=== PATIENT | female | born 1980 | race Caucasian/White ===

== ENCOUNTER 2022-03-05 00:42 | Emergency (ER) | payer OTHER, SELFPAY ==
[2022-03-05] VITALS (15 sets, daily range): BP systolic 102–125; BP diastolic 65–85; PULSE 80–98; RESP 16–25; TEMP 36.6; O2SAT 93–99; BMI 26.6
--- OUTSIDE RECORDS SUMMARY | 2022-03-05 00:47 | XMS_ITS | Encounter Summary ---
:1980 Author Organization [place] Address [facility] [place] [address] Care Team Providers Name Role Phone Louise Brink MD Primary Care Provider Louise Brink MD Unavailable Louise Brink MD Unavailable Encounter Details Date Type Department Care Team Description 03/21/2018 E-Visit [facility] Louise Brink MD Sore throat (Primary Clinic [place] [address] Dx) [address] [place] [address] [place], [place] [phone] (Wo rk) [address] [phone] Social History Tobacco Use Types Packs/Day Years Used Date Smoking Tobacco: Never Smokeless Tobacco: Never Alcohol Use Standard Drinks/Week Comments Yes 0 (1 standard drink = 0.6 oz pure alcoho l) Sex Assigned at Date Recorded Female 10/26/2020 1:28 AM CDT documented as of this encounter Miscellaneous Notes Telephone Encounter - Dona Giron RN - 03/21/2018 11:57 AM CST Patient is coming in at 1:30. Float nurse/lab is aware. SAMPLER Telephone Encounter - Louise Brink MD - 03/21/2018 11:35 AM CST See if you can get her in real soon... I will be off the computer by ~ 2:30. SAMPLER Telephone Encounter - Louise Brink MD - 03/21/2018 11:23 AM CST See if you can help her schedule a nurse only appointment at any of the clinics (the one of her choice) for obtaining a swab of her throat. I do have an order placed. SAMPLER documented in this encounter Plan of Treatment Not on filedocumented as of this encounter Results Strep, Rapid Screen (03/21/2018 1:30 PM MILK SAMPLER) Component Value Ref Test Analysis Performed At [facility] Range Method Time Signature Specimen Throat [place] Description CLINICS [place] Rapid Strep A NEGATIVE: No 03/21/2018 [place] Screen Group A 1:40 PM MILK SAMPLER CLINICS streptococcal [place] antigen detected by immunoassay, await culture report. Specimen Anatomical Collection Method Collection Time Receive d Time (Source) Location / / Volume Laterality Specimen from 03/21/2018 1:30 PM 03/21/20 1:35 throat MILK SAMPLER PM MILK SAMPLER (specimen) Louise Brink MD LAB - MICRO GENERAL ORDERABL ES Performing Organization Address City/State/ZIP Code Phon e Number [facility] [address] [address] [place] [place] [address] documented in this encounter Visit Diagnoses Diagnosis Sore throat - Primary Acute pharyngitis documented in this encounter Additional Health Concerns Assessment Noted Time PHQ-9 Depression Total Score: 1 03/08/2018 5:01 PM CDT documented as of this encounter Care Teams Head Bellhop Captain Relationship Specialty Start Date End Date Louise Brink MD PCP - General Family Practice 07/29/13 09/07/21 [address] [id number] Louise Brink MD PCP - Assigned PCP 08/11/13 07/16/18 [address] [address] [address] Louise Brink MD Assigned PCP 08/11/13 10/21/21 [address] [address] [place] [id number] documented as of this encounter
--- OUTSIDE RECORDS SUMMARY | 2022-03-05 00:47 | XMS_ITS | Encounter Summary ---
:1980 Author Organization [place] Address [address] [place] [address]. [place] [address] Care Team Providers Name Role Phone Louise Brink MD Primary Care Provider Louise Brink MD Unavailable Reason for Visit Reason Onset Date Comments Refill Request 04/22/2019 trinessa Encounter Details Date Type Department Care Team Description 04/22/2019 Refill [facility] Louise Brink MD Refill Request Clinic [place] [address] (trinessa) [address] [address] [address] [place] [phone] (Wo rk) [address] [phone] Social History Tobacco Use Types Packs/Day Years Used Date Smoking Tobacco: Never Smokeless Tobacco: Never Alcohol Use Standard Drinks/Week Comments Yes 0 (1 standard drink = 0.6 oz pure alcoho l) Sex Assigned at Date Recorded Female 10/26/2020 1:28 AM CDT documented as of this encounter Plan of Treatment Not on filedocumented as of this encounter Visit Diagnoses Diagnosis Encounter for surveillance of contracept eleni pills Surveillance of previously prescribed co ntraceptive pill documented in this encounter Additional Health Concerns Assessment Noted Time PHQ-9 Depression Total Score: 1 05/30/2018 5:44 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
--- OUTSIDE RECORDS SUMMARY | 2022-03-05 00:47 | XMS_ITS | Encounter Summary ---
:1980 Author Organization [place] Address [address] [place] [address] Care Team Providers Name Role Phone Louise Brink MD Primary Care Provider Louise Brink MD Unavailable Louise Brink MD Unavailable Encounter Details Date Type Department Care Team Description 05/30/2018 Travel Social History Tobacco Use Types Packs/Day Years Used Date Smoking Tobacco: Never Smokeless Tobacco: Never Alcohol Use Standard Drinks/Week Comments Yes 0 (1 standard drink = 0.6 oz pure alcoho l) Sex Assigned at Date Recorded Female 10/26/2020 1:28 AM CDT documented as of this encounter Plan of Treatment Not on filedocumented as of this encounter Visit Diagnoses Not on filedocumented in this encounter Additional Health Concerns Assessment Noted Time PHQ-9 Depression Total Score: 1 05/30/2018 5:44 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
--- OUTSIDE RECORDS SUMMARY | 2022-03-05 00:47 | XMS_ITS | Encounter Summary ---
:1980 Author Organization [place] Address [address] [place] [address]. [address] Care Team Providers Name Role Phone Louise Brink MD Primary Care Provider Louise Brink MD Unavailable Reason for Visit Reason Comments Medication Refill Encounter Details Date Type Department Care Team Description 06/05/2021 Refill [facility] Louise Brink MD Medication Refill [place] [address] [place] [address] [address] [place] [address] [phone] Social History Tobacco Use Types Packs/Day Years Used Date Smoking Tobacco: Never Smokeless Tobacco: Never Alcohol Use Standard Drinks/Week Comments Yes 0 (1 standard drink = 0.6 oz pure alcoho l) Sex Assigned at Date Recorded Female 10/26/2020 1:28 AM CDT documented as of this encounter Miscellaneous Notes Telephone Encounter - Angel Christian RN - 06/07/2021 3:28 PM CST Previous patient of [facility]. Please review and advise on refill request. Angel Flores RN LATION ENGINEER documented in this encounter Plan of Treatment Not on filedocumented as of this encounter Visit Diagnoses Diagnosis Anxiety Anxiety state, unspecified documented in this encounter Additional Health Concerns Assessment Noted Time PHQ-9 Depression Total Score: 1 11/11/2020 1:39 PM CDT documented as of this encounter Care Teams Fur Feeder Relationship Specialty Start Date End Date Louise Brink MD PCP - General Family Practice 07/29/13 09/07/21 [address] [address] Louise Brink MD Assigned PCP 08/11/13 10/21/21 [id number] [address] [id number] documented as of this encounter
--- OUTSIDE RECORDS SUMMARY | 2022-03-05 00:47 | XMS_ITS | Encounter Summary ---
:1980 Author Organization [place] Address [address] [place] [address] Care Team Providers Name Role Phone Louise Brink MD Primary Care Provider Louise Brink MD Unavailable Reason for Visit Reason Onset Date Comments Imm/Inj 03/05/2019 Flu Shot Encounter Details Date Type Department Care Team Description 03/05/2019 [facility] Imm/Inj (Flu Shot) Visit [place] [address] [address] Social History Tobacco Use Types Packs/Day Years Used Date Smoking Tobacco: Never Smokeless Tobacco: Never Alcohol Use Standard Drinks/Week Comments Yes 0 (1 standard drink = 0.6 oz pure alcoho l) Sex Assigned at Date Recorded Female 10/26/2020 1:28 AM CDT documented as of this encounter Plan of Treatment Not on filedocumented as of this encounter Visit Diagnoses Diagnosis Need for prophylactic vaccination and in oculation against influenza - Primary documented in this encounter Additional Health Concerns Assessment Noted Time PHQ-9 Depression Total Score: 1 05/30/2018 5:44 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
--- OUTSIDE RECORDS SUMMARY | 2022-03-05 00:47 | XMS_ITS | Encounter Summary ---
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
--- OUTSIDE RECORDS SUMMARY | 2022-03-05 00:47 | XMS_ITS | Encounter Summary ---
:1980 Author Organization [place] Address On license of [facility]0 [facility] [place] [address] Care Team Providers Name Role Phone Louise Brink MD Primary Care Provider Louise Brink MD Unavailable Louise Brink MD Unavailable Reason for Visit Reason Comments Anxiety Encounter Details Date Type Department Care Team Description 03/08/2018 Office Visit [facility] Louise Brink MD Anxiety; Clinic [address] [address] [facility] Encounter for surveillance of contracept eleni pills [address] [place], [place] [address] [address] [place], [place] [phone] [address] (Work) [phone] Social History Tobacco Use Types Packs/Day Years Used Date Smoking Tobacco: Never Smokeless Tobacco: Never Alcohol Use Standard Drinks/Week Comments Yes 0 (1 standard drink = 0.6 oz pure alcoho l) Sex Assigned at Date Recorded Female 10/26/2020 1:28 AM CDT documented as of this encounter Last Filed Vital Signs Vital Sign Reading Time Taken Comments Blood Pressure 112/70 03/08/2018 4:19 PM CDT Pulse 68 03/08/2018 4:19 PM CDT Temperature 36.6 ??C (97.9 ??F) 03/08/2018 4:19 PM CDT Respiratory Rate - - Oxygen Saturation 100% 03/08/2018 4:19 PM CDT Inhaled Oxygen Concentration - - Weight 64 kg (141 lb) 03/08/2018 4:19 PM CDT Height - - Body Mass Index 24.59 12/22/2016 8:37 AM CDT documented in this encounter Progress Notes Louise Brink MD - 03/08/2018 4:10 PM CDT SUBJECTIVE: Janet Dean is a 37 year old female who presents to clinic today for the following health issues: Anxiety Follow-Up ?? Status since last visit: No change ?? Other associated symptoms:None ?? Complicating factors: Significant life event: No Current substance abuse: None Depression symptoms: No ANTONY-7 SCORE 11/19/2015 12/22/2016 05/22/2017 Total Score - - - Total Score 1 (minimal anxiety) - 0 (minimal anxiety) Total Score - 1 0 ANTONY-7 ?? Amount of exercise or physical activity: 2-3 days/week for an average of 30- 45 minutes ?? Problems taking medications regularly: No ?? Medication side effects: none ?? Diet: regular (no restrictions) Problem list and histories reviewed & adjusted, as indicated. Additional history: See under ROS Patient Active Problem List Diagnosis ??? CARDIOVASCULAR SCREENING; LDL GOAL LESS THAN 160 ??? Seasonal allergies ??? Anxiety Current Outpatient Prescriptions Medication Sig Dispense Refill ??? ALPRAZolam (XANAX) 0.25 MG tablet Take 1 tablet (0.25 mg) by mouth 3 times daily as needed for anxiety 30 tablet 0 ??? cetirizine (ZYRTEC) 10 MG tablet Take 1 tablet (10 mg) by mouth every evening 30 tablet 1 ??? escitalopram (LEXAPRO) 10 MG tablet TAKE 1 TABLET BY MOUTH DAILY. DUE FOR ANNUAL PHYSICAL IN DECEMBER FOR FURTHER REFILLS. 90 tablet 0 ??? multivitamin, therapeutic with minerals (MULTI-VITAMIN) TABS Take 1 tablet by mouth daily 100 tablet 3 ??? 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 OBJECTIVE: BP 112/70 Pulse 68 Temp 97.9 ??F (36.6 ??C) (Oral) Wt 141 lb (64 kg) SpO2 100% BMI 24.59 kg/m2 Body mass index is 24.59 kg/(m^2). GENERAL APPEARANCE: alert and no distress CV: regular rates and rhythm MS: no edema. PSYCH: mentation appears normal and affect normal/bright PHQ-9 SCORE 12/22/2016 05/22/2017 03/08/2018 Total Score - - - Total Score MyChart - 1 (Minimal depression) - Total Score 1 1 1 ANTONY-7 SCORE 12/22/2016 05/22/2017 03/08/2018 Total Score - - - Total Score - 0 (minimal anxiety) - Total Score 1 0 0 ASSESSMENT/PLAN: Anxiety Doing well. Would like to continue. - escitalopram (LEXAPRO) 10 MG tablet; TAKE 1 TABLET BY MOUTH DAILY. DUE FOR ANNUAL PHYSICAL IN DECEMBER FOR FURTHER REFILLS. - ALPRAZolam (XANAX) 0.25 MG tablet; Take 1 tablet (0.25 mg) by mouth 3 times daily as needed for anxiety Encounter for surveillance of contraceptive pills Refilling. She will be setting up for PE and pap in the near future. - norgestim-eth estrad triphasic (TRINESSA, 28,) 0.18/0.215/0.25 MG-35 MCG per tablet; Take 1 tabletby mouth daily Louise Brink MD, [facility] documented in this encounter Plan of Treatment Not on filedocumented as of this encounter Visit Diagnoses Diagnosis Anxiety Anxiety state, unspecified Encounter for surveillance of contracept eleni pills Surveillance of previously prescribed co ntraceptive pill documented in this encounter Additional Health Concerns Assessment Noted Time PHQ-9 Depression Total Score: 1 03/08/2018 5:01 PM CDT documented as of this encounter Care Teams Clinical Trial Educator Relationship Specialty Start Date End Date Louise Brink MD PCP - General Family Practice 07/29/13 09/07/21 [address] [address] [place] [id number] Louise Brink MD PCP - Assigned PCP 08/11/13 07/16/18 [address] [address] [address] Louise Brink MD Assigned PCP 08/11/13 10/21/21 [address] [address] [address] documented as of this encounter
--- OUTSIDE RECORDS SUMMARY | 2022-03-05 00:47 | XMS_ITS | Encounter Summary ---
:1980 Author Organization [place] Address [address] [place] [address] Care Team Providers Name Role Phone Louise Brink MD Primary Care Provider Louise Brink MD Unavailable Encounter Details Date Type Department Care Team Description 03/05/2019 Travel Social History Tobacco Use Types Packs/Day [...] Depression Total Score: 1 05/30/2018 5:44 PM PACKER AND CARRY OUT documented as of this encounter Care Teams Sequins Stringer Relationship Specialty Start Date End Date Louise Brink MD PCP - General Family Practice 07/29/13 09/07/21 [address] [address] [address] Louise Brink MD Assigned PCP 08/11/13 10/21/21 [address] [address] [address] documented as of this encounter
--- OUTSIDE RECORDS SUMMARY | 2022-03-05 00:47 | XMS_ITS | Encounter Summary ---
:1980 Author Organization [facility] Address [address] [place] [address] Care Team Providers Name Role Phone Louise Brink MD Unavailable Elizabeth Can PA-C Primary Care Provider Reason for Visit Reason Comments Recheck Medication Pt is fasting Encounter Details Date Type Department Care Team Description 10/14/2021 Office Visit [facility] Elizabeth Can Routi ne general medical examination at a health care facility (Primary Dx); [facility] [place] Anxiety; [id number] [address] [address] [place] Encounter f or surveillance of contraceptive pills; [facility] Lipid screening; [place] Visit for scr eening mammogram; [id number] History of COVID-19; [phone] Overweight (BMI 25.0-29.9) (Work) Social History Tobacco Use Types Packs/Day Years Used Date Smoking Tobacco: Never Smokeless Tobacco: Never Alcohol Use Standard Drinks/Week Comments Yes 0 (1 standard drink = 0.6 oz pure alcoho l) Sex Assigned at Date Recorded Female 10/26/2020 1:28 AM CDT COVID-19 Exposure Response Date Recorded In the last 10 days, have you been in contact with No / Unsu re 10/14/2021 2:09 PM CDT someone who was confirmed or suspected to have Coronavirus/COVID-19? documented as of this encounter Last Filed Vital Signs Vital Sign Reading Time Taken Comments Blood Pressure 112/78 10/14/2021 2:22 PM CDT Pulse 71 10/14/2021 2:22 PM CDT Temperature 36.7 ??C (98 ??F) 10/14/2021 2:22 PM CDT Respiratory Rate 16 10/14/2021 2:22 PM CDT Oxygen Saturation 97% 10/14/2021 2:22 PM CDT Inhaled Oxygen Concentration - - Weight 71.5 kg (157 lb 11.2 oz) 10/14/2021 2:22 PM CDT Height 160 cm (5' 3) 10/14/2021 2:22 PM CDT Body Mass Index 27.94 10/14/2021 2:22 PM CDT documented in this encounter Patient Instructions Patient InstructionsKorpElizabeth lorenz PA-C - 10/14/2021 2:30 PM CDT Preventive Health Recommendations Female Ages 40 to 49 Yearly exam: ??? See your health care provider every year in order to 1. Review health changes. 2. Discuss preventive care. 3. Review your medicines if your doctor prescribed any. ??? Get a Pap test every three years (unless you have an abnormal result and your provider advises testing more often). ??? If you get Pap tests with HPV test, you only need to test every 5 years, unless you have an abnormal result. You do not need a Pap test if your uterus was removed (hysterectomy) and you have not had cancer. ??? You should be tested each year for STDs (sexually transmitted diseases), if you're at risk. ??? Ask your doctor if you should have a mammogram. ??? Have a colonoscopy (test for colon cancer) if someone in your family has had colon cancer or polyps before age 50. ??? Have a cholesterol test every 5 years. ??? Have a diabetes test (fasting glucose) after age 45. If you are at risk for diabetes, you shouldhave this test every 3 years. Shots: Get a flu shot each year. Get a tetanus shot every 10 years. Nutrition: ??? Eat at least 5 servings of fruits and vegetables each day. ??? Eat whole-grain bread, whole-wheat pasta and brown rice instead of white grains and rice. ??? Get adequate Calcium and Vitamin D. Lifestyle ??? Exercise at least 150 minutes a week (an average of 30 minutes a day, 5 days a week). This will help you control your weight and prevent disease. ??? Limit alcohol to one drink per day. ??? No smoking. ??? Wear sunscreen to prevent skin cancer. ??? See your dentist every six months for an exam and cleaning. documented in this encounter Progress Notes Elizabeth Can PA-C - 10/14/2021 2:30 PM CDT Subjective SUBJECTIVE: CC: Janet Dean is an 41 year old woman who presents for preventive health visit. Patient has been advised of split billing requirements and indicates understanding: Yes History of Present Illness Reason for visit: Yearly exam and medication refill She eats 4 or more servings of fruits and vegetables daily.She consumes 0 sweetened beverage(s) daily.She exercises with enough effort to increase her heart rate 30 to 60 minutes per day. She exerciseswith enough effort to increase her heart rate 4 days per week. She is taking medications regularly. She is not taking prescribed medications regularly due to None. Today's PHQ-9 PHQ-9 Total Score: 1 PHQ-9 Q9 Thoughts of better off /self-harm past 2 weeks : Not at all How difficult have these problems made it for you to do your work, take care of things at home, or get along with other people: Not difficult at all Today's ANTONY-7 Score: 2 Healthy Habits: Getting at least 3 servings of Calcium per day: Yes Bi-annual eye exam: Yes Dental care twice a year: Yes Sleep apnea or symptoms of sleep apnea: None Diet: Regular (no restrictions) Frequency of exercise: 4-5 days/week Duration of exercise: 30-45 minutes Taking medications regularly: 0 Barriers to taking medications: None Medication side effects: None PHQ-2 Total Score: 0 Additional concerns today: Yes Medication Followup of Xanax, escitalopram ?? Taking Medication as prescribed: yes ?? Side Effects: None ?? Medication Helping Symptoms: yes PHQ 08/31/2020 11/11/2020 10/14/2021 PHQ-9 Total Score 1 1 1 Q9: Thoughts of better off /self-harm past 2 weeks Not at all Not at all Not at all ANTONY-7 SCORE 08/31/2020 11/11/2020 10/14/2021 Total Score - - - Total Score - - 2 (minimal anxiety) Total Score 4 0 2 Doing really well with escitalopram. No side effects or concerns. Feels stable with current dosing. She has a prescription for xanax which she takes rarely - usually only takes prior to travel. Prescription for 10 tablets lasts entire year. On OCP. Regular periods. No side effects or concerns. No contraindications. Non- smoker, no migraine with aura, no family or personal history of blood clotting disorder. No HTN. 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 Has 2 sons - one in middle school and one in high school. Today's PHQ-2 Score: PHQ-2 (??1999 Pfizer) 10/14/2021 Q1: Little interest or pleasure in doing things 0 Q2: Feeling down, depressed or hopeless 0 PHQ-2 Score 0 PHQ-2 Total Score (12-17 Years)- Positive if 3 or more points; Administer PHQ-A if positive - Q1: Little interest or pleasure in doing things Not at all Q2: Feeling down, depressed or hopeless Not at all PHQ-2 Score 0 Abuse: Current or Past (Physical, Sexual or Emotional) - No Do you feel safe in your environment? Yes Social History Tobacco Use ??? Smoking status: Never Smoker ??? Smokeless tobacco: Never Used Substance Use Topics ??? Alcohol use: Yes Alcohol/week: 0.0 - 0.8 standard drinks Alcohol Use 11/11/2020 Prescreen: >3 drinks/day or >7 drinks/week? No Prescreen: >3 drinks/day or >7 drinks/week? - Reviewed orders with patient. Reviewed health maintenance and updated orders accordingly - Yes Lab work is in process Labs reviewed in [facility] BP Readings from Last 3 Encounters: 10/14/21 112/78 11/11/20 100/74 06/17/19 118/72 Wt Readings from Last 3 Encounters: 10/14/21 71.5 kg (157 lb 11.2 oz) 11/11/20 70.8 kg (156 lb) 06/17/19 68.3 kg (150 lb 9.6 oz) Patient Active Problem List Diagnosis ??? CARDIOVASCULAR SCREENING; LDL GOAL LESS THAN 160 ??? Seasonal allergies ??? Anxiety ??? Overweight (BMI 25.0-29.9) Past Surgical History: Procedure Laterality Date ??? SECTION x2 Social History Tobacco Use ??? Smoking status: Never Smoker ??? Smokeless tobacco: Never Used Substance Use Topics ??? Alcohol use: Yes Alcohol/week: 0.0 - 0.8 standard drinks Family History Problem Relation Age of Onset ??? Depression Father ??? Diabetes Maternal Grandmother ??? Cancer Maternal Grandfather Skin ??? Myocardial Infarction Maternal Grandfather 50 ??? Cerebrovascular Disease Maternal Grandfather stroke ??? Hypertension Paternal Grandmother ??? Colon Cancer Paternal Grandfather 70 Current Outpatient Medications Medication Sig Dispense Refill ??? ALPRAZolam (XANAX) 0.25 MG tablet Take 1 tablet (0.25 mg) by mouth 3 times daily as needed for anxiety 10 tablet 0 ??? escitalopram (LEXAPRO) 20 MG tablet Take 1 tablet (20 mg) by mouth daily 90 tablet 1 ??? norgestim-eth estrad triphasic (TRI-LINYAH) 0.18/0.215/0.25 MG-35 MCG tablet Take 1 tablet by mouth daily 84 tablet 3 No Known Allergies Recent Labs Lab Test 11/11/20 1331 12/22/16 0905 LDL 152* 121* HDL 80 72 TRIG 92 108 Breast Cancer Screening: [facility]-7: No flowsheet data found. Mammogram Screening - Offered annual screening and updated Health Maintenance for mutual plan based on risk factor consideration Pertinent mammograms are reviewed under the imaging tab. History of abnormal Pap smear: NO - age 30-65 PAP every 5 years with negative HPV co-testing recommended Last 3 Pap and HPV Results: PAP / HPV Latest Ref Rng & Units 05/30/2018 05/21/2015 PAP (Historical) - NIL NIL HPV16 NEG:Negative Negative - HPV18 NEG:Negative Negative - HRHPV NEG:Negative Negative - Reviewed and updated as needed this visit by clinical staff Tobacco Allergies Meds Problems Med Hx Surg Hx Fam Hx Reviewed and updated as needed this visit by Provider Tobacco Allergies Meds Problems Med Hx Surg Hx Fam Hx Past Medical History: Diagnosis Date ??? Anxiety ??? Seasonal allergies Past Surgical History: Procedure Laterality Date ??? SECTION x2 OB History Para Term AB Living 2 2 2 0 0 2 SAB IAB Ectopic Multiple Live Births 0 0 0 0 0 # Outcome Date GA Lbr Vidal/2nd Weight Sex Delivery Anes PTL Lv 2 Term 1 Term Review of Systems CONSTITUTIONAL: NEGATIVE for fever, chills, change in weight INTEGUMENTARU/SKIN: NEGATIVE for worrisome rashes, moles or lesions EYES: NEGATIVE for vision changes or irritation ENT: NEGATIVE for ear, mouth and throat problems RESP: NEGATIVE for significant cough or SOB BREAST: NEGATIVE for masses, tenderness or discharge CV: NEGATIVE for chest pain, palpitations or peripheral edema GI: NEGATIVE for nausea, abdominal pain, heartburn, or change in bowel habits : NEGATIVE for unusual urinary or vaginal symptoms. Periods are regular. MUSCULOSKELETAL: NEGATIVE for significant arthralgias or myalgia NEURO: NEGATIVE for weakness, dizziness or paresthesias PSYCHIATRIC: NEGATIVE for changes in mood or affect OBJECTIVE: BP 112/78 (BP Location: Right arm, Patient Position: Sitting) Pulse 71 Temp 98 ??F (36.7 ??C) (Oral) Resp 16 Ht 1.6 m (5' 3) Wt 71.5 kg (157 lb 11.2 oz) LMP 10/12/2021 (Approximate) [id number]% No BMI 27.94 kg/m?? Physical Exam GENERAL: healthy, alert and no distress EYES: Eyes grossly normal to inspection, PERRL and conjunctivae and sclerae normal HENT: ear canals and TM's normal, nose and mouth without ulcers or lesions NECK: no adenopathy, no asymmetry, masses, or scars and thyroid normal to palpation RESP: lungs clear to auscultation - no rales, rhonchi or wheezes CV: regular rate and rhythm, normal S1 S2, no S3 or S4, no murmur, click or rub, no peripheral edemaand peripheral pulses strong ABDOMEN: soft, nontender, no hepatosplenomegaly, no masses and bowel sounds normal MS: no gross musculoskeletal defects noted, no edema SKIN: no suspicious lesions or rashes NEURO: Normal strength and tone, mentation intact and speech normal PSYCH: mentation appears normal, affect normal/bright Diagnostic Test Results: Labs reviewed in Epic ASSESSMENT/PLAN: Routine general medical examination at a health care facility Reviewed personal and family history. Reviewed age appropriate screenings. Reviewed healthy BP and BMI ranges. Counseled on lifestyle modifications for optimal mental and physical health. Discussed age-appropriate health maintanence. Recommended any needed vaccinations. Continue to focus on well balanced diet and exercise. Anxiety Chronic, well controlled. Continue present management. 10 xanax lasts 1 year - usually only uses before travel. - escitalopram (LEXAPRO) 20 MG tablet; Take 1 tablet (20 mg) by mouth daily - ALPRAZolam (XANAX) 0.25 MG tablet; Take 1 tablet (0.25 mg) by mouth 3 times daily as needed for anxiety - OFFICE/OUTPT VISIT,EST,LEVL III Encounter for surveillance of contraceptive pills Doing well, no contraindications. - norgestim-eth estrad triphasic (TRI-LINYAH) 0.18/0.215/0.25 MG-35 MCG tablet; Take 1 tablet by mouth daily Lipid screening - Lipid panel reflex to direct LDL Fasting; Future - Comprehensive metabolic panel (BMP + Alb, Alk Phos, ALT, AST, Total. Bili, TP); Future - Lipid panel reflex to direct LDL Fasting - Comprehensive metabolic panel (BMP + Alb, Alk Phos, ALT, AST, Total. Bili, TP) Visit for screening mammogram - *MA Screening Digital Bilateral; Future History of COVID-19 She had COVID in August. Wants to hold off on booster for a little while longer to hope to get the longest amount of protection. COUNSELING: Reviewed preventive health counseling, as reflected in patient instructions Estimated body mass index is 27.94 kg/m?? as calculated from the following: Height as of this encounter: 1.6 m (5' 3). Weight as of this encounter: 71.5 kg (157 lb 11.2 oz). Weight management plan: Discussed healthy diet and exercise guidelines She reports that she has never smoked. She has never used smokeless tobacco. Counseling Resources: ATP IV Guidelines Pooled Cohorts Equation Calculator Breast Cancer Risk Calculator BRCA-Related Cancer Risk Assessment: FHS-7 Tool FRAX Risk Assessment ICSI Preventive Guidelines Dietary Guidelines for Americans, 2010 USDA's MyPlate ASA Prophylaxis Lung CA Screening Elizabeth Can PA-C [facility] documented in this encounter Plan of Treatment Not on filedocumented as of this encounter Procedures Procedure Name Priority Date/Time Associated Comments Diagnosis LIPID REFLEX TO DIRECT Routine 10/14/2021 2:57 PM Lipid screen ing Results for this LDL PANEL CDT procedure are i n the results section. COMPREHENSIVE Routine 10/14/2021 2:57 PM Lipid screening Resul ts for this METABOLIC PANEL CDT procedure ar e in the results section. documented in this encounter Results Comprehensive metabolic panel (BMP + Alb, Alk Phos, ALT, AST, Total. Bili, TP) (10/14/2021 2:57 PM CDT) P athologist Signature Sodium 138 133 - 144 10/15/2021 [facility] mmol/L 10:23 AM CDT Potassium 3.7 3.4 - 5.3 10/15/2021 [facility] mmol/L 10:23 AM CDT Chloride 107 94 - 109 10/15/2021 [facility] mmol/L 10:23 AM CDT Carbon Dioxide 25 20 - 32 10/15/2021 [facility] (CO2) mmol/L 10:23 AM CDT Anion Gap 6 3 - 14 10/15/2021 [facility] mmol/L 10:23 AM CDT Urea Nitrogen 10 7 - 30 10/15/2021 [facility] mg/dL 10:23 AM CDT Creatinine 0.87 0.52 - 10/15/2021 [facility] 1.04 mg/dL 10:23 AM CDT Calcium 8.6 8.5 - 10.1 10/15/2021 [facility] mg/dL 10:23 AM CDT Glucose 86 70 - 99 10/15/2021 [facility] mg/dL 10:23 AM CDT Alkaline 56 40 - 150 10/15/2021 [facility] Phosphatase U/L 10:23 AM CDT AST 15 0 - 45 U/L 10/15/2021 [facility] 10:23 AM CDT ALT 15 0 - 50 U/L 10/15/2021 [facility] 10:23 AM CDT Protein Total 8.1 6.8 - 8.8 10/15/2021 [facility] g/dL 10:23 AM CDT Albumin 3.7 3.4 - 5.0 10/15/2021 [facility] g/dL 10:23 AM CDT Bilirubin Total 0.4 0.2 - 1.3 10/15/2021 [facility] mg/dL 10:23 AM CDT GFR Estimate 86 >60 10/15/2021 [facility] mL/min/1.7 10:23 AM CDT 3m2 Comment: Effective May 03, 2021 eGF Rcr in adults is calculated using the 2020 CKD-EPI creatinine equation which includ es age and gender (Dennis et al., NEM, DOI: 10.1056/RKDZah7135604) Specimen Anatomical Collection Method / Collection Time Recei dione Time (Source) Location / Volume Laterality Blood STRUCTURE OF RIGHT Venipuncture / 10/14/2021 2:57 06/0 07/2021 2:57 UPPER LIMB / Unknown PM CDT PM CDT Unknown Elizabeth Can PA-C LAB - BLOOD ORDERABLES Performing Organization Address City/State/ZIP Code Phon e Number [facility] [place], [place] [phone] [place] [facility] [id number] [place] [address] Lab (no room number, 1st floor of clinic) [facility] [place], [place] [phone] [facility] [phone] [address] Lab (no room number, 1st floor of clinic) (ABNORMAL) Lipid panel reflex to direct LDL Fasting (10/14/2021 2:57 PM CDT) [facility] Method Time Signature Cholesterol 225 (H) <200 10/15/2021 [facility] mg/dL 10:24 AM CDT Triglycerides 82 <150 10/15/2021 [facility] mg/dL 10:24 AM CDT Direct Measure 84 >=50 10/15/2021 [facility] HDL mg/dL 10:24 AM CDT LDL Cholesterol 125 (H) <=100 10/15/2021 [facility] Calculated mg/dL 10:24 AM CDT Non HDL 141 (H) <130 10/15/2021 [facility] Cholesterol mg/dL 10:24 AM CDT Patient Fasting > Yes 10/15/2021 [facility] RY 8hrs? 10:24 AM CDT Specimen Anatomical Collection Method / Collection Time Recei dione Time (Source) Location / Volume Laterality Blood STRUCTURE OF RIGHT Venipuncture / 10/14/2021 2:57 06/0 07/2021 2:57 UPPER LIMB / Unknown PM CDT PM CDT Unknown Narrative [facility] - 10/15/2021 10:24 AM CDT Cholesterol Desirable: ??<200 mg/dL Triglycerides Normal: ??Less than 150 mg/dL Borderline High: ??150-199 mg/dL High: ??200-499 mg/dL Very High: ??Greater than or equal to 50 0 mg/dL Direct Measure HDL Female: ??Greater than or equal to 50 mg /dL Male: ??Greater than or equal to 40 mg/d L LDL Cholesterol Desirable: ??<100mg/dL Above Desirable: ??100-129 mg/dL Borderline High: ??130-159 mg/dL High: ??160-189 mg/dL Very High: ??>= 190 mg/dL Non HDL Cholesterol Desirable: ??130 mg/dL Above Desirable: ??130-159 mg/dL Borderline High: ??160-189 mg/dL High: ??190-219 mg/dL Very High: ??Greater than or equal to 22 0 mg/dL Elizabeth Can PA-C LAB - BLOOD ORDERABLES Performing Organization Address City/State/ZIP Code Phon e Number [facility] [place], [place] [phone] [place] [facility] [address] [place] [address] Lab (no room number, 1st floor of clinic) [facility] [place], [place] [phone] [facility] [address] [facility] [address] Lab (no room number, 1st floor of clinic) documented in this encounter Visit Diagnoses Diagnosis Routine general medical examination at a health care facility - Primary Anxiety Anxiety state, unspecified Encounter for surveillance of contracept eleni pills Surveillance of previously prescribed co ntraceptive pill Lipid screening Screening for lipoid disorders Visit for screening mammogram Other screening mammogram History of COVID-19 Overweight (BMI 25.0-29.9) Overweight documented in this encounter Additional Health Concerns Assessment Noted Time PHQ-9 Depression Total Score: 1 10/14/2021 2:17 PM CDT documented as of this encounter Care Teams Research Study Assistant Relationship Specialty Start Date End Date Elizabeth Can PA-C PCP - General Family Medicine 10/14/21 [id number] [address] [place] [id number] Louise Brink MD Assigned PCP 08/11/13 10/21/21 [id number] [address] [place] [address] documented as of this encounter
--- OUTSIDE RECORDS SUMMARY | 2022-03-05 00:47 | XMS_ITS | Encounter Summary ---
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
--- OUTSIDE RECORDS SUMMARY | 2022-03-05 00:47 | XMS_ITS | Encounter Summary ---
:1980 Author Organization [facility] Address [address] [place] [address]. [place] [address] Care Team Providers Name Role Phone Louise Brink MD Primary Care Provider Louise Brink MD Unavailable Elizabeth Can PA-C Primary Care Provider Elizabeth Can PA-C Unavailable Reason for Visit Reason Comments Medication Refill Encounter Details Date Type Department Care Team Description 01/18/[address] [facility] Louise Brink MD Medication Refill [place] [address] [address] [address] [place] [address] [place], [place] [phone] Social History Tobacco Use Types Packs/Day Years Used Date Smoking Tobacco: Never Smokeless Tobacco: Never Alcohol Use Standard Drinks/Week Comments Yes 0 (1 standard drink = 0.6 oz pure alcoho l) Sex Assigned at Date Recorded Female 10/26/2020 1:28 AM CDT documented as of this encounter Miscellaneous Notes Telephone Encounter - Maia Calixto RN - 01/20/2020 5:41 PM CDT Prescription approved per [facility] protocol. 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
--- OUTSIDE RECORDS SUMMARY | 2022-03-05 00:47 | XMS_ITS | Encounter Summary ---
:1980 Author Organization [place] Address [address] [facility] [place] [address] Care Team Providers Name Role Phone Louise Brink MD Primary Care Provider Louise Brink MD Unavailable Louise Brink MD Unavailable Reason for Visit Reason Comments Medication Refill escitalopram (LEXAPRO) 10 MG tablet Encounter Details Date Type Department Care Team Description 02/24/2018 Refill [facility] Louise Brink MD Medication Refill Clinic [place] [address] (escitalopram (LEXAPRO) [address] [place] [address] 10 MG tablet) ROBERTH Hammond [phone] (Wo rk) [address] [phone] Social History Tobacco Use Types Packs/Day Years Used Date Smoking Tobacco: Never Smokeless Tobacco: Never Alcohol Use Standard Drinks/Week Comments Yes 0 (1 standard drink = 0.6 oz pure alcoho l) Sex Assigned at Date Recorded Female 10/26/2020 1:28 AM CDT documented as of this encounter Miscellaneous Notes Telephone Encounter - My Haddad RN - 02/27/2018 8:34 AM CDT Call to pt- has enough medication to get to appointment. Adv that I would only be able to refill #30, but waiting Dr. Brink can do #90 when seen. Pt agrees. Will deny this RX. My Ventura, RN Telephone Encounter - David Stephenson - 02/24/2018 1:19 PM CDT Requested Prescriptions Pending Prescriptions Disp Refills ??? escitalopram (LEXAPRO) 10 MG tablet [Pharmacy Med Name: ESCITALOPRAM 10MG TABLETS] Last Written Prescription Date: 12/05/2017 Last Fill Quantity: 90 tablet, # refills: 0 Last office visit: 12/22/2016 with prescribing provider: Louise Brink MD Future Office Visit: Next 5 appointments (look out 90 days) Mar 08, 2018 4:10 PM CDT Abida Quispe with Louise Brink MD [facility] ([facility] [address] [facility] [id number] 90 tablet 0 Sig: TAKE 1 TABLET BY MOUTH DAILY. DUE FOR ANNUAL PHYSICAL IN DECEMBER FOR FURTHER REFILLS SSRIs Protocol Passed 02/24/2018 8:08 AM PHQ-9 SCORE 11/19/2015 12/22/2016 05/22/2017 Total Score - - - Total Score MyChart 1 (Minimal depression) - 1 (Minimal depression) Total Score - 1 1 ANTONY-7 SCORE 11/19/2015 12/22/2016 05/22/2017 Total Score - - - Total Score 1 (minimal anxiety) - 0 (minimal anxiety) Total Score - 1 0 Passed - Recent (12 mo) or future (30 days) visit within the authorizing provider's specialty Patient had office visit in the last 12 months or has a visit in the next 30 days with authorizing provider or within the authorizing provider's specialty. See Patient Info tab in inbasket, or Choose Columns in Meds & Orders section of the refill encounter. 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
--- OUTSIDE RECORDS SUMMARY | 2022-03-05 00:47 | XMS_ITS | Encounter Summary ---
:1980 Author Organization [place] Address [address] [place] [address]. [place] [address] Care Team Providers Name Role Phone Louise Brink MD Primary Care Provider Louise Brink MD Unavailable Reason for Visit Reason Onset Date Comments Appointment 06/19/2019 Encounter Details Date Type Department Care Team Description 06/19/[address] [facility] Louise Brink MD Appointment [place] [address] [facility] [address] [place] [address] [place], [place] [phone] Social History Tobacco Use Types Packs/Day Years Used Date Smoking Tobacco: Never Smokeless Tobacco: Never Alcohol Use Standard Drinks/Week Comments Yes 0 (1 standard drink = 0.6 oz pure alcoho l) Sex Assigned at Date Recorded Female 10/26/2020 1:28 AM CDT documented as of this encounter Miscellaneous Notes Telephone Encounter - Andres Higginbotham - 06/19/2019 1:10 PM CST We did not reach Janet Dean, we left a message with our contact number [phone]. If we do nothear from them within the next 3 business days we will mail a letter offering our scheduling services. If they do call to schedule, in the future, we will inform you of the outcome. Thank you for your referral, [facility] Outpatient Intake CAL LIAISON documented in this encounter Plan of Treatment Not on filedocumented as of this encounter Visit Diagnoses Not on filedocumented in this encounter Additional Health Concerns Assessment Noted Time PHQ-9 Depression Total Score: 0 06/17/2019 5:34 PM MEDICAL LIAISON documented as of this encounter Care Teams Nylon Hot Wire Cutter Relationship Specialty Start Date End Date Louise Brink MD PCP - General Family Practice 07/29/13 09/07/21 [id number] [address] [id number] Louise Brink MD Assigned PCP 08/11/13 10/21/21 [id number] [address] [id number] documented as of this encounter
--- OUTSIDE RECORDS SUMMARY | 2022-03-05 00:47 | XMS_ITS | Encounter Summary ---
:1980 Author Organization [facility] Address [address] [place] [address] Care Team Providers Name Role Phone Louise Brink MD Primary Care Provider Luoise Brink MD Unavailable Encounter Details Date Type Department Care Team Description 07/08/2019 Office Visit [facility] Kailee Pacheco LP Generalized anxiety Services [facility] CORE JAVA ENGINEER KNOB disorder (P rimary Dx) [facility] CORE JAVA [place] [address] [phone] Social History Tobacco Use Types Packs/Day Years Used Date Smoking Tobacco: Never Smokeless Tobacco: Never Alcohol Use Standard Drinks/Week Comments Yes 0 (1 standard drink = 0.6 oz pure alcoho l) Sex Assigned at Date Recorded Female 10/26/2020 1:28 AM CDT documented as of this encounter Progress Notes Kailee Pacheco LP - 07/08/2019 5:30 PM CST Images from the original note were not included. Adult Intake Structured Interview Standard Diagnostic Assessment CLIENT'S NAME: Janet Dean : 1980 ACCT. NUMBER: [id number] DATE OF SERVICE: 07/08/19 VIDEO VISIT: No Identifying Information: Client is a 38 year old, , female. Client was referred for counseling by self. 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 Clientattended the session alone. Client's Statement of Presenting Concern: Client reports the reason for seeking therapy at this time as help with anxiety. Client stated that her symptoms have resulted in the following functional impairments: anxiety, afriad of getting sick while away from home. Uses xanax to be able to fly. History of Presenting Concern: Client reports that these problem(s) began over the course of time - after her 2nd child's . Client has attempted to resolve these concerns in the past through seeking support. Client reports thatother professional(s) are not involved in providing support / services. Social History: Client reported she grew up in [place]. They were the first born of 2 children. This is an intact family and parents remain . Client reported that her childhood was okay, but dad was a yeller. Client described her current relationships with family of origin as good. Client reported a history of 1 marriage. Client has been for 15 years. Client reported having 2 children. Client identified some stable and meaningful social connections. Client reported that she has not been involved with the legal system. Client's highest education level was college graduate. Client did not identify any learning problems. There are no ethnic, cultural or sikhism factors that may be relevant for therapy. Client identified her preferred language to be Indian. Client reported she does not need the assistance of an case maker or other support involved in therapy. Modifications will not be used to assist communication in therapy. Client did not serve in the . Client reports family history includes Cancer in her maternal grandfather; Cancer - colorectal (age of onset: 70) in her paternal grandfather; Cerebrovascular Disease in her maternal grandfather; Depression in her father; Diabetes in her maternal grandmother; Hypertension in her paternal grandmother; Myocardial Infarction (age of onset: 50) in her maternal grandfather. Mental Health History: Client reported the following biological family members or relatives with mental health issues: Father experienced Anxiety and Depression. Client previously received the following mental health diagnosis: Anxiety. Client has received the following mental health services in the past: medication(s) fromphysician / PCP. Hospitalizations: None. Client is not currently receiving any mental health services. Chemical Health History: Client reported the following biological family members or relatives with chemical health issues: Uncle reportedly used alcohol . Client has not received chemical dependency treatment in the past. Client is not currently receiving any chemical dependency treatment. Client reports no problems as a result of their drinking / drug use. Client Reports: Client reports using alcohol 2 times per week and has 1 beers and glasses of wine at a time. Patientfirst started drinking at age 17. Patient reported date of last use was this week.. Patient reports heaviest use is current use. Client denies using tobacco. Client denies using marijuana. Client reports using caffeine 1 times per day and drinks 1 at a time. Patient started using caffeineat age . unknown. Client denies using street drugs. Client denies the non-medical use of prescription or over the counter drugs. CAGE: None of the patient's responses to the CAGE screening were positive / Negative CAGE score Based on the negative Cage-Aid score and clinical interview there are not indications of drug or alcohol abuse. Discussed the general effects of drugs and alcohol on health and well-being. Therapist gave client printed information about the effects of chemical use on her health and well being. Significant Losses / Trauma / Abuse / Neglect Issues: 3 weeks ago spouse lost his job Has a friend with cancer of father -in-law Grandparent emergency for son's for next was planned Issues of possible neglect are not present. Medical Issues: Client has had a physical exam to rule out medical causes for current symptoms. Date of last physical exam was within the past year. Client was encouraged to follow up with PCP if symptoms were to develop. The client has a [facility] Primary Care Provider, who is named Louise Brink. The client reportsnot having a psychiatrist. Client reports the following current medical concerns: see emr. The client denies the presence of chronic or episodic pain. There are not significant nutritional concerns. Ican't have dairy. Patient reports current meds as: No outpatient medications have been marked as taking for the 07/08/19 encounter (Office Visit) with Kailee Pacheco LP. Client Allergies: No Known Allergies Medical History: Past Medical History: Diagnosis Date ??? Anxiety ??? Seasonal allergies Medication Adherence: Client reports taking prescribed medications as prescribed. Client was provided recommendation to follow-up with prescribing physician. Mental Status Assessment: Appearance: Appropriate Eye Contact: Good Psychomotor Behavior: Normal Attitude: Cooperative Orientation: All Speech Rate / Production: Normal Volume: Normal Mood: Anxious Normal Affect: Appropriate Worrisome Thought Content: Clear Thought Form: Coherent Logical Insight: Good Review of Symptoms: Depression: No symptoms Renata: No symptoms Psychosis: No symptoms Anxiety: Worries Panic: Shortness of Breath Sense of Impending Doom Post Traumatic Stress Disorder: No symptoms Obsessive Compulsive Disorder: No symptoms Eating Disorder: No symptoms Oppositional Defiant Disorder: No symptoms ADD / ADHD: No symptoms Conduct Disorder: No symptoms Safety Assessment: History of Safety Concerns: Client denied a history of suicidal ideation. Client denied a history of suicide attempts. Client denied a history of homicidal ideation. Client denied a history of self-injurious ideation and behaviors. Client denied a history of personal safety concerns. Client denied a history of assaultive behaviors. Current Safety Concerns: Client denies current suicidal ideation. Client denies current homicidal ideation and behaviors. Client denies current self-injurious ideation and behaviors. Client denies current concerns for personal safety. Client reports the following protective factors: spirituality, positive relationships positive family connections, dedication to family/friends, safe and stable environment, regular sleep, secure attachment, abstinence from substances, adherence with prescribed medication, living with other people, gale ly obligations, structured day, effective problem-solving skills, committment to well-being, positive social skills, financial stability and strong sense of self-worth/esteem Client reports there are no firearms in the house. Plan for Safety and Risk Management: Recommended that patient call 911 or go to the local ED should there be a change in any of these risk factors. Client's Strengths and Limitations: Client identified the following strengths or resources that will help her succeed in counseling: commitment to health and well being, friends / good social support, family support, insight, intelligence, motivation and strong social skills. Client identified the following supports: family and friends. Things that may interfere with the client's success in counseling include: none. Diagnostic Criteria: - Restlessness or feeling keyed up or on edge. - Difficulty concentrating or mind going blank. - Irritability. - Muscle tension. Functional Status: Client's symptoms have caused and are causing reduced functional status in the following areas: anxiety, panic, flying DSM5 Diagnoses: (Sustained by DSM5 Criteria Listed Above) Diagnoses: 300.02 (F41.1) Generalized Anxiety Disorder Psychosocial & Contextual Factors: anxiety WHODAS 2.0 (12 item) This questionnaire asks about difficulties due to health conditions. Health conditions include disease or illnesses, other health problems that may be short or long lasting, injuries, mental health oremotional problems, and problems with alcohol or drugs. Think back over the past 30 days and answer these questions, thinking about how much difficulty youhad doing the following activities. For each question, please the [place] only one response. S1 Standing for long periods such as 30 minutes? None = 1 S2 Taking care of household responsibilities? None = 1 S3 Learning a new task, for example, learning how to get to a new place? None = 1 S4 How much of a problem do you have joining community activities (for example, festivals, religiousor other activities) in the same way as anyone else can? Mild = 2 S5 How much have you been emotionally affected by your health problems? Moderate = 3 In the past 30 days, how much difficulty did you have in: S6 Concentrating on doing something for ten minutes? None = 1 S7 Walking a long distance such as a kilometer (or equivalent)? None = 1 S8 Washing your whole body? None = 1 S9 Getting dressed? None = 1 S10 Dealing with people you do not know? None = 1 S11 Maintaining a friendship? None = 1 S12 Your day to day work? None = 1 H1 Overall, in the past 30 days, how many days were these difficulties present? Record number of days 0 H2 In the past 30 days, for how many days were you totally unable to carry out your usual activitiesor work because of any health condition? Record number of days 0 H3 In the past 30 days, not counting the days that you were totally unable, for how many days did you cut back or reduce your usual activities or work because of any health condition? Record number of days 0 Attendance Agreement: Client has signed Attendance Agreement:Yes Collaboration: Collaboration / coordination of treatment will be initiated with the following support professionals: primary care physician. Preliminary Treatment Plan: The client reports no currently identified sikhism, ethnic or cultural issues relevant to therapy. Stock Raiser services are not indicated. Modifications to assist communication are not indicated. The concerns identified by the client will be addressed in therapy. Initial Treatment will focus on: Anxiety - .. cgi = 4/4 On 07-08-19 As a preliminary treatment goal, client will experience a reduction in anxiety, will develop more effective coping skills to manage anxiety symptoms, will develop healthy cognitive patterns and beliefsand will increase ability to function adaptively. The focus of initial interventions will be to alleviate anxiety, increase ability to function adaptively and increase coping skills. Referral to another professional/service is not indicated at this time.. A Release of Information is not needed at this time. Report to child / adult protection services was NA. Patient will have open access to their mental health medical record. Kailee Pacheco LP July 08, 2019 TRICAL VARIETY AGENT documented in this encounter Plan of Treatment Not on filedocumented as of this encounter Visit Diagnoses Diagnosis Generalized anxiety disorder - Primary documented in this encounter Additional Health Concerns Assessment Noted Time PHQ-9 Depression Total Score: 1 07/08/2019 5:45 PM THEATRICAL VARIETY AGENT documented as of this encounter Care Teams Predator Control Trapper Relationship Specialty Start Date End Date Louise Brink MD PCP - General Family Practice 07/29/13 09/07/21 [id number] [address] [id number] Louise Brink MD Assigned PCP 08/11/13 10/21/21 [address] [address]LL [id number] documented as of this encounter
--- OUTSIDE RECORDS SUMMARY | 2022-03-05 00:47 | XMS_ITS | Encounter Summary ---
:1980 Author Organization [place] Address [address] [facility] [place] [address] Care Team Providers Name Role Phone Louise Brink MD Primary Care Provider Louise Brink MD Unavailable Reason for Visit Reason Comments Recheck Medication Encounter Details Date Type Department Care Team Description 08/31/2020 Virtual Visit [facility] Louise Brink MD Anxiety; Clinic [place] [address] [facility] Encounter for surveillance of contracept eleni pills [address] [place] [place] [address] [address] [place], [place] [phone] (Work) [phone] Social History Tobacco Use Types Packs/Day Years Used Date Smoking Tobacco: Never Smokeless Tobacco: Never Alcohol Use Standard Drinks/Week Comments Yes 0 (1 standard drink = 0.6 oz pure alcoho l) Sex Assigned at Date Recorded Female 10/26/2020 1:28 AM CDT COVID-19 Exposure Response Date Recorded In the last month, have you been in contact with No / Unsure 08/31/2020 4:36 PM CDT someone who was confirmed or suspected to have Coronavirus / COVID-19? documented as of this encounter Progress Notes Louise Brink MD - 08/31/2020 5:00 PM CDT Janet is a 40 year old who is being evaluated via a billable video visit. How would you like to obtain your AVS? MyChart If the video visit is dropped, the invitation should be resent by: Text to cell phone: [phone] Will anyone else be joining your video visit? No Video Start Time: 4:57 PM Assessment & Plan Anxiety Though the scores are not real high, she relates that she has done better. Having enough episodes ofanxiety that she would like to try going up on the selective serotonin reuptake inhibitor. Will do this. Her use of xanax has still been infrequent; I do not have concerns with this. But she does note she tries to tough through at times so she does not use the xanax. Encourage self cares as well. - escitalopram (LEXAPRO) 20 MG tablet; Take 1 tablet (20 mg) by mouth daily Encounter for surveillance of contraceptive pills Stable. Would like to continue. - norgestim-eth estrad triphasic (TRI-LINYAH) 0.18/0.215/0.25 MG-35 MCG tablet; Take 1 tablet by mouth daily No follow-ups on file. Louise Brink MD, [facility] MIKKI Gonzales is a 40 year old who presents for the following health issues HPI See under ROS Patient Active Problem List Diagnosis ??? CARDIOVASCULAR SCREENING; LDL GOAL LESS THAN 160 ??? Seasonal allergies ??? Anxiety Current Outpatient Medications Medication Sig Dispense Refill ??? ALPRAZolam (XANAX) 0.25 MG tablet Take 1 tablet (0.25 mg) by mouth 3 times daily as needed for anxiety 10 tablet 0 ??? escitalopram (LEXAPRO) 10 MG tablet Take 1 tablet (10 mg) by mouth daily 30 tablet 0 ??? TRI-LINYAH 0.18/0.215/0.25 MG-35 MCG tablet TAKE ONE TABLET BY MOUTH ONCE DAILY 84 tablet 0 Review of Systems CONSTITUTIONAL:NEGATIVE for fever, chills, change in weight ENT/MOUTH: NEGATIVE for ear, mouth and throat problems RESP:NEGATIVE for significant cough or SOB PSYCHIATRIC: see below Doing well during the pandemic. Home body anyway. She notes she does have a few more episodes where she will wake up in the middle of the night with some anxiety. Has had to take more xanax than previously. Wonders about an increase in dose of her escitalopram. She would like to continue OCP. Not needing for contraception; had vasectomy. But it does seem to help stabilize her hormones. Objective Vitals: No vitals were obtained today due to virtual visit. Physical Exam GENERAL: Healthy, alert and no distress EYES: Eyes grossly normal to inspection. No discharge or erythema, or obvious scleral/conjunctival abnormalities. RESP: No audible wheeze, cough, or visible cyanosis. No visible retractions or increased work of breathing. SKIN: Visible skin clear. No significant rash, abnormal pigmentation or lesions. NEURO: Cranial nerves grossly intact. Mentation and speech appropriate for age. PSYCH: Mentation appears normal, affect normal/bright, judgement and insight intact, normal speech and appearance well-groomed. PHQ-9 SCORE 07/08/2019 04/12/2020 08/31/2020 PHQ-9 Total Score - - - PHQ-9 Total Score MyChart - 1 (Minimal depression) - PHQ-9 Total Score 1 1 1 ANTONY-7 SCORE 07/08/2019 04/12/2020 08/31/2020 Total Score - - - Total Score - 4 (minimal anxiety) - Total Score 9 4 4 Video-Visit Details Type of service: Video Visit Video End Time:5:12 PM Originating Location (pt. Location): Home Distant Location (provider location): [facility] AJ Team Products Platform used for Video Visit: Segundo documented in this encounter Plan of Treatment Not on filedocumented as of this encounter Visit Diagnoses Diagnosis Anxiety Anxiety state, unspecified Encounter for surveillance of contracept eleni pills Surveillance of previously prescribed co ntraceptive pill documented in this encounter Additional Health Concerns Assessment Noted Time PHQ-9 Depression Total Score: 1 08/31/2020 5:18 PM CDT documented as of this encounter Care Teams Button Riveter Relationship Specialty Start Date End Date Louise Brink MD PCP - General Family Practice 07/29/13 09/07/21 [id number] [address] [id number] Louise Brink MD Assigned PCP 08/11/13 10/21/21 [id number] [address] MIT[address]LL [id number] documented as of this encounter
--- OUTSIDE RECORDS SUMMARY | 2022-03-05 00:47 | XMS_ITS | Encounter Summary ---
:1980 Author Organization [place] Address [facility] [place] [address] Care Team Providers Name Role Phone Louise Brink MD Primary Care Provider Louise Brink MD Unavailable Reason for Visit Reason Comments Medication Refill Encounter Details Date Type Department Care Team Description 07/16/2020 Refill [facility] Louise Brink MD Medication Refill [place] [id number] [place] [address] [facility] [place] [address] [place] [address] [phone] Social History Tobacco Use Types Packs/Day Years Used Date Smoking Tobacco: Never Smokeless Tobacco: Never Alcohol Use Standard Drinks/Week Comments Yes 0 (1 standard drink = 0.6 oz pure alcoho l) Sex Assigned at Date Recorded Female 10/26/2020 1:28 AM CDT documented as of this encounter Miscellaneous Notes Telephone Encounter - Melinda No RN - 07/19/2020 1:25 PM CST Patient has an upcoming appointment. Prescription approved per [facility] Refill Protocol. Melinda No RN ALLATION AND REPAIR TECHNICIAN documented in this encounter Plan of Treatment Not on filedocumented as of this encounter Visit Diagnoses Diagnosis Anxiety Anxiety state, unspecified documented in this encounter Additional Health Concerns Assessment Noted Time PHQ-9 Depression Total Score: 1 04/13/2020 7:03 AM INSTALLATION AND REPAIR TECHNICIAN documented as of this encounter Care Teams Manager Nursing Home Relationship Specialty Start Date End Date Louise Brink MD PCP - General Family Practice 07/29/13 09/07/21 [id number] [address] Louise Brink MD Assigned PCP 08/11/13 10/21/21 [address] [address] documented as of this encounter
--- OUTSIDE RECORDS SUMMARY | 2022-03-05 00:47 | XMS_ITS | Encounter Summary ---
:1980 Author Organization [place] Address [facility] [place] [address] Care Team Providers Name Role Phone Louise Brink MD Primary Care Provider Louise Brink MD Unavailable Elizabeth Can PA-C Primary Care Provider Elizabeth Can PA-C Unavailable Reason for Visit Reason Comments Medication Refill Encounter Details Date Type Department Care Team Description 10/04/2020 Refill [facility] Louise Brink MD Medication Refill [place] [address] [address] [facility] [place] [address] [place] [address] [phone] Social History Tobacco Use Types Packs/Day Years Used Date Smoking Tobacco: Never Smokeless Tobacco: Never Alcohol Use Standard Drinks/Week Comments Yes 0 (1 standard drink = 0.6 oz pure alcoho l) Sex Assigned at Date Recorded Female 10/26/2020 1:28 AM CDT documented as of this encounter Miscellaneous Notes Telephone Encounter - Maia Calixto RN - 10/05/2020 11:45 AM CDT Prescription approved per [facility] protocol. Maia Calixto RN on 10/05/2020 at 11:44 AM documented in this encounter Plan of Treatment Not on filedocumented as of this encounter Visit Diagnoses Diagnosis Anxiety Anxiety state, unspecified documented in this encounter Additional Health Concerns Assessment Noted Time PHQ-9 Depression Total Score: 1 08/31/2020 5:18 PM CDT documented as of this encounter Care Teams Owner Operator Tanker Truck Driver Relationship Specialty Start Date End Date Louise Brink MD PCP - General Family Practice 07/29/13 09/07/[address] [place] [id number] Elizabeth Can PA-C PCP - General Family Medicine 10/14/21 [address] [facility] [place] [id number] Louise Brink MD Assigned PCP 08/11/13 10/21/[address] [place] [id number] Elizabeth Can PA-C Assigned PCP 10/22/21 [address] [facility] [place] [id number] documented as of this encounter
--- OUTSIDE RECORDS SUMMARY | 2022-03-05 00:47 | XMS_ITS | Encounter Summary ---
:1980 Author Organization [place] Address [address] [place] [address] Care Team Providers Name Role Phone Louise Brink MD Primary Care Provider Louise Brink MD Unavailable Reason for Visit Reason Onset Date Comments Refill Request 08/01/2020 ALPRAZolam (XANAX) 0 .25 MG tablet Encounter Details Date Type Department Care Team Description 08/01/[address] [facility] Louise Brink MD Refill Request Clinic [place] [address] (ALPRAZolam (XANAX) [address] [place] [address] 0.25 MG... ROBERTH [place] [phone] (Wo rk) [address] [phone] Social History Tobacco Use Types Packs/Day Years Used Date Smoking Tobacco: Never Smokeless Tobacco: Never Alcohol Use Standard Drinks/Week Comments Yes 0 (1 standard drink = 0.6 oz pure alcoho l) Sex Assigned at Date Recorded Female 10/26/2020 1:28 AM CDT documented as of this encounter Miscellaneous Notes Telephone Encounter - Melinda No RN - 08/02/2020 12:08 PM CDT [employer] SAt message sent to patient. Melinda No RN Telephone Encounter - Louise Brink MD - 08/02/2020 11:43 AM CDT Has been over a year since seen. She is due for appointment. Help her schedule visit of her choice. If she is totally out and would like something prior to visit; we could give a couple. Thanks! Telephone Encounter - Melinda No RN - 08/02/2020 11:17 AM CDT ALPRAZolam (XANAX) 0.25 MG tablet Last Written Prescription Date: 06/17/2019 Last Fill Quantity: 10, # refills: 0 Last Office Visit: 06/17/2019 Future Office visit: Routing refill request to provider for review/approval because: Drug not on the [facility], [facility] or Health refill protocol or controlled substance. INCLUSION MANAGER checked 08/02/2020: Nothing on INCLUSION MANAGER in the last year. Melinda No RN documented in this encounter Plan of Treatment Not on filedocumented as of this encounter Visit Diagnoses Diagnosis Anxiety Anxiety state, unspecified documented in this encounter Additional Health Concerns Assessment Noted Time PHQ-9 Depression Total Score: 1 04/13/2020 7:03 AM MACHINE LEAD BURNER documented as of this encounter Care Teams Silk Screen Repairer Relationship Specialty Start Date End Date Louise Brink MD PCP - General Family Practice 07/29/13 09/07/21 [id number] [id number] Louise Brink MD Assigned PCP 08/11/13 10/21/21 [address] [address] [id number] documented as of this encounter
--- OUTSIDE RECORDS SUMMARY | 2022-03-05 00:47 | XMS_ITS | Encounter Summary ---
:1980 Author Organization [place] Address [address] [facility] [place] [address] Care Team Providers Name Role Phone Louise Brink MD Primary Care Provider Louise Brink MD Unavailable Reason for Visit Reason Onset Date Comments Medication Refill 06/28/2020 TRI-LINYAH 0.18/0.21 5/0.25 TABS Encounter Details Date Type Department Care Team Description 06/28/2020 Refill [facility] Louise Brink MD Medication Refill Clinic [place] [address] [address] (TRI-LINYAH [address] [place] [address] 0.18/0.215/0.25 TABS) ROBERTH [place] [phone] (Wo rk) [address] [phone] Social History Tobacco Use Types Packs/Day Years Used Date Smoking Tobacco: Never Smokeless Tobacco: Never Alcohol Use Standard Drinks/Week Comments Yes 0 (1 standard drink = 0.6 oz pure alcoho l) Sex Assigned at Date Recorded Female 10/26/2020 1:28 AM CDT documented as of this encounter Miscellaneous Notes Telephone Encounter - Malena Mcpherson - 06/30/2020 12:28 PM CST Mailed out letter LITY MAINTENANCE TECHNICIAN Telephone Encounter - My Haddad RN - 06/30/2020 11:58 AM FACILITY MAINTENANCE TECHNICIAN Medication is being filled for 1 time refill only due to: Patient needs to be seen because it has been more than one year since last visit. Routing to TC team to assist pt in scheduling. XOCHILT 06/17/2019 My [place] RN LITY MAINTENANCE TECHNICIAN Telephone Encounter - Gina Staton - 06/28/2020 4:45 PM CST Requested Prescriptions Pending Prescriptions Disp Refills ??? TRI-LINYAH 0.18/0.215/0.25 MG-35 MCG tablet [Pharmacy Med Name: TRI-LINYAH 0.18/0.215/0.25 TABS] Last Written Prescription Date: 06/17/2019 Last Fill Quantity: 84 tablet, # refills: 3 Last office visit: 06/17/2019 with prescribing provider: Keena Future Office Visit: 84 tablet 3 Sig: TAKE ONE TABLET BY MOUTH ONCE DAILY Contraceptives Protocol Failed - 06/28/2020 3:19 PM Failed - Recent (12 mo) or future (30 days) visit within the authorizing provider's specialty Patient has had an office visit with the authorizing provider or a provider within the authorizing providers department within the previous 12 mos or has a future within next 30 days. See Patient Info tab in inbasket, or Choose Columns in Meds & Orders section of the refill encounter. Passed - Patient is not a current smoker if age is 35 or older Passed - Medication is active on med list Passed - No active on record Passed - No positive test in past 12 months LITY MAINTENANCE TECHNICIAN documented in this encounter Plan of Treatment Not on filedocumented as of this encounter Visit Diagnoses Diagnosis Encounter for surveillance of contracept eleni pills Surveillance of previously prescribed co ntraceptive pill documented in this encounter Additional Health Concerns Assessment Noted Time PHQ-9 Depression Total Score: 1 04/13/2020 7:03 AM FACILITY MAINTENANCE TECHNICIAN documented as of this encounter Care Teams Railroad Crane Operator Relationship Specialty Start Date End Date Louise Brink MD PCP - General Family Practice 07/29/13 09/07/21 [address] [address] Louise Brink MD Assigned PCP 08/11/13 10/21/21 [address] [address] [address] documented as of this encounter
--- OUTSIDE RECORDS SUMMARY | 2022-03-05 00:47 | XMS_ITS | Encounter Summary ---
:1980 Author Organization [place] Address [address] [place] [address] Care Team Providers Name Role Phone Louise Brink MD Primary Care Provider Louise Brink MD Unavailable Encounter Details Date Type Department Care Team Description 06/17/2019 Travel Social History Tobacco Use Types Packs/Day [...] Depression Total Score: 0 06/17/2019 5:34 PM CUSTOMER MARKETING MANAGER documented as of this encounter Care Teams Educational Speech Language Clinician Relationship Specialty Start Date End Date Louise Brink MD PCP - General Family Practice 07/29/13 09/07/21 [address] [address] Louise Brink MD Assigned PCP 08/11/13 10/21/21 [address] [address] documented as of this encounter
--- OUTSIDE RECORDS SUMMARY | 2022-03-05 00:47 | XMS_ITS | Clinical Summary ---
:1980 Author Organization [place] Address [address] [place] [address] Care Team Providers Name Role Phone Elizabeth Can PA-C Primary Care Provider Elizabeth Can PA-C Unavailable Allergies No known active allergies Medications Medication Sig Dispensed Refills Start Date End Date Status escitalopram (LEXAPRO) Take 1 tablet (20 90 tablet 1 2 Active 20 MG mg) by mouth tabletIndications: daily Anxiety norgestim-eth estrad Take 1 tablet by 84 tablet 3 10/14/2021 Active triphasic (TRI-LINYAH) mouth daily 0.18/0.215/0.25 MG-35 MCG tabletIndications: Encounter for surveillance of contraceptive pills ALPRAZolam (XANAX) 0.25 Take 1 tablet 10 tablet 0 10/14/2021 Active MG tabletIndications: (0.25 mg) by Anxiety mouth 3 times daily as needed for anxiety Active Problems Problem Noted Date Overweight (BMI 25.0-29.9) 10/14/2021 Anxiety 12/24/2012 CARDIOVASCULAR SCREENING; LDL GOAL LESS THAN 160 11/27 Seasonal allergies 11/28/2011 Immunizations Name Administration Dates Next Due COVID-19,PF,Pfizer (12+ Yrs) 01/28/2021, 01/05/2021 Influenza (IIV3) PF 02/24/2013 Influenza Intranasal Vaccine 03/21/2011 Influenza Vaccine IM > 6 months 03/05/2019, 02/12/2018, 02/12, Valent IIV4 (Alfuria,Fluzone) 02/23/2016, 03/22/2015, 2013 TD (ADULT, 7+) 06/13/1998 TDAP Vaccine (Adacel) 01/07/2013 Tdap (Adacel,Boostrix) 01/07/2013 Family History Medical History Relation Comments Depression Father Cancer Maternal Grandfather Skin Cerebrovascular Disease Maternal Grandfather stroke Myocardial Infarction Maternal Grandfather Diabetes Maternal Grandmother Colon Cancer Paternal Grandfather Hypertension Paternal Grandmother Relation Status Comments Father Alive Maternal Grandfather Maternal Grandmother Mother Alive Paternal Grandfather Paternal Grandmother Social History Tobacco Use Types Packs/Day Years Used Date Smoking Tobacco: Never Smokeless Tobacco: Never Alcohol Use Standard Drinks/Week Comments Yes 0 (1 standard drink = 0.6 oz pure alcoho l) Sex Assigned at Date Recorded Female 10/26/2020 1:28 AM CDT Last Filed Vital Signs Vital Sign Reading [...] Mass Index 27.94 10/14/2021 2:22 PM CDT Plan of Treatment Health Maintenance Due Date Last Done Comments HEPATITIS B IMMUNIZATION (1 1981 of 3 - 3-dose series) COVID-19 Vaccine (3 - 03/25/2021 01/28/2021, 01/05/2021 Booster for Pfizer series) INFLUENZA VACCINE (#1) 2022 03/02/2021, 03/05/2019, 02/12/2018, Additional history exists ANTONY ASSESSMENT 04/15/2022 10/14/2021, 10/14/2021, 11/11/2020, Additional history exists PHQ-9 04/15/2022 10/14/2021, 10/14/2021, 11/11/2020, Additional history exists ANNUAL REVIEW OF HM ORDERS 10/14/2022 10/14/2021, YEARLY PREVENTIVE VISIT 10/14/2022 10/14/2021, 11/11/2020, 06/17/2019, Additional history exists DTAP/TDAP/TD IMMUNIZATION 01/07/2023 01/07/2013, 01/07/2013 , (3 - Td or Tdap) 06/13/1998, Additional history exists HPV TEST 05/30/2023 05/30/2018 PAP 05/30/2023 05/30/2018, 05/21/2015, 08/12/2012 ADVANCE CARE PLANNING 11/11/2025 11/11/2020 HEPATITIS C SCREENING Completed 11/11/2020 HIV SCREENING Completed 11/11/2020 PHQ-2 (once per calendar Completed 10/14/2021, 10/14/2021, year) 10/14/2021, Additional history exists IPV IMMUNIZATION Aged Out No longer eligi ble based on patient 's age to complete this topic MENINGITIS IMMUNIZATION Aged Out No longe r eligible based on patient 's age to complete this topic Pneumococcal Vaccine: Aged Out No longer eligible Pediatrics (0 to 5 Years) based on patient's age and At-Risk Patients (6 to to co mplete this topic 64 Years) Insurance Payer Benefit Plan / Subscriber ID Effective Phone Address T ype Group Dates PREFERREDONE PREFERREDONE HMO [id number] 2019-Prese [phone] [address] [address] [address]PO [address] [place] [address] Care Teams Agricultural Engineering Technician Relationship Specialty Start Date End Date Elizabeth Can PA-C PCP - General Family Medicine 10/14/21 [address] [place], [place] [id number] Elizabeth Can PA-C Assigned [facility] 10/22/21 [address] [place] [address]
--- OUTSIDE RECORDS SUMMARY | 2022-03-05 00:47 | XMS_ITS | Encounter Summary ---
:1980 Author Organization [place] Address [address] [place] [address] Care Team Providers Name Role Phone Elizabeth Can PA-C Primary Care Provider Elizabeth Can PA-C Unavailable Encounter Details Date Type Department Care Team Description 11/25/2021 Travel Social History Tobacco Use Types Packs/Day Years Used Date Smoking Tobacco: Never Smokeless Tobacco: Never Alcohol Use Standard Drinks/Week Comments Yes 0 (1 standard drink = 0.6 oz pure alcoho l) Sex Assigned at Date Recorded Female 10/26/2020 1:28 AM CDT COVID-19 Exposure Response Date Recorded In the last 10 days, have you been in contact with No / Unsu re 11/25/2021 2:40 PM CDT someone who was confirmed or suspected to have Coronavirus/COVID-19? documented as of this encounter Plan of Treatment Not on filedocumented as of this encounter Visit Diagnoses Not on filedocumented in this encounter Additional Health Concerns Assessment Noted Time PHQ-9 Depression Total Score: 1 10/14/2021 2:17 PM CDT documented as of this encounter Care Teams Digital Pre Press Operator Relationship Specialty Start Date End Date Elizabeth Can PA-C PCP - General Family Medicine 10/14/21 [address] [place] [address] Elizabeth Can PA-C Assigned PCP 10/22/21 [address] [place], [place] [id number] documented as of this encounter
--- OUTSIDE RECORDS SUMMARY | 2022-03-05 00:47 | XMS_ITS | Encounter Summary ---
:1980 Author Organization [place] Address [address] [facility] [place] [address] Care Team Providers Name Role Phone Louise Brink MD Primary Care Provider Louise Brink MD Unavailable Reason for Visit Reason Comments Annual Visit Encounter Details Date Type Department Care Team Description 11/11/2020 Office Visit [facility] Louise Brink MD Encounter for routine adult health exami nation without abnormal findings (Primary Dx); Clinic [place] [address]; [address] Screening for HIV (human immunodeficienc y virus); [address] [place], [place] Need for hepatitis C screeni ng test; [place] [address] Encounter for surveillance of contracept eleni pills; [id number] CARDIOVASCULAR SCREENING; LD L GOAL LESS THAN 160; Screening for diabetes mellitus Social History Tobacco Use Types Packs/Day Years Used Date Smoking Tobacco: Never Smokeless Tobacco: Never Alcohol Use Standard Drinks/Week Comments Yes 0 (1 standard drink = 0.6 oz pure alcoho l) Sex Assigned at Date Recorded Female 10/26/2020 1:28 AM CDT COVID-19 Exposure Response Date Recorded In the last month, have you been in contact with No / Unsure 11/11/2020 12:53 PM CDT someone who was confirmed or suspected to have Coronavirus / COVID-19? documented as of this encounter Last Filed Vital Signs Vital Sign Reading Time Taken Comments Blood Pressure 100/74 11/11/2020 1:07 PM CDT Pulse 83 11/11/2020 1:07 PM CDT Temperature 36.7 ??C (98 ??F) 11/11/2020 1:07 PM CDT Respiratory Rate - - Oxygen Saturation 100% 11/11/2020 1:07 PM CDT Inhaled Oxygen Concentration - - Weight 70.8 kg (156 lb) 11/11/2020 1:07 PM CDT Height 160 cm (5' 3) 11/11/2020 1:07 PM CDT Body Mass Index 27.63 11/11/2020 1:07 PM CDT documented in this encounter Progress Notes Louise Brink MD - 11/11/2020 1:00 PM CDT SUBJECTIVE: CC: Janet Dean is an 40 year old woman who presents for preventive health visit. Patient has been advised of split billing requirements and indicates understanding: Healthy Habits: Getting at least 3 servings of Calcium per day: Yes Bi-annual eye exam: Yes Dental care twice a year: Yes Sleep apnea or symptoms of sleep apnea: None Diet: Regular (no restrictions) and Breakfast skipped Frequency of exercise: 4-5 days/week Duration of exercise: 15-30 minutes Taking medications regularly: Yes Medication side effects: None PHQ-2 Total Score: 0 Additional concerns today: Yes Today's PHQ-2 Score: PHQ-2 (??1998 Pfizer) 11/11/2020 Q1: Little interest or pleasure in doing things 0 Q2: Feeling down, depressed or hopeless 0 PHQ-2 Score 0 Q1: Little interest or pleasure in doing things Not at all Q2: Feeling down, depressed or hopeless Not at all PHQ-2 Score 0 Abuse: Current or Past (Physical, Sexual or Emotional) - No Do you feel safe in your environment? Yes Have you ever done Advance Care Planning? (For example, a Health Directive, POLST, or a discussion with a medical provider or your loved ones about your wishes): No, advance care planning information given to patient to review. Patient declined advance care planning discussion at this time. Social History Tobacco Use ??? Smoking status: Never Smoker ??? Smokeless tobacco: Never Used Substance Use Topics ??? Alcohol use: Yes Alcohol/week: 0.0 - 0.8 standard drinks If you drink alcohol do you typically have >3 drinks per day or >7 drinks per week? No Alcohol Use 11/11/2020 Prescreen: >3 drinks/day or >7 drinks/week? No Prescreen: >3 drinks/day or >7 drinks/week? - Reviewed orders with patient. Reviewed health maintenance and updated orders accordingly - Yes Breast Cancer Screening: Any new diagnosis of family breast, ovarian, or bowel cancer? FHS-7: No flowsheet data found. Pertinent mammograms are reviewed under the imaging tab. History of abnormal Pap smear: NO - age 30-65 PAP every 5 years with negative HPV co-testing recommended PAP / HPV Latest Ref Rng & Units 05/30/2018 05/21/2015 PAP - NIL NIL HPV 16 DNA NEG:Negative Negative - HPV 18 DNA NEG:Negative Negative - OTHER HR HPV NEG:Negative Negative - Reviewed and updated as needed this visit by clinical staff Reviewed and updated as needed this visit by Provider Patient Active Problem List Diagnosis ??? CARDIOVASCULAR SCREENING; LDL GOAL LESS THAN 160 ??? Seasonal allergies ??? Anxiety Past Medical History: Diagnosis Date ??? Anxiety ??? Seasonal allergies Past Surgical History: Procedure Laterality Date ??? SECTION x2 OB History Para Term AB Living 2 2 2 0 0 2 SAB TAB Ectopic Multiple Live Births 0 0 0 0 0 # Outcome Date GA Lbr Vidal/2nd Weight Sex Delivery Anes PTL Lv 2 Term 1 Term Current Outpatient Medications Medication Sig Dispense Refill ??? ALPRAZolam (XANAX) 0.25 MG tablet Take 1 tablet (0.25 mg) by mouth 3 times daily as needed for anxiety 10 tablet 0 ??? escitalopram (LEXAPRO) 20 MG tablet TAKE ONE TABLET BY MOUTH ONCE DAILY 60 tablet 0 ??? norgestim-eth estrad triphasic (TRI-LINYAH) 0.18/0.215/0.25 MG-35 MCG tablet Take 1 tablet by mouth daily 84 tablet 0 Family History Problem Relation Age of Onset ??? Depression Father ??? Diabetes Maternal Grandmother ??? Hypertension Paternal Grandmother ??? Cancer Maternal Grandfather Skin ??? Myocardial Infarction Maternal Grandfather 50 ??? Cerebrovascular Disease Maternal Grandfather stroke ??? Cancer - colorectal Paternal Grandfather 70 Social History Tobacco Use ??? Smoking status: Never Smoker ??? Smokeless tobacco: Never Used Substance Use Topics ??? Alcohol use: Yes Alcohol/week: 0.0 - 0.8 standard drinks Immunization History Administered Date(s) Administered ??? Influenza (IIV3) PF 02/24/2013 ??? Influenza Intranasal Vaccine 03/21/2011 ? ? Influenza Vaccine IM > 6 months Valent IIV4 03/03/2014, 03/22/2015, 02/23/2016, 03/02/2017, 02/12/2018, 03/05/2019 ??? TD (ADULT, 7+) 06/13/1998 ??? TDAP Vaccine (Adacel) 01/07/2013 ??? Tdap (Adacel,Boostrix) 01/07/2013 Review of Systems Constitutional: Negative for chills and fever. HENT: Negative for congestion, ear pain, hearing loss and sore throat. Eyes: Negative for pain and visual disturbance. Respiratory: Negative for cough and shortness of breath. Cardiovascular: Negative for chest pain, palpitations and peripheral edema. Gastrointestinal: Negative for abdominal pain, constipation, diarrhea, heartburn, hematochezia and nausea. Breasts: Negative for tenderness, breast mass and discharge. Genitourinary: Negative for dysuria, frequency, genital sores, hematuria, pelvic pain, urgency, vaginal bleeding and vaginal discharge. Musculoskeletal: Negative for arthralgias, joint swelling and myalgias. Skin: Negative for rash. Neurological: Negative for dizziness, weakness, headaches and paresthesias. Psychiatric/Behavioral: Negative for mood changes. The patient is not nervous/anxious. OBJECTIVE: BP 100/74 Pulse 83 Temp 98 ??F (36.7 ??C) (Oral) Ht 1.6 m (5' 3) Wt 70.8 kg (156 lb) LMP 10/15/2020 (Exact Date) SpO2 100% BMI 27.63 kg/m?? Physical Exam GENERAL: healthy, alert and no distress EYES: Eyes grossly normal to inspection, PERRL and conjunctivae and sclerae normal HENT: ear canals and TM's normal, nose and mouth without ulcers or lesions NECK: no adenopathy, no asymmetry, masses, or scars and thyroid normal to palpation RESP: lungs clear to auscultation - no rales, rhonchi or wheezes BREAST: normal without masses, tenderness or nipple discharge and no palpable axillary masses or adenopathy CV: regular rates and rhythm and no peripheral edema ABDOMEN: soft, nontender, no hepatosplenomegaly, no masses and bowel sounds normal MS: no gross musculoskeletal defects noted, no edema SKIN: no suspicious lesions or rashes NEURO: Normal strength and tone, mentation intact and speech normal PSYCH: mentation appears normal, affect normal/bright PHQ-9 SCORE 04/12/2020 08/31/2020 11/11/2020 PHQ-9 Total Score - - - PHQ-9 Total Score MyChart 1 (Minimal depression) - - PHQ-9 Total Score 1 1 1 ANTONY-7 SCORE 04/12/2020 08/31/2020 11/11/2020 Total Score - - - Total Score 4 (minimal anxiety) - - Total Score 4 4 0 Recent Labs Lab Test 12/22/16 0905 01/07/13 0828 CHOL 215* 181 HDL 72 69 LDL 121* 98 TRIG 108 74 CHOLHDLRATIO -- 2.6 ASSESSMENT/PLAN: 1. Encounter for routine adult health examination without abnormal findings Considering Covid vaccination. Did discuss some. 2. Anxiety Doing well. Reviewed scores which reflect this also. Would like to continue. - escitalopram (LEXAPRO) 20 MG tablet; Take 1 tablet (20 mg) by mouth daily Dispense: 90 tablet; Refill: 1 3. Screening for HIV (human immunodeficiency virus) - HIV Antigen Antibody Combo 4. Need for hepatitis C screening test - Hepatitis C Screen Reflex to HCV RNA Quant and Genotype 5. Encounter for surveillance of contraceptive pills Refilling. - norgestim-eth estrad triphasic (TRI-LINYAH) 0.18/0.215/0.25 MG-35 MCG tablet; Take 1 tablet by mouth daily Dispense: 84 tablet; Refill: 3 6. CARDIOVASCULAR SCREENING; LDL GOAL LESS THAN 160 - Lipid panel reflex to direct LDL Fasting 7. Screening for diabetes mellitus - Glucose Patient has been advised of split billing requirements and indicates understanding: as above COUNSELING: Reviewed preventive health counseling, as reflected in patient instructions Regular exercise Healthy diet/nutrition Vision screening Estimated body mass index is 26.47 kg/m?? as calculated from the following: Height as of 06/17/19: 1.607 m (5' 3.25). Weight as of 06/17/19: 68.3 kg (150 lb 9.6 oz). Weight management plan: Discussed healthy diet and exercise guidelines She reports that she has never smoked. She has never used smokeless tobacco. Counseling Resources: ATP IV Guidelines Pooled Cohorts Equation Calculator Breast Cancer Risk Calculator BRCA-Related Cancer Risk Assessment: FHS-7 Tool FRAX Risk Assessment ICSI Preventive Guidelines Dietary Guidelines for Americans, 2009 USDA's MyPlate ASA Prophylaxis Lung CA Screening Louise Brink MD, [facility] [place] documented in this encounter Plan of Treatment Not on filedocumented as of this encounter Procedures Procedure Name Priority Date/Time Associated Diagnosis Comme nts HIV ANTIGEN Routine 11/11/2020 1:31 Screening for HIV (human Results for this ANTIBODY COMBO PM CDT immunodeficiency virus) pr ocedure are in the results section. HEPATITIS C SCREEN Routine 11/11/2020 1:31 Need for hepatitis C Results for this REFLEX TO HCV RNA PM CDT screening test procedur e are in QUANT AND GENOTYPE the resul ts section. LIPID REFLEX TO Routine 11/11/2020 1:31 CARDIOVASCULAR Results for this DIRECT LDL PANEL PM CDT SCREENING; LDL GOAL LESS procedure are in THAN 160 the results section. GLUCOSE Routine 11/11/2020 1:31 Screening for diabetes Re sults for this PM CDT mellitus procedure are i n the results section. documented in this encounter Results Glucose (11/11/2020 1:31 PM CDT) P athologist Signature Glucose 80 70 - 99 11/12/2020 [place] mg/dL 8:11 AM CDT [facility] Comment: Fasting specimen Specimen Anatomical Collection Method Collection Time Receive d Time (Source) Location / / Volume Laterality Blood 11/11/2020 1:31 PM 1:32 CDT PM CDT Louise Brink MD LAB - BLOOD ORDERABLES Performing Organization Address City/State/ZIP Code Phon e Number [facility] [address] [address] [facility] [address] [address], [place] [phone] (ABNORMAL) Lipid panel reflex to direct LDL Fasting (11/11/2020 1:31 PM CDT) P athologist Signature Cholesterol 250 (H) <200 mg/dL 11/12/2020 [facility] 8:14 AM T [facility] Comment: Desirable: <200 mg/dl Triglycerides 92 <150 mg/dL 11/12/2020 8:[address] [facility] Comment: Fasting specimen HDL Cholesterol 80 >49 mg/dL 11/12/2020 8:[address] [facility] LDL Cholesterol 152 (H) <100 mg/dL 11/12/2020 8:29 AM [facility] Comment: Above desirable: ??100-129 mg/dl Borderline High: ??130-159 mg/dL High: ? 160-189 mg/dL Very high: ? >189 mg/dl Non HDL Cholesterol 170 (H) <130 mg/dL 11/12/2020 8:29 AM [facility] Comment: Above Desirable: ??130-159 mg/dl Borderline high: ??160-189 mg/dl High: ? 190-219 mg/dl Very high: ? >219 mg/dl Specimen Anatomical Collection Method Collection Time Receive d Time (Source) Location / / Volume Laterality Blood 11/11/2020 1:31 PM 1:32 CDT PM CDT Louise Brink MD LAB - BLOOD ORDERABLES Performing Organization Address City/State/ZIP Code Phon e Number [facility] [address] [place] [address] [place] [address] Hepatitis C Screen Reflex to HCV RNA Quant and Genotype (11/11/2020 1:31 PM CDT) [facility] Time Signature Hepatitis C Nonreactive NR^Nonrea 11/12/2020 [facility] ctive 1:05 PM CDT [facility] Comment: Assay performance characteristics have n ot been established for newborns, infants, and children Specimen Anatomical Collection Method Collection Time Receive d Time (Source) Location / / Volume Laterality Blood 11/11/2020 1:31 PM 1 1:32 CDT PM CDT Louise Brink MD LAB - BLOOD ORDERABLES Performing Organization Address City/[facility]/ZIP Code Phon e Number [facility] [address] HIV Antigen Antibody Combo (11/11/2020 1:31 PM CDT) [facility] gist Method Time Signature HIV Antigen Nonreactive NR^Nonrea 11/12/2020 [facility] Antibody ctive 1:02 PM CDT ID MEDICAL Combo [facility] Comment: HIV-1 p24 Ag & HIV-1/HIV-2 Ab N ot Detected Specimen Anatomical Collection Method Collection Time Receive d Time (Source) Location / / Volume Laterality Blood 11/11/2020 1:31 PM 1 1:32 CDT PM CDT Louise Brink MD LAB - BLOOD ORDERABLES Performing Organization Address City/[facility]/ZIP Code Phon e Number [facility] [address] documented in this encounter Visit Diagnoses Diagnosis Encounter for routine adult health exami nation without abnormal findings - Primary Anxiety Anxiety state, unspecified Screening for HIV (human immunodeficienc y virus) Special screening examination for other specified viral diseases Need for hepatitis C screening test Special screening examination for other specified viral diseases Encounter for surveillance of contracept eleni pills Surveillance of previously prescribed co ntraceptive pill CARDIOVASCULAR SCREENING; LDL GOAL LESS THAN 160 Screening for diabetes mellitus documented in this encounter Additional Health Concerns Assessment Noted Time PHQ-9 Depression Total Score: 1 11/11/2020 1:39 PM CDT documented as of this encounter Care Teams Reimbursement Auditor Relationship Specialty Start Date End Date Louise Brink MD PCP - General Family Practice 07/29/13 09/07/21 [id number] [id number] Louise Brink MD Assigned PCP 08/11/13 10/21/21 [id number] [id number] documented as of this encounter
--- OUTSIDE RECORDS SUMMARY | 2022-03-05 00:47 | XMS_ITS | Encounter Summary ---
:1980 Author Organization [place] Address [address] [place] [address] Care Team Providers Name Role Phone Louise Brink MD Unavailable Elizabeth Can PA-C Primary Care Provider Encounter Details Date Type Department Care Team Description 10/14/2021 Travel Social History Tobacco Use Types Packs/Day [...] documented as of this encounter Care Teams Sash Finisher Relationship Specialty Start Date End Date Elizabeth Can PA-C PCP - General Family Medicine 10/14/21 [address] [place] [address] Louise Brink MD Assigned PCP 08/11/13 10/21/21 [address] [place] [address] documented as of this encounter
--- OUTSIDE RECORDS SUMMARY | 2022-03-05 00:47 | XMS_ITS | Encounter Summary ---
:1980 Author Organization [place] Address [address] [place] [address] Care Team Providers Name Role Phone Louise Brink MD Primary Care Provider Louise Brink MD Unavailable Louise Brink MD Unavailable Reason for Visit Reason Comments Allied Health Visit Encounter Details Date Type Department Care Team Description 03/21/2018 Allied Health/Nurse Health [facility] Allied Health Visit Visit [place] [address] [place] [address] Social History Tobacco Use Types Packs/Day [...] Name Priority Date/Time Associated Diagnosis Comme nts RAPID STREP SCREEN Routine 03/21/2018 1:30 PM Sore throat Res ults for this THROAT SWAB HYDRAULIC RUBBISH COMPACTOR MECHANIC procedure are i n the results section. BETA HEMOLYTIC Routine 03/21/2018 1:30 PM Sore throat Results for this STREP GROUP A [employer]IC [employer]PA[employer] MECHANIC procedure are in CULTURE the results section. documented in this encounter Results Beta strep group A culture (03/21/2018 1:30 PM HYDRAULIC RUBBISH COMPACTOR MECHANIC) Component Value Ref Test Analysis Performed At [facility] Range Method Time Signature Specimen Throat [place] Description [facility]INICS [place] Culture Micro No beta 03/22/2018 [place] hemolytic 7:48 AM HYDRA[employer] [employer]PA[employer] [facility]CH[facility] CLINICS Streptococcus [place] Group A isolated Specimen Anatomical Collection Method Collection Time Receive d Time (Source) Location / / Volume Laterality Specimen from 03/21/2018 1:30 PM 03/21/20 18 1:41 throat HYDRAULIC RU[employer]ISH COMPACTOR MECHANIC PM HYDRAULIC RUBBISH COMPACTOR MECHANIC (specimen) Louise Brink MD LAB - MICRO GENERAL ORDERABL ES Performing Organization Address City/State/ZIP Code Phon e Number [facility] [place] [address] [place], [place] [address] Strep, Rapid Screen (03/21/2018 1:30 PM HYDRAULIC RUBBISH COMPACTOR MECHANIC) Component Value Ref Test Analysis Performed At [facility] Range Method Time Signature Specimen Throat [facility] Description [facility]INICS [place] Rapid Strep A NEGATIVE: No 03/21/2018 [place] Screen Group A 1:40 PM HYDRAULIC [employer]PA[employer] [facility]CH[facility] CLINICS streptococcal [place] antigen detected by immunoassay, await culture report. Specimen Anatomical Collection Method Collection Time Receive d Time (Source) Location / / Volume Laterality Specimen from 03/21/2018 1:30 PM 03/21/20 18 1:35 throat HYDRAULIC RUBBISH COMPACTOR MECHANIC PM HYDRAULIC RUBBISH COMPACTOR MECHANIC (specimen) Louise Brink MD LAB - MICRO GENERAL ORDERABL ES Performing Organization Address City/State/ZIP Code Phon e Number [facility] [place] [address] [address] [place], [place] [address] documented in this encounter Visit Diagnoses Diagnosis Sore throat Acute pharyngitis documented in this encounter Additional Health Concerns Assessment Noted Time PHQ-9 Depression Total Score: 1 03/08/2018 5:01 PM CDT documented as of this encounter Care Teams Employee Communications Coordinator Relationship Specialty Start Date End Date Louise Brink MD PCP - General Family Practice 07/29/13 09/07/21 [id number] [address] Louise Brink MD PCP - Assigned PCP 08/11/13 07/16/18 [id number] [address] Louise Brink MD Assigned PCP 08/11/13 10/21/21 [address] [id number] documented as of this encounter
--- OUTSIDE RECORDS SUMMARY | 2022-03-05 00:47 | XMS_ITS | Encounter Summary ---
:1980 Author Organization [place] Address [address] 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 Louise Brink MD Routine general medical examination at a health care facility (Primary Dx); [facility] [place] [address] [address] Anxiety; [id number] [address] Encounter fo r surveillance of contraceptive pills [address] [address] [address] [phone] [id number] (Work) [phone] Social History Tobacco Use Types Packs/Day Years Used Date Smoking Tobacco: Never Smokeless Tobacco: Never Alcohol Use Standard Drinks/Week Comments Yes 0 (1 standard drink = 0.6 oz pure alcoho l) Sex Assigned at Date Recorded Female 10/26/2020 1:28 AM CDT documented as of this encounter Last Filed Vital Signs Vital Sign Reading Time Taken Comments Blood Pressure 118/72 06/17/2019 4:[address] EQUIPMENT OPERATOR Pulse 72 06/17/2019 4:[address] EQUIPMENT OPERATOR Temperature 36.7 ??C (98 ??F) 06/17/2019 4:[address] EQUIPMENT OPERATOR Respiratory Rate 16 06/17/2019 4:[address] EQUIPMENT OPERATOR Oxygen Saturation 100% 06/17/2019 4:[address] EQUIPMENT OPERATOR Inhaled Oxygen Concentration - - Weight 68.3 kg (150 lb 9.6 oz) 06/17/2019 4:[address] EQUIPMENT OPERATOR Height 160.7 cm (5' 3.25) 06/17/2019 4:[address] EQUIPMENT OPERATOR Body Mass Index 26.47 06/17/2019 4:[address] EQUIPMENT OPERATOR documented in this encounter Patient Instructions Patient InstructionsAraceli Hemphill, MATTHIEU - 06/17/2019 4:30 PM CST Preventive Health Recommendations Female Ages 26 - 39 Yearly exam: See your health care provider every year in order to ??? Review health changes. ??? Discuss preventive care. ??? Review your medicines if you your doctor has prescribed any. Until age 30: Get a Pap test every three years (more often if you have had an abnormal result). After age 30: Talk to your doctor about whether you should have a Pap test every 3 years or have a Pap test with HPV screening every 5 years. You do not need a Pap test if your uterus was removed (hysterectomy) and you have not had cancer. You should be tested each year for STDs (sexually transmitted diseases), if you're at risk. Talk to your provider about how often to have your cholesterol checked. If you are at risk for diabetes, you should have a diabetes test (fasting glucose). Shots: Get a flu shot each year. Get a tetanus shot every 10 years. Nutrition: ??? Eat at least 5 servings of fruits and vegetables each day. ??? Eat whole-grain bread, whole-wheat pasta and brown rice instead of white grains and rice. ??? Get adequate Calcium and Vitamin D. Lifestyle ??? Exercise at least 150 minutes a week (30 minutes a day, 5 days of the week). This will help you control your weight and prevent disease. ??? Limit alcohol to one drink per day. ??? No smoking. ?? Wear sunscreen to prevent skin cancer. ?? See your dentist every six months for an exam and cleaning. EQUIPMENT OPERATOR documented in this encounter Progress Notes Louise Brink MD - 06/17/2019 4:30 PM CST SUBJECTIVE: CC: Janet Dean is an 38 year old woman who presents for preventive health visit. Healthy Habits: Getting at least 3 servings of Calcium per day: NO Bi-annual eye exam: Yes Dental care twice a year: Yes Sleep apnea or symptoms of sleep apnea: None Diet: Regular (no restrictions) Frequency of exercise: 2-3 days/week Duration of exercise: 30-45 minutes Taking medications regularly: Yes Medication side effects: None PHQ-2 Total Score: 0 Additional concerns today: Yes Would like to discuss the anxiety medication. The medication is not as effective as it was in the beginning. Today's PHQ-2 Score: PHQ-2 (??1999 Pfizer) 06/14/2019 Q1: Little interest or pleasure in doing things 0 Q2: Feeling down, depressed or hopeless 0 PHQ-2 Score 0 Q1: Little interest or pleasure in doing things Not at all Q2: Feeling down, depressed or hopeless Not at all PHQ-2 Score 0 Abuse: Current or Past(Physical, Sexual or Emotional)- No Do you feel safe in your environment? Yes Social History Tobacco Use ??? Smoking status: Never Smoker ??? Smokeless tobacco: Never Used Substance Use Topics ??? Alcohol use: Yes Alcohol/week: 0.0 - 0.8 standard drinks Alcohol Use 06/14/2019 Prescreen: >3 drinks/day or >7 drinks/week? No Prescreen: >3 drinks/day or >7 drinks/week? - Reviewed orders with patient. Reviewed health maintenance and updated orders accordingly - Yes Pertinent mammograms are reviewed under the imaging [...] 0 ??? escitalopram (LEXAPRO) 10 MG tablet TAKE 1 TABLET BY MOUTH DAILY 90 tablet 1 ??? norgestim-eth estrad triphasic (TRINESSA, 28,) 0.18/0.215/0.25 MG-35 MCG tablet Take 1 tablet bymouth daily 84 tablet 3 Family History Problem Relation Age of Onset [...] 7+) 06/13/1998 ??? TDAP Vaccine (Adacel) 01/07/2013 Review of Systems Constitutional: Negative for [...] for tenderness, breast mass and discharge. Genitourinary: Positive for vaginal discharge. Negative for dysuria, frequency, genital sores, hematuria, pelvic pain, urgency and vaginal bleeding. Musculoskeletal: Negative for arthralgias, joint swelling and myalgias. Skin: Negative for rash. Neurological: Negative for dizziness, weakness, headaches and paresthesias. Psychiatric/Behavioral: Positive for mood changes. The patient is nervous/anxious. No triggers; will get a wave of anxiety. Traveling can be hard. Will use xanax with this. Leaving home can be more difficult. Vaginal discharge is not irritating. OBJECTIVE: BP 118/72 (BP Location: Right arm, Cuff Size: Adult Regular) Pulse 72 Temp 98 ??F (36.7 ??C) (Oral) Resp 16 Ht 1.607 m (5' 3.25) Wt 68.3 kg (150 lb 9.6 oz) SpO2 100% BMI 26.47 kg/m?? Physical Exam GENERAL: healthy, alert and [...] mentation appears normal, affect normal/bright PHQ-9 SCORE 03/08/2018 05/30/2018 06/17/2019 PHQ-9 Total Score - - - PHQ-9 Total Score MyChart - - - PHQ-9 Total Score 1 1 0 ANTONY-7 SCORE 03/08/2018 05/30/2018 06/17/2019 Total Score - - - Total Score - - - Total Score 0 0 5 ASSESSMENT/PLAN: 1. Routine general medical examination at a health care facility 2. Anxiety She notes there is some increase in symptoms. At this time, I did have a difficult time determining how pervasive it is. Reviewed her scores; it is a little higher on the anxiety scale. Discussed options. Would rather not have her use Xanax frequently; discussed rationale. Could increase Lexapro. Discussed counseling to help with relaxation techniques. Will start with that currently; they will often refer back as well if they believe medication adjustment would be advisable. - MENTAL HEALTH REFERRAL - Adult; Outpatient Treatment; Individual/Couples/Family/Group Therapy/Health Psychology; [facility]: [facility] ; We will contact you to schedule the ap pointment or please call with any questions - escitalopram (LEXAPRO) 10 MG tablet; TAKE 1 TABLET BY MOUTH DAILY Dispense: 90 tablet; Refill: 1 - ALPRAZolam (XANAX) 0.25 MG tablet; Take 1 tablet (0.25 mg) by mouth 3 times daily as needed for anxiety Dispense: 10 tablet; Refill: 0 3. Encounter for surveillance of contraceptive pills Refilling. - norgestim-eth estrad triphasic (TRINESSA, 28,) 0.18/0.215/0.25 MG-35 MCG tablet; Take 1 tablet by mouth daily Dispense: 84 tablet; Refill: 3 COUNSELING: Reviewed preventive health counseling, as reflected in patient instructions Regular exercise Healthy diet/nutrition Vision screening Estimated body mass index is 26.47 kg/m?? as calculated from the following: Height as of this encounter: 1.607 m (5' 3.25). Weight as of this encounter: 68.3 kg (150 lb 9.6 oz). Weight management plan: Discussed healthy diet and exercise guidelines reports that she has never smoked. She has never used smokeless tobacco. Counseling Resources: ATP IV Guidelines Pooled Cohorts Equation Calculator Breast Cancer Risk Calculator FRAX Risk Assessment ICSI Preventive Guidelines Dietary Guidelines for Americans, 2010 USDA's MyPlate ASA Prophylaxis Lung CA Screening Louise Brink MD, MD [facility] EQUIPMENT OPERATOR documented in this encounter Plan of Treatment Scheduled Referrals Name Type Priority Associated Diagnoses Order S chedule MENTAL HEALTH REFERRAL - Referral Routine Anxiety Ord ered: 06/17/2019 Adult; Outpatient Treatment; Individual/Couples/Family/ Group Therapy/Health Psychology; [facility] [facility] ; We will contact you to schedule the appointment or please call with any questions documented as of this encounter Visit Diagnoses Diagnosis Routine general medical examination at a health care facility - Primary Anxiety Anxiety state, unspecified Encounter for surveillance of contracept eleni pills Surveillance of previously prescribed co ntraceptive pill documented in this encounter Additional Health Concerns Assessment Noted Time PHQ-9 Depression Total Score: 0 06/17/2019 5:[address] EQUIPMENT OPERATOR documented as of this encounter Care Teams Heavy Machinery 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
--- OUTSIDE RECORDS SUMMARY | 2022-03-05 00:47 | XMS_ITS | Encounter Summary ---
:1980 Author Organization [place] Address [facility] [place] [address] Care Team Providers Name Role Phone Louise Brink MD Primary Care Provider Louise Brink MD Unavailable Reason for Visit Reason Comments Throat Pain complains of throat pain fo r 1 week today ,no chills or fever. tx pt denies any treatment @ home Encounter Details Date Type Department Care Team Description 05/25/2019 Office Visit [facility] Per[facility] Viral URI (Primary Dx); Urgent Care Manny Thompson PA-C Throat pain [id number] [id number] [facility] [id number] [place], [place] [id number] Social History Tobacco Use Types Packs/Day Years Used Date Smoking Tobacco: Never Smokeless Tobacco: Never Alcohol Use Standard Drinks/Week Comments Yes 0 (1 standard drink = 0.6 oz pure alcoho l) Sex Assigned at Date Recorded Female 10/26/2020 1:28 AM CDT documented as of this encounter Last Filed Vital Signs Vital Sign Reading Time Taken Comments Blood Pressure 118/78 05/25/2019 5:06 PM 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 Pulse 91 05/25/2019 5:06 PM 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 Temperature 36.9 ??C (98.4 ??F) 05/25/2019 5:06 PM 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 Respiratory Rate - - Oxygen Saturation 98% 05/25/2019 5:06 PM 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 Inhaled Oxygen Concentration - - Weight 70.9 kg (156 lb 4.8 oz) 05/25/2019 5:06 PM 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 Height - - Body Mass Index 27.47 05/30/2018 4:50 PM 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 documented in this encounter Patient Instructions Patient InstructionsPeri Romero PA-C - 05/25/2019 5:00 PM 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 Images from the original note were not included. Patient Education Viral Upper Respiratory Illness (Adult) You have a viral upper respiratory illness (URI), which is another term for the common cold. This illness is contagious during the first few days. It is spread through the air by coughing and sneezing.It may also be spread by direct contact (touching the sick person and then touching your own eyes, nose, or mouth). Frequent handwashing will decrease risk of spread. Most viral illnesses go away within 7 to 10 days with rest and simple home remedies. Sometimes the illness may last for several weeks. Antibiotics will not kill a virus, and they are generally not prescribed for this condition. Home care ?? If symptoms are severe, rest at home for the first 2 to 3 days. When you resume activity, don't let yourself get too tired. ?? Don't smoke. If you need help stopping, talk with your healthcare provider. ?? Avoid being exposed to cigarette smoke (yours or others???). ?? You may use acetaminophen or ibuprofen to control pain and fever, unless another medicine was prescribed.??If you have chronic liver or kidney disease, have ever had a stomach ulcer or gastrointestinal bleeding, or are taking blood- thinning medicines, talk with your healthcare provider before usingthese medicines. Aspirin should never be given to anyone under 18 years of age who is ill with a viral infection or fever. It may cause severe liver or brain damage. ?? Your appetite may be poor, so a light diet is fine. Stay well hydrated by drinking 6 to 8 glassesof fluids per day (water, soft drinks, juices, tea, or soup). Extra fluids will help loosen secretions in the nose and lungs. ?? Frix-xbb-cfydpsj cold medicines will not shorten the length of time you???re sick, but they may be helpful for the following symptoms: cough, sore throat, and nasal and sinus congestion. If you takeprescription medicines, ask your healthcare provider or pharmacist which mivl-nhn-jnmepbw medicines are safe to use. (Note: Don't use decongestants if you have high blood pressure.) Follow-up care Follow up with your healthcare provider, or as advised. When to seek medical advice Call your healthcare provider right away if any of these occur: ?? Cough with lots of colored sputum (mucus) ?? Severe headache; face, neck, or ear pain ?? Difficulty??swallowing??due to throat pain ?? Fever of 100.4??F (38??C) or higher, or as directed by your healthcare provider Call 911 Call 911 if any of these occur: ?? Chest pain, shortness of breath, wheezing, or difficulty breathing ?? Coughing up blood ?? Very severe pain with swallowing, especially if it goes along with a muffled voice Date Last Reviewed: 10/12/2017 ?? [id number] [employer]. [address] [place] [address]. All rights reserved. This information is not intended as a substitute for professional medical care. Always follow your healthcare professional's instructions. 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 Symptoms are constant in duration. No treatments tried. Denies fever/chills, FLOYD, CP, SOB, abd pain, N/V/D, rash, or any other symptoms. Patient denies sick contacts. Past Medical History: Diagnosis Date ??? Anxiety ??? Seasonal allergies Past Surgical History: Procedure Laterality Date ??? SECTION x2 Social History Tobacco Use ??? Smoking status: Never Smoker ??? Smokeless tobacco: Never Used Substance Use Topics ??? Alcohol use: Yes Alcohol/week: 0.0 - 0.8 standard drinks ??? Drug use: No Patient Active Problem List Diagnosis ??? CARDIOVASCULAR SCREENING; LDL GOAL LESS THAN 160 ??? Seasonal allergies ??? Anxiety Family History Problem Relation Age of Onset ??? Depression Father ??? Diabetes Maternal Grandmother ??? Hypertension Paternal Grandmother ??? Cancer Maternal Grandfather Skin ??? Myocardial Infarction Maternal Grandfather 50 ??? Cancer - colorectal Paternal Grandfather 70 Problem list, Medication list, Allergies, and Medical/Social/Surgical histories reviewed in [facility] andupdated as appropriate. Review of Systems Constitutional: Negative for chills and fever. HENT: Positive for congestion, ear pain and sore throat. Respiratory: Positive for cough. Negative for shortness of breath. Cardiovascular: Negative for chest pain. Gastrointestinal: Negative for abdominal pain, diarrhea, nausea and vomiting. Skin: Negative for rash. Neurological: Negative for focal weakness and headaches. All other systems reviewed and are negative. Physical Exam Vitals signs and nursing note reviewed. HENT: Head: Normocephalic and atraumatic. Right Ear: Tympanic membrane and external ear normal. Left Ear: Tympanic membrane and external ear normal. Nose: Nose normal. Mouth/Throat: Mouth: Mucous membranes are moist. Pharynx: Oropharynx is clear. Comments: Postnasal drainage Cardiovascular: Rate and Rhythm: Normal rate and regular rhythm. Heart sounds: Normal heart sounds. Pulmonary: Effort: Pulmonary effort is normal. Breath sounds: Normal breath sounds. Musculoskeletal: Normal range of motion. Skin: General: Skin is warm and dry. Neurological: Mental Status: She is alert and oriented to person, place, and time. Vital Signs BP 118/78 Pulse 91 Temp 98.4 ??F (36.9 ??C) (Oral) Wt 70.9 kg (156 lb 4.8 oz) SpO2 98% BMI27.47 kg/m?? Diagnostic Test Results: Results for orders placed or performed in visit on 05/25/19 (from the past 24 hour(s)) Strep, Rapid Screen Result Value Ref Range Specimen Description Throat Rapid Strep A Screen NEGATIVE: No Group A streptococcal antigen detected by immunoassay, await culture report. ASSESSMENT/PLAN ICD-10-CM 1. Viral URI J06.9 2. Throat pain R07.0 Strep, Rapid Screen Beta strep group A culture Strep negative. Lungs CTAB, afebrile. C/w viral URI, supportive treatments discussed. I have discussed any lab or imaging results, the patient's diagnosis, and my plan of treatment with the patient and/or family. Patient is aware to come back in if with worsening symptoms or if no relief despite treatment plan. Patient voiced understanding and had no further questions. Follow Up: Return in about 1 week (around 06/01/2019) for Follow up w/ primary care provider if not better. NELLIE Hogan PA-C [facility] 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 documented in this encounter Plan of Treatment Not on filedocumented as of this encounter Procedures Procedure Name Priority Date/Time Associated Diagnosis Comme nts BETA HEMOLYTIC Routine 05/25/2019 5:29 PM Throat pain Results for this STREP GROUP A 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 procedure are in CULTURE the results section. RAPID STREP SCREEN Routine 05/25/2019 5:03 PM Throat pain Res ults for this THROAT SWAB 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 procedure are i n the results section. documented in this encounter Results Beta strep group A culture (05/25/2019 5:29 PM 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) Component Value Ref [facility] Range Method Time Signature Specimen Throat [facility] Culture Micro No beta 05/26/2019 [place] hemolytic 1:29 PM 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 CLINICS Streptococcus MIAMI Group A isolated Specimen Anatomical Collection Method Collection Time Receive d Time (Source) Location / / Volume Laterality Specimen from 05/25/2019 5:29 PM 05/25/19 20 5:30 throat 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 PM 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 (specimen) Peri Romero PA-C LAB - MICRO GENERAL ORDERA BLES Performing Organization Address City/State/ZIP Code Phon e Number [facility] [id number] [place] [address] Strep, Rapid Screen (05/25/2019 5:03 PM 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) Component Value Ref Test [facility] Range Method Time Signature Specimen Throat [facility] Rapid Strep A NEGATIVE: No 05/25/2019 [place] Screen Group A 5:29 PM 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 CLINICS streptococcal MIAMI antigen detected by immunoassay, await culture report. Specimen Anatomical Collection Method Collection Time Receive d Time (Source) Location / / Volume Laterality Specimen from 05/25/2019 5:03 PM 05/25/19 20 5:04 throat 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 PM 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 (specimen) Earlene Eunice Lipscomb PA-C LAB - MICRO GENERAL ORDERABL ES Performing Organization Address City/State/[facility] Code Phon e Number [facility] [id number] [place] [address] documented in this encounter Visit Diagnoses Diagnosis Viral URI - Primary Acute upper respiratory infections of un specified site Throat pain documented in this encounter Additional Health Concerns Assessment Noted Time PHQ-9 Depression Total Score: 1 05/30/2018 5:44 PM 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 documented as of this encounter Care Teams Patient Assistant Relationship Specialty Start Date End Date Louise Brink MD PCP - General Family Practice 07/29/13 09/07/21 [id number] [address] [id number] Louise Brink MD Assigned PCP 08/11/13 10/21/21 [id number] [address] [id number] documented as of this encounter
--- OUTSIDE RECORDS SUMMARY | 2022-03-05 00:47 | XMS_ITS | Encounter Summary ---
:1980 Author Organization [place] Address [facility] [place] [address] Care Team Providers Name Role Phone Vernon Reilly MD Primary Care Provider Vernon Reilly MD Unavailable Vernon Reilly MD Unavailable Reason for Visit Reason Comments Physical Encounter Details Date Type Department Care Team Description 05/30/2018 Office Visit [facility] Vernon Reilly MD Encounter for routine adult health exami nation without abnormal findings (Primary Dx); [facility] [place] [address] [address] Anxiety; [address] [address] Encounter fo r surveillance of contraceptive pills; [address] [address] Screening for malignant neoplasm of cerv ix ROBERTH Hammond [phone] [address] (Work) [phone] Social History Tobacco Use Types Packs/Day Years Used Date Smoking Tobacco: Never Smokeless Tobacco: Never Alcohol Use Standard Drinks/Week Comments Yes 0 (1 standard drink = 0.6 oz pure alcoho l) Sex Assigned at Date Recorded Female 10/26/2020 1:28 AM CDT documented as of this encounter Last Filed Vital Signs Vital Sign Reading Time Taken Comments Blood Pressure 116/72 05/30/2018 4:50 PM PHYSICAL SCIENCE AIDE Pulse 66 05/30/2018 4:50 PM PHYSICAL SCIENCE AIDE Temperature 36.7 ??C (98.1 ??F) 05/30/2018 4:50 PM PHYSICAL SCIENCE AIDE Respiratory Rate 16 05/30/2018 4:50 PM PHYSICAL SCIENCE AIDE Oxygen Saturation 95% 05/30/2018 4:50 PM PHYSICAL SCIENCE AIDE Inhaled Oxygen Concentration - - Weight 65.1 kg (143 lb 8 oz) 05/30/2018 4:50 PM PHYSICAL SCIENCE AIDE Height 160.7 cm (5' 3.25) 05/30/2018 4:50 PM PHYSICAL SCIENCE AIDE Body Mass Index 25.22 05/30/2018 4:50 PM PHYSICAL SCIENCE AIDE documented in this encounter Patient Instructions Patient InstructionsAraceli Hemphill CMA - 05/30/2018 4:30 PM CST Preventive Health Recommendations Female [...] six months for an exam and cleaning. ICAL SCIENCE AIDE documented in this encounter Progress Notes Vernon Reilly MD - 05/30/2018 4:30 PM CST SUBJECTIVE: CC: Bernarda Dean is an 37 year old woman who presents for preventive health visit. Physical Annual: Getting at least 3 servings of Calcium per day: Yes Bi-annual eye exam: Yes Dental care twice a year: Yes Sleep apnea or symptoms of sleep apnea: None Diet: Regular (no restrictions) Frequency of exercise: 2-3 days/week Duration of exercise: 15-30 minutes Taking medications regularly: Yes Medication side effects: None Additional concerns today: No PHQ-2 Total Score: 0 Today's PHQ-2 Score: PHQ-2 (??1999 Pfizer) 05/30/2018 Q1: Little interest or pleasure in doing [...] ??? Alcohol use: Yes Alcohol/week: 0.0 - 0.5 oz Alcohol Use 05/30/2018 If you drink alcohol do you typically have greater than 3 drinks per day OR greater than 7 drinks per week? No Reviewed orders with patient. Reviewed health maintenance and updated orders accordingly - Yes Pertinent mammograms are reviewed under the imaging tab. History of abnormal Pap smear: NO - age 30-65 PAP every 5 years with negative HPV co-testing recommended PAP / HPV 05/21/2015 PAP NIL Reviewed and updated as needed this visit by clinical staff Reviewed and updated as needed this visit by Provider Patient Active Problem List Diagnosis ??? CARDIOVASCULAR SCREENING; LDL GOAL LESS THAN 160 ??? Seasonal allergies ??? Anxiety Past Medical History: Diagnosis Date ??? Anxiety ??? Seasonal allergies Past Surgical History: Procedure Laterality Date ??? SECTION x2 Obstetric History T2 L2 SAB0 TAB0 Ectopic0 Multiple0 Live Births0 # Outcome Date GA Lbr Vidal/2nd Weight [...] IN DECEMBER FOR FURTHER REFILLS. 90 tablet 3 ??? multivitamin, therapeutic with minerals (MULTI-VITAMIN) TABS Take 1 tablet by mouth daily 100 tablet 3 ??? norgestim-eth estrad triphasic (TRINESSA, 28,) 0.18/0.215/0.25 MG-35 MCG per tablet Take 1 tablet by mouth daily 84 tablet 1 Family History Problem Relation Age of Onset ??? Depression Father ??? Diabetes Maternal Grandmother ??? Hypertension Paternal Grandmother ??? Cancer Maternal Grandfather Skin ??? Myocardial Infarction Maternal Grandfather 50 ??? Cancer - colorectal Paternal Grandfather 70 Social History Tobacco Use ??? Smoking status: Never Smoker ??? Smokeless tobacco: Never Used Substance Use Topics ??? Alcohol use: Yes Alcohol/week: 0.0 - 0.5 oz Immunization History Administered Date(s) Administered ??? Influenza (IIV3) PF 02/24/2013 ??? Influenza Intranasal Vaccine 03/21/2011 ??? Influenza Vaccine IM 3yrs+ 4 Valent IIV4 03/03/2014, 03/22/2015, 02/23/2016, 03/02/2017, 02/12/2018 ??? TD (ADULT, 7+) 06/13/1998 ??? TDAP [...] constipation, diarrhea, heartburn, hematochezia and nausea. Breasts: Positive for tenderness. Negative for breast mass and discharge. Genitourinary: Negative for dysuria, frequency, genital sores, hematuria, pelvic pain, urgency, vaginal bleeding and vaginal discharge. Musculoskeletal: Negative for arthralgias, joint swelling and myalgias. Skin: Negative for rash. Neurological: Negative for dizziness, weakness, headaches and paresthesias. Psychiatric/Behavioral: Negative for mood changes. The patient is not nervous/anxious. Tender right upper breast. Usually does not feel that. OBJECTIVE: BP 116/72 (BP Location: Right arm, Cuff Size: Adult Regular) Pulse 66 Temp 98.1 ??F (36.7 ??C) (Oral) Resp 16 Ht 1.607 m (5' 3.25) Wt 65.1 kg (143 lb 8 oz) LMP 05/03/2018 SpO2 95% BMI 25.22 kg/m?? Physical Exam GENERAL: alert and no distress EYES: Eyes grossly [...] masses or adenopathy CV: regular rates and rhythm, peripheral pulses strong and no peripheral edema ABDOMEN: soft, nontender, no hepatosplenomegaly, no masses and bowel sounds normal (female): normal female external genitalia, normal urethral meatus, vaginal mucosa pink, moist, well rugated, and normal cervix/adnexa/uterus without masses or discharge MS: no gross musculoskeletal defects noted, no edema SKIN: no suspicious lesions or rashes NEURO: Normal strength and tone, mentation intact and speech normal PSYCH: mentation appears normal, affect normal/bright Recent Labs Lab Test 12/22/16 0905 01/07/13 0828 CHOL 215* 181 HDL 72 69 LDL 121* 98 TRIG 108 74 CHOLHDLRATIO -- 2.6 PHQ-9 SCORE 05/22/2017 03/08/2018 05/30/2018 PHQ-9 Total Score - - - PHQ-9 Total Score MyChart 1 (Minimal depression) - - PHQ-9 Total Score 1 1 1 ANTONY-7 SCORE 05/22/2017 03/08/2018 05/30/2018 Total Score - - - Total Score 0 (minimal anxiety) - - Total Score 0 0 0 ASSESSMENT/PLAN: 1. Encounter for routine adult health examination without abnormal findings 2. Anxiety Doing well. Would like to continue the Lexapro. - escitalopram (LEXAPRO) 10 MG tablet; TAKE 1 TABLET BY MOUTH DAILY. DUE FOR ANNUAL PHYSICAL IN DECEMBER FOR FURTHER REFILLS. Dispense: 90 tablet; Refill: 3 3. Encounter for surveillance of contraceptive pills Refilling. - norgestim-eth estrad triphasic (TRINESSA, 28,) 0.18/0.215/0.25 MG-35 MCG tablet; Take 1 tablet by mouth daily Dispense: 84 tablet; Refill: 3 4. Screening for malignant neoplasm of cervix - Pap imaged thin layer screen with HPV - recommended age 30 - 65 - HPV High Risk Types DNA Cervical COUNSELING: Reviewed preventive health counseling, as reflected in patient instructions Regular exercise Healthy diet/nutrition Contraception Osteoporosis Prevention/Bone Health BP Readings from Last 1 Encounters: 05/30/18 116/72 Estimated body mass index is 25.22 kg/m?? as calculated from the following: Height as of this encounter: 1.607 m (5' 3.25). Weight as of this encounter: 65.1 kg (143 lb 8 oz). reports that has never smoked. she has never used smokeless tobacco. Counseling Resources: ATP IV Guidelines Pooled Cohorts Equation Calculator Breast Cancer Risk Calculator FRAX Risk Assessment ICSI Preventive Guidelines Dietary Guidelines for Americans, 2009 [employer]'s MyPlate ASA Prophylaxis Lung CA Screening Vernon Reilly MD, MD [facility] ICAL SCIENCE AIDE documented in this encounter Plan of Treatment Not on filedocumented as of this encounter Procedures Procedure Name Priority Date/Time Associated Diagnosis Comme nts PAP IMAGED THIN Routine 05/30/2018 5:27 PM Screening for Resul ts for this LAYER SCREEN PHYSICAL SCIENCE AIDE malignant neoplasm procedure are in of cervix the results section. HPV HIGH RISK TYPES Routine 05/30/2018 4:30 PM Screening for R esults for this DNA CERVICAL PHYSICAL SCIENCE AIDE malignant neoplasm procedure are in of cervix the results section. documented in this encounter Results Pap imaged thin layer screen with HPV - recommended age 30 - 65 (05/30/2018 5:27 PM PHYSICAL SCIENCE AIDE) Component Value Ref Test Analysis Performed At [facility] gist Range Method Time Signature PAP NIL COPATH Copath Report COPATH Patient Name: BERNARDA DEAN MR#: [id number] Specimen #: [id number] Collected: 05/30/2018 Received: 05/31/2018 Reported: 06/04/2018 09:04 Ordering Phy(s): VERNON REILLY For improved result formatting, select 'View Enhanced Report Format' under Linked Documents section. SPECIMEN/STAIN PROCESS: Pap imaged thin layer prep screening (Surepath, FocalPoint w ith guided screening) ? Pap-Cyto x 1, HPV ordered x 1 SOURCE: Cervical, endocervical ---- Pap imaged thin layer prep screening (Surepath, FocalPoint with guided screening) SPECIMEN ADEQUACY: Satisfactory for evaluation. -Transformation zone component present. CYTOLOGIC INTERPRETATION: Negative for intraepithelial lesion or malignancy Electronically signed out by: DENIA Madrigal ??(ASCP) Processed and screened at [facility] CLINICAL HISTORY: Oral Control Pill, A previous normal pap Date of Last Pap: 05/21/2015, Papanicolaou Test Limitations: ??Cervical cytology is a sc reening test with limited sensitivity; regular screening is critical for cancer prevention; Pap tests are p rimarily effective for the diagnosis/prevention of squamous cell carcinoma, not adenocarcinomas or other cancer s. TESTING LAB LOCATION: [address] ??[address] COLLECTION SITE: Client: ??[facility] [address] Location: [facility] (R) Specimen (Source) Anatomical Collection Method Collection Time Re ceived Time Location / / Volume Laterality Cytologic 05/30/2018 5:27 05/31/2018 2 :24 material PM PHYSICAL SCIENCE AIDE PM PHYSICAL SCIENCE AIDE (specimen) Vernon Reilly MD LAB - OPTIME CLINICAL SPECIM EN Performing Organization Address City/State/ZIP Code Phon e Number COPATH HPV High Risk Types DNA Cervical (05/30/2018 4:30 PM PHYSICAL SCIENCE AIDE) [facility] Method Time Signature HPV Source SurePath 05/30/2018 [place] 5:27 PM PHYSICAL SCIENCE AIDE [facility] [place] HPV 16 DNA Negative NEG^Negat 06/05/2018 [facility] 1:16 PM PHYSICAL SCIENCE AIDE [facility] HPV 18 DNA Negative NEG^Negat 06/05/2018 [facility] 1:16 PM PHYSICAL SCIENCE AIDE [facility] Other HR HPV Negative NEG^Negat 06/05/2018 [facility] 1:16 PM [facility] Final This 06/05/2018 [facility] patient's 1:16 PM [facility] sample is [facility] negative for ALICE HPV DNA. Comment: This test was developed and its performa nce characteristics determined by the [facility]. It has not been cleared or approved by the FDA. The laboratory is regulated under CLIA as qualified to perform high-compl exity testing. This test is used for clinical purposes. It should not be rega rded as investigational or for research. (Note) METHODOLOGY: ??The Jigar geraldo 4800 syst em uses automated extraction, simultaneous amplification of HPV (L1 re gion) and beta-globin, ?? followed by ??real time detection of flu orescent labeled HPV and beta globin using specific oligonucleotide pr obes . The test specifically identifies types HPV 16 DNA and HPV 18 D NA while concurrently detecting the rest of the high risk type s (31, 33, 35, 39, 45, 51, 52, 56, 58, 59, 66 or 68). COMMENTS: ??This test is not intended fo r use as a screening device for women under age 30 with normal cervi nando cytology. ??Results should be correlated with cytologic and histolo gic findings. Close clinical followup is recommended. Specimen Description Cervical Cells 05/30/2018 5:2 7 PM PHYSICAL SCIENCE AIDE [facility] Comment: [id number] Specimen Anatomical Collection Method Collection Time Receive d Time (Source) Location / / Volume Laterality Cervical Cells CERVIX UTERI 05/30/2018 4:30 PM 019 5:49 STRUCTURE / PHYSICAL SCIENCE AIDE PM PHYSICAL SCIENCE AIDE Unknown Vernon Reilly MD LAB - BLOOD ORDERABLES Performing Organization Address City/State/ZIP Code Phon e Number [address] [address] [facility] [address] [place], [place] [address] documented in this encounter Visit Diagnoses Diagnosis Encounter for routine adult health exami nation without abnormal findings - Primary Anxiety Anxiety state, unspecified Encounter for surveillance of contracept eleni pills Surveillance of previously prescribed co ntraceptive pill Screening for malignant neoplasm of cerv ix Screening for malignant neoplasm of the cervix documented in this encounter Additional Health Concerns Assessment Noted Time PHQ-9 Depression Total Score: 1 05/30/2018 5:44 PM PHYSICAL SCIENCE AIDE documented as of this encounter Care Teams Board Handler Relationship Specialty Start Date End Date Vernon Reilly MD PCP - General Family Practice 07/29/13 09/07/21 [address] [address] [address] Vernon Reilly MD PCP - Assigned PCP 08/11/13 07/16/18 [address] [address] [address] Vernon Reilly MD Assigned PCP 08/11/13 10/21/21 [address] [address] [address] documented as of this encounter
--- OUTSIDE RECORDS SUMMARY | 2022-03-05 00:47 | XMS_ITS | Encounter Summary ---
:1980 Author Organization [place] Address [address] [place] [address]. [place] [address] Care Team Providers Name Role Phone Louise Brink MD Primary Care Provider Louise Brink MD Unavailable Reason for Visit Reason Onset Date Comments Refill Request 02/25/2019 Xanax 0.25 Encounter Details Date Type Department Care Team Description 02/25/2019 MyC Refill [facility] Louise Brink MD Refill Request (Xanax Clinic [place] [address] 0.25) [address] [place] [address] [place] [phone] (Wo rk) [address] [phone] Social History Tobacco Use Types Packs/Day Years Used Date Smoking Tobacco: Never Smokeless Tobacco: Never Alcohol Use Standard Drinks/Week Comments Yes 0 (1 standard drink = 0.6 oz pure alcoho l) Sex Assigned at Date Recorded Female 10/26/2020 1:28 AM CDT documented as of this encounter Miscellaneous Notes Telephone Encounter - Emy Piedra RN - 02/26/2019 8:38 AM CDT Xanax 0.25 Last Written Prescription Date: 03/08/2018 Last Fill Quantity: 10, # refills: 0 Last office visit: 05/30/2018 with prescribing provider: Future Office Visit: Next 5 appointments (look out 90 days) Mar 05, 2019 4:45 PM CDT Nurse Only with FLU CLINIC NURSE [facility] ([facility] [address] [facility] [id number] Fill per [place] FRICTION PAINT MACHINE TENDER 03/08/2018 qty 10 per MH. Emy Piedra RN documented in this encounter Plan of Treatment Not on filedocumented as of this encounter Visit Diagnoses Diagnosis Anxiety Anxiety state, unspecified documented in this encounter Additional Health Concerns Assessment Noted Time PHQ-9 Depression Total Score: 1 05/30/2018 5:44 PM CUT OFF [place] documented as of this encounter Care Teams Nascar Driver Relationship Specialty Start Date End Date Louise Brink MD PCP - General Family Practice 07/29/13 09/07/21 [address] [place] [address] Louise Brink MD Assigned PCP 08/11/13 10/21/21 [address] [place] [address] documented as of this encounter
--- OUTSIDE RECORDS SUMMARY | 2022-03-05 00:47 | XMS_ITS | Encounter Summary ---
:1980 Author Organization [place] Address [address] [place] [address] Care Team Providers Name Role Phone Elizabeth Can PA-C Primary Care Provider Elizabeth Can PA-C Unavailable Reason for Visit Diagnostic Imaging Mammo (Routine) - Pending Review Specialty Diagnoses / Procedures Referred By Contact Refer red To Contact Diagnoses Visit for screening mammogram Elizabeth Can PA-C Procedures MA Screen Bilateral w/Carlos *MA Screening Digital Bilateral [address] [place] [address] Referral ID Status Reason Start Date Expiration Date Visits V isits Requested Authorized [id number] Pending 10/14/2021 10/14/2022 1 1 Review Encounter Details Date Type Department Care Team Description 11/25/2021 Ancillary Procedure [facility] for screening [facility] [place] mammogram [address] [place] [address] Social History Tobacco Use Types Packs/Day Years [...] Name Priority Date/Time Associated Diagnosis Comme nts MA SCREENING Routine 11/25/2021 3:00 PM Visit for screening Re sults for this BILATERAL W/ CARLOS CDT mammogram procedure are in the results section. documented in this encounter Results MA Screen Bilateral w/Carlos (11/25/2021 3:00 PM CDT) Anatomical Region Laterality Modality Breast Bilateral Mammography Specimen (Source) Anatomical Location Collection Method / Collectio n Time Received Time / Laterality Volume Narrative 11/27/2021 11:30 AM CDT BILATERAL FULL FIELD DIGITAL SCREENING MAMMOGRAM WITH TOMOSYNTHESIS Performed on: 11/25/21 No comparisons were made when reading th is study. Technique: ??This study was evaluated wi the assistance of Computer-Aided Detection. ??Breast Tomosynthesis was us ed in interpretation. Findings: The breasts have scattered are as of fibroglandular density. ?? There is no radiographic evidence of mal ignancy. IMPRESSION: ACR BI-RADS Category 1: Nega tive RECOMMENDED FOLLOW-UP: Annual routine sc reening mammogram The results and recommendations of this examination will be communicated to the patient. Elizabeth Can PA-C [employer] MAMMOGRAPHY ORDERABLES documented in this encounter Visit Diagnoses Diagnosis Visit for screening mammogram Other screening mammogram documented in this encounter Additional Health Concerns Assessment Noted Time PHQ-9 Depression Total Score: 1 10/14/2021 2:17 PM CDT documented as of this encounter Care Teams Certified Energy Manager Relationship Specialty Start Date End Date Elizabeth Can PA-C PCP - General Family Medicine 10/14/21 [address] [place] [address] Elizabeth Can PA-C Assigned PCP 10/22/21 [address] [place], [place] [id number] documented as of this encounter
--- OUTSIDE RECORDS SUMMARY | 2022-03-05 00:47 | XMS_ITS | Encounter Summary ---
:1980 Author Organization [place] Address [address] [place] [address]. [place] [address] Care Team Providers Name Role Phone Louise Brink MD Primary Care Provider Louise Brink MD Unavailable Reason for Visit Reason Comments Medication Refill Encounter Details Date Type Department Care Team Description 09/04/2021 Refill [facility] Josué Mcclure, Medication Refill [place] [address] [address] [place] [address] [place] [address] [phone] (Wo rk) Social History Tobacco Use Types Packs/Day Years Used Date Smoking Tobacco: Never Smokeless Tobacco: Never Alcohol Use Standard Drinks/Week Comments Yes 0 (1 standard drink = 0.6 oz pure alcoho l) Sex Assigned at Date Recorded Female 10/26/2020 1:28 AM CDT documented as of this encounter Miscellaneous Notes Telephone Encounter - Anna Madrigal - 09/22/2021 10:02 AM CDT Pt scheduled 10/14/21 with jena Madrigal- Transmission System Operator Telephone Encounter - Loretta Vale - 09/15/2021 9:04 AM CDT 2nd attempt - Left message for patient to schedule appointment to establish care w/ new provider in clinic for medication check. -Loretta Brandon TC Telephone Encounter - Malena Mcpherson - 09/08/2021 9:17 AM CDT Sent mychart message to schedule est care visit. Telephone Encounter - Josué Mcclure PA-C - 09/08/2021 9:05 AM CDT We usually will provide a corine refill for 90 days. Please just let patient know she will need appt in November to establish with new provider Telephone Encounter - Angel Christian RN - 09/07/2021 11:21 AM CDT Previous [facility] patient. When would you like patient to follow up/establish with new PCP for ongoing rx? Angel Flores RN documented in this encounter Plan of Treatment Not on filedocumented as of this encounter Visit Diagnoses Diagnosis Anxiety Anxiety state, unspecified documented in this encounter Additional Health Concerns Assessment Noted Time PHQ-9 Depression Total Score: 1 11/11/2020 1:39 PM CDT documented as of this encounter Care Teams Multigraph Operator Relationship Specialty Start Date End Date Louise Brink MD PCP - General Family Practice 07/29/13 09/07/21 [address] [address] [address] Louise Brink MD Assigned PCP 08/11/13 10/21/21 [address] [address] [address] documented as of this encounter
--- OUTSIDE RECORDS SUMMARY | 2022-03-05 00:47 | XMS_ITS | Encounter Summary ---
:1980 Author Organization [place] Address [address] [place] [address] Care Team Providers Name Role Phone Louise Brink MD Primary Care Provider Louise Brink MD Unavailable Encounter Details Date Type Department Care Team Description 11/11/2020 Travel Social History Tobacco Use Types Packs/Day [...] / COVID-19? documented as of this encounter Plan of Treatment Not on filedocumented as of this encounter Visit Diagnoses Not on filedocumented in this encounter Additional Health Concerns Assessment Noted Time PHQ-9 Depression Total Score: 1 11/11/2020 1:39 PM CDT documented as of this encounter Care Teams Iso Coordinator Relationship Specialty Start Date End Date Louise Brink MD PCP - General Family Practice 07/29/13 09/07/21 [address] [address] [address] Louise Brink MD Assigned PCP 08/11/13 10/21/21 [address] [address] [address] documented as of this encounter
--- OUTSIDE RECORDS SUMMARY | 2022-03-05 00:47 | XMS_ITS | Encounter Summary ---
:1980 Author Organization [place] Address [facility] [place] [address] Care Team Providers Name Role Phone Louise Brink MD Primary Care Provider Louise Brink MD Unavailable Encounter Details Date Type Department Care Team Description 09/11/2019 Telephone [facility] Won Solano [facility] [address] [place], [place] [phone] Social History Tobacco Use Types Packs/Day Years Used Date Smoking Tobacco: Never Smokeless Tobacco: Never Alcohol Use Standard Drinks/Week Comments Yes 0 (1 standard drink = 0.6 oz pure alcoho l) Sex Assigned at Date Recorded Female 10/26/2020 1:28 AM CDT documented as of this encounter Miscellaneous Notes Telephone Encounter - Jose Solano - 09/11/2019 8:37 AM CDT Left message to call intake and change appt to a video or phone visit. documented in this encounter Plan of Treatment Not on filedocumented as of this encounter Visit Diagnoses Not on filedocumented in this encounter Additional Health Concerns Assessment Noted Time PHQ-9 Depression Total Score: 1 07/08/2019 5:45 PM BUYER TOBACCO HEAD documented as of this encounter Care Teams Special Forces Specialist Relationship Specialty Start Date End Date Louise Brink MD PCP - General Family Practice 07/29/13 09/07/21 [address] [place] [address] Louise Brink MD Assigned PCP 08/11/13 10/21/21 [address] [address] [address] documented as of this encounter
--- OUTSIDE RECORDS SUMMARY | 2022-03-05 00:47 | XMS_ITS | Encounter Summary ---
:1980 Author Organization [place] Address [address] [place] [address] Care Team Providers Name Role Phone Louise Brink MD Primary Care Provider Louise Brink MD Unavailable Encounter Details Date Type Department Care Team Description 08/31/2020 Travel Social History Tobacco Use Types Packs/Day [...] documented as of this encounter Care Teams Care Team Assistant Relationship Specialty Start Date End Date Louise Brink MD PCP - General Family Practice 07/29/13 09/07/21 [address] [address] [id number] Louise Brink MD Assigned PCP 08/11/13 10/21/21 [address] [address] [id number] documented as of this encounter
--- OUTSIDE RECORDS SUMMARY | 2022-03-05 00:48 | XMS_ITS | Encounter Summary ---
:1980 Author Organization [place] Address [address] [place] [address] Care Team Providers Name Role Phone Louise Brink MD Primary Care Provider Louise Brink MD Unavailable Louise Brink MD Unavailable Reason for Visit Reason Comments Medication Refill norgestim-eth estrad triphas ic (ORTHO TRI-CYCLEN, TRI-SPRINTEC) 0.18/0.215/0.25 MG-35 MCG pe r tablet Encounter Details Date Type Department Care Team Description 01/12/2018 Refill [facility] Louise Brink MD Medication Refill Clinic [place] [address] (norgestim-eth estrad [address] [place] [address] triphasic (ORTHO [place], [place] [phone] (Wo rk) TRI-CYCLEN, [id number] TRI-SPRINTEC) [phone] 0.18/0.215/0.25 MG-35 MCG per tablet) Social History Tobacco Use Types Packs/Day Years Used Date Smoking Tobacco: Never Smokeless Tobacco: Never Alcohol Use Standard Drinks/Week Comments Yes 0 (1 standard drink = 0.6 oz pure alcoho l) Sex Assigned at Date Recorded Female 10/26/2020 1:28 AM CDT documented as of this encounter Miscellaneous Notes Telephone Encounter - Perfecto Encarnacion - 01/12/2018 11:24 AM CDT Requested Prescriptions Pending Prescriptions Disp Refills ??? MEGAN, 28, 0.18/0.215/0.25 MG-35 MCG per tablet [Pharmacy Med Name: TRINESSA TABLETS 28S] Last Written Prescription Date: 10/26/17 Last Fill Quantity: 84, # refills: 0 Last office visit: 12/22/2016 with prescribing provider: 12/22/16 Future Office Visit: 84 tablet 0 Sig: TAKE 1 TABLET BY MOUTH DAILY Contraceptives Protocol Failed 01/12/2018 8:08 AM Failed - Recent (12 mo) or future [...] age is 35 or older Passed - No active on record Passed - No positive test in past 12 months documented in this encounter Plan of Treatment Not on filedocumented as of this encounter Visit Diagnoses Diagnosis Encounter for surveillance of contracept eleni pills Surveillance of previously prescribed co ntraceptive pill documented in this encounter Additional Health Concerns Assessment Noted Time PHQ-9 Depression Total Score: 1 05/23/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
--- OUTSIDE RECORDS SUMMARY | 2022-03-05 00:48 | XMS_ITS | Encounter Summary ---
:1980 Author Organization [place] Address [facility] [facility] [address] Care Team Providers Name Role Phone Louise Brink MD Primary Care Provider Louise Brink MD Unavailable Louise Brink MD Unavailable Reason for Visit Reason Comments Physical Encounter Details Date Type Department Care Team Description 12/22/2016 Office Visit [facility] Louise Brink MD Encounter for routine adult health exami nation without abnormal findings (Primary Dx); Clinic [place] [address] [address] Anxiety; [address] [address] Encounter fo r surveillance of contraceptive pills; [address] [address] CARDIOVASCULAR SCREENING; LDL GOAL LESS THAN 160 [address] [phone] (Work) [phone] Social History Tobacco Use Types Packs/Day Years Used Date Smoking Tobacco: Never Smokeless Tobacco: Never Alcohol Use Standard Drinks/Week Comments Yes 0 (1 standard drink = 0.6 oz pure alcoho l) Sex Assigned at Date Recorded Female 10/26/2020 1:28 AM CDT documented as of this encounter Last Filed Vital Signs Vital Sign Reading Time Taken Comments Blood Pressure 110/68 12/22/2016 8:37 AM CDT Pulse 65 12/22/2016 8:37 AM CDT Temperature 36.5 ??C (97.7 ??F) 12/22/2016 8:37 AM CDT Respiratory Rate 16 12/22/2016 8:37 AM CDT Oxygen Saturation 99% 12/22/2016 8:37 AM CDT Inhaled Oxygen Concentration - - Weight 64.9 kg (143 lb) 12/22/2016 8:37 AM CDT Height 161.3 cm (5' 3.5) 12/22/2016 8:37 AM CDT Body Mass Index 24.93 12/22/2016 8:37 AM CDT documented in this encounter Patient Instructions Patient InstructionsAraceli Hemphill CMA - 12/22/2016 8:33 AM CDT Preventive Health Recommendations Female Ages 26 - [...] instead of white grains and rice. ??? Talk to your provider about Calcium and Vitamin D. Lifestyle ??? Exercise [...] cleaning. documented in this encounter Progress Notes Louise Brink MD - 12/22/2016 8:30 AM CDT SUBJECTIVE: CC: Janet Dean is an 36 year old woman who presents for preventive health visit. Physical Annual: Getting at least 3 servings of Calcium per day:: Yes Bi-annual eye exam:: Yes Dental care twice a year:: Yes Sleep apnea or symptoms of sleep apnea:: None Diet:: Regular (no restrictions) Frequency of exercise:: 4-5 days/week Duration of exercise:: 30-45 minutes Taking medications regularly:: Yes Medication side effects:: None Additional concerns today:: No Today's PHQ-2 Score: PHQ-2 (??[facility]) 12/22/2016 Q1: Little interest or pleasure in doing things 0 Q2: Feeling down, depressed or hopeless 0 PHQ-2 Score 0 Q1: Little interest or pleasure in doing things Not at all Q2: Feeling down, depressed or hopeless Not at all PHQ-2 Score 0 Abuse: Current or Past(Physical, Sexual or Emotional)- No Do you feel safe in your environment - Yes Social History Substance Use Topics ??? Smoking status: Never Smoker ??? Smokeless tobacco: Never Used ??? Alcohol use 0.0 - 0.5 oz/week 0 - 1 drink(s) per week The patient does not drink >3 drinks per day nor >7 drinks per week. Reviewed orders with patient. Reviewed health maintenance and updated orders accordingly - Yes Mammogram not appropriate for this patient based on age. Pertinent mammograms are reviewed under the imaging tab. History of abnormal Pap smear: NO - age 30- 65 PAP every 3 years recommended Reviewed and updated as needed this visit [...] Lv 2 Term 1 Term Current Outpatient Prescriptions Medication Sig Dispense Refill ??? norgestim-eth estrad triphasic (ORTHO TRI-CYCLEN, TRI-SPRINTEC) 0.18/0.215/0.25 MG-35 MCG per tablet Take 1 tablet by mouth daily Due for a physical exam for further refills. 84 tablet 0 ??? escitalopram (LEXAPRO) 10 MG tablet TAKE 1 TABLET DAILY 90 tablet 1 ??? ALPRAZolam (XANAX) 0.25 MG tablet Take 1 tablet (0.25 mg) by mouth 3 times daily as needed for anxiety 30 tablet 0 ??? multivitamin, therapeutic with minerals (MULTI-VITAMIN) TABS Take 1 tablet by mouth daily 100 tablet 3 ??? cetirizine (ZYRTEC) 10 MG tablet Take 1 tablet (10 mg) by mouth every evening 30 tablet 1 Family History Problem Relation Age of Onset ??? Depression Father ??? DIABETES Maternal Grandmother ??? Hypertension Paternal Grandmother ??? CANCER Maternal Grandfather Skin ??? Myocardial Infarction Maternal Grandfather 50 ??? Cancer - colorectal Paternal Grandfather 70 Social History Substance Use Topics ??? Smoking status: Never Smoker ??? Smokeless tobacco: Never Used ??? Alcohol use 0.0 - 0.5 oz/week 0 - 1 Standard drinks or equivalent per week Immunization History Administered Date(s) Administered ??? Influenza (IIV3) 02/24/2013 ??? Influenza Intranasal Vaccine 03/21/2011 ??? Influenza Vaccine IM 3yrs+ 4 Valent IIV4 03/03/2014, 03/22/2015, 02/23/2016 ??? TD (ADULT, 7+) 06/13/1998 ??? TDAP Vaccine (Adacel) 01/07/2013 ROS: C: NEGATIVE for fever, chills, change in weight I: NEGATIVE for worrisome rashes, moles or lesions E: NEGATIVE for vision changes or irritation ENT: NEGATIVE for ear, mouth and throat problems R: NEGATIVE for significant cough or SOB B: NEGATIVE for masses, tenderness or discharge CV: NEGATIVE for chest pain, palpitations or peripheral edema GI: NEGATIVE for nausea, abdominal pain, heartburn, or change in bowel habits : NEGATIVE for unusual urinary or vaginal symptoms. Periods are regular. M: NEGATIVE for significant arthralgias or myalgia N: NEGATIVE for weakness, dizziness or paresthesias P: NEGATIVE for changes in mood or affect OBJECTIVE: BP 110/68 (BP Location: Right arm, Cuff Size: Adult Regular) Pulse 65 Temp 97.7 ??F (36.5 ??C) (Oral) Resp 16 Ht 5' 3.5 (1.613 m) Wt 143 lb (64.9 kg) SpO2 99% BMI 24.93 kg/m2 EXAM: GENERAL: healthy, alert and no distress EYES: [...] mentation appears normal, affect normal/bright PHQ-9 SCORE 05/21/2015 11/19/2015 12/22/2016 Total Score - - - Total Score MyChart - 1 (Minimal depression) - Total Score 2 - 1 ANTONY-7 SCORE 05/21/2015 11/19/2015 12/22/2016 Total Score - - - Total Score - 1 (minimal anxiety) - Total Score 1 - 1 ASSESSMENT/PLAN: Encounter for routine adult health examination without abnormal findings Anxiety Doing well. Would like to continue lexapro. Infrequent use of lorazepam; mostly with travel. She notes she still has some left - escitalopram (LEXAPRO) 10 MG tablet; Take 1 tablet (10 mg) by mouth daily Encounter for surveillance of contraceptive pills Refilling. - norgestim-eth estrad triphasic (ORTHO TRI-CYCLEN, TRI-SPRINTEC) 0.18/0.215/0.25 MG-35 MCG per tablet; Take 1 tablet by mouth daily CARDIOVASCULAR SCREENING; LDL GOAL LESS THAN 160 - Lipid Profile (Chol, Trig, HDL, LDL calc) Discussed doing surveys in 6 months over phone or on line if things are going well. COUNSELING: Reviewed preventive health counseling, as reflected in patient instructions Regular exercise Healthy diet/nutrition Osteoporosis Prevention/Bone Health reports that she has never smoked. She has never used smokeless tobacco. Estimated body mass index is 24.93 kg/(m^2) as calculated from the following: Height as of this encounter: 5' 3.5 (1.613 m). Weight as of this encounter: 143 lb (64.9 kg). Counseling Resources: ATP IV Guidelines Pooled Cohorts Equation Calculator Breast Cancer Risk Calculator FRAX Risk Assessment ICSI Preventive Guidelines Dietary Guidelines for Americans, 2009 [employer] MyPlate ASA Prophylaxis Lung CA Screening Louise Brink MD, MD [facility] [place] HPI/ROS submitted by the patient on 12/22/2016 PHQ-2 Score: 0 documented in this encounter Nursing Notes Araceli Hemphill CMA - 12/22/2016 8:30 AM CDT Chief Complaint Patient presents with ??? Physical Initial BP 110/68 (BP Location: Right arm, Cuff Size: Adult Regular) Pulse 65 Temp 97.7 ??F (36.5 ??C) (Oral) Resp 16 Ht 5' 3.5 (1.613 m) Wt 143 lb (64.9 kg) SpO2 99% BMI 24.93 kg/m2 Estimated body mass index is 24.93 kg/(m^2) as calculated from the following: Height as of this encounter: 5' 3.5 (1.613 m). Weight as of this encounter: 143 lb (64.9 kg). Medication Reconciliation: complete documented in this encounter Plan of Treatment Not on filedocumented as of this encounter Procedures Procedure Name Priority Date/Time Associated Diagnosis Comme nts LIPID PROFILE Routine 12/22/2016 9:05 AM CARDIOVASCULAR Result s for this CDT SCREENING; LDL GOAL LESS pro cedure are in THAN 160 the results section. documented in this encounter Results (ABNORMAL) Lipid Profile (Chol, Trig, HDL, LDL calc) (12/22/2016 9:05 AM CDT) P athologist Signature Cholesterol 215 (H) <200 mg/dL [facility] Comment: Desirable: <200 mg/dl Triglycerides 108 <150 mg/dL [facility] HDL Cholesterol 72 >49 mg/dL [facility] LDL Cholesterol Calculated 121 (H) <100 mg/dL [facility] Comment: Above desirable: ??100-129 mg/dl Borderline High: ??130-159 mg/dL High: ? 160-189 mg/dL Very high: ? >189 mg/dl Non HDL Cholesterol 143 (H) <130 mg/dL [facility] Comment: Above Desirable: ??130-159 mg/dl Borderline high: ??160-189 mg/dl High: ? 190-219 mg/dl Very high: ? >219 mg/dl Specimen Anatomical Collection Method Collection Time Receive d Time (Source) Location / / Volume Laterality Blood specimen 12/22/2016 9:05 AM 017 9:06 (specimen) CDT AM CDT Louise Brink MD LAB - BLOOD ORDERABLES Performing Organization Address City/State/ZIP Code Phon e Number [facility] [address] [place] [address] documented in this encounter Visit Diagnoses Diagnosis Encounter for routine adult health exami nation without abnormal findings - Primary Anxiety Anxiety state, unspecified Encounter for surveillance of contracept eleni pills Surveillance of previously prescribed co ntraceptive pill CARDIOVASCULAR SCREENING; LDL GOAL LESS THAN 160 documented in this encounter Additional Health Concerns Assessment Noted Time PHQ-9 Depression Total Score: 1 12/22/2016 9:20 AM CDT documented as of this encounter Care Teams Signal Inspector Relationship Specialty Start Date End Date Louise Brink MD PCP - General Family Practice 07/29/13 09/07/21 [id number] [address] [id number] Louise Brink MD PCP - Assigned PCP 08/11/13 07/16/18 [id number] [address] [id number] Louise Brink MD Assigned PCP 08/11/13 10/21/21 [address] [address] [id number] documented as of this encounter
--- OUTSIDE RECORDS SUMMARY | 2022-03-05 00:48 | XMS_ITS | Encounter Summary ---
:1980 Author Organization [place] Address [address] [facility] [place] [address] Care Team Providers Name Role Phone Louise Brink MD Primary Care Provider Louise Brink MD Unavailable Louise Brink MD Unavailable Reason for Visit Reason Comments Medication Refill escitalopram (LEXAPRO) Encounter Details Date Type Department Care Team Description 03/25/[address] [facility] Louise Brink MD Medication Refill Clinic [place] [address] (escitalopram [address] [place] [address] (LEXAPRO)) [address] [phone] (Wo rk) [id number] [phone] Social History Tobacco Use Types Packs/Day Years Used Date Smoking Tobacco: Never Smokeless Tobacco: Never Alcohol Use Standard Drinks/Week Comments Yes 0 (1 standard drink = 0.6 oz pure alcoho l) Sex Assigned at Date Recorded Female 10/26/2020 1:28 AM CDT documented as of this encounter Miscellaneous Notes Telephone Encounter - Raya Rodrigues RN - 03/27/2017 1:30 PM CST New pharmacy requesting, this is sent for one 90 day refill. Will need to complete surveys before next refill. Raya Rodrigues, senior ui software engineer Nurse EYOR ROD HELPER Telephone Encounter - Shanon Ibarra - 03/26/2017 10:19 AM CST kennedy 12/22/16 EYOR ROD HELPER documented in this encounter Plan of Treatment Not on filedocumented as of this encounter Visit Diagnoses Diagnosis Anxiety Anxiety state, unspecified documented in this encounter Additional Health Concerns Assessment Noted Time PHQ-9 Depression Total Score: 1 12/22/2016 9:20 AM CDT documented as of this encounter Care Teams Manager Contract Relationship Specialty Start Date End Date Louise Brink MD PCP - General Family Practice 07/29/13 09/07/21 [id number] [address] [id number] Louise Brink MD PCP - Assigned PCP 08/11/13 07/16/18 [id number] [address] [id number] Louise Brink MD Assigned PCP 08/11/13 10/21/21 [address] [address] [id number] documented as of this encounter
--- OUTSIDE RECORDS SUMMARY | 2022-03-05 00:48 | XMS_ITS | Encounter Summary ---
:1980 Author Organization [place] Address [address] [place] [address] Care Team Providers Name Role Phone Louise Brink MD Primary Care Provider Louise Brink MD Unavailable Louise Brink MD Unavailable Reason for Visit Reason Comments Flu Shot Encounter Details Date Type Department Care Team Description 02/12/2018 Allied Health/Nurse [facility] Flu Shot Visit [place] [address] [place] [address] Social History Tobacco Use Types Packs/Day Years Used Date Smoking Tobacco: Never Smokeless Tobacco: Never Alcohol Use Standard Drinks/Week Comments Yes 0 (1 standard drink = 0.6 oz pure alcoho l) Sex Assigned at Date Recorded Female 10/26/2020 1:28 AM CDT documented as of this encounter Progress Notes Araceli Hemphill CMA - 02/12/2018 5:17 PM CDT Injectable Influenza Immunization Documentation 1. Is the person to be vaccinated sick today? No 2. Does the person to be vaccinated have an allergy to a component of the vaccine? No Egg Allergy Algorithm Link 3. Has the person to be vaccinated ever had a serious reaction to influenza vaccine in the past? No 4. Has the person to be vaccinated ever had Guillain-Sullivan?? syndrome? 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
--- OUTSIDE RECORDS SUMMARY | 2022-03-05 00:48 | XMS_ITS | Encounter Summary ---
:1980 Author Organization [facility] Address [address] [place] [id number] Care Team Providers Name Role Phone Louise Brink MD Primary Care Provider Louise Brink MD Unavailable Louise Brink MD Unavailable Reason for Visit Reason Comments Foot Pain L foot swelling and pain for last 5.5 weeks. Encounter Details Date Type Department Care Team Description 07/21/2015 Office Visit [facility] Faith Monreal, Left fo ot pain (Primary Dx); Clinic Lawrence DPM, Podiatry/Foot Tendonitis of foot; [id number] E and Ankle Surgery [place] [id number] [phone] [address] [place], [place] [id number] (Wo rk) Social History Tobacco Use Types Packs/Day Years Used Date Smoking Tobacco: Never Smokeless Tobacco: Never Alcohol Use Standard Drinks/Week Comments Yes 0 (1 standard drink = 0.6 oz pure alcoho l) Sex Assigned at Date Recorded Female 10/26/2020 1:28 AM CDT documented as of this encounter Last Filed Vital Signs Vital Sign Reading Time Taken Comments Blood Pressure 112/60 07/21/2015 9:40 AM CHAIR MAKER Pulse - - Temperature - - Respiratory Rate - - Oxygen Saturation - - Inhaled Oxygen Concentration - - Weight 66.2 kg (146 lb) 07/21/2015 9:40 AM CHAIR MAKER Height 160 cm (5' 3) 07/21/2015 9:40 AM CHAIR MAKER Body Mass Index 25.86 07/21/2015 9:40 AM CHAIR MAKER documented in this encounter Patient Instructions Patient InstructionsMy [facility] - 07/21/2015 10:[address] Monreal can be found at these clinics: Follow up in clinic as needed. Sunday AM [facility] [address] [place] [address] Sunday PM Surgery Sunday All Day [facility] [address] [place] [address] Sunday [facility] [address] [place], [place] [id number] All Day surgery Sunday AM [facility] [place] [address] [place], [place] [id number] Sunday PM [facility] [address] [facility], [address] [place] [address] TO SCHEDULE SURGERY, call Elizabeth at [phone]. To Schedule appointments call: [phone] General (after hours): Patient [phone] TENDONITIS Tendons are the strong fibrous portions ofmuscles that attach to bones and allow the muscle to move a joint when it contracts. Tendons are very strong because they have a lot of force exerted on them. Sometimes tendons can become painful because they have suffered an acute injury, in which too much force was exerted at one time, or an overuse injury, in which a normal force was exerted too frequentlyor over a prolonged period of time. As a result, there is damage to the tendon and its surrounding soft tissue structures and they become inflammed. Because tendons do not have a great blood supply, they do not heal rapidly and the inflammation can become chronic. Conservative treatment for tendinitis involves rest and anti-inflammatory measures. Ice is applied 15 minutes 2-3 times daily. Anti-inflammatory medications called NSAIDs (ibuprofen, example) can be taken provided they are used with caution, as they can lead to internal bleeding and increase the risk o fstroke and heart attack. Often your doctor will use a special shoe or removable walking cast to immobilize the tendon, allowing it to heal without further damage from use. These devices are very useful in helping tendons heal, but they may slow you down or make you feel like your hip, knee, or back are out ofalignment. This is temporary and should go away once you are out ofthe immobilization. You should not use a walking cast when showering or driving. If conservative measures fail, your physician may need to surgically repair the tendon by removing any chronic inflammatory tissue and sewing it back together. Sometimes it is sewn to an adjacent tendon with similar function for support and sometimes it is lengthened. . Sometimes the bones around the tendon need to be realigned or reshaped to better support the tendon or prevent further damage. Your foot and ankle surgeon will discuss the specifics of your surgery with you, should you need it. Towel stretch: Sit on a hard surface with your injured leg stretched out in front of you. Loop a towel around your toes and the ball of your foot and pull the towel toward your body keeping your leg straight. Hold this position for 15 to 30 seconds and then relax. Repeat 3 times. When you don't feel much of a stretch using the towel, you can start the standing calf stretch and the following exercises. Standing calf stretch: Stand facing a wall with your hands on the wall at about eye level. Keep yourinjured leg back with your heel on the floor. Keep the other leg forward with the knee bent. Turn your back foot slightly inward (as if you were pigeon-toed). Slowly lean into the wall until you feel astretch in the back of your calf. Hold the stretch for 15 to 30 seconds. Return to the starting position. Repeat 3 times. Do this exercise several times each day. Standing soleus stretch: Stand facing a wall with your hands on the wall at about chest height. Keepyour injured leg back with your heel on the floor. Keep the other leg forward with the knee bent. Turn your back foot slightly inward (as if you were pigeon-toed). Bend your back knee slightly and gently lean into the wall until you feel a stretch in the lower calf of your injured leg. Hold the stretch for 15 to 30 seconds. Return to the starting position. Repeat 3 times. Achilles stretch: Stand with the ball of one foot on a stair. Reach for the step below with your heel until you feel a stretch in the arch of your foot. Hold this position for 15 to 30 seconds and thenrelax. Repeat 3 times. Heel raise: Balance yourself while standing behind a chair or counter. Using the chair or counter asa support to help you, raise your body up onto your toes and hold for 5 seconds. Then slowly lower yourself down without holding onto the support. (It's OK to keep holding onto the support if you need to.) When this exercise becomes less painful, try lowering yourself down on the injured leg only. Repeat 15 times. Do 2 sets of 15. Rest 30 seconds between sets. Step-up: Stand with the foot of your injured leg on a support 3 to 5 inches high (like a small step or block of wood). Keep your other foot flat on the floor. Shift your weight onto the injured leg on the support. Straighten your injured leg as the other leg comes off the floor. Return to the startingposition by bending your injured leg and slowly lowering your uninjured leg back to the floor. Do 2 sets of 15. Resisted ankle eversion: Sit with both legs stretched out in front of you, with your feet about a shoulder's width apart. Tie a loop in one end of elastic tubing. Put the foot of your injured leg through the loop so that the tubing goes around the arch of that foot and wraps around the outside of the other foot. Hold onto the other end of the tubing with your hand to provide tension. Turn the foot ofyour injured leg up and out. Make sure you keep your other foot still so that it will allow the tubing to stretch as you move the foot of your injured leg. Return to the starting position. Do 2 sets of15. Balance and reach exercises: Stand next to a chair with your injured leg farther from the chair. Thechair will provide support if you need it. Stand on the foot of your injured leg and bend your knee slightly. Try to raise the arch of this foot while keeping your big toe on the floor. Keep your foot in this position. With the hand that is farther away from the chair, reach forward infront of you by bending at the waist. Avoid bending your knee any more as you do this. Repeat this 10 times. To make the exercise more challenging, reach farther in front of you. Do 2 sets of 10. bowling floor manager the same position as above. While keeping your arch height, reach the hand that is farther away from the chair across your body toward the chair. The farther you reach, the more challenging the exercise. Do 2 sets of 10. If you have access to a wobble board, do the following exercises: Wobble board exercises: Stand on a wobble board with your feet shoulder width apart. Rock the board forwards and backwards 30 times, then side to side 30 times. Hold on to a chair if you need support. Rotate the wobble board around so that the edge of the board is in contact with the floor at all times. Do this 30 times in a clockwise and then a counterclockwise direction. Balance on the wobble board for as long as you can without letting the edges touch the floor. Try todo this for 2 minutes without touching the floor. Rotate the wobble board in clockwise and counterclockwise circles, but do not let the edge of the board touch the floor. When you have mastered exercises A through D, try repeating them while standing on just your injuredleg. After you are able to do these exercises on one leg, try to do them with your eyes closed. Make sureyou have something nearby to support you in case you lose your balance. R MAKER documented in this encounter Progress Notes Faith Monreal DPM, Podiatry/Foot and Ankle Surgery - 07/21/2015 10:12 AM CHAIR MAKER PATIENT HISTORY: Janet Dean is a 34 year old female who presents to clinic for swelling to the left foot. Notes she was doing vanna at home barefoot about 5 1/2 weeks ago and she started to have pain to the top of the foot. Notes that that has gotten better, but her left foot has continued to swell. She has been icing the foot and decreasing activity. Currently no pain but can be 5/10 at its worst. Would like to know why the foot is still swelling. Review of Systems: Patient denies fever, chills, rash, wound, stiffness, limping, numbness, weakness, heart burn, blood in stool, chest pain with activity, calf pain when walking, shortness of breath with activity, chronic cough, easy bleeding/bruising, excessive thirst, fatigue, depression, anxiety. P atient admits to swelling. PAST MEDICAL HISTORY: No past medical history on file. PAST SURGICAL HISTORY: No past surgical history on file. MEDICATIONS: Current outpatient prescriptions: ??? escitalopram (LEXAPRO) 10 MG tablet, Take 1 tablet (10 mg) by mouth daily, Disp: 90 tablet, Rfl:1 ??? norgestim-eth estrad triphasic (ORTHO TRI-CYCLEN, 28,) 0.18/0.215/0.25 MG-35 MCG per tablet, Take 1 tablet by mouth daily, Disp: 84 tablet, Rfl: 3 ??? multivitamin, therapeutic with minerals (MULTI-VITAMIN) TABS, Take 1 tablet by mouth daily, Disp: 100 tablet, Rfl: 3 ??? cetirizine (ZYRTEC) 10 MG tablet, Take 1 tablet (10 mg) by mouth every evening, Disp: 30 tablet,Rfl: 1 ??? ALPRAZolam (XANAX) 0.25 MG tablet, Take 1 tablet (0.25 mg) by mouth 3 times daily as needed for anxiety, Disp: 30 tablet, Rfl: 0 ALLERGIES: No Known Allergies SOCIAL HISTORY: History Social History ??? Marital Status: Spouse Name: N/A Number of Children: N/A ??? Years of Education: N/A Occupational History ??? Not on file. Social History Main Topics ??? Smoking status: Never Smoker ??? Smokeless tobacco: Never Used ??? Alcohol Use: 0.0 - 0.5 oz/week 0-1 drink(s) per week ??? Drug Use: No ??? Sexual Activity: Partners: Male Control/ Protection: Pill Other Topics Concern ??? Parent/Sibling W/ Cabg, Mi Or Angioplasty Before 65f 55m? No Social History Narrative FAMILY HISTORY: Family History Problem Relation Age of Onset ??? Diabetes Maternal Grandmother ??? Hypertension Paternal Grandmother ??? Cancer Maternal Grandfather Skin ??? Cancer - colorectal Paternal Grandfather 70 ??? Myocardial Infarction Maternal Grandfather 50 ??? Depression Father EXAM:Vitals: BP 112/60 mmHg Ht 1.6 m (5' 3) Wt 66.225 kg (146 lb) BMI 25.87 kg/m2 BMI= Body mass index is 25.87 kg/(m^2). General appearance: Patient is alert and fully cooperative with history & exam. No sign of distress is noted during the visit. Psychiatric: Affect is pleasant & appropriate. Patient appears motivated to improve health. Respiratory: Breathing is regular & unlabored while sitting. HEENT: Hearing is intact to spoken word. Speech is clear. No gross evidence of visual impairment that would impact ambulation. Dermatologic: Skin is intact to both lower extremities without significant lesions, rash or abrasion. No paronychia or evidence of soft tissue infection is noted. Vascular: DP & PT pulses are intact & regular bilaterally. edema to dorsal left foot but no varicosities noted. CFT and skin temperature is normal to both lower extremities. Neurologic: Lower extremity sensation is intact to light touch. No evidence of weakness or contracture in the lower extremities. No evidence of neuropathy. Musculoskeletal: Patient is ambulatory without assistive device or brace. Decrease arch height. Muscle strength is 5/5 for left lower group. Minimal pain with flexion of toes 2-4. Radiographs: No fractures noted. ASSESSMENT: Left foot pain Tendonitis of foot Edema of left foot PLAN: Reviewed patient's chart in [facility]. Reviewed xrays. Reviewed and discussed causes of tendonitis.We discussed treatments such as immobiliation, icing, stretching, heel lifts, orthotics, physical therapy, MRI. was given tubigrip for swelling. Recommend continue to ice. She can gradually get back to activity.If pain worsens, recommend MRI. She will call with further questions or concerns. Faith Monreal DPM, Pod Weight management plan: Patient was referred to their PCP to discuss a diet and exercise plan. CST documented in this encounter Nursing Notes My [facility] - 07/21/2015 9:41 AM CST Chief Complaint Patient presents with ??? Foot Pain L foot swelling and pain for last 5.5 weeks. Initial BP 112/60 mmHg Ht 5' 3 (1.6 m) Wt 146 lb (66.225 kg) BMI 25.87 kg/m2 Estimated body mass index is 25.87 kg/(m^2) as calculated from the following: Height as of this encounter: 5' 3 (1.6 m). Weight as of this encounter: 146 lb (66.225 kg). BP completed using cuff size: regular Janet Tidwell CMA July 21, 2015 9:41 AM R MAKER documented in this encounter Plan of Treatment Not on filedocumented as of this encounter Results XR Foot Left G/E 3 Views (07/21/2015 10:09 AM CHAIR MAKER) Anatomical Region Laterality Modality Foot, Ankle Left Computed Radiography Specimen (Source) Anatomical Location Collection Method / Collectio n Time Received Time / Laterality Volume Impressions 07/21/2015 1:09 PM CHAIR MAKER IMPRESSION: ??Unremarkable examination. ? NAIF DOSHI MD Narrative 07/21/2015 1:09 PM CHAIR MAKER LEFT FOOT 4 VIEWS ??07/21/2015 10:09 AM HISTORY: ??Pain in left foot. COMPARISON: ??None. FINDINGS: ??No fracture or osseous lesio n is seen. The joint spaces are well preserved. No adjacent soft tissue pathology is seen. Procedure Note Naif Doshi MD - 07/21/2015Fo rmatting of this note might be different from the original. LEFT FOOT 4 VIEWS 07/21/2015 10:09 AM HISTORY: Pain in left foot. COMPARISON: None. FINDINGS: No fracture or osseous lesion is seen. The joint spaces are well preserved. No adjacent soft tissue pathology is seen. IMPRESSION: Unremarkable examination. NAIF DOSHI MD Faith Monreal DPM, Podiatry/Foot and Ankle Surgery IMG DIAGNOSTIC IMAGING ORDERABLES documented in this encounter Visit Diagnoses Diagnosis Left foot pain - Primary Pain in limb Tendonitis of foot Tenosynovitis of foot and ankle Edema of left foot Left foot pain Pain in limb documented in this encounter Additional Health Concerns Assessment Noted Time PHQ-9 Depression Total Score: 1 11/20/2015 7:18 AM CDT documented as of this encounter Care Teams Principal System Software Engineer Relationship Specialty Start Date End Date Louise Brink MD PCP - General Family Practice 07/29/13 09/07/21 [id number] [facility] [id number] Louise Brink MD PCP - Assigned PCP 08/11/13 07/16/18 [id number] ROBERTH MITCHELL [id number] Louise Brink MD Assigned PCP 08/11/13 10/21/21 [id number] [facility] [place]LL [id number] documented as of this encounter
--- OUTSIDE RECORDS SUMMARY | 2022-03-05 00:48 | XMS_ITS | Encounter Summary ---
:1980 Author Organization [place] Address [facility] [place] [address] Care Team Providers Name Role Phone Louise Brink MD Primary Care Provider Louise Brink MD Unavailable Louise Brink MD Unavailable Reason for Visit Reason Comments Pharyngitis Ear Problem Cough Encounter Details Date Type Department Care Team Description 10/05/2015 Office Visit [facility] Louise Brink MD Nasal congestion (Primary Dx); Clinic [place] [address] [address] Sore throat; [address] [address] [address] Cough; [place] [phone] (Wo rk) Seasonal allergies [id number] [phone] Social History Tobacco Use Types Packs/Day Years Used Date Smoking Tobacco: Never Smokeless Tobacco: Never Alcohol Use Standard Drinks/Week Comments Yes 0 (1 standard drink = 0.6 oz pure alcoho l) Sex Assigned at Date Recorded Female 10/26/2020 1:28 AM CDT documented as of this encounter Last Filed Vital Signs Vital Sign Reading Time Taken Comments Blood Pressure 116/62 10/05/2015 2:19 PM CDT Pulse 98 10/05/2015 2:19 PM CDT Temperature 36.8 ??C (98.3 ??F) 10/05/2015 2:19 PM CDT Respiratory Rate 16 10/05/2015 2:19 PM CDT Oxygen Saturation 100% 10/05/2015 2:19 PM CDT Inhaled Oxygen Concentration - - Weight 66.1 kg (145 lb 12.8 oz) 10/05/2015 2:19 PM CDT Height 160 cm (5' 3) 10/05/2015 2:19 PM CDT Body Mass Index 25.83 10/05/2015 2:19 PM CDT documented in this encounter Progress Notes Louise Brink MD - 10/05/2015 2:14 PM CDT SUBJECTIVE: Janet Dean is a 35 year old female who presents to clinic today for the following health issues: Acute Illness Acute illness concerns: cough Onset: last x 6 days ?? Fever: YES ?? Chills/Sweats: no ?? Headache (location?): YES ?? Sinus Pressure:YES- post-nasal drainage ?? Conjunctivitis: no ?? Ear Pain: YES: bilateral ?? Rhinorrhea: YES- off and on ?? Congestion: YES- both ?? Sore Throat: YES ?? Cough: YES-productive of clear sputum and a tickling cough ?? Wheeze: no ?? Decreased Appetite: YES ?? Nausea: yes- not currently ?? Vomiting: no ?? Diarrhea: no ?? Dysuria/Freq.: no ?? Fatigue/Achiness: YES- not currently ?? Sick/Strep Exposure: no Therapies Tried and outcome: honey, salt water gargling, lots of cough drops and chamomile tea Patient Active Problem List Diagnosis ??? CARDIOVASCULAR SCREENING; LDL GOAL LESS THAN 160 ??? Seasonal allergies ??? Anxiety Current Outpatient Prescriptions Medication Sig Dispense Refill ??? escitalopram (LEXAPRO) 10 MG tablet Take 1 tablet (10 mg) by mouth daily 90 tablet 2 ??? norgestim-eth estrad triphasic (ORTHO TRI-CYCLEN, 28,) 0.18/0.215/0.25 MG-35 MCG per tablet Take1 tablet by mouth daily 84 tablet 2 ??? ALPRAZolam (XANAX) 0.25 MG tablet Take 1 tablet (0.25 mg) by mouth 3 times daily as needed for anxiety 30 tablet 0 ??? multivitamin, therapeutic with minerals (MULTI-VITAMIN) TABS Take 1 tablet by mouth daily 100 tablet 3 ??? cetirizine (ZYRTEC) 10 MG tablet Take 1 tablet (10 mg) by mouth every evening 30 tablet 1 ROS: CONSTITUTIONAL:NEGATIVE for fever, chills, change in weight x low grade fever ENT/MOUTH: see below and HPI. RESP:does have cough. CV: NEGATIVE for chest pain, palpitations or peripheral edema Low grade fever. Congestion is relatively new. Sore throat improving. No itching. Seasonal allergies. Generic zyrtec all year round. OBJECTIVE: BP 116/62 mmHg Pulse 98 Temp(Src) 98.3 ??F (36.8 ??C) (Oral) Resp 16 Ht 5' 3 (1.6 m) Wt 145 lb 12.8 oz (66.134 kg) BMI 25.83 kg/m2 SpO2 100% Body mass index is 25.83 kg/(m^2). BP 116/62 mmHg Pulse 98 Temp(Src) 98.3 ??F (36.8 ??C) (Oral) Resp 16 Ht 5' 3 (1.6 m) Wt 145 lb 12.8 oz (66.134 kg) BMI 25.83 kg/m2 SpO2 100% General appearance: alert and has no apparent distress Skin color is pink Hydration status appears adequate with normal skin turgor and moist mucous membranes. Sinuses are nontender to palpation. Left TM is normal: no effusions, no erythema, and normal landmarks. Right TM is normal: no effusions, no erythema, and normal landmarks. Nasal mucosa is discharge mucoid. Oropharyngeal exam is normal: no lesions, erythema, adenopathy or exudate. Neck is supple without adenopathy. RESP: Normal - CTA without rales, rhonchi, or wheezing. ASSESSMENT/PLAN: 1. Nasal congestion Suspect viral etiology. There may also be a component of allergy - fluticasone (FLONASE) 50 MCG/ACT nasal spray; [place] 2 sprays into both nostrils daily Dispense: 16g; Refill: prn 2. Sore throat As above. - Strep, Rapid Screen - Beta strep group A culture 3. Cough Discussed potential side effects. - guaiFENesin-codeine (ROBITUSSIN AC) 100-10 MG/5ML SOLN; Take 5-10 mLs by mouth every 6 hours as needed for cough Dispense: 120 mL; Refill: 0 4. Seasonal allergies As above; fluticasone can help with this. Follow up prn or as previously directed. Louise Brink MD, MD [facility] [place] documented in this encounter Nursing Notes Araceli Hemphill CMA - 10/05/2015 2:21 PM CDT Chief Complaint Patient presents with ??? Pharyngitis ??? Ear Problem ??? Cough Initial BP 116/62 mmHg Pulse 98 Temp(Src) 98.3 ??F (36.8 ??C) (Oral) Resp 16 Ht 5' 3 (1.6 m) Wt 145 lb 12.8 oz (66.134 kg) BMI 25.83 kg/m2 SpO2 100% Estimated body mass index is 25.83 kg/(m^2) as calculated from the following: Height as of this encounter: 5' 3 (1.6 m). Weight as of this encounter: 145 lb 12.8 oz (66.134 kg). BP completed using cuff size: regular Araceli Hemphill CMA documented in this encounter Plan of Treatment Not on filedocumented as of this encounter Procedures Procedure Name Priority Date/Time Associated Diagnosis Comme nts RAPID STREP SCREEN Routine 10/05/2015 2:48 PM Sore throat Res ults for this THROAT SWAB CDT procedure are i n the results section. BETA HEMOLYTIC Routine 10/05/2015 2:48 PM Sore throat Results for this STREP GROUP A CDT procedure are in CULTURE the results section. documented in this encounter Results Beta strep group A culture (10/05/2015 2:48 PM CDT) Component Value Ref Test Analysis Performed At [facility] Range Method Time Signature Specimen Throat [place] Description [facility]INICS [place] Culture Micro No Beta [facility] Streptococcus CLINICS isolated [place] Micro Report FINAL 10/07/2015 [facility] Status [facility]ICS [place] Specimen Anatomical Collection Method Collection Time Receive d Time (Source) Location / / Volume Laterality Specimen from 10/05/2015 2:48 PM 10/05/19 16 3:08 throat CDT PM CDT (specimen) Louise Brink MD LAB - MICRO GENERAL ORDERABL ES Performing Organization Address City/State/ZIP Code Phon e Number [facility] [place] [address] [address] [place], [place] [address] Strep, Rapid Screen (10/05/2015 2:48 PM CDT) Component Value Ref Test Analysis Performed At [facility] Range Method Time Signature Specimen Throat [facility] Description [facility] [place] Rapid Strep A NEGATIVE: No Group A strepto coccal antigen detected by immunoassay, await [facility] Screen culture report. [facility] Micro Report FINAL 10/05/2015 [facility] Specimen Anatomical Collection Method Collection Time Receive d Time (Source) Location / / Volume Laterality Specimen from 10/05/2015 2:48 PM 10/05/19 16 2:49 throat CDT PM CDT (specimen) Louise Brink MD LAB - MICRO GENERAL ORDERABL ES Performing Organization Address City/[facility]/ZIP Code Phon e Number [facility] [place] [address] [address] [place], [place] [address] documented in this encounter Visit Diagnoses Diagnosis Nasal congestion - Primary Other diseases of nasal cavity and sinus es Sore throat Acute pharyngitis Cough Seasonal allergies Allergic rhinitis, cause unspecified documented in this encounter Additional Health Concerns Assessment Noted Time PHQ-9 Depression Total Score: 1 11/20/2015 7:18 AM CDT documented as of this encounter Care Teams Panel Monitor Relationship Specialty Start Date End Date Louise Brink MD PCP - General Family Practice 07/29/13 09/07/21 [address] [place] [address] Louise Brink MD PCP - Assigned PCP 08/11/13 07/16/18 [address] [place] [address] Louise Brink MD Assigned PCP 08/11/13 10/21/21 [address] [place] [address] documented as of this encounter
--- OUTSIDE RECORDS SUMMARY | 2022-03-05 00:48 | XMS_ITS | Encounter Summary ---
:1980 Author Organization [place] Address [facility] hospital0 [facility] [place] [address] Care Team Providers Name Role Phone Vernon Reilly MD Primary Care Provider Vernon Reilly MD Unavailable Vernon Reilly MD Unavailable Encounter Details Date Type Department Care Team Description 05/21/2015 Office Visit [facility] Vernon Reilly MD Anxiety (Primary Dx); Clinic [place] [address] [address] Pap smear for cervical cancer screening [address] [place] [address] [place] [phone] (Wo rk) [address] [phone] Social History Tobacco Use Types Packs/Day Years Used Date Smoking Tobacco: Never Smokeless Tobacco: Never Alcohol Use Standard Drinks/Week Comments Yes 0 (1 standard drink = 0.6 oz pure alcoho l) Sex Assigned at Date Recorded Female 10/26/2020 1:28 AM CDT documented as of this encounter Last Filed Vital Signs Vital Sign Reading Time Taken Comments Blood Pressure 110/60 05/21/2015 2:45 PM BOILER/CHILLER OPERATOR Pulse 72 05/21/2015 2:45 PM BOILER/CHILLER OPERATOR Temperature 36.8 ??C (98.3 ??F) 05/21/2015 2:45 PM BOILER/CHILLER OPERATOR Respiratory Rate - - Oxygen Saturation 97% 05/21/2015 2:45 PM BOILER/CHILLER OPERATOR Inhaled Oxygen Concentration - - Weight 65.9 kg (145 lb 3.2 oz) 05/21/2015 2:45 PM BOILER/CHILLER OPERATOR Height 160 cm (5' 3) 05/21/2015 2:45 PM BOILER/CHILLER OPERATOR Body Mass Index 25.72 05/21/2015 2:45 PM BOILER/CHILLER OPERATOR documented in this encounter Patient Instructions Patient InstructionsBernarda June RN - 05/21/2015 3:00 PM CST -Return to clinic as needed and in one year for complete physical -Sent you a post dated [employer] message with the questionnaire's attached. -I would recommend about 800 mg-1000 mg (men and pre-menopausal) calcium daily. This is best obtained in the diet. ?? Dairy is the best source. A diet without dairy is thought to have about 250- 300 mg calcium. ?? An 8 oz glass of milk has about 300 mg. A cup of yougurt has about the same. Many cheeses will have about that much per ounce. ?? Some foods are fortified with calcium, such as specific orange juices. This is probably the next best source of calcium. ?? Supplements can help make up the difference if you are not getting it in the diet. Calcium citrate is a better choice than calcium carbonate. Check the serving size, (you may need 2 tablets) -Vitamin D3 is recommended at 1000 IU daily. ER/CHILLER OPERATOR documented in this encounter Progress Notes Vernon Reilly MD - 05/21/2015 2:48 PM CST SUBJECTIVE: Bernarda Dean is a 34 year old female who presents to clinic today for the following health issues: Anxiety Follow-Up ?? Status since last visit: No change ?? Other associated symptoms:None ?? Complicating factors: Significant life event: No Current substance abuse: None Depression symptoms: No ANTONY-7 SCORE 11/05/2014 11/06/2014 11/09/2014 Total Score - 2 2 Total Score 2 - - GAD7 ?? Amount of exercise or physical activity: 2-3 days/week for an average of 30- 45 minutes ?? Problems taking medications regularly: No ?? Medication side effects: none ?? Diet: regular (no restrictions) Problem list and histories reviewed & adjusted, as indicated. Additional history: as documented Patient Active Problem List Diagnosis ??? CARDIOVASCULAR SCREENING; LDL GOAL LESS THAN 160 ??? Seasonal allergies ??? Anxiety No past surgical history on file. History Substance Use Topics ??? Smoking status: Never Smoker ??? Smokeless tobacco: Never Used ??? Alcohol Use: 0.0 - 0.5 oz/week 0-1 drink(s) per week Family History Problem Relation Age of Onset ??? Diabetes Maternal Grandmother ??? Hypertension Paternal Grandmother ??? Cancer Maternal Grandfather Skin ??? Cancer - colorectal Paternal Grandfather 70 ??? Myocardial Infarction Maternal Grandfather 50 ??? Depression Father Current Outpatient Prescriptions Medication Sig Dispense Refill ??? escitalopram (LEXAPRO) 10 MG tablet Take 1 tablet (10 mg) by mouth daily 90 tablet 0 ??? ALPRAZolam (XANAX) 0.25 MG tablet Take 1 tablet (0.25 mg) by mouth 3 times daily as needed for anxiety 30 tablet 0 ??? multivitamin, therapeutic with minerals (MULTI-VITAMIN) TABS Take 1 tablet by mouth daily 100 tablet 3 ??? cetirizine (ZYRTEC) 10 MG tablet Take 1 tablet (10 mg) by mouth every evening 30 tablet 1 ??? norgestim-eth estrad triphasic (ORTHO TRI-CYCLEN, 28,) 0.18/0.215/0.25 MG-35 MCG TABS tablet Take 1 tablet by mouth daily. BP Readings from Last 3 Encounters: 05/21/15 110/60 05/13/14 104/72 01/29/14 111/66 Wt Readings from Last 3 Encounters: 05/21/15 145 lb 3.2 oz (65.862 kg) 05/13/14 135 lb (61.236 kg) 01/29/14 135 lb (61.236 kg) Problem list, Medication list, Allergies, and Medical/Social/Surgical histories reviewed in [facility] andupdated as appropriate. ROS: C: NEGATIVE for fever, chills, change in weight Eats healthy, exercises, sees a dentist/eye doctor regularly, No history of abnormal pap smear. E/M: NEGATIVE for ear, mouth and throat problems R: NEGATIVE for significant cough or SOB CV: NEGATIVE for chest pain, palpitations or peripheral edema GI: NEGATIVE for nausea, abdominal pain, heartburn, or change in bowel habits MUSCULOSKELETAL: NEGATIVE for significant arthralgias or myalgia PSYCHIATRIC: NEGATIVE for changes in mood or affect ROS otherwise negative OBJECTIVE: BP 110/60 mmHg Pulse 72 Temp(Src) 98.3 ??F (36.8 ??C) (Oral) Ht 5' 3 (1.6 m) Wt 145 lb 3.2 oz (65.862 kg) BMI 25.73 kg/m2 SpO2 97% Body mass index is 25.73 kg/(m^2). GENERAL: healthy, alert and no distress EYES: Eyes grossly normal to inspection BREAST: normal without masses, tenderness or nipple discharge and no palpable axillary masses or adenopathy ABDOMEN: soft, nontender, no hepatosplenomegaly, no masses and bowel sounds normal (female): normal female external genitalia, normal urethral meatus, vaginal mucosa, normal cervix/adnexa/uterus without masses or discharge SKIN: no suspicious lesions or rashes PSYCH: mentation appears normal, affect normal/bright PHQ-9 SCORE 10/30/2014 11/05/2014 05/21/2015 Total Score 2 - - Total Score MyChart - 2 - Total Score - - 2 ANTONY-7 SCORE 11/06/2014 11/09/2014 05/21/2015 Total Score 2 2 - Total Score - - - Total Score - - 1 ASSESSMENT/PLAN: Anxiety Symptoms well controlled on current medication. No changes, continue current plan. - escitalopram (LEXAPRO) 10 MG tablet Dispense: 90 tablet; Refill: 1 Pap smear for cervical cancer screening lmp 04/26/2015 approximately. Await lab results. - PAP imaged thin layer, screen - norgestim-eth estrad triphasic (ORTHO TRI-CYCLEN, 28,) 0.18/0.215/0.25 MG-35 MCG per tablet Dispense: 84 tablet; Refill: 3 Patient Instructions -Return to clinic as needed and in one year for complete physical -I would recommend about 800 mg-1000 mg (men and pre-menopausal) calcium daily. This is best obtained in the diet. ?? Dairy is the best source. A diet without dairy is thought to have about 250- 300 mg calcium. ?? An 8 oz glass of milk has about 300 mg. A cup of yougurt has about the same. Many cheeses will have about that much per ounce. ?? Some foods are fortified with calcium, such as specific orange juices. This is probably the next best source of calcium. ?? Supplements can help make up the difference if you are not getting it in the diet. Calcium citrate is a better choice than calcium carbonate. Check the serving size, (you may need 2 tablets) -Vitamin D3 is recommended at 1000 IU daily. Written by Bernarda June RN, acting as scribe for Vernon Reilly MD. I, Vernon Reilly MD have reviewed and completed the documentation for accuracy. All orders placed today are done under my direction and approval. Vernon Reilly MD, [facility] ER/CHILLER OPERATOR documented in this encounter Plan of Treatment Not on filedocumented as of this encounter Procedures Procedure Name Priority Date/Time Associated Diagnosis Comme nts PAP IMAGED THIN Routine 05/21/2015 12:00 AM Pap smear for Resu lts for this LAYER SCREEN BOILER/CHILLER OPERATOR cervical cancer procedure ar e in screening the results section. documented in this encounter Results PAP imaged thin layer, screen (05/21/2015 12:00 AM BOILER/CHILLER OPERATOR) Component Value Ref Test Analysis Performed At [facility] Range Method Time Signature PAP NIL COPATH Copath Report COPATH Patient Name: BERNARDA DEAN MR#: [id number] Specimen #: [id number] Collected: 05/21/2015 Received: 05/24/2015 Reported: 05/25/2015 15:18 Ordering Phy(s): VERNON REILLY SPECIMEN/STAIN PROCESS: Pap imaged thin layer prep screening (Surepath, FocalPoint w ith guided screening) ? Pap-Cyto x 1, Reflex HPV if ASCUS/LSIL x 1 SOURCE: Cervical, endocervical ---- Pap imaged thin layer prep screening (Surepath, FocalPoint with guided screening) SPECIMEN ADEQUACY: Satisfactory for evaluation. -Transformation zone component present. CYTOLOGIC INTERPRETATION: Negative for Intraepithelial Lesion or Malignancy Electronically signed out by: DENIA Pepper (ASCP) Processed and screened at [facility], [facility] CLINICAL HISTORY: Papanicolaou Test Limitations: ??Cervical cytology is a scre ening test with limited sensitivity; regular screening is critical for cancer prevention; Pap tests are primarily effective for the diagnosis/prevention of squamous cell carcinoma, not adenoca rcinomas or other cancers. TESTING LAB LOCATION: [facility] [address] [place], [place] ??[address] COLLECTION SITE: Client: ??[facility] Location: [facility] (R) Specimen (Source) Anatomical Collection Method Collection Time Re ceived Time Location / / Volume Laterality Cytologic 05/21/2015 05/24/2015 10:3 3 material AM BOILER/CHILLER OPERATOR (specimen) Vernon Reilly MD LAB - OPTIME CLINICAL SPECIM EN Performing Organization Address City/State/ZIP Code Phon e Number [place] documented in this encounter Visit Diagnoses Diagnosis Anxiety - Primary Anxiety state, unspecified Pap smear for cervical cancer screening Screening for malignant neoplasm of the cervix documented in this encounter Additional Health Concerns Assessment Noted Time PHQ-9 Depression Total Score: 1 11/20/2015 7:18 AM CDT documented as of this encounter Care Teams Patient Partner Relationship Specialty Start Date End Date Vernon Reilly MD PCP - General Family Practice 07/29/13 09/07/21 [address] [id number] Vernon Reilly MD PCP - Assigned PCP 08/11/13 07/16/18 [address] [address] [address] Vernon Reilly MD Assigned PCP 08/11/13 10/21/21 [address] [address] [address] documented as of this encounter
--- OUTSIDE RECORDS SUMMARY | 2022-03-05 00:48 | XMS_ITS | Encounter Summary ---
:1980 Author Organization [place] Address [address] [facility] [place] [address] Care Team Providers Name Role Phone Louise Brink MD Primary Care Provider Louise Brink MD Unavailable Louise Brink MD Unavailable Reason for Visit Reason Comments Medication Refill escitalopram (LEXAPRO) 10 MG tablet Encounter Details Date Type Department Care Team Description 12/04/2017 Refill [facility] Louise Brink MD Medication Refill [facility] [place] [address] (escitalopram (LEXAPRO) [address] [place] [address] 10 MG tablet) [address] [place] [phone] (Wo rk) [id number] [phone] Social History Tobacco Use Types Packs/Day Years Used Date Smoking Tobacco: Never Smokeless Tobacco: Never Alcohol Use Standard Drinks/Week Comments Yes 0 (1 standard drink = 0.6 oz pure alcoho l) Sex Assigned at Date Recorded Female 10/26/2020 1:28 AM CDT documented as of this encounter Miscellaneous Notes Telephone Encounter - Shasha De La O - 12/07/2017 1:06 PM CDT Called and scheduled patient for 12/27. Telephone Encounter - Dona Giron RN - 12/05/2017 3:59 PM CDT Medication is being filled for 1 time refill only due to: Patient due for physical in December. Routing to [facility] to schedule patient. Dona Gonzales pediatric physician assistant Telephone Encounter - Shanon Ibarra - 12/04/2017 11:47 AM CDT Requested Prescriptions Pending Prescriptions Disp Refills ??? escitalopram (LEXAPRO) 10 MG tablet [Pharmacy Med Name: ESCITALOPRAM 10MG TABLETS] Last Written Prescription Date: 09/13/17 Last Fill Quantity: 90, # refills: 0 Last office visit: 12/22/2016 with prescribing provider: Louise Brink MD Future Office Visit: 90 tablet 0 Sig: TAKE 1 TABLET BY MOUTH DAILY. DUE FOR ANNUAL PHYSICAL IN DECEMBER FOR FURTHER REFILLS. SSRIs Protocol Passed 12/04/2017 8:09 AM Passed - Recent (12 mo) or future [...] Depression Total Score: 1 05/23/2017 7:42 AM CONSULTING SERVICES PROJECT MANAGER documented as of this encounter Care Teams Prior Authorization Technician Relationship Specialty Start Date End Date Louise Brink MD PCP - General Family Practice 07/29/13 09/07/21 [address] [address] [address] Louise Brink MD PCP - Assigned PCP 08/11/13 07/16/18 [address] [address] [address] Louise Brink MD Assigned PCP 08/11/13 10/21/21 [address] [address] [address] documented as of this encounter
--- OUTSIDE RECORDS SUMMARY | 2022-03-05 00:48 | XMS_ITS | Encounter Summary ---
:1980 Author Organization [place] Address [address] [facility] [place] [address] Care Team Providers Name Role Phone Louise Brink MD Primary Care Provider Louise Brink MD Unavailable Louise Brink MD Unavailable Reason for Visit Reason Comments Medication Refill norgestim-eth estrad triphas ic (ORTHO TRI-CYCLEN, TRI-SPRINTEC) 0.18/0.215/0.25 MG-35 MCG Encounter Details Date Type Department Care Team Description 11/28/2016 Refill [facility] Louise Brink MD Medication Refill Clinic [place] [address] (norgestim-eth estrad [address] [place] [address] triphasic (ORTHO [place], [place] [phone] (Wo rk) TRI-CYCLEN, [id number] TRI-SPRINTEC) [phone] 0.18/0.215/0.25 MG-35 MCG) Social History Tobacco Use Types Packs/Day Years Used Date Smoking Tobacco: Never Smokeless Tobacco: Never Alcohol Use Standard Drinks/Week Comments Yes 0 (1 standard drink = 0.6 oz pure alcoho l) Sex Assigned at Date Recorded Female 10/26/2020 1:28 AM CDT documented as of this encounter Miscellaneous Notes Telephone Encounter - AkankshaIsisah - 11/30/2016 4:42 PM CDT Patient is scheduled with PCP on 12/22/16. -Loretta Vale Web Development Manager Telephone Encounter - Raya Rodrigues RN - 11/28/2016 12:15 PM CDT Medication is being filled for 1 time refill only due to: due for an annual physical exam. No pap needed this year, please call her to schedule this. Raya Rodrigues, porcelain enamel laborer Nurse Telephone Encounter - Shanon Ibarra - 11/28/2016 11:03 AM CDT norgestim-eth estrad triphasic (ORTHO TRI-CYCLEN, TRI-SPRINTEC) 0.18/0.215/0.25 MG-35 MCG Last Written Prescription Date: 09/05/16 Last Fill Quantity: 84, # refills: 0 [place] [facility] [place] [facility] prescribing provider: 03/24/16 documented in this encounter Plan of Treatment Not on filedocumented as of this encounter Visit Diagnoses Diagnosis Pap smear for cervical cancer screening Screening for malignant neoplasm of the cervix documented in this encounter Additional Health Concerns Assessment Noted Time PHQ-9 Depression Total Score: 1 11/20/2015 7:18 AM CDT documented as of this encounter Care Teams Coding Analyst Relationship Specialty Start Date End Date Louise Brink MD PCP - General Family Practice 07/29/13 09/07/21 [address] [address] Louise Brink MD PCP - Assigned PCP 08/11/13 07/16/18 [address] [address] [address] Louise Brink MD Assigned PCP 08/11/13 10/21/21 [address] [address] [id number] documented as of this encounter
--- OUTSIDE RECORDS SUMMARY | 2022-03-05 00:48 | XMS_ITS | Encounter Summary ---
:1980 Author Organization [place] Address [address] [facility] [place] [address] Care Team Providers Name Role Phone Louise Brink MD Primary Care Provider Louise Brink MD Unavailable Louise Brink MD Unavailable Reason for Visit Reason Comments Medication Refill norgestim-eth estrad triphas ic (ORTHO TRI-CYCLEN, TRI-SPRINTEC) 0.18/0.215/0.25 MG-35 MCG Encounter Details Date Type Department Care Team Description 02/20/2017 Refill [facility] Louise Brink MD Medication Refill Clinic [place] [address] (norgestim-eth estrad [address] [place] [address] triphasic (ORTHO [place], [place] [phone] (Wo rk) TRI-CYCLEN, [id number] TRI-SPRINTEC) [phone] 0.18/0.215/0.25 MG-35 MCG) Social History Tobacco Use Types Packs/Day Years Used Date Smoking Tobacco: Never Smokeless Tobacco: Never Alcohol Use Standard Drinks/Week Comments Yes 0 (1 standard drink = 0.6 oz pure alcoho l) Sex Assigned at Date Recorded Female 10/26/2020 1:28 AM CDT documented as of this encounter Miscellaneous Notes Telephone Encounter - Libertad Monahan RN - 02/21/2017 10:14 AM CDT Prescription approved per [facility] Refill Protocol. - prescription requested to be transferred to Mail order. Libertad Bunch RN, BSN, PHN Levon Vergara RN Telephone Encounter - Shanon Ibarra - 02/20/2017 2:41 PM CDT norgestim-eth estrad triphasic (ORTHO TRI-CYCLEN, TRI-SPRINTEC) 0.18/0.215/0.25 MG-35 MCG Last Written Prescription Date: 12/22/16 Last Fill Quantity: 84, # refills: 3 Last Office Visit with [facility], [facility] or [facility] prescribing provider: 12/22/16 documented in this encounter Plan of Treatment Not on filedocumented as of this encounter Visit Diagnoses Diagnosis Pap smear for cervical cancer screening Screening for malignant neoplasm of the cervix documented in this encounter Additional Health Concerns Assessment Noted Time PHQ-9 Depression Total Score: 1 12/22/2016 9:20 AM CDT documented as of this encounter Care Teams Paper Bag Maker Relationship Specialty Start Date End Date Louise Brink MD PCP - General Family Practice 07/29/13 09/07/21 [id number] [id number] Louise Brink MD PCP - Assigned PCP 08/11/13 07/16/18 [address] [address] [id number] Louise Brink MD Assigned PCP 08/11/13 10/21/21 [address] [address] [id number] documented as of this encounter
--- OUTSIDE RECORDS SUMMARY | 2022-03-05 00:48 | XMS_ITS | Encounter Summary ---
:1980 Author Organization [place] Address [address] [facility] [place] [address] Care Team Providers Name Role Phone Louise Brink MD Primary Care Provider Louise Brink MD Unavailable Louise Brink MD Unavailable Reason for Visit Reason Onset Date Comments Refill Request 03/06/2014 fluticasone Encounter Details Date Type Department Care Team Description 03/06/2014 Refill [facility] Louise Brink MD Refill Request Clinic [place] [address] (fluticasone) [address] [facility] [place] [address] [place] [phone] (Wo rk) [address] [phone] Social History Tobacco Use Types Packs/Day Years Used Date Smoking Tobacco: Never Smokeless Tobacco: Never Alcohol Use Standard Drinks/Week Comments Yes 0 (1 standard drink = 0.6 oz pure alcoho l) Sex Assigned at Date Recorded Female 10/26/2020 1:28 AM CDT documented as of this encounter Miscellaneous Notes Telephone Encounter - Nely Marin RN - 03/06/2014 11:00 AM CDT Med request: fluticasone Date of last related OV: 12/24/12, kennedy 01/29/14 Date of last refill: 12/24/12 Approved per standing orders: Ashley Marin RN documented in this encounter Plan of Treatment Not on filedocumented as of this encounter Visit Diagnoses Diagnosis Allergic rhinitis, cause unspecified documented in this encounter Care Teams Sales Representative Livestock Relationship Specialty Start Date End Date Louise Brink MD PCP - General Family Practice 07/29/13 09/07/21 [id number] [address] [id number] Louise Brink MD PCP - Assigned PCP 08/11/13 07/16/18 [address] [address] [id number] Louise Brink MD Assigned PCP 08/11/13 10/21/21 [id number] [address] [id number] documented as of this encounter
--- OUTSIDE RECORDS SUMMARY | 2022-03-05 00:48 | XMS_ITS | Encounter Summary ---
:1980 Author Organization [place] Address [address] [place] [address] Care Team Providers Name Role Phone Louise Brink MD Primary Care Provider Louise Brink MD Unavailable Louise Brink MD Unavailable Encounter Details Date Type Department Care Team Description 07/21/2015 Radiant Appointment [facility] Faith Monreal, Left foot pain Clinic [facility], Podiatry/Foot [address] [facility] [place] [address] [place] [id number] [place] [address] [place], [place] [phone] Social History Tobacco Use Types Packs/Day Years [...] Name Priority Date/Time Associated Diagnosis Comme nts XR FOOT LEFT G/E 3 Routine 07/21/2015 10:09 AM Left foot pain Results for this VIEWS PROGRAM DIR procedure are i n the results section. documented in this encounter Results XR Foot Left G/E 3 Views (07/21/2015 10:09 AM PROGRAM DIR) Anatomical Region Laterality Modality Foot, Ankle Left Computed Radiography Specimen (Source) Anatomical Location Collection Method / Collectio n Time Received Time / Laterality Volume Impressions 07/21/2015 1:09 PM PROGRAM DIR IMPRESSION: ??Unremarkable examination. ? NAIF DOSHI MD Narrative 07/21/2015 1:09 PM PROGRAM DIR LEFT FOOT 4 VIEWS ??07/21/2015 10:09 AM [...] IMPRESSION: Unremarkable examination. NAIF DOSHI MD [facility], Podiatry/Foot and Ankle Surgery IMG DIAGNOSTIC IMAGING ORDERABLES documented in this encounter Visit Diagnoses Diagnosis Left foot pain Pain in limb documented in this encounter Additional Health Concerns Assessment Noted Time PHQ-9 Depression Total Score: 1 11/20/2015 7:18 AM CDT documented as of this encounter Care Teams Survey Coordinator Relationship Specialty Start Date End Date Louise Brink MD PCP - General Family Practice 07/29/13 09/07/21 [id number] [address] [address] Louise Brink MD PCP - Assigned PCP 08/11/13 07/16/18 [address] [address] [address] Louise Brink MD Assigned PCP 08/11/13 10/21/21 [address] [address] [id number] documented as of this encounter
--- OUTSIDE RECORDS SUMMARY | 2022-03-05 00:48 | XMS_ITS | Encounter Summary ---
:1980 Author Organization [place] Address [address] [facility] [place] [address] Care Team Providers Name Role Phone Louise Brink MD Primary Care Provider Louise Brink MD Unavailable Louise Brink MD Unavailable Elizabeth Can PA-C Primary Care Provider Elizabeth Can PA-C Unavailable Reason for Visit Reason Comments Medication Refill norgestim-eth estrad triphas ic (ORTHO TRI-CYCLEN, 28,) 0.18/0.215/0.25 MG-35 MCG pe r tablet Encounter Details Date Type Department Care Team Description 09/01/2016 Refill [facility] Louise Brink MD Medication Refill Clinic [place] [address] (norgestim-eth estrad [address] [place] [address] triphasic (ORTHO [place], [place] [phone] (Wo rk) TRI-CYCLEN, 28,) [phone] 0.18/0.215/0.25 MG-35 MCG per tablet) Social History Tobacco Use Types Packs/Day Years Used Date Smoking Tobacco: Never Smokeless Tobacco: Never Alcohol Use Standard Drinks/Week Comments Yes 0 (1 standard drink = 0.6 oz pure alcoho l) Sex Assigned at Date Recorded Female 10/26/2020 1:28 AM CDT documented as of this encounter Miscellaneous Notes Telephone Encounter - Yanci Higginbotham - 09/12/2016 11:17 AM CDT Left second message to schedule. Telephone Encounter - Loretta Vale - 09/06/2016 2:12 PM CDT Left message for patient to schedule appointment. -Loretta Brandon TC Telephone Encounter - Clementine Wallace - 09/05/2016 3:02 PM CDT Medication is being filled for 1 time refill only due to: needs px Please call this pt to schedule physical. ? When done Clementine Wallace RN Telephone Encounter - Shanon Ibarra - 09/01/2016 9:36 AM CDT norgestim-eth estrad triphasic (ORTHO TRI-CYCLEN, 28,) 0.18/0.215/0.25 MG-35 MCG per tablet Last Written Prescription Date: 03/30/16 Last Fill Quantity: 84, # refills: 1 Last Office Visit with [facility], [facility] or [facility] prescribing provider: 03/24/16 documented in this encounter Plan of Treatment Not on filedocumented as of this encounter Visit Diagnoses Diagnosis Pap smear for cervical cancer screening Screening for malignant neoplasm of the cervix documented in this encounter Additional Health Concerns Assessment Noted Time PHQ-9 Depression Total Score: 1 11/20/2015 7:18 AM CDT documented as of this encounter Care Teams Sanitary Inspector Relationship Specialty Start Date End Date Louise Brink MD PCP - General Family Practice 07/29/13 09/07/21 [address] [place] [address] Louise Brink MD PCP - Assigned PCP 08/11/13 07/16/18 [address] [place], [place] [phone] Elizabeth Can PA-C PCP - General Family Medicine 10/14/21 [address] [facility], [place] [phone] Louise Brink MD Assigned PCP 08/11/13 10/21/21 [address] [facility] [place] [place] [phone] Elizabeth Can PA-C Assigned PCP 10/22/21 [address] [facility], [place] [phone] documented as of this encounter
--- OUTSIDE RECORDS SUMMARY | 2022-03-05 00:48 | XMS_ITS | Encounter Summary ---
:1980 Author Organization [place] Address [address] [facility] [place] [address] Care Team Providers Name Role Phone Louise Brink MD Primary Care Provider Louise Brink MD Unavailable Louise Brink MD Unavailable Reason for Visit Reason Comments Medication Refill escitalopram (LEXAPRO) 10 MG tablet Encounter Details Date Type Department Care Team Description 08/30/2017 Refill [facility] Louise Brink MD Medication Refill Clinic [place] [address] (escitalopram (LEXAPRO) [address] [place] [address] 10 MG tablet) ROBERTH [place] [phone] (Wo rk) [address] [phone] Social History Tobacco Use Types Packs/Day Years Used Date Smoking Tobacco: Never Smokeless Tobacco: Never Alcohol Use Standard Drinks/Week Comments Yes 0 (1 standard drink = 0.6 oz pure alcoho l) Sex Assigned at Date Recorded Female 10/26/2020 1:28 AM CDT documented as of this encounter Miscellaneous Notes Telephone Encounter - Libertad Monahan RN - 08/30/2017 1:05 PM CDT Prescription approved per [facility] Refill Protocol. Libertad Bunch RN, BSN, PHN [facility] RENA Telephone Encounter - Shanon Ibarra - 08/30/2017 10:05 AM CDT Requested Prescriptions Pending Prescriptions Disp Refills ??? escitalopram (LEXAPRO) 10 MG tablet [Pharmacy Med Name: ESCITALOPRAM 10MG TABLETS] Last Written Prescription Date: 05/25/17 Last Fill Quantity: 30, # refills: 0 Last office visit: 12/22/2016 with prescribing provider: 12/22/2016 Future Office Visit: 30 tablet 0 Sig: TAKE 1 TABLET(10 MG) BY MOUTH DAILY SSRIs Protocol Passed 08/30/2017 3:42 AM PHQ-9 SCORE 11/19/2015 12/22/2016 05/22/2017 Total [...] Depression Total Score: 1 05/23/2017 7:42 AM DEMURRAGE MAN documented as of this encounter Care Teams Light Bulb Tester Relationship Specialty Start Date End Date Louise Brink MD PCP - General Family Practice 07/29/13 09/07/21 [id number] [address] [id number] Louise Brink MD PCP - Assigned PCP 08/11/13 07/16/18 [address] [address] [address] Louise Brink MD Assigned PCP 08/11/13 10/21/21 [address] [address] [id number] documented as of this encounter
--- OUTSIDE RECORDS SUMMARY | 2022-03-05 00:48 | XMS_ITS | Encounter Summary ---
:1980 Author Organization [place] Address [address] [place] [address]. [place] [address] Care Team Providers Name Role Phone Louise Brink MD Primary Care Provider Louise Brink MD Unavailable Louise Brink MD Unavailable Reason for Visit Reason Comments Pharyngitis Ear Problem Encounter Details Date Type Department Care Team Description 05/13/2014 Office Visit [facility] Tatiana Knutson N, Yudi p throat (Primary [facility] [place] PA-C Dx) [address] [place] [phone] (Wo rk) Social History Tobacco Use Types Packs/Day Years Used Date Smoking Tobacco: Never Smokeless Tobacco: Never Alcohol Use Standard Drinks/Week Comments Yes 0 (1 standard drink = 0.6 oz pure alcoho l) Sex Assigned at Date Recorded Female 10/26/2020 1:28 AM CDT documented as of this encounter Last Filed Vital Signs Vital Sign Reading Time Taken Comments Blood Pressure 104/72 05/13/2014 11:16 AM [employer] Pulse 80 05/13/2014 11:16 AM [employer] Temperature 36.7 ??C (98.1 ??F) 05/13/2014 11:16 AM [employer] Respiratory Rate 18 05/13/2014 11:16 AM [employer] Oxygen Saturation 100% 05/13/2014 11:16 AM [employer] Inhaled Oxygen Concentration - - Weight 61.2 kg (135 lb) 05/13/2014 11:16 AM [employer] Height 162.6 cm (5' 4) 05/13/2014 11:16 AM [employer] Body Mass Index 23.17 05/13/2014 11:16 AM [employer] documented in this encounter Progress Notes Tatiana Knutson PA-C - 05/13/2014 11:12 AM CST SUBJECTIVE: 33 year old female with sore throat, myalgias, swollen glands, headache and fever for 2 days. No history of rheumatic fever. Other symptoms: nasal congestion. OBJECTIVE: Vitals as noted above. Appears moderate distress. Ears: normal Oropharynx: moderate erythema Neck: few small anterior cervical nodes Lungs: chest clear to IPPA, no tachypnea, retractions or cyanosis, S1, S2 normal, no murmur, no gallop, rate regular and clear to IPPA Rapid Strep test is positive ASSESSMENT: Streptococcal pharyngitis PLAN: Per orders. Gargle, use acetaminophen or other OTC analgesic, and take Rx fully as prescribed.Call if other family members develop similar symptoms. See prn. ER POLICE documented in this encounter Nursing Notes Pam Duke MA - 05/13/2014 11:18 AM CST Chief Complaint Patient presents with ??? Pharyngitis ??? Ear Problem Initial BP 104/72 Pulse 80 Temp(Src) 98.1 ??F (36.7 ??C) (Oral) Resp 18 Ht 5' 4 (1.626 m) Wt 135 lb (61.236 kg) BMI 23.16 kg/m2 SpO2 100% LMP 05/02/2014 ? No Estimated body mass index is 23.16 kg/(m^2) as calculated from the following: Height as of this encounter: 5' 4 (1.626 m). Weight as of this encounter: 135 lb (61.236 kg). BP completed using cuff size: madhavi Duke CMA [facility] POL[facility] documented in this encounter Plan of Treatment Not on filedocumented as of this encounter Procedures Procedure Name Priority Date/Time Associated Diagnosis Comme nts RAPID STREP SCREEN STAT 05/13/2014 11:21 AM Strep throat Re sults for this THROAT SWAB [employer] procedure are i n the results section. documented in this encounter Results (ABNORMAL) Rapid strep screen (05/13/2014 11:21 AM [employer]) Component Value Ref Test Analysis Performed At [facility] Range Method Time Signature Specimen Throat MIMS Description [facility] Rapid Strep A POSITIVE: Group MIMS Screen A Streptococcal CLINICS antigen detected [place] by immunoassay. (A) Micro Report FINAL 05/13/2014 MIMS Status [facility] Specimen Anatomical Collection Method Collection Time Receive d Time (Source) Location / / Volume Laterality Specimen from 05/13/2014 11:21 05/13/2014 throat AM [employer] 11:24 AM [employer] (specimen) Tatiana Knutson PA-C LAB - MICRO GENERAL ORDERABL ES Performing Organization Address City/State/ZIP Code Phon e Number [facility] [address] [place] [address] documented in this encounter Visit Diagnoses Diagnosis Strep throat - Primary Streptococcal sore throat documented in this encounter Care Teams Acupuncturist Relationship Specialty Start Date End Date Louise Brink MD PCP - General Family Practice 07/29/13 09/07/21 [id number] [address] [phone] Louise Brink MD PCP - Assigned PCP 08/11/13 07/16/18 [address] [address] [phone] Louise Brink MD Assigned PCP 08/11/13 10/21/21 [address] [address] [id number] documented as of this encounter
--- OUTSIDE RECORDS SUMMARY | 2022-03-05 00:48 | XMS_ITS | Encounter Summary ---
:1980 Author Organization [place] Address [address] [place] [address] Care Team Providers Name Role Phone Louise Brink MD Primary Care Provider Louise Brink MD Unavailable Louise Brink MD Unavailable Reason for Visit Reason Comments Medication Refill escitalopram (LEXAPRO) 10 MG Encounter Details Date Type Department Care Team Description 09/25/2016 Refill [facility] Louise Brink MD Medication Refill Clinic [place] [address] (escitalopram (LEXAPRO) [address] [place] [address] 10 MG) [place] [phone] (Wo rk) [address] [phone] Social History Tobacco Use Types Packs/Day Years Used Date Smoking Tobacco: Never Smokeless Tobacco: Never Alcohol Use Standard Drinks/Week Comments Yes 0 (1 standard drink = 0.6 oz pure alcoho l) Sex Assigned at Date Recorded Female 10/26/2020 1:28 AM CDT documented as of this encounter Miscellaneous Notes Telephone Encounter - Raya Rodrigues RN - 09/26/2016 1:05 PM CDT Patient takes this for anxiety. Prescription approved per [facility] Refill Protocol. Raya Rodrigues RN Triage Nurse Telephone Encounter - Shanon Ibarra - 09/25/2016 11:37 AM CDT escitalopram (LEXAPRO) 10 MG Last Written Prescription Date: 04/12/16 Last Fill Quantity: 90, # refills: 1 Last Office Visit with [facility] primary care provider: 03/24/16 Last PHQ-9 score on record= PHQ-9 SCORE 11/19/2015 Total Score - Total Score MyChart 1 (Minimal depression) Total Score - documented in this encounter Plan of Treatment Not on filedocumented as of this encounter Visit Diagnoses Diagnosis Anxiety Anxiety state, unspecified documented in this encounter Additional Health Concerns Assessment Noted Time PHQ-9 Depression Total Score: 1 11/20/2015 7:18 AM CDT documented as of this encounter Care Teams Crosstie Inspector Relationship Specialty Start Date End Date Louise Brink MD PCP - General Family Practice 07/29/13 09/07/21 [id number] [address] [phone] Louise Brink MD PCP - Assigned PCP 08/11/13 07/16/18 [address] [address] [id number] Louise Brink MD Assigned PCP 08/11/13 10/21/21 [address] [address] [id number] documented as of this encounter
--- OUTSIDE RECORDS SUMMARY | 2022-03-05 00:48 | XMS_ITS | Encounter Summary ---
:1980 Author Organization [place] Address [facility] [place] [address] Care Team Providers Name Role Phone Louise Brink MD Primary Care Provider Louise Brink MD Unavailable Louise Brink MD Unavailable Reason for Visit Reason Comments Pharyngitis Encounter Details Date Type Department Care Team Description 03/24/[address] [facility] Louise Brink MD Throat pain (Primary [facility] [place] [address] [address] [place]) [address] [place] [address] [place] [phone] (Wo rk) [address] [phone] Social History Tobacco Use Types Packs/Day Years Used Date Smoking Tobacco: Never Smokeless Tobacco: Never Alcohol Use Standard Drinks/Week Comments Yes 0 (1 standard drink = 0.6 oz pure alcoho l) Sex Assigned at Date Recorded Female 10/26/2020 1:28 AM CDT documented as of this encounter Last Filed Vital Signs Vital Sign Reading Time Taken Comments Blood Pressure 112/66 03/24/2016 9:32 AM AUTOMATED MANUFACTURING INSTRUCTOR Pulse 93 03/24/2016 9:32 AM AUTOMATED MANUFACTURING INSTRUCTOR Temperature 36.7 ??C (98.1 ??F) 03/24/2016 9:32 AM AUTOMATED MANUFACTURING INSTRUCTOR Respiratory Rate 16 03/24/2016 9:32 AM AUTOMATED MANUFACTURING INSTRUCTOR Oxygen Saturation 100% 03/24/2016 9:32 AM AUTOMATED MANUFACTURING INSTRUCTOR Inhaled Oxygen Concentration - - Weight 65.2 kg (143 lb 12.8 oz) 03/24/2016 9:32 AM AUTOMATED MANUFACTURING INSTRUCTOR Height 160 cm (5' 3) 03/24/2016 9:32 AM AUTOMATED MANUFACTURING INSTRUCTOR Body Mass Index 25.47 03/24/2016 9:32 AM AUTOMATED MANUFACTURING INSTRUCTOR documented in this encounter Patient Instructions Patient InstructionsLouise Brink MD - 03/24/2016 9:52 AM CST Images from the original note were not included. Keep in touch with how you are feeling. If the culture turns positive, I will send a prescription for STUART VK to your pharmacy. Self-Care for Sore Throats Sore throats occur for many reasons, such as colds, allergies, and infections caused by viruses or bacteria. In any case, your throat becomes red and sore. Your goal for self-care is to reduce your discomfort while giving your throat a chance to heal. Moisten and Soothe Your Throat ?? Try a sip of water first thing after waking up. ?? Keep your throat moist by drinking??6 or more glasses of clear liquids every day. ?? Run a cool-air humidifier in your room overnight. ?? Avoid cigarette smoke.? Suck on throat lozenges, cough drops, hard candy, ice chips, or frozen fruit- juice bars. Use the sugar-free versions if your diet or medical condition require them. Gargle to Ease Irritation Gargling every hour or??2 can ease irritation. Try gargling with??1 of these solutions: ?? 1/4??teaspoon of salt in??1/2 cup of warm water ?? An hokt-aim-nfgdvic anesthetic gargle Use Medication for More Relief Hcoj-aob-beovale medication can reduce sore throat symptoms. Ask your pharmacist if you have questions about which medication to use: ?? Ease pain with anesthetic sprays. Aspirin or an aspirin substitute also helps. Remember, never give aspirin to anyone 18 or younger, or if you are already??taking blood thinners.? For sore throats caused by allergies, try antihistamines to block the allergic reaction. ?? Remember: unless a sore throat is caused by a bacterial infection, antibiotics won???t help you. Prevent Future Sore Throats ?? Stop smoking or reduce contact with secondhand smoke. Smoke irritates the tender throat lining. ?? Limit contact with pets and with allergy-causing substances, such as pollen and mold. ?? When you???re around someone with a sore throat or cold, wash your hands frequently to keep viruses or bacteria from spreading. ?? Don???t strain your vocal cords. Call Your Health Care Provider Contact your doctor if you have: ?? A temperature over 101??F (38.3??C) ?? White spots on the throat ?? Great difficulty swallowing ?? Trouble breathing ?? A skin rash ?? Recent exposure to someone else with strep bacteria ?? Severe hoarseness and swollen glands in the neck or jaw ?? [id number] [employer]. [address] [place] [address], [place] [address]. All rights reserved. This information is not intended as a substitute for professional medical care. Always follow your healthcare professional's instructions. MATED MANUFACTURING INSTRUCTOR documented in this encounter Progress Notes Louise Brink MD - 03/24/2016 9:30 AM CST SUBJECTIVE: Janet Dean is a 35 year old female who presents to clinic today for the following health issues: Acute Illness Acute illness concerns: throat Onset: last night ?? Fever: no ?? Chills/Sweats: no ?? Headache (location?): YES ?? Sinus Pressure:YES- post-nasal drainage ?? Conjunctivitis: no ?? Ear Pain: YES: both- sore ?? Rhinorrhea: no ?? Congestion: no ?? Sore Throat: YES ?? Cough: no ?? Wheeze: no ?? Decreased Appetite: YES ?? Nausea: YES ?? Vomiting: no ?? Diarrhea: no ?? Dysuria/Freq.: no ?? Fatigue/Achiness: YES- both ?? Sick/Strep Exposure: YES- children has strep Therapies Tried and outcome: cough drop Problem list and histories reviewed & adjusted, as indicated. Additional history: Patient Active Problem List Diagnosis ??? CARDIOVASCULAR SCREENING; LDL GOAL LESS THAN 160 ??? Seasonal allergies ??? Anxiety Current Outpatient Prescriptions Medication Sig Dispense Refill ??? fluticasone (FLONASE) 50 MCG/ACT nasal spray [place] 2 sprays into both nostrils daily 16 g prn ??? guaiFENesin-codeine (ROBITUSSIN AC) 100-10 MG/5ML SOLN Take 5-10 mLs by mouth every 6 hours as needed for cough 120 mL 0 ??? escitalopram (LEXAPRO) 10 MG tablet [...] for fever, chills, change in weight ENT/MOUTH: see below. Mild PND. No congestion. RESP:NEGATIVE for significant cough or SOB PSYCHIATRIC: NEGATIVE for changes in mood or affect Body ache, sore throat and headache. She notes she is in the school a lot. Both her kids have had strep recently; one is still on meds. OBJECTIVE: BP 112/66 mmHg Pulse 93 Temp(Src) 98.1 ??F (36.7 ??C) (Oral) Resp 16 Ht 5' 3 (1.6 m) Wt 143 lb 12.8 oz (65.227 kg) BMI 25.48 kg/m2 SpO2 100% Body mass index is 25.48 kg/(m^2). General appearance: alert and has no apparent distress Skin color is pink Hydration status appears adequate with normal skin turgor and moist mucous membranes. Left TM is normal: no effusions, no erythema, and normal landmarks. Right TM is normal: no effusions, no erythema, and normal landmarks. Nasal mucosa is normal. Oropharyngeal exam: pharyngeal injection. Neck is supple with shotty adenopathy. RESP: Normal - CTA without rales, rhonchi, or wheezing. Cor: Regular rate and rhythm. Rapid strep negative. ASSESSMENT/PLAN: Throat pain Discussed symptomatic treatment. She notes she is good about MyChart; if strep turns positive, will communicate with her via MyChart and changed our record here to a pharmacy that would work for her over the weekend. - Strep, Rapid Screen - Beta strep group A culture Follow up prn or as previously directed. See Patient Instructions Louise Brink MD, MD [facility] [place] MATED MANUFACTURING INSTRUCTOR documented in this encounter Nursing Notes Araceli Hemphill CMA - 03/24/2016 9:34 AM CST Chief Complaint Patient presents with ??? Pharyngitis Initial BP 112/66 mmHg Pulse 93 Temp(Src) 98.1 ??F (36.7 ??C) (Oral) Resp 16 Ht 5' 3 (1.6 m) Wt 143 lb 12.8 oz (65.227 kg) BMI 25.48 kg/m2 SpO2 100% Estimated body mass index is 25.48 kg/(m^2) as calculated from the following: Height as of this encounter: 5' 3 (1.6 m). Weight as of this encounter: 143 lb 12.8 oz (65.227 kg). BP completed using cuff size: madhavi Hemphill CMA MATED MANUFACTURING INSTRUCTOR documented in this encounter Plan of Treatment Not on filedocumented as of this encounter Procedures Procedure Name Priority Date/Time Associated Diagnosis Comme nts RAPID STREP SCREEN Routine 03/24/2016 9:36 AM Throat pain Res ults for this THROAT SWAB AUTOMATED MANUFACTURING INSTRUCTOR procedure are i n the results section. BETA HEMOLYTIC Routine 03/24/2016 9:36 AM Throat pain Results for this STREP GROUP A AUTOMATED MANUFACTURING INSTRUCTOR procedure are in CULTURE the results section. documented in this encounter Results Beta strep group A culture (03/24/2016 9:36 AM AUTOMATED MANUFACTURING INSTRUCTOR) Component Value Ref Test Analysis Performed At [facility] Range Method Time Signature Specimen Throat [place] Description [facility] [place] Culture Micro No Beta [place] Streptococcus CLINICS isolated [place] Micro Report FINAL 03/26/2016 [place] Status [facility]INICS [place] Specimen Anatomical Collection Method Collection Time Receive d Time (Source) Location / / Volume Laterality Specimen from 03/24/2016 9:36 AM 03/24/20 16 9:53 throat AUTOMATED MANUFACTURING INSTRUCTOR AM AUTOMATED MANUFACTURING INSTRUCTOR (specimen) Louise Brink MD LAB - MICRO GENERAL ORDERABL ES Performing Organization Address City/State/ZIP Code Phon e Number [facility] [address] [facility] [place] [address] [facility] [place] [address] [facility] [place] [address] Strep, Rapid Screen (03/24/2016 9:36 AM AUTOMATED MANUFACTURING INSTRUCTOR) Component Value Ref Test Analysis Performed At [facility] Range Method Time Signature Specimen Throat [place] [facility] [place] Rapid Strep A NEGATIVE: No Group A strepto coccal antigen detected by immunoassay, await [place] Screen culture report. [facility] [place] Micro Report FINAL 03/24/2016 [place] Status [facility] [place] Specimen Anatomical Collection Method Collection Time Receive d Time (Source) Location / / Volume Laterality Specimen from 03/24/2016 9:36 AM 03/24/20 16 9:37 throat AUTOMATED MANUFACTURING INSTRUCTOR AM AUTOMATED MANUFACTURING INSTRUCTOR (specimen) Louise Brink MD LAB - MICRO GENERAL ORDERABL ES Performing Organization Address City/State/ZIP Code Phon [facility] [address] [place], [place] [address] documented in this encounter Visit Diagnoses Diagnosis Throat pain - Primary documented in this encounter Additional Health Concerns Assessment Noted Time PHQ-9 Depression Total Score: 1 11/20/2015 7:18 AM CDT documented as of this encounter Care Teams Quality Control Manager Relationship Specialty Start Date End Date Louise Brink MD PCP - General Family Practice 07/29/13 09/07/21 [id number] [address] [place] [address] Louise Brink MD PCP - Assigned PCP 08/11/13 07/16/18 [address] [place] [address] Louise Brink MD Assigned PCP 08/11/13 10/21/21 [address] [place] [place] [address] documented as of this encounter
--- OUTSIDE RECORDS SUMMARY | 2022-03-05 00:48 | XMS_ITS | Encounter Summary ---
:1980 Author Organization [place] Address [facility] [place] [address] Care Team Providers Name Role Phone Louise Brink MD Primary Care Provider Louise Brink MD Unavailable Louise Brink MD Unavailable Reason for Visit Reason Onset Date Comments MyChart Communication 10/30/2014 Encounter Details Date Type Department Care Team Description 10/30/2014 E-Visit [facility] Louise Brink MD MyChart Communication Clinic [place] [address] [facility] [address] [facility] [place] [address] [place] [phone] (Wo rk) [address] [phone] Social History Tobacco Use Types Packs/Day Years Used Date Smoking Tobacco: Never Smokeless Tobacco: Never Alcohol Use Standard Drinks/Week Comments Yes 0 (1 standard drink = 0.6 oz pure alcoho l) Sex Assigned at Date Recorded Female 10/26/2020 1:28 AM CDT documented as of this encounter Miscellaneous Notes Addendum Note - Neeta Edmondson CMA - 11/06/2014 8:39 AM CDT Addended by: NEETA EDMONDSON on: 11/06/2014 08:39 AM Modules accepted: Orders, SmartSet Telephone Encounter - Neeta Edmondson CMA - 11/06/2014 8:38 AM CDT PHQ9 and ANTONY completed via [facility] ANTONY-7 SCORE 01/26/2014 11/05/2014 11/06/2014 Total Score 1 - 2 Total Score 1 2 - PHQ-9 SCORE ([facility]) 01/26/2014 10/30/2014 11/05/2014 Total Score 0 2 - Total Score 0 - 2 Telephone Encounter - Charo Hurtado RN - 11/03/2014 7:43 AM CDT The pt did view this message will await for her to respond.Charo Hurtado RN. Telephone Encounter - Charo Hurtado RN - 11/02/2014 10:12 AM CDT I sent these to the pt via [facility].Charo Hurtado RN. Telephone Encounter - Louise Brink MD - 10/30/2014 9:43 PM CDT Please send the ANTONY 7 and the PHQ 9. PHQ-9 SCORE ([facility]) 07/29/2013 01/26/2014 Total Score 0 0 Total Score - 0 ANTONY-7 SCORE 01/07/2013 07/29/2013 01/26/2014 Total Score 3 1 1 Total Score - - 1 documented in this encounter Plan of Treatment Not on filedocumented as of this encounter Visit Diagnoses Diagnosis Anxiety - Primary Anxiety state, unspecified documented in this encounter Care Teams Sharepoint Trainer Relationship Specialty Start Date End Date Louise Brink MD PCP - General Family Practice 07/29/13 09/07/21 [address] [place] [address] Louise Brink MD PCP - Assigned PCP 08/11/13 07/16/18 [address] [address], [place] [address] Louise Brink MD Assigned PCP 08/11/13 10/21/21 [address] [place] [address] documented as of this encounter
--- OUTSIDE RECORDS SUMMARY | 2022-03-05 00:48 | XMS_ITS | Encounter Summary ---
:1980 Author Organization [place] Address [facility] [place] [address] Care Team Providers Name Role Phone Louise Brink MD Primary Care Provider Louise Brink MD Unavailable Louise Brink MD Unavailable Reason for Visit Reason Onset Date Comments Refill Request 03/30/2016 norgestim-eth estrad triphasic (ORTHO TRI-CYCLEN, 28,) 0.18/0.215/0.25 MG-3 5 MCG Encounter Details Date Type Department Care Team Description 03/30/2016 Refill [facility] Louise Brink MD Refill Request Clinic [place] [address] (norgestim-eth estrad [address] [facility] [place] [address] triphasic (ORTHO [place], [place] [phone] (Wo rk) TRI-CYCLEN, 28,) [id number] 0.18/0.215/0.25 MG-35 MCG) Social History Tobacco Use Types Packs/Day Years Used Date Smoking Tobacco: Never Smokeless Tobacco: Never Alcohol Use Standard Drinks/Week Comments Yes 0 (1 standard drink = 0.6 oz pure alcoho l) Sex Assigned at Date Recorded Female 10/26/2020 1:28 AM CDT documented as of this encounter Miscellaneous Notes Telephone Encounter - Raya Rodrigues RN - 03/30/2016 4:00 PM CST Prescription approved per [facility] Refill Protocol. Raya Rodrigues, sock ironer Nurse IFYING OPERATOR Telephone Encounter - Shanon Ibarra - 03/30/2016 2:27 PM CST norgestim-eth estrad triphasic (ORTHO TRI-CYCLEN, 28,) 0.18/0.215/0.25 MG-35 MCG Last Written Prescription Date: 08/13/15 Last Fill Quantity: 84, # refills: 2 Last Office Visit with [facility] or [facility] prescribing provider: 03/24/16 IFYING OPERATOR documented in this encounter Plan of Treatment Not on filedocumented as of this encounter Visit Diagnoses Diagnosis Pap smear for cervical cancer screening - Primary Screening for malignant neoplasm of the cervix documented in this encounter Additional Health Concerns Assessment Noted Time PHQ-9 Depression Total Score: 1 11/20/2015 7:18 AM CDT documented as of this encounter Care Teams Drug Enforcement Administration Agent Relationship Specialty Start Date End Date Louise Brink MD PCP - General Family Practice 07/29/13 09/07/21 [address] [place] [address] Louise Brink MD PCP - Assigned PCP 08/11/13 07/16/18 [address] [place] [address] Louise Brink MD Assigned PCP 08/11/13 10/21/21 [address] [place] [address] documented as of this encounter
--- OUTSIDE RECORDS SUMMARY | 2022-03-05 00:48 | XMS_ITS | Encounter Summary ---
:1980 Author Organization [place] Address [address] [place] [address] Care Team Providers Name Role Phone Louise Brink MD Primary Care Provider Louise Brink MD Unavailable Louise Brink MD Unavailable Reason for Visit Reason Comments Allied Health Visit flu shot Encounter Details Date Type Department Care Team Description 03/22/2015 Allied Health/Nurse [facility] All ied Health Visit Visit Clinic [place] (flu shot ) [address] [place] [address] Social History Tobacco Use Types Packs/Day Years Used Date Smoking Tobacco: Never Smokeless Tobacco: Never Alcohol Use Standard Drinks/Week Comments Yes 0 (1 standard drink = 0.6 oz pure alcoho l) Sex Assigned at Date Recorded Female 10/26/2020 1:28 AM CDT documented as of this encounter Progress Notes Shanon Dle Cid CMA - 03/22/2015 3:28 PM CST Injectable Influenza Immunization Documentation 1. Is the person to be vaccinated sick today? No 2. Does the person to be vaccinated have an allergy to eggs or to a component of the vaccine? No 3. Has the person to be vaccinated today ever had a serious reaction to influenza vaccine in the past? No 4. Has the person to be vaccinated ever had Guillain-Goddard syndrome? No Form completed by self EX TRIMMER documented in this encounter Plan of Treatment Not on filedocumented as of this encounter Visit Diagnoses Diagnosis Need for prophylactic vaccination and in oculation against influenza - Primary documented in this encounter Care Teams Clerk Of Superior Court Relationship Specialty Start Date End Date Louise Brink MD PCP - General Family Practice 07/29/13 09/07/21 [address] [address] [address] Louise Brink MD PCP - Assigned PCP 08/11/13 07/16/18 [address] [place] [address] Louise Brink MD Assigned PCP 08/11/13 10/21/21 [address] [place] [address] documented as of this encounter
--- OUTSIDE RECORDS SUMMARY | 2022-03-05 00:48 | XMS_ITS | Encounter Summary ---
:1980 Author Organization [place] Address [facility] [place] [address] Care Team Providers Name Role Phone Louise Brink MD Primary Care Provider Louise Brink MD Unavailable Louise Brink MD Unavailable Elizabeth Can PA-C Primary Care Provider Elizabeth Can PA-C Unavailable Reason for Visit Reason Onset Date Comments Refill Request 10/25/2017 Encounter Details Date Type Department Care Team Description 10/25/2017 MyC Refill [facility] Louise Brink MD Refill Request [place] [address] [address] [facility] [place] [address] [place] [address] [phone] Social History Tobacco Use Types Packs/Day Years Used Date Smoking Tobacco: Never Smokeless Tobacco: Never Alcohol Use Standard Drinks/Week Comments Yes 0 (1 standard drink = 0.6 oz pure alcoho l) Sex Assigned at Date Recorded Female 10/26/2020 1:28 AM CDT documented as of this encounter Miscellaneous Notes Telephone Encounter - Emy Piedra RN - 10/26/2017 9:26 AM CDT Requested Prescriptions Pending Prescriptions Disp Refills ??? norgestim-eth estrad triphasic (ORTHO TRI-CYCLEN, TRI-SPRINTEC) 0.18/0.215/0.25 MG-35 MCG per tablet 84 tablet 1 Sig: Take 1 tablet by mouth daily Contraceptives Protocol Passed 10/26/2017 9:23 AM Passed - Patient is not a current smoker if age is 35 or older Passed - Recent (12 mo) or future (30 days) visit within the authorizing provider's specialty Patient had office visit in the last 12 months or has a visit in the next 30 days with authorizing provider or within the authorizing provider's specialty. See Patient Info tab in inbasket, or Choose Columns in Meds & Orders section of the refill encounter. Passed - No active on record Passed - No positive test in past 12 months ??? escitalopram (LEXAPRO) 10 MG tablet 90 tablet 0 Sig: Take 1 tablet (10 mg) by mouth daily SSRIs Protocol Passed 10/26/2017 9:23 AM Passed - Recent (12 mo) or [...] No positive test in last 12 months PHQ-9 SCORE 11/19/2015 12/22/2016 05/22/2017 Total Score - - - Total Score MyChart 1 (Minimal depression) - 1 (Minimal depression) Total Score - 1 1 ANTONY-7 SCORE 11/19/2015 12/22/2016 05/22/2017 Total Score - - - Total Score 1 (minimal anxiety) - 0 (minimal anxiety) Total Score - 1 0 XOCHILT 12/22/2016. Prescription orthotricyclen approved PSO. Prescription Lexapro sent to pharmacy 09/13/2017. Too soon to refill. Emy Piedra RN Telephone Encounter - Emy Piedra, RN - 10/26/2017 9:23 AM CDT Message from [employer]: Original authorizing provider: Louise Brink MD, MD Janet Dean would like a refill of the following medications: norgestim-eth estrad triphasic (ORTHO TRI-CYCLEN, TRI-SPRINTEC) 0.18/0.215/0.25 MG-35 MCG per tablet [Louise Brink MD, MD] escitalopram (LEXAPRO) 10 MG tablet [Louise Brink MD, MD] Preferred pharmacy: [id number] [place] - 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
--- OUTSIDE RECORDS SUMMARY | 2022-03-05 00:48 | XMS_ITS | Encounter Summary ---
:1980 Author Organization [place] Address [address] [facility] [place] [address] Care Team Providers Name Role Phone Louise Brink MD Primary Care Provider Louise rBink MD Unavailable Louise Brink MD Unavailable Reason for Visit Reason Onset Date Comments Refill Request 05/12/2015 escitalopram (LEXAPR O) 10 MG tablet Encounter Details Date Type Department Care Team Description 05/12/2015 Refill [facility] Louise Brink MD Refill Request Clinic [place] [address] (escitalopram (LEXAPRO) [address] [place] [address] 10 MG tablet) [place] [phone] (Wo rk) [phone] Social History Tobacco Use Types Packs/Day Years Used Date Smoking Tobacco: Never Smokeless Tobacco: Never Alcohol Use Standard Drinks/Week Comments Yes 0 (1 standard drink = 0.6 oz pure alcoho l) Sex Assigned at Date Recorded Female 10/26/2020 1:28 AM CDT documented as of this encounter Miscellaneous Notes Telephone Encounter - Ashlyn Jin RN - 05/13/2015 2:48 PM CST Prescription refilled x 1 per [facility] Refill Protocol. Patient overdue for follow up on anxiety. Sent [employer] message. 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 Telephone Encounter - Murphy Moreno - 05/12/2015 8:54 AM CST escitalopram (LEXAPRO) 10 MG tablet Last Written Prescription Date: 02/09/15 Last Fill Quantity: 90, # refills: 0 Last Office Visit with [facility] primary care provider: 01/29/2014 Last PHQ-9 score on record= PHQ-9 SCORE 11/05/2014 Total Score - Total Score MyChart 2 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 documented in this encounter Plan of Treatment Not on filedocumented as of this encounter Visit Diagnoses Diagnosis Anxiety - Primary Anxiety state, unspecified documented in this encounter Care Teams Personal Lines Insurance Advisor Relationship Specialty Start Date End Date Louise Brink MD PCP - General Family Practice 07/29/13 09/07/21 [id number] [address] [id number] Louise Brink MD PCP - Assigned PCP 08/11/13 07/16/18 [address] [address] [id number] Louise Brink MD Assigned PCP 08/11/13 10/21/21 [address] [address] [id number] documented as of this encounter
--- OUTSIDE RECORDS SUMMARY | 2022-03-05 00:48 | XMS_ITS | Encounter Summary ---
:1980 Author Organization [facility] Address [address] [place] [address] Care Team Providers Name Role Phone Louise Brink MD Primary Care Provider Louise Brink MD Unavailable Louies Brink MD Unavailable Reason for Visit Reason Comments Allied Health Visit Imm/Inj Encounter Details Date Type Department Care Team Description 02/23/2016 Allied Health/Nurse [facility] All ied Health Visit; Visit Clinic [place] Imm/Inj [address] [place] [address] Social History Tobacco Use Types Packs/Day Years Used Date Smoking Tobacco: Never Smokeless Tobacco: Never Alcohol Use Standard Drinks/Week Comments Yes 0 (1 standard drink = 0.6 oz pure alcoho l) Sex Assigned at Date Recorded Female 10/26/2020 1:28 AM CDT documented as of this encounter Progress Notes Sherry Sargent CMA - 02/23/2016 11:17 AM CDT Injectable Influenza Immunization Documentation 1. Is [...] the person to be vaccinated ever had Guillain-Caledonia syndrome? No Form completed by Sherry Gardner CMA documented in this encounter Nursing Notes Sherry Sargent CMA - 02/23/2016 11:16 AM CDT Janet Dean is here for a flu shot documented in this encounter Plan of Treatment Not on filedocumented as of this encounter Visit Diagnoses Diagnosis Need for prophylactic vaccination and in oculation against influenza - Primary documented in this encounter Additional Health Concerns Assessment Noted Time PHQ-9 Depression Total Score: 1 11/20/2015 7:18 AM CDT documented as of this encounter Care Teams Business Objects Consultant Relationship Specialty Start Date End Date Louise Brink MD PCP - General Family Practice 07/29/13 09/07/21 [id number] [address] [id number] Louise Brink MD PCP - Assigned PCP 08/11/13 07/16/18 11357 [address] [id number] Louise Brink MD Assigned PCP 08/11/13 10/21/21 05893 [address] [id number] documented as of this encounter
--- OUTSIDE RECORDS SUMMARY | 2022-03-05 00:48 | XMS_ITS | Encounter Summary ---
:1980 Author Organization [place] Address [facility]ly [facility] [address] Care Team Providers Name Role Phone Louise Brink MD Primary Care Provider Louise Brink MD Unavailable Louise Brink MD Unavailable Reason for Visit Reason Onset Date Comments Refill Request 08/12/2015 escitalopram (LEXAPR O) 10 MG Refill Request 08/11/2015 norgestim-eth estrad triphasic (ORTHO TRI-CYCLEN, 28,) 0.18/0.215/0.25 MG-3 5 MCG Encounter Details Date Type Department Care Team Description 08/11/2015 Refill [facility] Louise Brink MD Refill Request Clinic [place] [id number] (escitalopram (LEXAPRO) [address] [place] [id number] 10 MG); Refill Request [place] [phone] (Wo rk) (norgestim-eth estrad [id number] triphasic (ORTHO [phone] TRI-CYCLEN, 28, ) 0.18/0.215/0.25 MG-35 MCG) Social History Tobacco Use Types Packs/Day Years Used Date Smoking Tobacco: Never Smokeless Tobacco: Never Alcohol Use Standard Drinks/Week Comments Yes 0 (1 standard drink = 0.6 oz pure alcoho l) Sex Assigned at Date Recorded Female 10/26/2020 1:28 AM CDT documented as of this encounter Miscellaneous Notes Telephone Encounter - Ashlyn Jin RN - 08/13/2015 7:15 AM CDT Prescription approved per [facility] [place] Protocol. Telephone Encounter - Shanon Ibarra - 08/12/2015 11:43 AM CDT New mail order pharmacy, 90 day supply. escitalopram (LEXAPRO) 10 MG Last Written Prescription Date: 05/21/15 Last Fill Quantity: 90, # refills: 1 Last Office Visit with [facility] primary care provider: 06/11/15 Last PHQ-9 score on record= PHQ-9 SCORE 05/21/2015 Total Score - Total Score MyChart - Total Score 2 norgestim-eth estrad triphasic (ORTHO TRI-CYCLEN, 28,) 0.18/0.215/0.25 MG-35 MCG Last Written Prescription Date: 05/21/15 Last Fill Quantity: 84, # refills: 3 Last Office Visit with [facility] prescribing provider: 06/11/15 documented in this encounter Plan of Treatment Not on filedocumented as of this encounter Visit Diagnoses Diagnosis Anxiety - Primary Anxiety state, unspecified Pap smear for cervical cancer screening Screening for malignant neoplasm of the cervix documented in this encounter Additional Health Concerns Assessment Noted Time PHQ-9 Depression Total Score: 1 11/20/2015 7:18 AM CDT documented as of this encounter Care Teams Store Stock Help Relationship Specialty Start Date End Date Louise Brink MD PCP - General Family Practice 07/29/13 09/07/21 [id number] [address] [id number] Louise Brink MD PCP - Assigned PCP 08/11/13 07/16/18 [address] [address] [id number] Louise Brink MD Assigned PCP 08/11/13 10/21/21 [address] [address] [id number] documented as of this encounter
--- OUTSIDE RECORDS SUMMARY | 2022-03-05 00:48 | XMS_ITS | Encounter Summary ---
:1980 Author Organization [place] Address [address] [place] [address] Care Team Providers Name Role Phone Louise Brink MD Primary Care Provider Louise Brink MD Unavailable Louise Brink MD Unavailable Reason for Visit Reason Onset Date Comments Refill Request 02/09/2015 escitalopram (LEXAPR O) 10 MG Encounter Details Date Type Department Care Team Description 02/08/2015 Refill [facility] Louise Brink MD Refill Request Clinic [place] [id number] (escitalopram (LEXAPRO) [address] [place] [address] 10 MG) [place] [phone] (Wo rk) [phone] Social History Tobacco Use Types Packs/Day Years Used Date Smoking Tobacco: Never Smokeless Tobacco: Never Alcohol Use Standard Drinks/Week Comments Yes 0 (1 standard drink = 0.6 oz pure alcoho l) Sex Assigned at Date Recorded Female 10/26/2020 1:28 AM CDT documented as of this encounter Miscellaneous Notes Telephone Encounter - Charo Hurtado RN - 02/09/2015 1:59 PM CDT Prescription approved per [facility] Refill Protocol.Charo Hurtado RN. Telephone Encounter - Shanon Ibarra - 02/09/2015 9:28 AM CDT escitalopram (LEXAPRO) 10 MG Last Written Prescription Date: 10/20/14 Last Fill Quantity: 90, # refills: 0 Last Office Visit with [facility] primary care provider: 05/13/14 Last PHQ-9 score on record= PHQ-9 SCORE 11/05/2014 Total Score - Total Score MyChart 2 documented in this encounter Plan of Treatment Not on filedocumented as of this encounter Visit Diagnoses Diagnosis Anxiety - Primary Anxiety state, unspecified documented in this encounter Care Teams Wedding Florist Relationship Specialty Start Date End Date Louise Brink MD PCP - General Family Practice 07/29/13 09/07/21 [id number] [address] [id number] Louise Brink MD PCP - Assigned PCP 08/11/13 07/16/18 [address] [address] [id number] Louise Brink MD Assigned PCP 08/11/13 10/21/21 [address] [address] [id number] documented as of this encounter
--- OUTSIDE RECORDS SUMMARY | 2022-03-05 00:48 | XMS_ITS | Encounter Summary ---
:1980 Author Organization [place] Address [address] [facility] [place] [address] Care Team Providers Name Role Phone Louise Brink MD Primary Care Provider Louise Brink MD Unavailable Louise Brink MD Unavailable Reason for Visit Reason Comments Medication Refill escitalopram (LEXAPRO) 10 MG tablet Encounter Details Date Type Department Care Team Description 09/07/2017 Refill [facility] Louise Brink MD Medication Refill Clinic [place] [address] (escitalopram (LEXAPRO) [address] [place] [address] 10 MG tablet) [place] [phone] (Wo rk) [phone] Social History Tobacco Use Types Packs/Day Years Used Date Smoking Tobacco: Never Smokeless Tobacco: Never Alcohol Use Standard Drinks/Week Comments Yes 0 (1 standard drink = 0.6 oz pure alcoho l) Sex Assigned at Date Recorded Female 10/26/2020 1:28 AM CDT documented as of this encounter Miscellaneous Notes Telephone Encounter - Libertad Monahan RN - 09/13/2017 10:51 AM CDT Prescription approved per [facility] Refill Protocol. Due for annual physical in December, Libertad Bunch RN, BSN, PHN [facility] RN Telephone Encounter - Shanon Ibarra - 09/07/2017 11:41 AM CDT Requested Prescriptions Pending Prescriptions Disp Refills ??? 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
--- OUTSIDE RECORDS SUMMARY | 2022-03-05 00:48 | XMS_ITS | Encounter Summary ---
:1980 Author Organization [place] Address [address] [facility] [place] [address] Care Team Providers Name Role Phone Louise Brink MD Primary Care Provider Louise Brink MD Unavailable Louise Brink MD Unavailable Reason for Referral Consultation - Closed Specialty Diagnoses / Procedures Referred By Contact Refer red To Contact Diagnoses Left foot pain Louise Brink MD [facility] [address] [place] [address] [place] [address] [address] [place] [address] Phone: Fax: Referral ID Status Reason Start Date Expiration Date Visits Requ ested Visits Authorized [id number] Closed 06/11/2015 06/10/2016 1 1 DATA ANALYST Reason for Visit Reason Comments Edema left foot Encounter Details Date Type Department Care Team Description 06/11/2015 Office Visit [facility] Louise Brink MD Left foot pain Clinic [place] [address] (Primary Dx) [address] [place] [address] [place], [place] [phone] (Wo rk) [id number] [phone] Social History Tobacco Use Types Packs/Day Years Used Date Smoking Tobacco: Never Smokeless Tobacco: Never Alcohol Use Standard Drinks/Week Comments Yes 0 (1 standard drink = 0.6 oz pure alcoho l) Sex Assigned at Date Recorded Female 10/26/2020 1:28 AM CDT documented as of this encounter Last Filed Vital Signs Vital Sign Reading Time Taken Comments Blood Pressure 110/64 06/11/2015 2:00 PM SAP DATA ANALYST Pulse 85 06/11/2015 2:00 PM SAP DATA ANALYST Temperature 36.9 ??C (98.4 ??F) 06/11/2015 2:00 PM SAP DATA ANALYST Respiratory Rate 16 06/11/2015 2:00 PM SAP DATA ANALYST Oxygen Saturation 100% 06/11/2015 2:00 PM SAP DATA ANALYST Inhaled Oxygen Concentration - - Weight 66.5 kg (146 lb 11.2 oz) 06/11/2015 2:00 PM SAP DATA ANALYST Height 160 cm (5' 3) 06/11/2015 2:00 PM SAP DATA ANALYST Body Mass Index 25.99 06/11/2015 2:00 PM SAP DATA ANALYST documented in this encounter Progress Notes Louise Brink MD - 06/11/2015 1:58 PM CST SUBJECTIVE: Janet Dean is a 34 year old female who presents to clinic today for the following health issues: Musculoskeletal problem/pain ?? Duration: x 1 week ?? Description Location: top of left foot ?? Intensity: 2/10 ?? Accompanying signs and symptoms: radiation of pain to alejandro, tingling and swelling ?? History Previous similar problem: no Previous evaluation: none ?? Precipitating or alleviating factors: Trauma or overuse: no Aggravating factors include: walking ?? Therapies tried and outcome: rest/inactivity and ice- takes swelling down Patient Active Problem List Diagnosis ??? CARDIOVASCULAR SCREENING; LDL GOAL LESS THAN 160 ??? Seasonal allergies ??? Anxiety Current Outpatient Prescriptions Medication Sig Dispense Refill ??? escitalopram (LEXAPRO) 10 MG tablet Take 1 tablet (10 mg) by mouth daily 90 tablet 1 ??? norgestim-eth estrad triphasic (ORTHO TRI-CYCLEN, 28,) 0.18/0.215/0.25 MG-35 MCG per tablet Take1 tablet by mouth daily 84 tablet 3 ??? ALPRAZolam (XANAX) 0.25 MG tablet Take 1 tablet (0.25 mg) by mouth 3 times daily as needed for anxiety 30 tablet 0 ??? multivitamin, therapeutic with minerals (MULTI-VITAMIN) TABS Take 1 tablet by mouth daily 100 tablet 3 ??? cetirizine (ZYRTEC) 10 MG tablet Take 1 tablet (10 mg) by mouth every evening 30 tablet 1 ROS: Woke up about a week ago; was sore. Then swelled. Top of foot. Has not resolved. No injury that she is aware of. Had been doing a work out without shoes. Left foot. OBJECTIVE: BP 110/64 mmHg Pulse 85 Temp(Src) 98.4 ??F (36.9 ??C) (Oral) Resp 16 Ht 5' 3 (1.6 m) Wt 146 lb 11.2 oz (66.543 kg) BMI 25.99 kg/m2 SpO2 100% LMP 04/26/2015 (Approximate) Body mass index is 25.99 kg/(m^2). GENERAL APPEARANCE: alert and no distress MS: top of left foot looks mildly, diffusely swollen. She notes pain along the second and third metatarsals to the ankle with dorsiflexion. Notes pain a little more distally with plantar flexion. Diffusely tender over top of foot along same distribution; no point tenderness. No bruising. PSYCH: mentation appears normal and affect normal/bright ASSESSMENT/PLAN: 1. Left foot pain Suspect a tendinitis. Recommend continuing to ice. Avoid shoes that put pressure on the area. Relative rest. Discussed potential side effects of NSAI, including GI effects and renal. Discussed this could be potentiated by SSRI. Relative rest. Podiatry if not improving. - PODIATRY/FOOT & ANKLE SURGERY REFERRAL - naproxen (NAPROSYN) 500 MG tablet; Take 1 tablet (500 mg) by mouth 2 times daily as needed for moderate pain Dispense: 20 tablet; Refill: 0 Follow up prn or as previously directed. Louise Brink MD, MD [facility] DATA ANALYST documented in this encounter Nursing Notes Joby Araceli MATTHIEU Bunch - 06/11/2015 2:03 PM CST Chief Complaint Patient presents with ??? Edema left foot Initial BP 110/64 mmHg Pulse 85 Temp(Src) 98.4 ??F (36.9 ??C) (Oral) Resp 16 Ht 5' 3 (1.6 m) Wt 146 lb 11.2 oz (66.543 kg) BMI 25.99 kg/m2 SpO2 100% LMP 04/26/2015 (Approximate) Estimated body mass index is 25.99 kg/(m^2) as calculated from the following: Height as of this encounter: 5' 3 (1.6 m). Weight as of this encounter: 146 lb 11.2 oz (66.543 kg). BP completed using cuff size: regular Araceli Hemphill CMA DATA ANALYST documented in this encounter Plan of Treatment Scheduled Referrals Name Type Priority Associated Diagnoses Order S chedule PODIATRY/FOOT & ANKLE Referral Routine Left foot pain Orde red: 06/11/2015 SURGERY REFERRAL documented as of this encounter Visit Diagnoses Diagnosis Left foot pain - Primary Pain in limb documented in this encounter Additional Health Concerns Assessment Noted Time PHQ-9 Depression Total Score: 1 11/20/2015 7:18 AM CDT documented as of this encounter Care Teams Steel Barrel Reamer Relationship Specialty Start Date End Date Louise Brink MD PCP - General Family Practice 07/29/13 09/07/21 [id number] [address] [id number] Louise Brink MD PCP - Assigned PCP 08/11/13 07/16/18 [id number] [address] [id number] Louise Brink MD Assigned PCP 08/11/13 10/21/21 [address] [address] [place] [id number] documented as of this encounter
--- OUTSIDE RECORDS SUMMARY | 2022-03-05 00:49 | XMS_ITS | Encounter Summary ---
:1980 Author Organization [place] Address [address] [facility] [address] Care Team Providers Name Role Phone Neal Vasquez PA-C Primary Care Provider Reason for Referral Referral not Required - Closed Specialty Diagnoses / Procedures Referred By Contact Refer red To Contact Diagnoses Finger joint swelling, right Neal Vasquez, ARTHRITIS & RHEUMATOLOGY DEMETRIO [facility] [address] [facility] [address] [place] [address] [place], [place] [address] Phone: [phone] Referral ID Status Reason Start Date Expiration Date Visits Requ ested Visits Authorized [id number] Closed 04/15/2013 10/12/2013 1 1 R OPERATOR Reason for Visit Reason Comments Swelling Encounter Details Date Type Department Care Team Description 04/15/[address] [facility] Neal Vasquez Finger sheron int swelling, Clinic [facility] DEMETRIO Cavazos right (Primary Dx) [address] [place], [place] SERVICE [address] [address] [facility] [phone] [place] [address] Social History Tobacco Use Types Packs/Day Years Used Date Smoking Tobacco: Never Smokeless Tobacco: Never Alcohol Use Standard Drinks/Week Comments Yes 0 (1 standard drink = 0.6 oz pure alcoho l) Sex Assigned at Date Recorded Female 10/26/2020 1:28 AM CDT documented as of this encounter Last Filed Vital Signs Vital Sign Reading Time Taken Comments Blood Pressure 98/62 04/15/2013 9:59 AM SHEAR OPERATOR Pulse 68 04/15/2013 9:59 AM SHEAR OPERATOR Temperature 36.7 ??C (98.1 ??F) 04/15/2013 9:59 AM SHEAR OPERATOR Respiratory Rate - - Oxygen Saturation - - Inhaled Oxygen Concentration - - Weight 60.3 kg (133 lb) 04/15/2013 9:59 AM SHEAR OPERATOR Height - - Body Mass Index 23.37 12/24/2012 4:25 PM CDT documented in this encounter Patient Instructions Patient InstructionsWaNeal adames PA-C - 04/15/2013 10:19 AM SHEAR OPERATOR I'll let you know when I see the labs, but I do think it's worthwhile to see the patient observation assistant. Neal Stone R OPERATOR documented in this encounter Progress Notes Neal Vasquez PA-C - 04/15/2013 9:58 AM CST SUBJECTIVE: Janet Dean is a 32 year old female who presents to clinic today for the following health issues: 4 week ago right hand and arm up to elbow swelled with no known injury. Swelling has decreased, but not in right hand ring finger. Pt denies any injury to the hand or finger. The swelling has gone down in the arm and wrist, but still affecting the 4/5 fingers. The hand and arm were not red or warm feeling. She was only noting somemild pain in the 4th finger when she tried to bend it. She denies any associated f/c, illness. No rashes. No known family hx of rheumatologic disease. The ring finger has not changed much since her initial presentation. Other than starting lexapro several months ago, no recent med or dietary changes. Problem list and histories reviewed & adjusted, as indicated. Additional history: as documented Patient Active Problem List Diagnosis ??? CARDIOVASCULAR SCREENING; LDL GOAL LESS THAN 160 ??? Seasonal allergies ??? Anxiety History reviewed. No pertinent past surgical history. History Substance Use Topics ??? Smoking status: Never Smoker ??? Smokeless tobacco: Never Used ??? Alcohol Use: 0.0 - 0.5 oz/week 0-1 drink(s) per week Family History Problem Relation Age of Onset ??? Diabetes Maternal Grandmother ??? Hypertension Paternal Grandmother ??? Cancer Maternal Grandfather Skin ??? Colon CA Paternal Grandfather 70 ??? Heart attack Maternal Grandfather 50 ??? Depression Father Current Outpatient Prescriptions Medication Status Sig ??? escitalopram (LEXAPRO) 10 MG tablet Active Take 1 tablet (10 mg) by mouth daily ??? multivitamin, therapeutic with minerals (MULTI-VITAMIN) TABS Active Take 1 tablet by mouth daily ??? cetirizine (ZYRTEC) 10 MG tablet Active Take 1 tablet (10 mg) by mouth every evening ??? fluticasone (FLONASE) 50 MCG/ACT nasal spray Active [place] 1-2 sprays into both nostrils daily ??? ALPRAZolam (XANAX) 0.25 MG tablet Active Take 1 tablet (0.25 mg) by mouth 3 times daily as needed for anxiety ??? norgestim-eth estrad triphasic (ORTHO TRI-CYCLEN, 28,) 0.18/0.215/0.25 MG-35 MCG TABS tablet Active Take 1 tablet by mouth daily. Problem list, Medication list, Allergies, and Medical/Social/Surgical histories reviewed in [facility] andupdated as appropriate. ROS: CONSTITUTIONAL:NEGATIVE for fever, chills, change in weight INTEGUMENTARY/SKIN: NEGATIVE for worrisome rashes, moles or lesions EYES: NEGATIVE for vision changes or irritation RESP:NEGATIVE for significant cough or SOB CV: NEGATIVE for chest pain, palpitations or peripheral edema MUSCULOSKELETAL: as above NEURO: NEGATIVE for weakness, dizziness or paresthesias PSYCHIATRIC: improved anxiety OBJECTIVE: BP 98/62 Pulse 68 Temp 98.1 ??F (36.7 ??C) (Oral) Wt 133 lb (60.328 kg) LMP 04/04/2013 ? No There is no height on file to calculate BMI. GENERAL:: healthy, alert and no distress RESP: lungs clear to auscultation - no rales, no rhonchi, no wheezes CV: regular rates and rhythm, normal S1 S2, no S3 or S4 and no murmur, no click or rub - MS: R hand- somewhat sausage-like appearance the the 3/4 fingers. Mild crepitus. No erythema. Mild swelling over the PIP. Full ROM. No warmth. No skin changes. PSYCH: Alert and oriented times 3; speech- coherent , normal rate and volume; able to articulate logical thoughts, able to abstract reason, no tangential thoughts, no hallucinations or delusions, affect- normal Diagnostic test results: Results for orders placed in visit on 04/15/13 (from the past 24 hour(s)) ERYTHROCYTE SEDIMENTATION RATE AUTO Component Value Range Sed Rate 10 0 - 20 mm/h ASSESSMENT/PLAN: 729.81 Finger joint swelling, right (primary encounter diagnosis) Comment: discussed a number of possibilities, including benign etiology, possible RA or psoriatic arthritis. Not very bothersome, but given current presentation, would recommend rheumatologic eval. Plan: Lyme IgG and IgM screen, ESR: Erythrocyte sedimentation rate, CRP inflammation, Cyclic Citrullinated Peptide IgG IgA, Rheumatoid factor, Antinuclear antibody screen by EIA, RHEUMATOLOGY REFERRAL, Sjogrens la antibody IgG, Sjogrens ro antibody IgG Follow up with Provider - prn. Neal Vasquez PA-C [facility] R OPERATOR documented in this encounter Nursing Notes 04/15/2013 10:00 AM CST >> NEETA Turner Apr 15, 2013 10:01 AM Patient presents with: Swelling Initial BP 98/62 Pulse 68 Temp 98.1 ??F (36.7 ??C) (Oral) Wt 133 lb (60.328 kg) LMP 04/04/2013 ? No Estimated Body mass index is 23.37 kg/(m^2) as calculated from the following: Height as of 12/24/12: 5' 3.25(1.607 m). Weight as of this encounter: 133 lb(60.328 kg). BP completed using cuff size: regular Neeta Edmondson CMA (AAMA) documented in this encounter Plan of Treatment Scheduled Referrals Name Type Priority Associated Diagnoses Order S chedule RHEUMATOLOGY REFERRAL Referral Routine Finger joint juan oliveira, Ordered: 04/15/2013 right documented as of this encounter Procedures Procedure Name Priority Date/Time Associated Comments Diagnosis CYCLIC CIT PEPT IGG Routine 04/15/2013 10:23 Finger joint Resu lts for this AM SHEAR OPERATOR swelling, right procedure ar e in the results section. SJOGRENS RO ANTIBODY Routine 04/15/2013 10:23 Finger joint Res ults for this IGG AM SHEAR OPERATOR swelling, right procedure ar e in the results section. SJOGRENS LA ANTIBODY Routine 04/15/2013 10:23 Finger joint Res ults for this IGG AM SHEAR OPERATOR swelling, right procedure ar e in the results section. RHEUMATOID FACTOR Routine 04/15/2013 10:23 Finger joint Result s for this AM SHEAR OPERATOR swelling, right procedure ar e in the results section. LYME IGG AND IGM Routine 04/15/2013 10:23 Finger joint Results for this SCREEN AM SHEAR OPERATOR swelling, right procedure ar e in the results section. ERYTHROCYTE Routine 04/15/2013 10:23 Finger joint Results for this SEDIMENTATION RATE AM SHEAR OPERATOR swelling, right proced ure are in AUTO the results section. CRP INFLAMMATION Routine 04/15/2013 10:23 Finger joint Results for this AM SHEAR OPERATOR swelling, right procedure ar e in the results section. ANTINUCLEAR ANTIBODY Routine 04/15/2013 10:23 Finger joint Res ults for this SCREEN BY EIA AM SHEAR OPERATOR swelling, right procedure a re in the results section. documented in this encounter Results Sjogrens ro antibody IgG (04/15/2013 10:23 AM SHEAR OPERATOR) athologist Signature SSA (RO) 2 [place] Antibody IgG [facility] Comment: Reference range: 0 to 40 Unit: AU/mL (Note) INTERPRETIVE INFORMATION: SSA (Ro) (DEBORAH) Ab, IgG 29 AU/mL or Less ............. Negative 30 - 40 AU/mL ................ Equivoca l 41 AU/mL or Greater .......... Positive SSA (Ro) antibody is seen in 70-75% of S jogren syndrome cases, 30-40% of systemic lupus erythema tosus (SLE) and 5-10% of progressive systemic sclerosis (PSS). Performed by [facility], [address] [place] [id number] [email or web address], Eladio Luevano MD, L ab. Director Specimen Anatomical Collection Method Collection Time Receive d Time (Source) Location / / Volume Laterality Blood specimen 04/15/2013 10:23 3 (specimen) AM SHEAR OPERATOR 10:24 AM SHEAR OPERATOR Neal Vasquez PA-C LAB - BLOOD ORDERABLES Performing Organization Address [facility] Phon e Number [facility] [address] [place], [place] [address] Sjogrens la antibody IgG (04/15/2013 10:23 AM SHEAR OPERATOR) athologist Signature SSB (LA) 0 [facility] Antibody IgG [facility] Comment: Reference range: 0 to 40 Unit: AU/mL (Note) INTERPRETIVE INFORMATION: SSB (La) (DEBORAH) Ab, IgG 29 AU/mL or Less ............. Negative 30 - 40 AU/mL ................ Equivoca l 41 AU/mL or Greater .......... Positive SSB (La) antibody is seen in 50-60% of S jogren syndrome cases and is specific if it is the only DEBORAH antibody present. 15-25% of patients with systemi c lupus erythematosus (SLE) and 5-10% of patient s with progressive systemic sclerosis (PSS) also have this antibody. Performed by [facility], [address] [place] [id number] [email or web address], Eladio Luevano MD, L ab. Director Specimen Anatomical Collection Method Collection Time Receive d Time (Source) Location / / Volume Laterality Blood specimen 04/15/2013 10:23 3 (specimen) AM SHEAR OPERATOR 10:24 AM SHEAR OPERATOR Neal Vasquez PA-C LAB - BLOOD ORDERABLES Performing Organization Address [facility]/ZIP Code Phon e Number [facility] [address] [place], [place] [address] Antinuclear antibody screen by EIA (04/15/2013 10:23 AM SHEAR OPERATOR) [facility] gist Method Time Signature PAMELA Screen by <1.0 <1.0 [facility] EIA Interpretation: ??Negative [facility] LABS Specimen Anatomical Collection Method Collection Time Receive d Time (Source) Location / / Volume Laterality Blood specimen 04/15/2013 10:23 3 (specimen) AM SHEAR OPERATOR 10:24 AM SHEAR OPERATOR Neal Vasquez PA-C LAB - BLOOD ORDERABLES Performing Organization Address City/[facility]/ZIP Code Phon e Number [address] LABS Rheumatoid factor (04/15/2013 10:23 AM SHEAR OPERATOR) P athologist Signature Rheumatoid <20 <20 IU/mL [facility] LABS Specimen Anatomical Collection Method Collection Time Receive d Time (Source) Location / / Volume Laterality Blood specimen 04/15/2013 10:23 3 (specimen) AM SHEAR OPERATOR 10:24 AM SHEAR OPERATOR Neal Vasquez PA-C LAB - BLOOD ORDERABLES Performing Organization Address City/[facility]/ZIP Code Phon e Number [address] LABS Cyclic Citrullinated Peptide IgG IgA (04/15/2013 10:23 AM SHEAR OPERATOR) Patholo gist Method Time Signature Cyclic Cit <20 <20 UNITS [facility] Pept IgG/IgA Interpretation: ??Negative [facility] LABS Specimen Anatomical Collection Method Collection Time Receive d Time (Source) Location / / Volume Laterality Blood specimen 04/15/2013 10:23 3 (specimen) AM SHEAR OPERATOR 10:24 AM SHEAR OPERATOR Neal Vasquez PA-C LAB - BLOOD ORDERABLES Performing Organization Address City/[facility]/ZIP Code Phon e Number [address] LABS CRP inflammation (04/15/2013 10:23 AM SHEAR OPERATOR) Analysis Performed At Patho logist Time Signature CRP Inflammation <5.0 0.0 - 8.0 [facility] mg/L [facility] LABS Specimen Anatomical Collection Method Collection Time Receive d Time (Source) Location / / Volume Laterality Blood specimen 04/15/2013 10:23 3 (specimen) AM SHEAR OPERATOR 10:24 AM SHEAR OPERATOR Neal Vasquez PA-C LAB - BLOOD ORDERABLES Performing Organization Address City/State/ZIP Code Phon e Number [facility] [address] [place] [address] [facility] [place] [facility] ESR: Erythrocyte sedimentation rate (04/15/2013 10:23 AM SHEAR OPERATOR) P athologist Signature Sed Rate 10 0 - 20 mm/h [facility] Specimen Anatomical Collection Method Collection Time Receive d Time (Source) Location / / Volume Laterality Blood specimen 04/15/2013 10:23 3 (specimen) AM SHEAR OPERATOR 10:24 AM SHEAR OPERATOR Neal Vasquez PA-C LAB - BLOOD ORDERABLES Performing Organization Address City/[facility]/ZIP Code Phon [facility] [address] [place], [place] [address] Lyme IgG and IgM screen (04/15/2013 10:23 AM SHEAR OPERATOR) Component Value Ref Test Analysis Performed At Patholo gist Range Method Time Signature Specimen Serum [facility] Lyme Screen IgG Negative NEG [facility] and IgM Test value: <0.75....Interp retation: Negative....If you highly suspect Lyme MICROBIOLOGY disease, consider submitting a repeat specimen in 4 to 6 we eks. Specimen Anatomical Collection Method Collection Time Receive d Time (Source) Location / / Volume Laterality Blood specimen 04/15/2013 10:23 3 (specimen) AM SHEAR OPERATOR 10:24 AM SHEAR OPERATOR Neal Vasquez PA-C LAB - BLOOD ORDERABLES Performing Organization Address City/[facility]/ZIP Code Phon e Number [address] [address] [facility] [address] [place], [place] [address] [facility] MICROBIOLOGY documented in this encounter Visit Diagnoses Diagnosis Finger joint swelling, right - Primary documented in this encounter Care Teams Sql Analyst Relationship Specialty Start Date End Date Neal Vasquez PA-C PCP - General Family Practice 11/27/11 07/28/[address] [address] documented as of this encounter
--- OUTSIDE RECORDS SUMMARY | 2022-03-05 00:49 | XMS_ITS | Encounter Summary ---
:1980 Author Organization [place] Address [address] [place] [address] Care Team Providers Name Role Phone Neal Vasquez PA-C Primary Care Provider [phone] Reason for Visit Reason Onset Date Comments Refill Request 11/27/2012 Fluticasone Encounter Details Date Type Department Care Team Description 11/27/2012 Refill [facility] Neal Vasquez Re fill Request Manish Cavazos PA-C (Fluticasone ) [address] [place] [address] SERVICE [phone] [place] [address] (Wo rk) Social History Tobacco Use Types Packs/Day Years Used Date Smoking Tobacco: Never Smokeless Tobacco: Never Alcohol Use Standard Drinks/Week Comments Yes 0 (1 standard drink = 0.6 oz pure alcoho l) Sex Assigned at Date Recorded Female 10/26/2020 1:28 AM CDT documented as of this encounter Miscellaneous Notes Telephone Encounter - Charo Hurtado - 11/27/2012 12:35 PM CDT Refilled Pso for quanity of #1 the pt is due for an appt, I sent her a reminder letter via [employer] and also I mailed a reminder letter to her. Last Seen: 11/28/11 with Rtc instructions: see above Last Filled: 09/11/12 Charo Hurtado RN. documented in this encounter Plan of Treatment Not on filedocumented as of this encounter Visit Diagnoses Diagnosis Allergic rhinitis, cause unspecified - P rimary documented in this encounter Care Teams Liquid Chlorine Operator Relationship Specialty Start Date End Date Neal Vasquez PA-C PCP - General Family Practice 11/27/11 07/28/[address] [address] documented as of this encounter
--- OUTSIDE RECORDS SUMMARY | 2022-03-05 00:49 | XMS_ITS | Encounter Summary ---
:1980 Author Organization [place] Address [address] [place] [address] Care Team Providers Name Role Phone Neal Vasquez PA-C Primary Care Provider Reason for Visit Reason Comments Anxiety Encounter Details Date Type Department Care Team Description 01/07/2013 Office Visit [facility] Neal Vasquez Anxiety ( Primary Dx); Clinic Manish Cavazos PA-C Routine general medical examination at a health care facility; [address] [facility] Need for Tdap vaccination [place], [place] SERVICE [phone] [place] [address] [place], [place] [address] Social History Tobacco Use Types Packs/Day Years Used Date Smoking Tobacco: Never Smokeless Tobacco: Never Alcohol Use Standard Drinks/Week Comments Yes 0 (1 standard drink = 0.6 oz pure alcoho l) Sex Assigned at Date Recorded Female 10/26/2020 1:28 AM CDT documented as of this encounter Last Filed Vital Signs Vital Sign Reading Time Taken Comments Blood Pressure 96/60 01/07/2013 8:06 AM CDT Pulse 62 01/07/2013 8:06 AM CDT Temperature - - Respiratory Rate - - Oxygen Saturation - - Inhaled Oxygen Concentration - - Weight 59.9 kg (132 lb) 01/07/2013 8:06 AM CDT Height - - Body Mass Index 23.2 12/24/2012 4:25 PM CDT documented in this encounter Patient Instructions Patient InstructionsNeal Vasquez PA-C - 01/07/2013 8:20 AM CDT Let's continue the Lexapro daily. Try the xanax, and keep it as your back pocket option. Bertha, Neal documented in this encounter Progress Notes Neal Vasquez PA-C - 01/07/2013 8:05 AM CDT SUBJECTIVE: Janet Dean is a 32 year old female who presents to clinic today for the following health issues: Anxiety Sx are stable History Substance Use Topics ??? Smoking status: Never Smoker ??? Smokeless tobacco: Never Used ??? Alcohol Use: 0.0 - 0.5 oz/week 0-1 drink(s) per week Janet is here for f/u on her Lexapro. She has been on this for about 2 weeks. Feeling more patient with her family. She is really liking the difference she is feeling. She does admit that about a week ago, she may have had a panic attack while riding the train to a [employer] game. She also questions whether could be related to a panic attack. She has not taken the xanax. Problem list and histories reviewed & adjusted, [...] Depression Father Current Outpatient Prescriptions Medication Sig ??? escitalopram (LEXAPRO) 10 MG tablet Take 1 tablet (10 mg) by mouth daily ??? multivitamin, therapeutic with minerals (MULTI-VITAMIN) TABS Take 1 tablet by mouth daily ??? cetirizine (ZYRTEC) 10 MG tablet Take 1 tablet (10 mg) by mouth every evening ??? fluticasone (FLONASE) 50 MCG/ACT nasal spray [place] 1-2 sprays into both nostrils daily ??? ALPRAZolam (XANAX) 0.25 MG tablet Take 1 tablet (0.25 mg) by mouth 3 times daily as needed for anxiety ??? norgestim-eth estrad triphasic (ORTHO TRI-CYCLEN, 28,) 0.18/0.215/0.25 MG-35 MCG TABS tablet Take 1 tablet by mouth daily. Problem list, Medication list, Allergies, and Medical/Social/Surgical histories reviewed in EPIC andupdated as appropriate. ROS: CONSTITUTIONAL:NEGATIVE for fever, chills, change in weight RESP:NEGATIVE for significant cough or SOB CV: NEGATIVE for chest pain, palpitations or peripheral edema PSYCHIATRIC: as above OBJECTIVE: BP 96/60 Pulse 62 Wt 132 lb (59.875 kg) LMP 12/13/2012 There is no height on file to calculate BMI. GENERAL:: healthy, alert and no distress PSYCH: Alert and oriented times 3; speech- coherent , normal rate and volume; able to articulate logical thoughts, able to abstract reason, no tangential thoughts, no hallucinations or delusions, affect- normal ASSESSMENT/PLAN: 300.00 Anxiety (primary encounter diagnosis) Comment: overall, doing really well. Did recommend she try the xanax to make sure this would help her with future panic attacks. Otherwise, f/u in 6 months. Plan: escitalopram (LEXAPRO) 10 MG tablet V70.0 Routine general medical examination at a health care facility Comment: fasting for labs. Plan: Lipid panel reflex to direct LDL, Comprehensive metabolic panel V06.1 Need for Tdap vaccination Comment: Vaccine given.. Plan: ADACEL (TDAP) 11-64 See Patient Instructions Follow up with Provider - 6 months. Neal Vasquez PA-C [facility] documented in this encounter Nursing Notes 01/07/2013 8:00 AM CDT >> NEETA HOLLY Turner Jan 07, 2013 8:08 AM Patient presents with: Anxiety Initial BP 96/60 Pulse 62 Wt 132 lb (59.875 kg) LMP 12/13/2012 Estimated Body mass index is 23.20 kg/(m^2) as calculated from the following: Height as of 13: 5' 3.25(1.607 m). Weight as of this encounter: 132 lb(59.875 kg). BP completed using cuff size: madhavi Edmondson CMA (AASC) documented in this encounter Miscellaneous Notes Addendum Note - Neeta Edmondson - 01/07/2013 8:55 AM CDT Addended by: NEETA EDMONDSON on: 01/07/2013 08:55 AM Modules accepted: Orders, SmartSet documented in this encounter Plan of Treatment Not on filedocumented as of this encounter Procedures Procedure Name Priority Date/Time Associated Comments Diagnosis LIPID REFLEX TO DIRECT Routine 01/07/2013 8:28 AM Routine gene ral Results for this LDL PANEL CDT medical examination proceddionte e are in at a health care the results facility section. COMPREHENSIVE Routine 01/07/2013 8:28 AM Routine general Resul ts for this METABOLIC PANEL CDT medical examination rené chery are in at a [facility] care the results facility section. documented in this encounter Results Comprehensive metabolic panel (01/07/2013 8:28 AM CDT) P athologist Signature Sodium 141 133 - 144 [facility] mmol/L [facility] Potassium 4.4 3.4 - 5.3 [facility] mmol[facility]L [facility] Chloride 104 94 - 109 [facility] mmol/L [facility] Carbon Dioxide 23 20 - 32 [facility] mmol/L [facility] Anion Gap 14 6 - 17 [facility] mmol/L [facility] Glucose 89 60 - 99 [facility] mg/dL [facility] Urea Nitrogen 9 5 - 24 [facility] mg/dL [facility] Creatinine 0.85 0.52 - [facility] 1.04 mg/dL [facility] GFR Estimate 78 >60 [facility] mL/min/1.7 [facility] m2 GFR Estimate If >90 >60 [facility] [place] mL/min/1.7 [facility] m2 Calcium 8.9 8.5 - 10.4 [facility] mg/dL [facility] Bilirubin Total 0.3 0.2 - 1.3 [facility] mg/dL [facility] Albumin 4.2 3.9 - 5.1 [facility] g/dL [facility] Comment: Reference range changed on 01/13. Protein Total 8.4 6.8 - 8.8 g/dL [facility] Comment: As of 07, reference range reflects plasma specimen type. Alkaline Phosphatase 50 40 - 150 U/L [facility] ALT 27 0 - 50 U/L [facility] AST 22 0 - 45 U/L [facility] LAB Specimen Anatomical Collection Method Collection Time Receive d Time (Source) Location / / Volume Laterality Blood specimen 01/07/2013 8:28 AM 013 8:29 (specimen) CDT AM CDT Neal Vasquez PA-C LAB - BLOOD ORDERABLES Performing Organization Address City/State/ZIP Code Phon e Number [facility] [address] [place] [address] [facility] [address] [place] [address] [phone] Lipid panel reflex to direct LDL (01/07/2013 8:28 AM CDT) athologist Signature Cholesterol 181 0 - 200 [facility] mg/dL CLINIC [facility] Comment: LDL Cholesterol is the primary guide to therapy. The NCEP recommends further evaluation of: patients with cholesterol greater than 200 mg/dL if additional risk facto rs are present, cholesterol greater than 240 mg/dL, triglycerides greater than 1 50 mg/dL, or HDL less than 40 mg/dL. Triglycerides 74 0 - 150 mg/dL [facility] HDL Cholesterol 69 50 - 110 mg/dL [facility] LDL Cholesterol Calculated 98 0 - 129 mg/dL [facility] Comment: LDL Cholesterol is the primary guide to therapy: LDL-cholesterol goal in high risk patients is <100 mg/dL and in very high risk patients is <70 mg/dL. VLDL-Cholesterol 15 0 - 30 mg/dL [facility] Cholesterol/HDL Ratio 2.6 0.0 - 5.0 [facility] Specimen Anatomical Collection Method Collection Time Receive d Time (Source) Location / / Volume Laterality Blood specimen 01/07/2013 8:28 AM 013 8:29 (specimen) CDT AM CDT Neal Vasquez PA-C LAB - BLOOD ORDERABLES Performing Organization Address City/State/ZIP Code Phon e Number [facility] [address] [place] [address] [facility] [address] [place] [address] documented in this encounter Visit Diagnoses Diagnosis Anxiety - Primary Anxiety state, unspecified Routine general medical examination at a health care facility Need for Tdap vaccination Need for prophylactic vaccination with c ombined [id number] (DTP) vaccine documented in this encounter Care Teams Roll Trucker Relationship Specialty Start Date End Date Neal Vasquez PA-C PCP - General Family Practice 11/27/11 07/28/[address] [address] documented as of this encounter
--- OUTSIDE RECORDS SUMMARY | 2022-03-05 00:49 | XMS_ITS | Encounter Summary ---
:1980 Author Organization [place] Address [address] [place] [address] Care Team Providers Name Role Phone Unavailable Primary Care Provider Unavailable Encounter Details Date Type Department Care Team Description 09/26/2008 Historic Notes INTERFACED REPORT Interface, Transcript MD sandy Social History Tobacco Use Types Packs/Day Years Used Date Smoking Tobacco: Never Assessed Sex Assigned at Date Recorded Female 10/26/2020 1:28 AM CDT documented as of this encounter Progress Notes Interface, Plant Breeder - 07/31/2010 3:20 AM CDT Progress Note - :: mom states fdgs are going well. Independent with fdgs. enc mom to call Encouraged mom to call us PRN.. Dacia Castellanos (RN)[Signed 13:08] Authored: Progress Note documented in this encounter Plan of Treatment Not on filedocumented as of this encounter Visit Diagnoses Not on filedocumented in this encounter
--- OUTSIDE RECORDS SUMMARY | 2022-03-05 00:49 | XMS_ITS | Encounter Summary ---
:1980 Author Organization [place] Address [address] [place] [address] Care Team Providers Name Role Phone Unavailable Primary Care Provider Unavailable Encounter Details Date Type Department Care Team Description 09/24/2008 Historic Results INTERFACED REPORT Russell Soto MD [address] [place], [place] [address] (Wo rk) Social History Tobacco Use Types Packs/Day Years Used Date Smoking Tobacco: Never Assessed Sex Assigned at Date Recorded Female 10/26/2020 1:28 AM CDT documented as of this encounter Plan of Treatment Not on filedocumented as of this encounter Procedures Procedure Name Priority Date/Time Associated Comments Diagnosis HEMOGLOBIN Routine 09/24/2008 5:06 PM Results f or this CDT procedure are i n the results section. ABO/RH TYPE AND Routine 09/24/2008 5:06 PM Result s for this SCREEN CDT procedure are i n the results section. documented in this encounter Results Hemoglobin (09/24/2008 5:06 PM CDT) athologist Signature Hemoglobin 13.5 11.7 - 15.7 [facility] g/dL Specimen Anatomical Collection Method Collection Time Receive d Time (Source) Location / / Volume Laterality 09/24/2008 5:06 PM 9 5:03 CDT PM CDT Juan Soto MD LAB - BLOOD ORDERABLES Performing Organization Address City/State/ZIP Code Phon e Number [facility] ABO/Rh type and screen (09/24/2008 5:06 PM CDT) Analysis Performed At Patho logist Time Signature ABO A [facility] RH(D) Pos [facility] Antibody Neg [facility] Screen Specimen 09/27/2008 [facility] Expires Specimen Anatomical Collection Method Collection Time Receive d Time (Source) Location / / Volume Laterality 09/24/2008 5:06 PM 9 5:03 CDT PM CDT Juan Soto MD LAB - BLOOD BANK TEST ORDER Performing Organization Address City/State/ZIP Code Phon e Number [facility] documented in this encounter Visit Diagnoses Not on filedocumented in this encounter
--- OUTSIDE RECORDS SUMMARY | 2022-03-05 00:49 | XMS_ITS | Encounter Summary ---
:1980 Author Organization [place] Address [address] [place] [address] Care Team Providers Name Role Phone Louise Brink MD Primary Care Provider Louise Brink MD Unavailable Louise Brink MD Unavailable Reason for Visit Reason Comments Flu Shot Encounter Details Date Type Department Care Team Description 03/03/2014 Allied Health/Nurse [facility] Flu Shot Visit [place] [address] [place] [address] Social History Tobacco Use Types Packs/Day Years Used Date Smoking Tobacco: Never Smokeless Tobacco: Never Alcohol Use Standard Drinks/Week Comments Yes 0 (1 standard drink = 0.6 oz pure alcoho l) Sex Assigned at Date Recorded Female 10/26/2020 1:28 AM CDT documented as of this encounter Progress Notes Zeina De La Torre CMA - 03/03/2014 3:23 PM CDT Injectable Influenza Immunization Documentation 1. [...] the person to be vaccinated ever had Guillain-Gary syndrome? No Form completed by pt Form reviewed by Zeina De La Torre CMA (AAMA) documented in this encounter Plan of Treatment Not on filedocumented as of this encounter Visit Diagnoses Diagnosis Need for prophylactic vaccination and in oculation against influenza - Primary documented in this encounter Care Teams Elementary [employer] Teacher Relationship Specialty Start Date End Date Louise Brink MD PCP - General Family Practice 07/29/13 09/07/21 [id number] [address] [address] Louise Brink MD PCP - Assigned PCP 08/11/13 07/16/18 [address] [address] [place] [address] Louise Brink MD Assigned PCP 08/11/13 10/21/21 [address] [address] [place] [address] documented as of this encounter
--- OUTSIDE RECORDS SUMMARY | 2022-03-05 00:49 | XMS_ITS | Encounter Summary ---
:1980 Author Organization [place] Address [facility] [place] [address] Care Team Providers Name Role Phone Louise Brink MD Primary Care Provider Louise Brink MD Unavailable Louise Brink MD Unavailable Reason for Visit Reason Comments Pharyngitis Encounter Details Date Type Department Care Team Description 01/29/2014 Office Visit [facility] Louise Brink MD Acute pharyngitis Clinic [place] [address] (Primary Dx) [address] [place] [address] [address] [place] [phone] (Wo rk) [address] [phone] Social History Tobacco Use Types Packs/Day Years Used Date Smoking Tobacco: Never Smokeless Tobacco: Never Alcohol Use Standard Drinks/Week Comments Yes 0 (1 standard drink = 0.6 oz pure alcoho l) Sex Assigned at Date Recorded Female 10/26/2020 1:28 AM CDT documented as of this encounter Last Filed Vital Signs Vital Sign Reading Time Taken Comments Blood Pressure 111/66 01/29/2014 10:35 AM CDT Pulse 75 01/29/2014 10:35 AM CDT Temperature 36.8 ??C (98.3 ??F) 01/29/2014 10:35 AM CDT Respiratory Rate - - Oxygen Saturation 100% 01/29/2014 10:35 AM CDT Inhaled Oxygen Concentration - - Weight 61.2 kg (135 lb) 01/29/2014 10:35 AM CDT Height - - Body Mass Index 23.73 07/29/2013 11:33 AM CDT documented in this encounter Progress Notes Louise Brink MD - 01/29/2014 10:34 AM CDT SUBJECTIVE: Janet Dean is a 33 year old female who presents to clinic today for the following health issues: ST x 1-2 days Mild FLOYD Problem list and histories reviewed & adjusted, as indicated. Additional history: Patient Active Problem List Diagnosis ??? CARDIOVASCULAR SCREENING; LDL GOAL LESS THAN 160 ??? Seasonal allergies ??? Anxiety Current Outpatient Prescriptions Medication Sig Dispense Refill ??? escitalopram (LEXAPRO) 10 MG tablet Take 1 tablet (10 mg) by mouth daily 90 tablet 1 ??? ALPRAZolam (XANAX) 0.25 MG tablet Take 1 tablet (0.25 mg) by mouth 3 times daily as needed for anxiety 30 tablet 0 ??? multivitamin, therapeutic with minerals (MULTI-VITAMIN) TABS Take 1 tablet by mouth daily 100 tablet 3 ??? cetirizine (ZYRTEC) 10 MG tablet Take 1 tablet (10 mg) by mouth every evening 30 tablet 1 ??? fluticasone (FLONASE) 50 MCG/ACT nasal spray [place] 1-2 sprays into both nostrils daily 3 Package3 ??? norgestim-eth estrad triphasic (ORTHO TRI-CYCLEN, 28,) 0.18/0.215/0.25 MG-35 MCG TABS tablet Take 1 tablet by mouth daily. ROS: Would like to get checked for strep. Sore throat, headache, nausea over the last couple days. No fevers. No runny nose or cough. 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 OBJECTIVE: BP 111/66 Pulse 75 Temp(Src) 98.3 ??F (36.8 ??C) (Oral) Wt 135 lb (61.236 kg) BMI 23.71 kg/m2 SpO2 100% ? No Body mass index is 23.71 kg/(m^2). GENERAL APPEARANCE: healthy, alert and no distress HENT: ear canals and TM's normal and nose and mouth without ulcers or lesions NECK: no adenopathy, no asymmetry, masses, or scars and thyroid normal to palpation RESP: lungs clear to auscultation - no rales, rhonchi or wheezes CV: regular rates and rhythm PSYCH: mentation appears normal and affect normal/bright Diagnostic test results: Results for orders placed in visit on 01/29/14 (from the past 24 hour(s)) RAPID STREP SCREEN Result Value Range Specimen Description Throat Rapid Strep A Screen Value: NEGATIVE: No Group A streptococcal antigen detected by immunoassay, await culture report. Micro Report Status FINAL 01/29/2014 ASSESSMENT/PLAN: (462) Acute pharyngitis (primary encounter diagnosis) Comment: rapid strep negative. There are also some upper respiratory viruses going around. Discussedthese as well. Plan: Strep, Rapid Screen Symptomatic treatment. If strep, will follow up with antibiotics. Follow up with Provider - prn Louise Brink MD, MD [facility] documented in this encounter Nursing Notes Neeta Edmondson CMA - 01/29/2014 10:36 AM CDT Chief Complaint Patient presents with ??? Pharyngitis Initial BP 111/66 Pulse 75 Temp(Src) 98.3 ??F (36.8 ??C) (Oral) Wt 135 lb (61.236 kg) BMI 23.71 kg/m2 SpO2 100% ? No Estimated body mass index is 23.71 kg/(m^2) as calculated from the following: Height as of 07/29/13: 5' 3.25 (1.607 m). Weight as of this encounter: 135 lb (61.236 kg). BP completed using cuff size: regular Neeta Edmondson CMA (AAMA) documented in this encounter Miscellaneous Notes Addendum Note - Rebekah Herrera - 01/29/2014 11:47 AM CDT Addended by: REBEKAH HERRERA on: 01/29/2014 11:47 AM Modules accepted: Orders documented in this encounter Plan of Treatment Not on filedocumented as of this encounter Procedures Procedure Name Priority Date/Time Associated Diagnosis Comme nts RAPID STREP SCREEN Routine 01/29/2014 10:34 AM Acute Pharyngit is Results for this THROAT SWAB CDT procedure are i n the results section. BETA HEMOLYTIC Routine 01/29/2014 10:34 AM Acute Pharyngitis R esults for this STREP GROUP A CDT procedure are in CULTURE the results section. documented in this encounter Results Beta strep group A culture (01/29/2014 10:34 AM CDT) Component Value Ref Test Analysis Performed At [facility] gist Range Method Time Signature Specimen Throat [place] Description [facility] [place] Culture Micro No Beta [place] Streptococcus CLINICS isolated [facility] Micro Report FINAL 01/31/2014 [place] Status [facility] Specimen Anatomical Collection Method Collection Time Receive d Time (Source) Location / / Volume Laterality Specimen from 01/29/2014 10:34 01/29/2014 throat AM CDT 12:17 PM CDT (specimen) Louise Brink MD LAB - MICRO GENERAL ORDERABL ES Performing Organization Address City/[facility]/ZIP Code Phon e Number [facility] [place] [address] [place] [address] [facility] [place] [address] [place], [place] [address] Strep, Rapid Screen (01/29/2014 10:34 AM CDT) Component Value Ref Test Analysis Performed At [facility] ID90T Range Method Time Signature Specimen Throat [facility] [place] Rapid Strep A NEGATIVE: No Group A strepto coccal antigen detected by immunoassay, await [place] Screen culture report. CLINICS [place] Micro Report FINAL 01/29/2014 [facility] [place] Specimen Anatomical Collection Method Collection Time Receive d Time (Source) Location / / Volume Laterality Specimen from 01/29/2014 10:34 01/29/2014 throat AM CDT 10:35 AM CDT (specimen) Louise Brink MD LAB - MICRO GENERAL ORDERABL ES Performing Organization Address City/[facility]/ZIP Code Phon e Number [facility] [address] [place], [place] [address] documented in this encounter Visit Diagnoses Diagnosis Acute pharyngitis - Primary documented in this encounter Care Teams Termite Inspector Relationship Specialty Start Date End Date Louise Brink MD PCP - General Family Practice 07/29/13 09/07/21 [id number] [address] [id number] Louise Brink MD PCP - Assigned PCP 08/11/13 07/16/18 [id number] [address] [place] [id number] Louise Brink MD Assigned PCP 08/11/13 10/21/21 [address] [address] [id number] documented as of this encounter
--- OUTSIDE RECORDS SUMMARY | 2022-03-05 00:49 | XMS_ITS | Encounter Summary ---
:1980 Author Organization [place] Address [address] [place] [address] Care Team Providers Name Role Phone Unavailable Primary Care Provider Unavailable Encounter Details Date Type Department Care Team Description 09/26/2008 Historic Results INTERFACED REPORT Russell Soto MD [address] [place], [place] [address] (Wo rk) Social History Tobacco Use Types Packs/Day Years Used Date Smoking Tobacco: Never Assessed Sex Assigned at Date Recorded Female 10/26/2020 1:28 AM CDT documented as of this encounter Plan of Treatment Not on filedocumented as of this encounter Procedures Procedure Name Priority Date/Time Associated Diagnosis Comme nts HEMOGLOBIN Routine 09/26/2008 7:15 AM Results f or this CDT procedure are i n the results section . documented in this encounter Results (ABNORMAL) Hemoglobin (09/26/2008 7:15 AM CDT) P athologist Signature Hemoglobin 11.4 (L) 11.7 - 15.7 [facility] g/dL Specimen (Source) Anatomical Collection Method Collection Time Re ceived Time Location / / Volume Laterality 09/26/2008 7:15 AM 9 CDT Juan Soto MD LAB - BLOOD ORDERABLES Performing Organization Address City/State/ZIP Code Phon e Number [facility] documented in this encounter Visit Diagnoses Not on filedocumented in this encounter
--- OUTSIDE RECORDS SUMMARY | 2022-03-05 00:49 | XMS_ITS | Encounter Summary ---
:1980 Author Organization [place] Address [address] [place] [address] Care Team Providers Name Role Phone Neal Vasquez PA-C Primary Care Provider Reason for Visit Reason Comments Flu Shot Encounter Details Date Type Department Care Team Description 02/24/2013 Allied Health/Nurse Health [facility] Flu Shot Visit [place] [address] [address] [place] [address] Social History Tobacco Use Types Packs/Day Years Used Date Smoking Tobacco: Never Smokeless Tobacco: Never Alcohol Use Standard Drinks/Week Comments Yes 0 (1 standard drink = 0.6 oz pure alcoho l) Sex Assigned at Date Recorded Female 10/26/2020 1:28 AM CDT documented as of this encounter Progress Notes Ewa Trejo - 02/24/2013 2:34 PM CDT Injectable Influenza Immunization Documentation 1. [...] the person to be vaccinated ever had Guillain-La[place] syndrome? No Form completed by self Form reviewed by Ewa Trejo CMA(AATX) documented in this encounter Plan of Treatment Not on filedocumented as of this encounter Visit Diagnoses Diagnosis Need for prophylactic vaccination and in oculation against influenza - Primary documented in this encounter Care Teams Waitstaff Captain Relationship Specialty Start Date End Date Neal Vasquez PA-C PCP - General Family Practice 11/27/11 07/28/[address] [address] documented as of this encounter
--- OUTSIDE RECORDS SUMMARY | 2022-03-05 00:49 | XMS_ITS | Encounter Summary ---
:1980 Author Organization [facility] Address [address] [place] [address] Care Team Providers Name Role Phone Unavailable Primary Care Provider Unavailable Encounter Details Date Type Department Care Team Description 09/29/2008 Historic Notes INTERFACED REPORT Interface, Transcript MD sandy Social History Tobacco Use Types Packs/Day Years Used Date Smoking Tobacco: Never Assessed Sex Assigned at Date Recorded Female 10/26/2020 1:28 AM CDT documented as of this encounter Progress Notes Interface, Brick Burner - 07/31/2010 3:09 AM CDT Progress Note - :: states that she is doing well. baby is nursing well and her milk is in. baby is voiding and stooling in good amounts. she has our number and I encouraged her to call anytime day or night with questions/concerns about herself, the baby or Signatures MORELIA BURNS)[Signed 13:51] Authored: Progress Note documented in this encounter Plan of Treatment Not on filedocumented as of this encounter Visit Diagnoses Not on filedocumented in this encounter
--- OUTSIDE RECORDS SUMMARY | 2022-03-05 00:49 | XMS_ITS | Encounter Summary ---
:1980 Author Organization [facility] Address [address] [place] [address]. [place] [address] Care Team Providers Name Role Phone Neal Vasquez PA-C Primary Care Provider Reason for Visit Reason Comments Nausea Dizziness Encounter Details Date Type Department Care Team Description 11/28/2011 Office Visit [facility] Neal Vasquez Dizziness ; Clinic [place]efredrick Cavazos PA-C Nauseous; [address] [facility] Fatigue; [place], [place] SERVICE Seasonal allergies [phone] [place] [address] [place] [address] (Wo rk) Social History Tobacco Use Types Packs/Day Years Used Date Smoking Tobacco: Never Smokeless Tobacco: Never Alcohol Use Standard Drinks/Week Comments Yes 0 (1 standard drink = 0.6 oz pure alcoho l) Sex Assigned at Date Recorded Female 10/26/2020 1:28 AM CDT documented as of this encounter Last Filed Vital Signs Vital Sign Reading Time Taken Comments Blood Pressure 100/64 11/28/2011 3:35 PM CDT Pulse 66 11/28/2011 3:35 PM CDT Temperature 36.5 ??C (97.7 ??F) 11/28/2011 3:35 PM CDT Respiratory Rate 8 11/28/2011 3:35 PM CDT Oxygen Saturation - - Inhaled Oxygen Concentration - - Weight 59 kg (130 lb) 11/28/2011 3:35 PM CDT Height 160 cm (5' 3) 11/28/2011 3:35 PM CDT Body Mass Index 23.03 11/28/2011 3:35 PM CDT documented in this encounter Patient Instructions Patient InstructionsWaNeal adames PA-C - 11/28/2011 4:11 PM CDT Janet, I suspect allergies are playing a role, so start the generic Zyrtec consistently. If not helping, let us know- we could consider a prescription spray such as Flonase. I'll let you know about labs shortly. Thanks, Neal Vasquez PA-C documented in this encounter Progress Notes JasonronakZhangNeeta - 11/28/2011 3:34 PM CDT SUBJECTIVE: Janet Dean is a 31 year old female presents for symptoms of illness Symptoms include: nausea, dizziness, vomiting Onset was how long ago? 4 days Symptoms are : improving. Fever: No fever ill contacts: none known Pt was noting dizziness and nausea on and off for the last 4 days or so. She gets a lot of nausea from her baseline post nasal drainage, but this has been worse of late. Herallergies have been much worse lately as well. She did eventually throw up on , but only x 1. She denies any fevers or chills. The dizziness manifests as her body spinning w/in a room, and is worse upon rising from sitting. She denies a similar sensation with rotation of the head. She was recently in [place], and tends to have more allergy symptoms in that area. She uses OTC benadryl for her allergy. She denies any asthma. She does admit to more fatigue and some muscle aches from time to time. 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 ROS: CONSTITUTIONAL:NEGATIVE for fever, chills, change in weight INTEGUMENTARY/SKIN: NEGATIVE for worrisome rashes, moles or lesions EYES: NEGATIVE for vision changes or irritation ENT/MOUTH: sinus congestion, ears full at times. RESP:NEGATIVE for significant cough or SOB CV: NEGATIVE for chest pain, palpitations or peripheral edema NEURO: dizziness, as above GI: Nausea associated with the dizziness. OBJECTIVE: BP 100/64 Pulse 66 Temp(Src) 97.7 ??F (36.5 ??C) (Oral) Resp 8 Ht 5' 3 (1.6 m) Wt 130 lb (58.968 kg) BMI 23.03 kg/m2 LMP 11/16/2011 GENERAL APPEARANCE: healthy, alert and no distress, PSYCH: Affect normal/bright. Mentation within normal limits., EYES: EOMI, PERRL, conjunctiva clear, HENT: ear canals and TM's normal. Nose and mouth without ulcers, erythema or lesions, NECK: supple, nontender, no lymphadenopathy, RESP: lungs clear to auscultation - no rales, rhonchi or wheezes, CV: regular rates and rhythm, normal S1 S2, no murmur noted, NEURO: Normal strength and tone, sensory exam grossly normal, normal speech and mentation, Baldemar-Hallpikes neg and SKIN: no suspicious lesions or rashes ASSESSMENT/PLAN: Dizziness Comment: Likely secondary to her allergies, possibly orthostatics as BP is running low. I recommended we look at her labs, but that she consider a daily Zyrtec. If not improving, we could consider adding something like Flonase. Pt to let us know if not improving. Plan: TSH with free T4 reflex Nauseous Comment: again, likely related to the post nasal drainage and allergies. Plan: TSH with free T4 reflex Fatigue Comment: Pt admits to an iron poor diet. I also would like to assess for vitamin D status. Plan: CBC with platelets, Vitamin D Deficiency Seasonal allergies Comment: longstanding, but much worse this year. Plan: Start Zyrtec, and if not improving, trial of something like Flonase. Neal Vasquez PA-C documented in this encounter Nursing Notes 11/28/2011 3:30 PM CDT >> NEETA Turner Nov 28, 2011 3:40 PM Patient presents with: Nausea Dizziness Initial BP 100/64 Pulse 66 Temp(Src) 97.7 ??F (36.5 ??C) (Oral) Resp 8 Ht 5' 3 (1.6 m) Wt130 lb (58.968 kg) BMI 23.03 kg/m2 LMP 11/16/2011 Estimated Body mass index is 23.03 kg/(m^2) ascalculated from the following: Height as of this encounter: 5' 3(1.6 m). Weight as of this encounter: 130 lb(58.968 kg).. BP completed using cuff size: regular Neeta Cifuentes CMA (AAMA) documented in this encounter Plan of Treatment Not on filedocumented as of this encounter Procedures Procedure Name Priority Date/Time Associated Comments Diagnosis VITAMIN D DEFICIENCY Routine 11/28/2011 4:13 PM Fatigue R esults for this SCREENING CDT procedure are i n the results section. TSH WITH FREE T4 Routine 11/28/2011 4:13 PM Dizziness Results for this REFLEX CDT Nauseous procedure are i n the results section. CBC WITH PLATELETS Routine 11/28/2011 4:13 PM Fatigue Res ults for this CDT procedure are i n the results section. documented in this encounter Results (ABNORMAL) Vitamin D Deficiency (11/28/2011 4:13 PM CDT) athologist Signature 25 OH Vit D 78 (H) 30 - 75 [facility] total ug/L [facility] Comment: Season, race, dietary intake, and treatm ent affect the concentration of 37-jcrraeu-Samyjgp D. Values may decrea se during winter months and increase during summer months. Values less than 30 ug/L may indicate Vitamin D deficiency. Vitamin D determination is routinely pe rformed by an immunoassay specific for 25 hydroxyvitamin D3. If an individual is on vitamin D2 (ergocalciferol) supplementation, please specify 25 OH v itamin D2 and D3 level determination by LCMSMS. For questions, please contact [facility] at [phone]. Specimen Anatomical Collection Method Collection Time Receive d Time (Source) Location / / Volume Laterality Blood specimen 11/28/2011 4:13 PM 012 4:15 (specimen) CDT PM CDT Neal Vasquez PA-C LAB - BLOOD ORDERABLES Performing Organization Address City/State/ZIP Code Phon e Number [facility] [address] [place] [address] [facility] TSH with free T4 reflex (11/28/2011 4:13 PM CDT) athologist Signature TSH 2.28 0.4 - 5.0 [facility] mU/L CLINIC LAB Specimen Anatomical Collection Method Collection Time Receive d Time (Source) Location / / Volume Laterality Blood specimen 11/28/2011 4:13 PM 012 4:15 (specimen) CDT PM CDT Neal Vasquez PA-C LAB - BLOOD ORDERABLES Performing Organization Address City/[facility]/ZIP Code Phon e Number [facility] [address] [place] [address] [facility] CBC with platelets (11/28/2011 4:13 PM CDT) athologist Signature WBC 7.3 4.0 - 11.0 [place] 10e9/L [facility] RBC Count 4.51 3.8 - 5.2 [place] 10e12/L [facility] Hemoglobin 14.0 11.7 - [place] 15.7 g/dL [facility] Hematocrit 40.7 35.0 - [place] 47.0 % [facility] MCV 90 78 - 100 [place] fl [facility] MCH 31.0 26.5 - [place] 33.0 pg [facility] MCHC 34.4 31.5 - [place] 36.5 g/dL [facility] RDW 11.9 10.0 - [place] 15.0 % [facility] Platelet Count 242 150 - 450 [place] 10e9/L [facility] Specimen Anatomical Collection Method Collection Time Receive d Time (Source) Location / / Volume Laterality Blood specimen 11/28/2011 4:13 PM 012 4:15 (specimen) CDT PM CDT Neal Vasquez PA-C LAB - BLOOD ORDERABLES Performing Organization Address City/[facility]/ZIP Code Phon e Number [facility] [address] [place], [place] [address] [facility] documented in this encounter Visit Diagnoses Diagnosis Dizziness Dizziness and giddiness Nauseous Nausea alone Fatigue Other malaise and fatigue Seasonal allergies Allergic rhinitis, cause unspecified documented in this encounter Care Teams Aviation Electrical Technician Relationship Specialty Start Date End Date Neal Vasquez PA-C PCP - General Family Practice 11/27/11 07/28/[address] [id number] documented as of this encounter
--- OUTSIDE RECORDS SUMMARY | 2022-03-05 00:49 | XMS_ITS | Encounter Summary ---
:1980 Author Organization [facility] Address [address] [place] [address] Care Team Providers Name Role Phone Unavailable Primary Care Provider Unavailable Encounter Details Date Type Department Care Team Description 09/25/2008 Operative Report [facility] Juan Benton (Restoration Ecologist) [facility] MD Andres Results [address] [place], [place] [address] (Wo rk) Social History Tobacco Use Types Packs/Day Years Used Date Smoking Tobacco: Never Assessed Sex Assigned at Date Recorded Female 10/26/2020 1:28 AM CDT documented as of this encounter Progress Notes Juan Benton - 09/28/2008 1:30 PM CDT FINAL PREOPERATIVE DIAGNOSES: 1.Thirty-nine week . 2.Prior section; declines trial of labor after section. POSTOPERATIVE DIAGNOSES: 1.Thirty-nine week . 2.Prior section; declines trial of labor after section. 3.Delivered. PROCEDURE: Repeat low segment transverse section. ANESTHESIA: Spinal. INDICATIONS: Bernarda Dean is a 28-year-old female, 2, para 1, with an estimated date of confinement of 10/02/2008, placing her at 39 weeks gestation. Her first delivery in 06/2005 was a section due to distress. Risks, benefits and alternatives of management of the present including the risks associated with a trial of labor after section, versus the risk and advantages associated with a repeat section, were all discussed throughout her course. She has consistently requested and continues to request a repeat section. Consent was obtained. OPERATIVE FINDINGS: 1.Viable male, 7 pounds 15 ounces, cephalic presentation, Apgars 9 at 1 minute, 9 at 5 minutes. 2.Normal uterus, tubes and ovaries. 3.Normal amount of clear amniotic fluid. OPERATIVE PROCEDURE: After spinal anesthesia was administered, the patient was placed in the left lateral tilt position, Gar catheter placed, and then prepped and draped in the usual sterile fashion. A Pfannenstiel skin incision was present. This was marked. An incision was made through the preexisting incision and carried down sharply to the subcutaneous tissue. The fascia was identified and opened transversely. The fascia was bluntly and sharply from the underlying rectus abdominis muscle superiorly and inferiorly to the pubic symphysis. A diastasis recti was present, exposing the peritoneum which was tented and incised. The peritoneal incision was extended superiorly to the extent of dissection, and inferiorly to the superior border of the bladder. The vesicouterine peritoneum was then tented and incised, and the bladder bluntly from the lower uterine segment. A transverse incision was made in the lower uterine segment and extended bilaterally with bandage scissors and digital pressure. The infant was delivered from a cephalic presentation. The cord doubly clamped, cut, and the infant handed off to the pediatric team in attendance with findings as noted above. Cord blood was collected for analysis. The placenta was then manually extracted from the uterine cavity. The uterus was exteriorized, the uterine cavity wiped free of membranes and clot, and the cervix dilated using a ring forceps which was then passed off the surgical field. The cut edges of the uterus were grasped with ring forceps. The uterine incision was closed with two layers of 0 Vicryl, the second imbricating the first. Two additional figure-of-x sutures were required to achieve hemostasis along the uterine incision line. The uterus was then returned to the pelvic cavity which was copiously irrigated with sterile salineand suctioned. Uterine incision was inspected and hemostatic. The fascia was closed using a running suture of 0 Vicryl, the subcutaneous tissues irrigated, hemostasis achieved using electrocautery as necessary. The skin edges were reapproximated using a running subcuticular suture of 4-0 Monocryl. Steri-Strips and a sterile bandage were placed. The patient was taken to the recovery room in satisfactory condition. There were no intraoperative complications. Estimated blood loss was 400 cc. Gar catheter was draining clear urine at the conclusion of the procedure. Electronically signed on 09/28/2008 13:30 by JUAN BENTON MD MT: [id number] Name: BERNARDA DEAN Account: [id number] : 1980 Procedure Date: 09/25/2008 Document: [id number] documented in this encounter Plan of Treatment Not on filedocumented as of this encounter Visit Diagnoses Not on filedocumented in this encounter
--- OUTSIDE RECORDS SUMMARY | 2022-03-05 00:49 | XMS_ITS | Encounter Summary ---
:1980 Author Organization [facility] Address [facility] [place] [address] Care Team Providers Name Role Phone Louise Brink MD Primary Care Provider Louise Brink MD Unavailable Louise Brink MD Unavailable Reason for Visit Reason Onset Date Comments Patient Request 02/25/2014 lab only Encounter Details Date Type Department Care Team Description 02/25/[address] [facility] Louise Brink MD Patient Request (lab Clinic [place] [address] [address] only) [place] [address] [address] [address] Social History Tobacco Use Types Packs/Day Years Used Date Smoking Tobacco: Never Smokeless Tobacco: Never Alcohol Use Standard Drinks/Week Comments Yes 0 (1 standard drink = 0.6 oz pure alcoho l) Sex Assigned at Date Recorded Female 10/26/2020 1:28 AM CDT documented as of this encounter Miscellaneous Notes Telephone Encounter - Yanni Akers - 02/25/2014 3:31 PM CDT Orders are needed for this patient's lab only visit tomorrow. Thanks Karissa documented in this encounter Plan of Treatment Not on filedocumented as of this encounter Visit Diagnoses Not on filedocumented in this encounter Care Teams [employer] Relationship Specialty Start Date End Date Louise Brink MD PCP - General Family Practice 07/29/13 09/07/21 [address] [address] [place] [address] Louise Brink MD PCP - Assigned PCP 08/11/13 07/16/18 [address] [address] [id number] Louise Brink MD Assigned PCP 08/11/13 10/21/21 [address] [address] [place] [id number] documented as of this encounter
--- OUTSIDE RECORDS SUMMARY | 2022-03-05 00:49 | XMS_ITS | Encounter Summary ---
:1980 Author Organization [facility] Address [address] [place] [address] Care Team Providers Name Role Phone Unavailable Primary Care Provider Unavailable Encounter Details Date Type Department Care Team Description 07/10/2005 Historic Results INTERFACED REPORT Diana Patel MD [facility] [address] [place], [place] [address] (Wo rk) Social History Tobacco Use Types Packs/Day Years Used Date Smoking Tobacco: Never Assessed Sex Assigned at Date Recorded Female 10/26/2020 1:28 AM CDT documented as of this encounter Plan of Treatment Not on filedocumented as of this encounter Procedures Procedure Name Priority Date/Time Associated Diagnosis Comme nts HEMOGLOBIN Routine 07/10/2005 6:47 AM Results f or this [facility] procedure are i n the results section . documented in this encounter Results (ABNORMAL) Hemoglobin (07/10/2005 6:47 AM [facility]) P athologist Signature Hemoglobin 10.8 (L) 11.7 - 15.7 [facility] g/dL Specimen (Source) Anatomical Collection Method Collection Time Re ceived Time Location / / Volume Laterality 07/10/2005 6:47 AM 6 [facility] Gail Patel MD LAB - BLOOD ORDERABLES Performing Organization Address City/State/ZIP Code Phon e Number [facility] documented in this encounter Visit Diagnoses Not on filedocumented in this encounter
--- OUTSIDE RECORDS SUMMARY | 2022-03-05 00:49 | XMS_ITS | Encounter Summary ---
:1980 Author Organization [facility] Address [address] [place] [address] Care Team Providers Name Role Phone Unavailable Primary Care Provider Unavailable Encounter Details Date Type Department Care Team Description 09/28/2008 Historic Notes INTERFACED REPORT Interface, Transcript MD sandy Social History Tobacco Use Types Packs/Day Years Used Date Smoking Tobacco: Never Assessed Sex Assigned at Date Recorded Female 10/26/2020 1:28 AM CDT documented as of this encounter Progress Notes Interface, Hamper Maker - 07/31/2010 3:13 AM CDT visit. Mom reports having large lump under the R arm under the arm pit. She had with 1st baby as well and reports she had frequent problems with plugged milk ducts. Enc to ice and it should resolve with engorgement. Enc lecithin to help with plugged ducts PRN. Encouraged mom to call us PRN. [Signature] Author: Sheila Cisse) [Signed 15:35] documented in this encounter Plan of Treatment Not on filedocumented as of this encounter Visit Diagnoses Not on filedocumented in this encounter
--- OUTSIDE RECORDS SUMMARY | 2022-03-05 00:49 | XMS_ITS | Encounter Summary ---
:1980 Author Organization [facility] Address [address] [place] [address] Care Team Providers Name Role Phone Neal Vasquez PA-C Primary Care Provider Encounter Details Date Type Department Care Team Description 12/25/2012 Orders Only [facility] Eag an Neal Vasquez, [address] [facility] [place] [address] [facility] [phone] [place] [address] (Wo rk) Social History Tobacco Use [...] Name Priority Date/Time Associated Diagnosis Comme nts ABSTRACT PAP (HIM Routine 08/12/2012 Results fo r this EXTERNAL RESULT) procedure a re in the results section . documented in this encounter Results ABSTRACT PAP-NO CHARGE (08/12/2012) Impressions [facility] - 08/12/2012 Last pap 08/24, normal - RG Patient Reported LAB - HIM EXTERNAL RESULT Performing Organization Address City/State/ZIP Code Phon e Number [facility] documented in this encounter Visit Diagnoses Not on filedocumented in this encounter Care Teams Goring Cutter Relationship Specialty Start Date End Date Neal Vasquez PA-C PCP - General Family Practice 11/27/11 07/28/[address] [address] documented as of this encounter
--- OUTSIDE RECORDS SUMMARY | 2022-03-05 00:49 | XMS_ITS | Encounter Summary ---
:1980 Author Organization [facility] Address [address] [place] [address] Care Team Providers Name Role Phone Unavailable Primary Care Provider Unavailable Encounter Details Date Type Department Care Team Description 09/25/2008 Discharge Summary [facility] Juan Benton (Special Education Professor) [facility] MD Andres Results [address] [place], [place] [address] (Wo rk) Social History Tobacco Use Types Packs/Day Years Used Date Smoking Tobacco: Never Assessed Sex Assigned at Date Recorded Female 10/26/2020 1:28 AM CDT documented as of this encounter Progress Notes Juan Benton - 10/09/2008 10:28 AM CDT FINAL ADMISSION DIAGNOSES: 1. Intrauterine at 39 weeks' gestation. 2. Prior section, declines TOLAC. DISCHARGE DIAGNOSIS: Status post repeat low-segment transverse section with delivery of a viable male infant. HOSPITAL COURSE: Bernarda Dean is a 28-year-old female 2, para 1 at 39 weeks' gestation who had a prior delivery by section. She was counseled as to the risks, benefits and alternativesof a repeat section versus the option of a trial of labor after and opted for repeat section. She had expressed this interest and desire throughout her course and continued to do so on the day of delivery. She was electively admitted on the morning of 09/25/2008. Areactive heart rate tracing was obtained and consent for surgery given. She was taken to the operating room where under spinal anesthesia she underwent a repeat low-segment transverse section with delivery of a 7 pound 15 ounce male infant from a cephalic presentation. Apgars were 9 at 1 minute, 9 at 5 minutes. The uterus, tubes and ovaries all appeared normal intraoperatively. Estimated blood loss was 400 mL and the procedure was uncomplicated. The patient's postoperative course was unremarkable. On postoperative day #1, her hemoglobin was 11.4. She remained afebrile throughout her postoperative course. She was progressively ambulated and her diet was advanced. By postoperative day #3, she was ambulating without difficulty and tolerating a g eneral diet. She was given instructions to avoid any heavy lifting or strenuous activity. She will follow up in 6 weeks for a postoperative and evaluation. DISCHARGE MEDICATIONS: Percocet and ibuprofen to be taken as necessary for pain control. Electronically signed on 10/09/2008 10:28 by JUAN BENTON MD MT: [id number] Name: BERNARDA DEAN MRN: [id number] Account: [id number] : 1980 Admit Date: [id number] Discharge Date: 09/28/2008 Document: [id number] documented in this encounter Plan of Treatment Not on filedocumented as of this encounter Visit Diagnoses Not on filedocumented in this encounter
--- OUTSIDE RECORDS SUMMARY | 2022-03-05 00:49 | XMS_ITS | Encounter Summary ---
:1980 Author Organization [place] Address [address] [place] [address] Care Team Providers Name Role Phone Neal Vasquez PA-C Primary Care Provider Reason for Visit Reason Comments Physical Encounter Details Date Type Department Care Team Description 12/24/2012 Office Visit [facility] Neal Vasquez eneral medical examination at a health care facility (Primary Dx); Clinic Manish Cavazos PA-C Allergic rhinitis, cause unspecified; [address] [place], [place] SERVICE [phone] [place] [address] [place] [address] Social History Tobacco Use Types Packs/Day Years Used Date Smoking Tobacco: Never Smokeless Tobacco: Never Alcohol Use Standard Drinks/Week Comments Yes 0 (1 standard drink = 0.6 oz pure alcoho l) Sex Assigned at Date Recorded Female 10/26/2020 1:28 AM CDT documented as of this encounter Last Filed Vital Signs Vital Sign Reading Time Taken Comments Blood Pressure 102/68 12/24/2012 4:25 PM CDT Pulse - - Temperature 36.8 ??C (98.2 ??F) 12/24/2012 4:25 PM CDT Respiratory Rate - - Oxygen Saturation - - Inhaled Oxygen Concentration - - Weight 59.9 kg (132 lb) 12/24/2012 4:25 PM CDT Height 160.7 cm (5' 3.25) 12/24/2012 4:25 PM CDT Body Mass Index 23.2 12/24/2012 4:25 PM CDT documented in this encounter Patient Instructions Patient InstructionsNeeta Edmondson - 12/24/2012 4:24 PM CDT Start the Lexapro as directed. Emily is the as needed elizabeth. I'd see you after about 2 weeks on these. We can do your fasting labs in a few weeks. Neal Stone Preventive Health Recommendations Female Ages 26 - 39 Yearly exam: See your health care provider every year in order to Review health changes. Discuss preventive care. Review your medicines if you your doctor [...] a tetanus shot every 10 years. Nutrition: Eat at least 5 servings of fruits and vegetables each day. Eat whole-grain bread, whole-wheat pasta and brown rice instead of white grains and rice. For bone health: Eat calcium-rich foods or take calcium pills (500 to 600 mg) twice a day with food. Also take vitamin D (1000 IUs) each day. Lifestyle Exercise at least 150 minutes a week (30 minutes a day, 5 days of the week). This will help you control your weight and prevent disease. Limit alcohol to one drink per day. No smoking. ?? Wear sunscreen to prevent skin cancer. ?? See your dentist every six months for an exam and cleaning. ?? documented in this encounter Progress Notes Neal Vasquez PA-C - 12/24/2012 4:24 PM CDT SUBJECTIVE: CC: Janet Dean is an 32 year old woman who presents for preventive health visit. Healthy Habits: ?? Do you get at least three servings of calcium containing foods daily (dairy, green leafy vegetables, etc.)? yes ?? Amount of exercise or daily activities, outside of work: 6 day(s) per week ?? Problems taking medications regularly No ?? Medication side effects: No ?? Have you had an eye exam in the past two years? yes ?? Do you see a dentist twice per year? yes ?? Do you have sleep apnea, excessive snoring or daytime drowsiness?no Other concerns to address: 1.) Flonase recheck- this works great for her. 2.) Anxiety- Pt has been struggling a little bit with anxiety. Lots of anxiety when traveling overnight. Also has anxiety about kids getting sick. Janet has a very nervous about geting sick out of town. She has a strong family hx of anxiety. This anxiety has been bothering her for about a year and has been worsening. She admits that she is a nervous person. She is losing her temper more easily. Janet has never been treated for this, but would like to look at some options. Today's PHQ-2 Score: 0 Abuse: Current or Past(Physical, Sexual or Emotional)- No Do you feel safe in your environment - Yes History Substance Use Topics ??? Smoking status: Never Smoker ??? Smokeless tobacco: Never Used ??? Alcohol Use: 0.0 - 0.5 oz/week 0-1 drink(s) per week The patient does not drink >3 drinks per day nor >7 drinks per week. Last Mammo:No results found. No results found for this basename: CHOL:2,HDL:2,LDL:2,TRI,CHOLHDLRATIO:2 in the last [id number] hours Reviewed orders with patient. Reviewed health maintenance and updated orders accordingly - Yes History of abnormal Pap smear: NO - age 30- 65 PAP every 3 years recommended All Histories reviewed and updated in [facility]. ROS: C: NEGATIVE for fever, chills, change [...] N: NEGATIVE for weakness, dizziness or paresthesias E: NEGATIVE for temperature intolerance, skin/hair changes H: NEGATIVE for bleeding problems PSYCHIATRIC: anxiety, as above Problem list, Medication list, Allergies, and Medical/Social/Surgical histories reviewed in [facility] andupdated as appropriate. Patient Active Problem List Diagnosis ??? CARDIOVASCULAR [...] Father Current Outpatient Prescriptions Medication Sig ??? multivitamin, therapeutic with minerals (MULTI-VITAMIN) TABS Take 1 tablet by mouth daily ??? cetirizine (ZYRTEC) 10 MG tablet Take 1 tablet (10 mg) by mouth every evening ??? fluticasone (FLONASE) 50 MCG/ACT nasal spray Melrude 1-2 sprays into both nostrils daily ??? escitalopram (LEXAPRO) 10 MG tablet 1/2 tab for the first week, then a full tab ??? ALPRAZolam (XANAX) 0.25 MG tablet Take 1 tablet (0.25 mg) by mouth 3 times daily as needed for anxiety ??? norgestim-eth estrad triphasic (ORTHO TRI-CYCLEN, 28,) 0.18/0.215/0.25 MG-35 MCG TABS tablet Take 1 tablet by mouth daily. OBJECTIVE: There were no vitals taken for this visit. Estimated Body mass index is 23.03 kg/(m^2) as calculatedfrom the following: Height as of 11/28/11: 5' 3(1.6 m). Weight as of 7/17/12: 130 lb(58.968 kg). GENERAL APPEARANCE: healthy, alert and no distress EYES: Eyes grossly normal to inspection, PERRL and conjunctivae and sclerae normal HENT: ear canals and TM's normal, nose and mouth without ulcers or lesions, oropharynx clear and oral mucous membranes moist NECK: no adenopathy, no asymmetry, masses, or scars and thyroid normal to palpation RESP: lungs clear to auscultation - no rales, rhonchi or wheezes BREAST: deferred to bank compliance officer. CV: regular rates and rhythm, normal S1 S2, no S3 or S4, no murmur, click or rub, no peripheral edema and peripheral pulses strong ABDOMEN: soft, nontender, no hepatosplenomegaly, no masses and bowel sounds normal (female):deferred to bank compliance officer. MS: no musculoskeletal defects are noted and gait is age appropriate without ataxia SKIN: no suspicious lesions or rashes NEURO: Normal strength and tone, sensory exam grossly normal, mentation intact and speech normal PSYCH: mentation appears normal and affect normal/bright ATP III Guidelines FRAX Risk Assessment ICSI Preventive Guidelines ASSESSMENT/PLAN: V70.0 Routine general medical examination at a health care facility (primary encounter diagnosis) Comment: Pt is UTD on pap and breast exam- MARIUM signed today for bank compliance officer. We also will get fasting labs in a couple of weeks when f/u on anxiety meds. Plan: Lipid panel reflex to direct LDL, Comprehensive metabolic panel 477.9 Allergic rhinitis, cause unspecified Comment: refilled. Works very well for pt. Plan: fluticasone (FLONASE) 50 MCG/ACT nasal spray 300.00 Anxiety Comment: discussed a couple of options. Certainly, she has some situational anxiety, but she also admits to having an anxious undercurrent. Based on that, she likely will benefit from an SSRI. Discussed how this works, adrs, and dosing. She can have xanax for prn use, but we discussed some of the issues with this, patricia the fact that it is not a controller med. F/u in about 2 weeks. Plan: escitalopram (LEXAPRO) 10 MG tablet, ALPRAZolam (XANAX) 0.25 MG tablet, GENERAL ANXIETY DISORDER QUESTIONNAIRE (ANTONY) Counseling: Dietary Guidelines for Americans, 2010 USDA's MyPlate regular exercise healthy diet/nutrition vision screening reports that she has never smoked. She has never used smokeless tobacco. Estimated Body mass index is 23.03 kg/(m^2) as calculated from the following: Height as of 11/28/11: 5' 3(1.6 m). Weight as of 11/28/11: 130 lb(58.968 kg). Neal Vasquez PA-C [facility] [place] documented in this encounter Plan of Treatment Not on filedocumented as of this encounter Visit Diagnoses Diagnosis Routine general medical examination at a [facility] care facility - Primary Allergic rhinitis, cause unspecified Anxiety Anxiety state, unspecified documented in this encounter Care Teams Project Manager Senior Relationship Specialty Start Date End Date Neal Vasquez PA-C PCP - General Family Practice 11/27/11 07/28/[address] [address] documented as of this encounter
--- OUTSIDE RECORDS SUMMARY | 2022-03-05 00:49 | XMS_ITS | Encounter Summary ---
:1980 Author Organization [place] Address [address] [place] [address]. [place] [address] Care Team Providers Name Role Phone Neal Vasquez PA-C Primary Care Provider Reason for Visit Reason Onset Date Comments Health Maintenance 01/11/2012 pap Encounter Details Date Type Department Care Team Description 01/11/2012 Telephone [facility] Neal Vasquez [facility] Cav[facility] PA-C (pap) [address] [place], [place] SERVICE [phone] [place] [address] [place] [address] Social History Tobacco Use Types Packs/Day Years Used Date Smoking Tobacco: Never Smokeless Tobacco: Never Alcohol Use Standard Drinks/Week Comments Yes 0 (1 standard drink = 0.6 oz pure alcoho l) Sex Assigned at Date Recorded Female 10/26/2020 1:28 AM CDT documented as of this encounter Miscellaneous Notes Telephone Encounter - Neeta Edmondson - 08/09/2012 10:10 AM CDT Pt said done through [facility] Sent another message asking when Telephone Encounter - Neeta Edmondson - 08/01/2012 11:47 AM CDT mych sent Telephone Encounter - Neeta Cifuentes - 02/01/2012 9:44 AM CDT LM for pt to CB 3rd attempt-postponed for 6 mo Telephone Encounter - Neeta Cifuentes - 01/22/2012 1:09 PM CDT letter sent to pt Telephone Encounter - Neeta Cifuentes - 01/11/2012 1:19 PM CDT mych sent for pap reminder documented in this encounter Plan of Treatment Not on filedocumented as of this encounter Visit Diagnoses Not on filedocumented in this encounter Care Teams Manager Embalmer Funeral Director Relationship Specialty Start Date End Date Neal Vasquez PA-C PCP - General Family Practice 11/27/11 07/28/[address] [address] documented as of this encounter
--- OUTSIDE RECORDS SUMMARY | 2022-03-05 00:49 | XMS_ITS | Encounter Summary ---
:1980 Author Organization [place] Address [address] [facility] [place] [address] Care Team Providers Name Role Phone Neal Vasquez PA-C Primary Care Provider [phone] Reason for Visit Reason Onset Date Comments Refill Request 07/22/2013 escitalopram Encounter Details Date Type Department Care Team Description 07/22/2013 Refill [facility] Louise Brink MD Refill Request Clinic [place] [address] (escitalopram) [address] [place] [address] [place], [place] [phone] (Wo rk) [address] [phone] Social History Tobacco Use Types Packs/Day Years Used Date Smoking Tobacco: Never Smokeless Tobacco: Never Alcohol Use Standard Drinks/Week Comments Yes 0 (1 standard drink = 0.6 oz pure alcoho l) Sex Assigned at Date Recorded Female 10/26/2020 1:28 AM CDT documented as of this encounter Miscellaneous Notes Telephone Encounter - Nely Marin RN - 07/22/2013 12:45 PM CDT Med request: escitalopram Date of last related OV: 01/07/13 Date of last refill: 01/07/13 Approved per standing orders: For 1 refill, at [facility] on 01/07/13, pt advised to f/u in 6 months, mychart sent to advisdrew Marin RN documented in this encounter Plan of Treatment Not on filedocumented as of this encounter Visit Diagnoses Diagnosis Anxiety - Primary Anxiety state, unspecified documented in this encounter Care Teams Speed Reading Teacher Relationship Specialty Start Date End Date Neal Vasquez PA-C PCP - General Family Practice 11/27/11 07/28/[address] [address] documented as of this encounter
--- OUTSIDE RECORDS SUMMARY | 2022-03-05 00:49 | XMS_ITS | Encounter Summary ---
:1980 Author Organization [place] Address [address] [place] [address] Care Team Providers Name Role Phone Unavailable Primary Care Provider Unavailable Encounter Details Date Type Department Care Team Description 07/08/2005 Historic Results INTERFACED REPORT Diana Patel MD [facility] [address] [place], [place] [address] (Wo rk) Social History Tobacco Use Types Packs/Day Years Used Date Smoking Tobacco: Never Assessed Sex Assigned at Date Recorded Female 10/26/2020 1:28 AM CDT documented as of this encounter Plan of Treatment Not on filedocumented as of this encounter Procedures Procedure Name Priority Date/Time Associated Diagnosis Comme nts HEMOGLOBIN Routine 07/08/2005 7:11 AM Results f or this HEAVY DUTY TRUCK MECHANIC procedure are i n the results section . documented in this encounter Results (ABNORMAL) Hemoglobin (07/08/2005 7:11 AM HEAVY DUTY TRUCK MECHANIC) P athologist Signature Hemoglobin 11.2 (L) 11.7 - 15.7 MISYS g/dL Specimen (Source) Anatomical Collection Method Collection Time Re ceived Time Location / / Volume Laterality 07/08/2005 7:11 AM 6 HEAVY DUTY TRUCK MECHANIC Gail Patel MD LAB - BLOOD ORDERABLES Performing Organization Address City/State/ZIP Code Phon e Number MISYS documented in this encounter Visit Diagnoses Not on filedocumented in this encounter
--- OUTSIDE RECORDS SUMMARY | 2022-03-05 00:49 | XMS_ITS | Encounter Summary ---
:1980 Author Organization [place] Address [address] [place] [address]. [place] [address] Care Team Providers Name Role Phone Neal Vasquez PA-C Primary Care Provider [phone] Reason for Visit Reason Onset Date Comments Refill Request 06/24/2012 Encounter Details Date Type Department Care Team Description 06/24/2012 Refill [facility] Neal Vasquez, Refill Request [place] PA-C [address] [place] [address] [address] [place] [address] [place] [address] (Wo rk) Social History Tobacco Use Types Packs/Day Years Used Date Smoking Tobacco: Never Smokeless Tobacco: Never Alcohol Use Standard Drinks/Week Comments Yes 0 (1 standard drink = 0.6 oz pure alcoho l) Sex Assigned at Date Recorded Female 10/26/2020 1:28 AM CDT documented as of this encounter Miscellaneous Notes Telephone Encounter - Charo Hurtado - 06/24/2012 3:58 PM CST Refilled Pso for quanity of #1 with one refill Last Seen: 11/28/11 with Rtc instructions: none given Last Filled: 04/03/12 Charo Hurtado RN. ENISHMENT ASSOCIATE documented in this encounter Plan of Treatment Not on filedocumented as of this encounter Visit Diagnoses Diagnosis Allergic rhinitis, cause unspecified - P rimary documented in this encounter Care Teams Utilization Engineer Relationship Specialty Start Date End Date Neal Vasquez PA-C PCP - General Family Practice 11/27/11 07/28/[address] [address] documented as of this encounter
--- OUTSIDE RECORDS SUMMARY | 2022-03-05 00:49 | XMS_ITS | Encounter Summary ---
:1980 Author Organization [place] Address [address] [place] [address] Care Team Providers Name Role Phone Unavailable Primary Care Provider Unavailable Encounter Details Date Type Department Care Team Description 09/28/2008 Historic Results INTERFACED REPORT Russell Soto MD [address] [place], [place] [address] (Wo rk) Social History Tobacco Use Types Packs/Day Years Used Date Smoking Tobacco: Never Assessed Sex Assigned at Date Recorded Female 10/26/2020 1:28 AM CDT documented as of this encounter Plan of Treatment Not on filedocumented as of this encounter Procedures Procedure Name Priority Date/Time Associated Diagnosis Comme nts HEMOGLOBIN Routine 09/28/2008 6:40 AM Results f or this CDT procedure are i n the results section . documented in this encounter Results (ABNORMAL) Hemoglobin (09/28/2008 6:40 AM CDT) P athologist Signature Hemoglobin 10.9 (L) 11.7 - 15.7 MISYS g/dL Specimen (Source) Anatomical Collection Method Collection Time Re ceived Time Location / / Volume Laterality 09/28/2008 6:40 AM 9 CDT Juan Soto MD LAB - BLOOD ORDERABLES Performing Organization Address City/State/ZIP Code Phon e Number MISYS documented in this encounter Visit Diagnoses Not on filedocumented in this encounter
--- OUTSIDE RECORDS SUMMARY | 2022-03-05 00:49 | XMS_ITS | Encounter Summary ---
:1980 Author Organization [place] Address [address] [place] [address] Care Team Providers Name Role Phone None Primary Care Provider Unavailable Encounter Details Date Type Department Care Team Description 07/10/2005 Historic Audio Video Mechanic INTERFACED REPORT Gail Hicks MD [facility] [address] [place], [place] [address] (Wo rk) Social History Tobacco Use Types Packs/Day Years Used Date Smoking Tobacco: Never Assessed Sex Assigned at Date Recorded Female 10/26/2020 1:28 AM CDT documented as of this encounter Progress Notes Gail Hicks MD - 04/18/2011 11:36 PM VAN DRIVER PRELIMINARY DIAGNOSIS: 1. A 39-week . 2. Fever. 3. bradycardia. PROCEDURES: 1. Primary delivery. 2. Intravenous antibiotics. HISTORY OF PRESENT ILLNESS: Ms. Dean is a 24-year-old para 0 at 39 weeks gestation, who presented to labor and delivery with lower abdominal pain and fever of 100.9. Her heart tones were in the 170s to 180s with several decelerations. The then had approximately 7 minutes of bradycardia to the 60s, which was unresolved with oxygen and repositioning. The decision was made to proceed with primary delivery. PAST MEDICAL HISTORY: None. PAST SURGICAL HISTORY: None. MEDICATIONS: vitamins. ALLERGIES: No known drug allergies. PHYSICAL EXAMINATION: VITAL SIGNS: Height 5 feet 3 inches, weight 167 pounds. HEART: Regular rate and rhythm. LUNGS: Clear to auscultation. ABDOMEN: Soft and nontender. PELVIC: Her cervix was 1-2 cm dilated. EXTREMITIES: Nontender with no edema. LABORATORY: White blood count was 19.2. Urinalysis showed positive leukocyte esterase with 10-12 white blood cells. IMPRESSION: 1. A 39-week with abdominal pain and fever. 2. bradycardia. PLAN: 1. Primary delivery. 2. Intravenous antibiotics. HOSPITAL COURSE: Ms. Dean was taken urgently to the operating room on the evening of 07/07/05, where she underwent a primary delivery without complication. She delivered a viable male , weighing 3500 gm (7 pounds, 12 ounces). The scores were 8 and 9. She had a normal-appearing uterus, tubes, and ovaries. She also had a normal-appearing appendix at the time of surgery. The umbilical cord pH was 7.34. Postoperatively, she was transferred to the floor in good condition. On postoperative day 1, she was afebrile. Her Gar catheter was removed, and she was able to void without difficulty. Her diet was advanced, and she tolerated this well. Her hemoglobin on postoperative day 1 was 11.2, which was down from 13.3 preoperatively. Her urine culture returned showing multiple bacteria consistent with contamination. After 24 hours of antibiotics, they were discontinued. On postoperative day 2, she remained afebrile. She was discharged home on postoperative day 3. At the time of discharge, she was afebrile, tolerating a regular diet, and ambulating and voiding without difficulty. The abdominal pain which she had presented with on admission was now resolved. Her hemoglobin on postoperative day 3 was stable at 10.8. She will follow up with Dr. Soto at the [facility] in [place] in 6 weeks for a visit. GAIL HICKS MD MT: [id number] Name: BERNARDA DEAN MRN: [id number] Account: [id number] : 1980 Admit Date: Discharge Date: 07/10/2005 Document: [id number] DRIVER documented in this encounter Plan of Treatment Not on filedocumented as of this encounter Visit Diagnoses Not on filedocumented in this encounter Care Teams Zigzagger Relationship Specialty Start Date End Date None PCP - General 03/21/11 11/26/11 documented as of this encounter
--- OUTSIDE RECORDS SUMMARY | 2022-03-05 00:49 | XMS_ITS | Encounter Summary ---
:1980 Author Organization [facility] Address [address] [place] [address] Care Team Providers Name Role Phone Unavailable Primary Care Provider Unavailable Encounter Details Date Type Department Care Team Description 09/27/2008 Historic Notes INTERFACED REPORT Interface, Transcript onMD Social History Tobacco Use Types Packs/Day Years Used Date Smoking Tobacco: Never Assessed Sex Assigned at Date Recorded Female 10/26/2020 1:28 AM CDT documented as of this encounter Progress Notes Interface, Business Relations Manager - 07/31/2010 3:17 AM CDT Continues to nurse well per mom. Encouraged mother to call us Encouraged mother to call us PRN.. [Signature] Author: SARAN WELLS (RN) [Signed 15:25] documented in this encounter Plan of Treatment Not on filedocumented as of this encounter Visit Diagnoses Not on filedocumented in this encounter
--- OUTSIDE RECORDS SUMMARY | 2022-03-05 00:49 | XMS_ITS | Encounter Summary ---
:1980 Author Organization [place] Address [address] [place] [address] Care Team Providers Name Role Phone None Primary Care Provider Unavailable Reason for Visit Reason Comments Flu Encounter Details Date Type Department Care Team Description 03/21/2011 Allied Health/Nurse [facility] Flu Visit [place] [address] [place] [address] Social History Tobacco Use Types Packs/Day Years Used Date Smoking Tobacco: Never Assessed Sex Assigned at Date Recorded Female 10/26/2020 1:28 AM CDT documented as of this encounter Progress Notes Zeina De La Torre - 03/21/2011 5:10 PM CST INTRANASAL INFLUENZA IMMUNIZATION DOCUMENTATION 1. Has the patient received the information for the intranasal influenza vaccine? YES 2. Does the patient have any of the following contraindications: Severe allergy to eggs? No Severe allergic reaction to a previous intranasal influenza vaccine? No Severe allergic reaction to components of intranasal flu vaccine: MSG, arginine, gentamycin or gelatin? No Have a long-term health problem of chronic heart or lung disease, asthma, kidney or liver disease, metabolic disease (e.g. Diabetes), anemia or other blood disorders? No Have a weakened immune system because of HIV/AIDS or another disease that affects the immune system, long-term treatment with drugs such as steroids, or cancer treatment with radiation or drugs? No Live with or expect to have close contact with a person whose immune system is severely compromisedor work with bone marrow transplant or chemotherapy patients? No Have a muscle or nerve disorder, such as a seizure disorders or cerebral palsy, that can lead to breathing or swallowing problems? No A nasal condition serious enough to make breathing difficult, such as a very stuffy nose. No A child between the ages of 2 and 5 years with asthma or one or more episodes of wheezing within the past year? No A child or adolescent on long-term aspirin treatment? No Currently have moderate or severe illness? No Have received a live vaccine (MMR, MMRV, varicella, or yellow fever) within the last 4 weeks? No Have you been on any anti-viral medication within the last 48 hours (for example, Tamiflu)? No 3. Is the patient or planning on becoming within the next month? No 4. Is the patient between the ages of 2 years and 49 years of age? YES 5. The vaccine has been administered and the patient was instructed to wait 15 minutes before leaving the building in the event of an allergic reaction: YES Vaccine given by: Zeina De La Torre CMA ([facility]) ENT OUTREACH COORDINATOR documented in this encounter Plan of Treatment Not on filedocumented as of this encounter Visit Diagnoses Diagnosis Need for prophylactic vaccination and in oculation against influenza - Primary documented in this encounter Care Teams Mail Processing Clerk Relationship Specialty Start Date End Date None PCP - General 03/21/11 11/26/11 documented as of this encounter
--- OUTSIDE RECORDS SUMMARY | 2022-03-05 00:50 | XMS_ITS | Encounter Summary ---
:1980 Author Organization [facility] Address [address] [place] [id number] Care Team Providers Name Role Phone None Primary Care Provider Unavailable Encounter Details Date Type Department Care Team Description 07/07/2005 Historic Director Labor Standards INTERFACED REPORT Gail Hicks MD [facility] [address] [place], [place] [address] (Wo rk) Social History Tobacco Use Types Packs/Day Years Used Date Smoking Tobacco: Never Assessed Sex Assigned at Date Recorded Female 10/26/2020 1:28 AM CDT documented as of this encounter Progress Notes Gail Hicks MD - 04/18/2011 11:43 PM DROP HAMMER PILE DRIVER OPERATOR PRELIMINARY PREOPERATIVE DIAGNOSIS: 1. A 39-week . 2. Maternal fever. 3. bradycardia. POSTOPERATIVE DIAGNOSIS: 1. A 39-week . 2. Maternal fever. 3. bradycardia. PROCEDURE: Primary low transverse delivery. SURGEON: Gail Hicks MD ANESTHESIA: Spinal. ESTIMATED BLOOD LOSS: 800 cc. COMPLICATIONS: None. FINDINGS: 1. A male infant. 2. Cephalic presentation. 3. Weight 3,500 gm (7 lbs/12 oz). 4. scores 8/8. 5. Nuchal cord x1. 6. Normal uterus, tubes and ovaries, normal-appearing appendix. INDICATIONS: Ms. Dean is a 24-year-old female who is a para 0 at 39 weeks' gestation. She presented to Labor and Delivery with abdominal pain and was found to have a temperature of 100.9. She also had an elevate white blood cell count at 19.2. During evaluation of her abdominal pain and fever she developed bradycardia in the 60s for approximately seven minutes. PROCEDURE: The patient was taken to the operating room where spinal anesthesia was placed and found to be adequate. She was then prepped and draped in the usual sterile fashion in the dorsal supine position with a leftward tilt. The abdomen was entered via a Pfannenstiel incision, the bladder blade inserted, and the vesicouterine peritoneum entered sharply with the Metzenbaum scissors. This incision was extended bilaterally, and the bladder flap was created digitally. The bladder blade was reinserted, and the lower uterine segment was incised in a transverse fashion with the scalpel. This incision was extended bilaterally by the lcac operator's hands. The 's head was then delivered, and the nose and mouth were bulb suctioned. There was a nuchal cord which was reduced, and the remainder of the was delivered without difficulty. The cord was clamped and cut, and the infant was handed to the waiting Nursery staff. The placenta was then delivered by gentle traction. The uterus was then exteriorized and cleared of all clots and debris. The uterine incision was repaired with 0 Vicryl in a running locked fashion, and good hemostasis was noted. The uterus was then returned to the abdomen. The gutters were irrigated. The appendix was then inspected and noted to be normal. The fascia was then reapproximated with 0 Vicryl in a running fashion. Subcutaneous tissue was irrigated, and the skin was closed with jerry. The patient tolerated the procedure well. Sponge, lap and needle counts were correct at the end of the case. The patient was taken to the Recovery Room in stable condition. GAIL HICKS MD MT: [id number] Name: BERNARDA DEAN MRN: [id number] Account: [id number] : 1980 Procedure Date: 07/07/2005 Document: [id number] HAMMER PILE DRIVER OPERATOR documented in this encounter Plan of Treatment Not on filedocumented as of this encounter Visit Diagnoses Not on filedocumented in this encounter Care Teams Bankman Relationship Specialty Start Date End Date None PCP - General 03/21/11 11/26/11 documented as of this encounter
--- OUTSIDE RECORDS SUMMARY | 2022-03-05 00:50 | XMS_ITS | Encounter Summary ---
:1980 Author Organization [facility] Address [address] [place] [address] Care Team Providers Name Role Phone Unavailable Primary Care Provider Unavailable Encounter Details Date Type Department Care Team Description 07/07/2005 Historic Results INTERFACED REPORT Diana Hicks MD [facility] [address] [place], [place] [address] (Wo rk) Social History Tobacco Use Types Packs/Day Years Used Date Smoking Tobacco: Never Assessed Sex Assigned at Date Recorded Female 10/26/2020 1:28 AM CDT documented as of this encounter Plan of Treatment Not on filedocumented as of this encounter Procedures Procedure Name Priority Date/Time Associated Comments Diagnosis HEMOGLOBIN STAT 07/07/2005 9:07 PM Results f or this CLAM BED LABORER procedure are i n the results section. ABO/RH TYPE AND SCREEN STAT 07/07/2005 9:07 PM Results for this CLAM BED LABORER procedure are i n the results section. HEMOGRAM DIFFERENTIAL STAT 07/07/2005 7:57 PM Results for this AND PLATELET CLAM BED LABORER procedure are i n the results section. UA MACROSCOPIC WITH Routine 07/07/2005 7:00 PM Re sults for this REFLEX TO MICRO CLAM BED LABORER procedure ar e in the results section. URINE MICROSCOPIC EXAM Routine 07/07/2005 7:00 PM Results for this CLAM BED LABORER procedure are i n the results section. URINE CULTURE Routine 07/07/2005 7:00 PM Results for this CLAM BED LABORER procedure are i n the results section. HISTOPATHOLOGY Routine 07/07/2005 12:00 Results f or this AM CLAM BED LABORER procedure are i n the results section. documented in this encounter Results Hemoglobin (07/07/2005 9:07 PM CLAM BED LABORER) P athologist Signature Hemoglobin 13.3 11.7 - 15.7 [facility] g/dL Specimen Anatomical Collection Method Collection Time Receive d Time (Source) Location / / Volume Laterality 07/07/2005 9:07 PM 6 9:07 CLAM BED LABORER PM CLAM BED LABORER Gail Hicks MD LAB - BLOOD ORDERABLES Performing Organization Address City/State/ZIP Code Phon e Number M[facility] ABO/Rh type and screen (07/07/2005 9:07 PM CLAM BED LABORER) Analysis Performed At Patho logist Time Signature ABO A [facility] RH(D) Pos [facility] Antibody Neg [facility] Screen Specimen 07/10/2005 [facility] Expires Specimen Anatomical Collection Method Collection Time Receive d Time (Source) Location / / Volume Laterality 07/07/2005 9:07 PM 6 9:07 CLAM BED LABORER PM CLAM BED LABORER Gail Hicks MD LAB - BLOOD BANK TEST ORDER Performing Organization Address City/[facility] Phon e Number [facility] (ABNORMAL) Hemogram differential and platelet (07/07/2005 7:57 PM CLAM BED LABORER) Patholo gist Method Time Signature MCV 94 78 - 100 [facility] fl MCH 32.1 26.5 - [facility] 33.0 pg MCHC 34.0 32.0 - [facility] 36.0 g/dL RDW 11.3 10.0 - [facility] 15.0 % RBC Count 4.15 3.8 - 5.2 [facility] 10e12/L WBC 19.2 (H) 4.0 - [facility] 11.0 10e9/L Hemoglobin 13.3 11.7 - [facility] 15.7 g/dL Hematocrit 39.1 35.0 - [facility] 47.0 % % Neutrophils 89 (H) 40 - 75 % [facility] % Lymphocytes 6 (L) 20 - 48 % MIS[facility] % Monocytes 5 0 - 12 % [facility] % Eosinophils 0 0 - 6 % MIS[facility] % Basophils 0 0 - 2 % [facility] Platelet Count 203 150 - 450 [facility] 10e9/L Absolute 16.9 (H) 1.6 - 8.3 [facility] Neutrophil 10e9/L Absolute 1.2 0.8 - 5.3 [facility] Lymphocytes 10e9/L Absolute 1.0 0.0 - 1.3 [facility] Monocytes 10e9/L Absolute 0.1 0.0 - 0.7 [facility] Eosinophils 10e9/L Absolute 0.0 0.0 - 0.2 [facility] Basophils 10e9/L Diff Method Automated [facility] Method Specimen Anatomical Collection Method Collection Time Receive d Time (Source) Location / / Volume Laterality 07/07/2005 7:57 PM 6 7:47 CLAM BED LABORER PM CLAM BED LABORER Gail Hicks MD LAB - BLOOD ORDERABLES Performing Organization Address [facility] Phon e Number MISYS (ABNORMAL) UA macroscopic with reflex to micro (07/07/2005 7:00 PM CLAM BED LABORER) [facility] Sendmail Method Time Signature Source Midstream [facility] Urine Color Urine Yellow [facility] Appearance Urine Cloudy [facility] Glucose Urine Negative NEG mg/dL [facility] Bilirubin Urine Negative NEG [facility] Ketones Urine Negative NEG mg/dL [facility] Specific [place] 1.015 1.003 - MISYS Urine 1.035 Blood Urine Negative NEG [facility] pH Urine 7.5 (H) 5.0 - 7.0 [facility] pH Protein Albumin Negative NEG mg/dL M[facility] Urine Urobilinogen 0.2 0.2 - 1.0 [facility] Urine EU/dL Nitrite Urine Negative NEG [facility] Leukocyte Small (A) NEG [facility] Esterase Urine Specimen Anatomical Collection Method Collection Time Receive d Time (Source) Location / / Volume Laterality 07/07/2005 7:00 PM 6 7:28 CLAM BED LABORER PM CLAM BED LABORER Gail Hicks MD LAB - URINE ORDERABLES Performing Organization Address [facility] Phon e Number MISYS (ABNORMAL) Microscopic exam urine (07/07/2005 7:00 PM CLAM BED LABORER) [facility] [employer] Method Time Signature WBC Urine 10-25 (A) 0 - 2 MISYS /HPF RBC Urine O - 2 0 - 2 MIS[facility] /HPF Squamous Moderate (A) FEW /LPF [facility] Epithelial /LPF Urine Specimen Anatomical Collection Method Collection Time Receive d Time (Source) Location / / Volume Laterality 07/07/2005 7:00 PM 6 8:06 CLAM BED LABORER PM CLAM BED LABORER Gail Hicks MD LAB - URINE ORDERABLES Performing Organization Address [facility] Phon e Number MISYS Urine culture (07/07/2005 7:00 PM CLAM BED LABORER) [facility] Method Time Signature Specimen Midstream MISYS Description Urine Culture Micro 10 to 50,000 MISYS colonies/mL Multiple species present, probable perineal Comment: contamination. Micro Report Status FINAL [id number] MIS[facility] Specimen Anatomical Collection Method Collection Time Receive d Time (Source) Location / / Volume Laterality 07/07/2005 7:00 PM 6 8:07 CLAM BED LABORER PM CLAM BED LABORER Gail Hicks MD LAB - MICRO GENERAL ORDERABL ES Performing Organization Address City/State/ZIP Code Phon e Number MISYS Histopathology (07/07/2005 12:00 AM CLAM BED LABORER) Component Value Ref Test Analysis Performed At [facility] Range Method Time Signature Copath Report CASE: [id number] ^ COPATH Patient Name: BERNARDA DEAN MR#: [id number] Specimen #: [id number] Collected: 07/07/2005 Received: 07/08/2005 Reported: 07/10/2005 16:57 Ordering Phy(s): GAIL HICKS SPECIMEN(S): Placenta, emergency C section FINAL DIAGNOSIS: Placenta and umbilical cord - overall mature placenta with n o evidence of inflammatory process seen (see description). Electronically signed out by: Manohar Cao M.D. CLINICAL HISTORY: Emergency , bradycardia, fever. GROSS: The specimen, labeled placenta, consists of unfixed placen paula disk, small fragment of membranes and umbilical cord. ??The trimmed placental disk weighs 390 gm and measures 20 cm x 15 cm x 2 cm. ??The surfaceis covered by translucent membranes. ??The bloo d vessels show normal distribution. ??The umbilical cord is 5 cm from the nearest margin of the placenta. ??The maternal surface shows red-pur ple cotyledons. ??The cotyledons appear complete. ??No retroplac ental hematoma is present. ??On serial sections, the placental parenchyma i s without gross abnormalities. ??The membranes are translucent. ??A small segment of umbilical cord is included. ??It is 6 cm in lengt h by 1 cm in diameter. ??The diameter is uniform. ??On section, it contai ns three blood vessels. ??Enlisted Aircrew/Aerial Observer/Gunner sections are submitted. SUMMARY OF SECTIONS: 1. ?Placental disk. 2. ? membranes. 3. ?Umbilical cord. KAREN/manpreet MICROSCOPIC: Sections of the umbilical cord do show a normal complement o f vessels. There is no inflammation or other pathologic changes seen in the vessel noriega or the stroma of the cord. ??The chorionic disk surfac es show normal amnion and chorion structure and there is noinflammat ory cell infiltration seen on the surfaces and membranes. ??The assoc iated vessels do not demonstrate thrombotic changes. ??The underlying pare nchyma shows a fairly well vascularized and mature appearing chorionic vi lli in the main. ??Thereare zones showing some prominence of syncytial knot formation and in particularly near the surface. ??This is seen as well as perhaps slight interstitial prominence in some villi . ??This may reflect evidence of ischemic change, but is not specific. ?? There are other sections of extraplacental membranes showing normal st ructure and no significant inflammatory change. ELDA/manpreet DT/07-10-05 TESTING LAB LOCATION: [facility] [address], [place] ??[id number] COLLECTION SITE: Client: [facility] Location: OB (R) Specimen (Source) Anatomical Collection Method Collection Time Re ceived Time Location / / Volume Laterality 07/07/2005 07/10/2005 4:57 PM CLAM BED LABORER Gail Hicks MD LAB - COP[facility] SPECIAL DIAG OR DERABLES Performing Organization Address City/State/ZIP Code Phon e Number COPATH documented in this encounter Visit Diagnoses Not on filedocumented in this encounter
--- NOTE | 2022-03-05 00:52 | CRLHL7_ITS ---
For Patients: As a result of the Century Cures Act, medical imaging exams and procedure reports are released immediately into your electronic medical record. You may view this report before your referring provider. If you have questions, please contact your health care provider. INDICATION: Head injury, unwitnessed fall, loss of consciousness. TECHNIQUE: CT head without contrast. COMPARISON: None. FINDINGS: Cerebral parenchyma: No evidence of acute territorial infarct. No acute intraparenchymal hemorrhage. No significant mass effect/midline shift. Normal ramos-white matter differentiation. Extra-axial spaces: No extra-axial collection or hemorrhage. Ventricles: Unremarkable. Calvarium: Intact. Visualized paranasal sinuses/mastoid air cells: Grossly clear. Posterior fossa: No cerebellar tonsillar herniation. Visualized orbits: Unremarkable IMPRESSION: No acute intracranial abnormality. Specifically, no evidence of acute intracranial hemorrhage. Please note that all CT scans at this facility use dose modulation, iterative reconstruction, and/or weight-based dosing when appropriate to reduce radiation dose to as low as reasonably achievable. Dictated by Radha Fitzgerald MD @ 03/05/2022 1:29:12 AM (Electronically Signed)
--- NOTE | 2022-03-05 00:53 | CRLHL7_ITS ---
For Patients: As a result of the Century Cures Act, medical imaging exams and procedure reports are released immediately into your electronic medical record. You may view this report before your referring provider. If you have questions, please contact your health care provider. INDICATION: Trauma, fall. TECHNIQUE: CT cervical spine without contrast. COMPARISON: None FINDINGS: Vertebrae: There is mild vertebral body height loss at the superior endplate of C5. No significant central canal stenosis. No evidence of traumatic malalignment. Discs and facet joints: Disc spaces and facets are within normal limits. Extraspinal findings: Prevertebral soft tissues are within normal limits. Visualized airway is patent. Lung apices are grossly clear. IMPRESSION: Mild vertebral body height loss at the superior endplate of C5. This may be secondary to degenerative change, however correlation with point tenderness and neurologic exam is recommended. No significant central canal stenosis. No evidence of traumatic malalignment. Please note that all CT scans at this facility use dose modulation, iterative reconstruction, and/or weight-based dosing when appropriate to reduce radiation dose to as low as reasonably achievable. Dictated by Radha Fitzgerald MD @ 03/05/2022 1:38:38 AM (Electronically Signed)
--- NOTE | 2022-03-05 01:00 | ED.NURSE ---
Patient to CT via cart
--- NOTE | 2022-03-05 01:02 | ED_ITS ---
HPI - General Adult General Time Seen by Provider: 01:02 <Bina Emery MD - Last Filed: 03/05/22 03:11> Date Seen: 03/05/22 <Bina Emery MD - Last Filed: 03/05/22 03:11> Chief complaint: Fall/Minor Trauma <Bina Emery MD - Last Filed: 03/05/22 03:11> Stated complaint: Fall <Bina Emery MD - Last Filed: 03/05/22 03:11> Time Seen by Provider: 03/05/22 00:54 <Bina Emery MD - Last Filed: 03/05/22 03:11> Source: patient and RN notes reviewed <Bina Emery MD - Last Filed: 03/05/22 03:11> Mode of arrival: EMS <Bina Emery MD - Last Filed: 03/05/22 03:11> Limitations: no limitations <Bina mEery MD - Last Filed: 03/05/22 03:11> History of Present Illness HPI narrative: This patient is a 41-year-old female that was brought in by EMS and trauma team activation was called internally. She had drank a bottle of wine tonight, started feeling sick, went to the bathroom to throw up. She does not remember events beyond that. Her went to her almost immediately, states she never lost consciousness. She was leaning over the sink felt she probably hit her head on the faucet forcefully. Her went into the bathroom and found her leaning over the sink still, was out of it but not unconscious, had already heard her head. He actually helped her down to the ground. She had sustained a laceration in her scalp along her center hairline that just extends very minimally under central forehead. He helped her to the ground. There was no other trauma noted. She was still feeling nauseated on arrival 4. Mg IV Zofran were provided. When I am interviewing her her GCS is 15/15, nursing staff felt initially she was 14/15. She denies any difficulty breathing, no chest pain, no palpitations. No headache, no current visual changes. No headache, no visual changes, neck pain, no back pain, no difficulty breathing, no chest pain, no palpitations, no abdominal pain, no numbness tingling or weakness over any of her extremities. Initial evaluation reveals a hemodynamically stable patient with a laceration in her scalp that is not actively bleeding. We will be able to move on to our secondary survey. No we will be ordering a head CT and cervical spine CT to be done emergently 1st. We talked about repairing her scalp laceration in did review jerry. They note that she had problems with irritation from jerry from her 1st , 2nd was repaired with sutures and did much better. Thus, we will be suturing her laceration in her scalp. notes that he noted no seizure activity. <Bina Douglas MD - Last Filed: 03/05/22 03:11> Related Data Home medications: Home Medications Medication Instructions Recorded Confirmed alprazolam 1 mg tablet (Xanax) 1 mg PO DAILY 03/05/22 03/05/22 escitalopram oxalate 10 mg tablet 10 mg PO DAILY 03/05/22 03/05/22 (Lexapro) oral control unknown name oral control 03/05/22 <Bina Emery MD - Last Filed: 03/05/22 03:11> Allergies/adverse reactions: Allergies Allergy/AdvReac Type Severity Reaction Status Date / Time No Known Drug Allergies Allergy Verified 03/05/22 01:12 <Bina Emery MD - Last Filed: 03/05/22 03:11> Review of Systems Status of ROS: Reports: 10 or more systems reviewed and unremarkable except as noted in History and below <Bina Emery MD - Last Filed: 03/05/22 03:11> PFSH PFSH Social History: Social History Smoking Status: Never smoker How often do you have a drink containing alcohol: 2-3 times a week AUDIT-C Alcohol total score: 3 Non-prescribed substance use: denies use <Bina Emery MD - Last Filed: 03/05/22 03:11> Exam Const: Vital Signs, click to edit/add: Vital Signs - 24 hr 03/05/22 00:42 03/05/22 03:30 03/05/22 02:46 Temperature 97.9 F Pulse Rate Pulse Rate [Right Pulse Oximeter] 93 94 Respiratory Rate 18 21 Blood Pressure [Le ft Upper Arm] 121/85 109/69 106/70 Pulse Oximetry 98 93 99 Oxygen Delivery Me thod Room Air 03/05/22 03:00 03/05/22 03:15 03/05/22 03:45 Temperature Pulse Rate Pulse Rate [Right Pulse Oximeter] 93 90 97 Respiratory Rate 22 20 Blood Pressure [Le ft Upper Arm] 110/72 110/70 115/68 Pulse Oximetry 98 97 99 Oxygen Delivery Me thod 03/05/22 04:30 03/05/22 04:00 03/05/22 05:02 Temperature Pulse Rate 91 Pulse Rate [Right Pulse Oximeter] 98 Respiratory Rate 25 H 21 Blood Pressure [Le ft Upper Arm] 102/65 102/65 Pulse Oximetry 98 98 98 Oxygen Delivery Me thod 03/05/22 05:15 03/05/22 05:30 03/05/22 05:45 Temperature Pulse Rate 86 85 86 Pulse Rate [Right Pulse Oximeter] Respiratory Rate Blood Pressure [Le ft Upper Arm] Pulse Oximetry 98 97 98 Oxygen Delivery Me thod 03/05/22 06:00 03/05/22 06:15 03/05/22 07:44 Temperature Pulse Rate 87 80 Pulse Rate [Right Pulse Oximeter] 82 Respiratory Rate 16 Blood Pressure [Le ft Upper Arm] 125/84 Pulse Oximetry 93 99 99 Oxygen Delivery Me thod Room Air <Bina Emery MD - Last Filed: 03/05/22 03:11> Vital Signs, click to edit/add: Vital Signs - 24 hr 03/05/22 00:42 03/05/22 03:30 03/05/22 02:46 Temperature 97.9 F Pulse Rate Pulse Rate [Right Pulse Oximeter] 93 94 Respiratory Rate 18 21 Blood Pressure [Le ft Upper Arm] 121/85 109/69 106/70 Pulse Oximetry 98 93 99 Oxygen Delivery Me thod Room Air 03/05/22 03:00 03/05/22 03:15 03/05/22 03:45 Temperature Pulse Rate Pulse Rate [Right Pulse Oximeter] 93 90 97 Respiratory Rate 22 20 Blood Pressure [Le ft Upper Arm] 110/72 110/70 115/68 Pulse Oximetry 98 97 99 Oxygen Delivery Me thod 03/05/22 04:30 03/05/22 04:00 03/05/22 05:02 Temperature Pulse Rate 91 Pulse Rate [Right Pulse Oximeter] 98 Respiratory Rate 25 H 21 Blood Pressure [Le ft Upper Arm] 102/65 102/65 Pulse Oximetry 98 98 98 Oxygen Delivery Me thod 03/05/22 05:15 03/05/22 05:30 03/05/22 05:45 Temperature Pulse Rate 86 85 86 Pulse Rate [Right Pulse Oximeter] Respiratory Rate Blood Pressure [Le ft Upper Arm] Pulse Oximetry 98 97 98 Oxygen Delivery Me thod 03/05/22 06:00 03/05/22 06:15 03/05/22 07:44 Temperature Pulse Rate 87 80 Pulse Rate [Right Pulse Oximeter] 82 Respiratory Rate 16 Blood Pressure [Le ft Upper Arm] 125/84 Pulse Oximetry 93 99 99 Oxygen Delivery Me thod Room Air <Shahida Preston MD - Last Filed: 03/05/22 04:17> Vital Signs, click to edit/add: Vital Signs - 24 hr 03/05/22 00:42 03/05/22 03:30 03/05/22 02:46 Temperature 97.9 F Pulse Rate Pulse Rate [Right Pulse Oximeter] 93 94 Respiratory Rate 18 21 Blood Pressure [Le ft Upper Arm] 121/85 109/69 106/70 Pulse Oximetry 98 93 99 Oxygen Delivery Me thod Room Air 03/05/22 03:00 03/05/22 03:15 03/05/22 03:45 Temperature Pulse Rate Pulse Rate [Right Pulse Oximeter] 93 90 97 Respiratory Rate 22 20 Blood Pressure [Le ft Upper Arm] 110/72 110/70 115/68 Pulse Oximetry 98 97 99 Oxygen Delivery Me thod 03/05/22 04:30 03/05/22 04:00 03/05/22 05:02 Temperature Pulse Rate 91 Pulse Rate [Right Pulse Oximeter] 98 Respiratory Rate 25 H 21 Blood Pressure [Le ft Upper Arm] 102/65 102/65 Pulse Oximetry 98 98 98 Oxygen Delivery Me thod 03/05/22 05:15 03/05/22 05:30 03/05/22 05:45 Temperature Pulse Rate 86 85 86 Pulse Rate [Right Pulse Oximeter] Respiratory Rate Blood Pressure [Le ft Upper Arm] Pulse Oximetry 98 97 98 Oxygen Delivery Me thod 03/05/22 06:00 03/05/22 06:15 03/05/22 07:44 Temperature Pulse Rate 87 80 Pulse Rate [Right Pulse Oximeter] 82 Respiratory Rate 16 Blood Pressure [Le ft Upper Arm] 125/84 Pulse Oximetry 93 99 99 Oxygen Delivery Me thod Room Air <Rogelio Cuellar MD - Last Filed: 03/05/22 08:44> Documenting provider has reviewed patient's vital signs: yes <Bina Emery MD - Last Filed: 03/05/22 03:11> Common normals: no apparent distress, average body habitus, oriented x3, healthy appearing and alert <Bina Emery MD - Last Filed: 03/05/22 03:11> General appearance: cooperative, comfortable, well kempt and well developed <Bina Emery MD - Last Filed: 03/05/22 03:11> Other: Patient definitely seems appropriate, admits to having alcohol but is not overtly seemingly intoxicated. Is able to respond appropriately, answers questions appropriately. <Bina Emery MD - Last Filed: 03/05/22 03:11> HENMT: Common normals: hearing grossly normal bilaterally, external ears normal, external nose normal, nasal mucous membranes and turbinates normal, moist oral mucous membranes, oropharynx normal, dentition normal and gingiva normal <Bina Emery MD - Last Filed: 03/05/22 03:11> Nose: external nose normal and nasal mucous membranes and turbinates normal <Bina Emery MD - Last Filed: 03/05/22 03:11> External ear: external ears normal <Bina Emery MD - Last Filed: 03/05/22 03:11> Other: Has linear laceration down her hair part in the front of her scalp that extends just minimally onto the anterior forehead. Wound edges are mildly gaping, does not appear to extend deep. <Bina Emery MD - Last Filed: 03/05/22 03:11> Eye: Common normals: PERRL, EOMs intact bilaterally, conjunctivae normal and no scleral icterus (Slight erythematous change her sclera) <Bina Emery MD - Last Filed: 03/05/22 03:11> Conjunctiva: conjunctiva(e) normal <Bina Emery MD - Last Filed: 03/05/22 03:11> Pupil: PERRL <Bina Emery MD - Last Filed: 03/05/22 03:11> Neck & C-Spine: Other: Has a C-collar on. No midline tenderness on palpation to the collar. <Bina Emery MD - Last Filed: 03/05/22 03:11> Resp: Common normals: normal respiratory effort, no retractions, no use of accessory muscles and clear to auscultation bilaterally <Bina Douglas MD - Last Filed: 03/05/22 03:11> Auscultation: clear to auscultation bilaterally <Bina Emery MD - Last Filed: 03/05/22 03:11> Cardio: Common normals: regular rate, regular rhythm, S1 normal heart sound, S2 normal heart sound, no gallops, no clicks and no murmurs <Bina Emery MD - Last Filed: 03/05/22 03:11> Rate: regular rate <Bina Emery MD - Last Filed: 03/05/22 03:11> Rhythm: regular rhythm <Bina Emery MD - Last Filed: 03/05/22 03:11> Heart sounds: S1 normal and S2 normal <Bina Emery MD - Last Filed: 03/05/22 03:11> GI: Common normals: Normal to inspection, nondistended, normoactive bowel sounds present, soft to palpation, non-tender and no hepatosplenomegaly <Bina Emery MD - Last Filed: 03/05/22 03:11> Palpation: soft and no hepatosplenomegaly <Bina Emery MD - Last Filed: 03/05/22 03:11> Back & Pelvis: Common normals: no thoracic nor lumbar tenderness <Bina Emery MD - Last Filed: 03/05/22 03:11> Extremity: Common normals: normal to inspection, full ROM, normal capillary refill, no joint enlargement, no clubbing, cyanosis or edema, no calf tenderness and no pedal edema <Bina Emery MD - Last Filed: 03/05/22 03:11> Neuro: [place] Coma Scale: document GCS findings [place] coma scale eye opening: Spontaneous (4) Lauren coma scale verbal response: Orientated (5) [place] coma scale motor response: Obey commands (6) Lauren coma scale total score: 15 <Bina Emery MD - Last Filed: 03/05/22 03:11> [place] Coma Scale: document GCS findings [place] coma scale total score: 15 <Shahida Preston MD - Last Filed: 03/05/22 04:17> [place] Coma Scale: document GCS findings [place] coma scale total score: 15 <Rogelio Cuellar MD - Last Filed: 03/05/22 08:44> Common normals: oriented x3, CN's II-XII intact bilaterally, moves all extremities, no focal motor deficits and no sensory deficits noted <Bina Emery MD - Last Filed: 03/05/22 03:11> Sensorium/orientation: alert <Bina Emery MD - Last Filed: 03/05/22 03:11> Speech: speech normal <Bina Emery MD - Last Filed: 03/05/22 03:11> Psych: Appearance: well kempt <Bina Emery MD - Last Filed: 03/05/22 03:11> Course Course Hospital Course: Patient will have head CT, cervical spine CT. She will be on cardiac monitoring and pulse oximetry. She received 4 mg IV Zofran on arrival for nausea, will have a L of fluids ordered. We will do appropriate lab work. I will repair her scalp laceration. <Bina Emery MD - Last Filed: 03/05/22 03:11> Reevaluation(s) Reevaluation #1: Reviewed with patient and her that the head CT is looking fine but there is question of abnormality on cervical spine CT on C5. She is having no neck pain. Arms are working fine no pain in the arms no numbness tingling. She understands that we will need to do an MRI in the morning. I have spoken with Radiology and there is financial institution president that will be in at 7:00 a.m. that will be able to do a cervical spine MRI. At this time she is comfortable, does not need anything further for nausea. <Bina Emery MD - Last Filed: 03/05/22 03:11> Time: 02:13 <Bina Emery MD - Last Filed: 03/05/22 03:11> Reevaluation #2: Patient is resting here in the emergency room awaiting MRI of the cervical spine secondary to C5 abnormality. Nursing has changed out C-collar to [place] with my assistance as I held head and neck in immobilization. Patient otherwise stable at this time. <Shahida Preston MD - Last Filed: 03/05/22 04:17> Vital Signs Vital signs: Initial Vital Signs Temperature 97.9 F 03/05/22 00:42 Temperature Source Temporal Artery Scan 03/05/22 00:42 Pulse Rate 93 03/05/22 00:42 Pulse Rhythm 03/05/22 00:42 Respiratory Rate 18 03/05/22 00:42 Blood Pressure 121/85 03/05/22 00:42 Blood Pressure Mean 97 03/05/22 00:42 Blood Pressure Position Semi-Fowlers 03/05/22 00:42 Pulse Oximetry 98 03/05/22 00:42 Oxygen Delivery Method 03/05/22 00:42 Vital Signs Temperature 97.9 F 03/05/22 00:42 Pulse Rate 93 03/05/22 00:42 Respiratory Rate 18 03/05/22 00:42 Blood Pressure 121/85 03/05/22 00:42 Pulse Oximetry 98 03/05/22 00:42 Oxygen Delivery Method 03/05/22 00:42 Temperature 97.9 F 03/05/22 00:42 Pulse Rate 82 03/05/22 07:44 Respiratory Rate 16 03/05/22 07:44 Blood Pressure 125/84 03/05/22 07:44 Pulse Oximetry 99 03/05/22 07:44 Oxygen Delivery Method 03/05/22 07:44 <Bina Emery MD - Last Filed: 03/05/22 03:11> Initial Vital Signs Temperature 97.9 F 03/05/22 00:42 Temperature Source Temporal Artery Scan 03/05/22 00:42 Pulse Rate 93 03/05/22 00:42 Pulse Rhythm 03/05/22 00:42 Respiratory Rate 18 03/05/22 00:42 Blood Pressure 121/85 03/05/22 00:42 Blood Pressure Mean 97 03/05/22 00:42 Blood Pressure Position Semi-Fowlers 03/05/22 00:42 Pulse Oximetry 98 03/05/22 00:42 Oxygen Delivery Method 03/05/22 00:42 Vital Signs Temperature 97.9 F 03/05/22 00:42 Pulse Rate 93 03/05/22 00:42 Respiratory Rate 18 03/05/22 00:42 Blood Pressure 121/85 03/05/22 00:42 Pulse Oximetry 98 03/05/22 00:42 Oxygen Delivery Method 03/05/22 00:42 Temperature 97.9 F 03/05/22 00:42 Pulse Rate 82 03/05/22 07:44 Respiratory Rate 16 03/05/22 07:44 Blood Pressure 125/84 03/05/22 07:44 Pulse Oximetry 99 03/05/22 07:44 Oxygen Delivery Method 03/05/22 07:44 <Shahida Preston MD - Last Filed: 03/05/22 04:17> Initial Vital Signs Temperature 97.9 F 03/05/22 00:42 Temperature Source Temporal Artery Scan 03/05/22 00:42 Pulse Rate 93 03/05/22 00:42 Pulse Rhythm 03/05/22 00:42 Respiratory Rate 18 03/05/22 00:42 Blood Pressure 121/85 03/05/22 00:42 Blood Pressure Mean 97 03/05/22 00:42 Blood Pressure Position Semi-Fowlers 03/05/22 00:42 Pulse Oximetry 98 03/05/22 00:42 Oxygen Delivery Method 03/05/22 00:42 Vital Signs Temperature 97.9 F 03/05/22 00:42 Pulse Rate 93 03/05/22 00:42 Respiratory Rate 18 03/05/22 00:42 Blood Pressure 121/85 03/05/22 00:42 Pulse Oximetry 98 03/05/22 00:42 Oxygen Delivery Method 03/05/22 00:42 Temperature 97.9 F 03/05/22 00:42 Pulse Rate 82 03/05/22 07:44 Respiratory Rate 16 03/05/22 07:44 Blood Pressure 125/84 03/05/22 07:44 Pulse Oximetry 99 03/05/22 07:44 Oxygen Delivery Method 03/05/22 07:44 <Rogelio Cuellar MD - Last Filed: 03/05/22 08:44> Medical Decision Making MDM Narrative Medical decision making narrative: This patient came in intoxicated with alcohol and fell with the laceration of the forehead. These matters were attended to by overnight physician. The patient remained here until my shift in the morning in order to get an MRI of the cervical spine for further evaluation of possible injury there. MRI returns with reassuring results. The patient is okay to return home. She can use [id number] medicines as needed and directed. MRI of the cervical spine: 1. No acute fracture, traumatic subluxation, or acute ligamentous injury. 2. Small C5 superior endplate Schmorl`s node associated with mild reactive marrow edema. 3. Mild spondylosis at C4-5 and C5-6 without spinal canal or neural foraminal stenosis. <Rogelio Cuellar MD - Last Filed: 03/05/22 08:44> Lab Data Lab results reviewed: Yes I reviewed the patient's lab results <Bina Emery MD - Last Filed: 03/05/22 03:11> Lab results narrative: See her calcium is low, will check an ionized calcium. <Bina Douglas MD - Last Filed: 03/05/22 03:11> Labs: Lab Results 03/05/22 03/05/22 03/05/22 Range/Units 01:37 01:37 01:37 WBC 7.37 (4.50-11.00) K/uL RBC 4.04 (4.00-5.20) m/uL Hgb 12.5 (12.0-16.0) gm/dL Hct 37.8 (33.0-51.0) % MCV 94 (80-100) fL MCH 31 (26-34) pg MCHC 33 (32-36) gm/dL RDW Coeff of Black 13.4 (11.5-15.5) % Plt Count 283 (140-440) K/uL Neut % (Auto) 62.8 (42.0-72.0) % Lymph % (Auto) 27.8 (20-44) % Logan % (Auto) 5.6 (0.0-11.0) % Eos % (Auto) 2.6 (0.0-7.0) % Baso % (Auto) 0.4 (0.0-3.0) % Neut # (Auto) 4.63 (1.7-7.0) K/uL Lymph # (Auto) 2.05 (0.90-2.90) K/uL Logan # (Auto) 0.40 (0.00-0.90) K/UL Eos # (Auto) 0.19 (0.00-0.50) K/uL Baso # (Auto) 0.03 (0.00-0.30) K/uL Abs Immat Gran (auto) 0.06 (0.00-0.30) K/uL Sodium 142 (135-149) mmol/L Potassium 4.8 (3.6-5.1) mmol/L Chloride 109 (96-114) mmol/L Carbon Dioxide 23 (20-32) mmol/L BUN 13 (5-24) mg/dL Creatinine 0.8 (0.5-1.5) mg/dL Estimated Creat Clear 77.33 Estimated GFR 95 ml/min Glucose 108 (60-115) mg/dL Lactate 1.7 (0.5-1.9) mmol/L Calcium 8.1 L (8.4-10.6) mg/dL Ionized Calcium Vinnie (1.11-1.30) mmol/L Total Bilirubin < 0.1 L (0.1-1.5) mg/dL AST 22 (12-35) U/L ALT 12 (4-35) U/L Alkaline Phosphatase 62 (40-150) U/L Total Protein 7.5 (6.0-8.3) g/dL Albumin 4.2 (3.3-5.0) g/dL Ethyl Alcohol 0.22 H (0.01-0.03) % 03/05/22 Range/Units 01:37 WBC (4.50-11.00) K/uL RBC (4.00-5.20) m/uL Hgb (12.0-16.0) gm/dL Hct (33.0-51.0) % MCV (80-100) fL MCH (26-34) pg MCHC (32-36) gm/dL RDW Coeff of Black (11.5-15.5) % Plt Count (140-440) K/uL Neut % (Auto) (42.0-72.0) % Lymph % (Auto) (20-44) % Logan % (Auto) (0.0-11.0) % Eos % (Auto) (0.0-7.0) % Baso % (Auto) (0.0-3.0) % Neut # (Auto) (1.7-7.0) K/uL Lymph # (Auto) (0.90-2.90) K/uL Logan # (Auto) (0.00-0.90) K/UL Eos # (Auto) (0.00-0.50) K/uL Baso # (Auto) (0.00-0.30) K/uL Abs Immat Gran (auto) (0.00-0.30) K/uL Sodium (135-149) mmol/L Potassium (3.6-5.1) mmol/L Chloride (96-114) mmol/L Carbon Dioxide (20-32) mmol/L BUN (5-24) mg/dL Creatinine (0.5-1.5) mg/dL Estimated Creat Clear Estimated GFR ml/min Glucose (60-115) mg/dL Lactate (0.5-1.9) mmol/L Calcium (8.4-10.6) mg/dL Ionized Calcium Vinnie 1.04 L (1.11-1.30) mmol/L Total Bilirubin (0.1-1.5) mg/dL AST (12-35) U/L ALT (4-35) U/L Alkaline Phosphatase (40-150) U/L Total Protein (6.0-8.3) g/dL Albumin (3.3-5.0) g/dL Ethyl Alcohol (0.01-0.03) % <Bina Emery MD - Last Filed: 03/05/22 03:11> Lab Results 03/05/22 03/05/22 03/05/22 Range/Units 01:37 01:37 01:37 WBC 7.37 (4.50-11.00) K/uL RBC 4.04 (4.00-5.20) m/uL Hgb 12.5 (12.0-16.0) gm/dL Hct 37.8 (33.0-51.0) % MCV 94 (80-100) fL MCH 31 (26-34) pg MCHC 33 (32-36) gm/dL RDW Coeff of Black 13.4 (11.5-15.5) % Plt Count 283 (140-440) K/uL Neut % (Auto) 62.8 (42.0-72.0) % Lymph % (Auto) 27.8 (20-44) % Logan % (Auto) 5.6 (0.0-11.0) % Eos % (Auto) 2.6 (0.0-7.0) % Baso % (Auto) 0.4 (0.0-3.0) % Neut # (Auto) 4.63 (1.7-7.0) K/uL Lymph # (Auto) 2.05 (0.90-2.90) K/uL Logan # (Auto) 0.40 (0.00-0.90) K/UL Eos # (Auto) 0.19 (0.00-0.50) K/uL Baso # (Auto) 0.03 (0.00-0.30) K/uL Abs Immat Gran (auto) 0.06 (0.00-0.30) K/uL Sodium 142 (135-149) mmol/L Potassium 4.8 (3.6-5.1) mmol/L Chloride 109 (96-114) mmol/L Carbon Dioxide 23 (20-32) mmol/L BUN 13 (5-24) mg/dL Creatinine 0.8 (0.5-1.5) mg/dL Estimated Creat Clear 77.33 Estimated GFR 95 ml/min Glucose 108 (60-115) mg/dL Lactate 1.7 (0.5-1.9) mmol/L Calcium 8.1 L (8.4-10.6) mg/dL Ionized Calcium Vinnie (1.11-1.30) mmol/L Total Bilirubin < 0.1 L (0.1-1.5) mg/dL AST 22 (12-35) U/L ALT 12 (4-35) U/L Alkaline Phosphatase 62 (40-150) U/L Total Protein 7.5 (6.0-8.3) g/dL Albumin 4.2 (3.3-5.0) g/dL Ethyl Alcohol 0.22 H (0.01-0.03) % 03/05/22 Range/Units 01:37 WBC (4.50-11.00) K/uL RBC (4.00-5.20) m/uL Hgb (12.0-16.0) gm/dL Hct (33.0-51.0) % MCV (80-100) fL MCH (26-34) pg MCHC (32-36) gm/dL RDW Coeff of Black (11.5-15.5) % Plt Count (140-440) K/uL Neut % (Auto) (42.0-72.0) % Lymph % (Auto) (20-44) % Logan % (Auto) (0.0-11.0) % Eos % (Auto) (0.0-7.0) % Baso % (Auto) (0.0-3.0) % Neut # (Auto) (1.7-7.0) K/uL Lymph # (Auto) (0.90-2.90) K/uL Logan # (Auto) (0.00-0.90) K/UL Eos # (Auto) (0.00-0.50) K/uL Baso # (Auto) (0.00-0.30) K/uL Abs Immat Gran (auto) (0.00-0.30) K/uL Sodium (135-149) mmol/L Potassium (3.6-5.1) mmol/L Chloride (96-114) mmol/L Carbon Dioxide (20-32) mmol/L BUN (5-24) mg/dL Creatinine (0.5-1.5) mg/dL Estimated Creat Clear Estimated GFR ml/min Glucose (60-115) mg/dL Lactate (0.5-1.9) mmol/L Calcium (8.4-10.6) mg/dL Ionized Calcium Vinnie 1.04 L (1.11-1.30) mmol/L Total Bilirubin (0.1-1.5) mg/dL AST (12-35) U/L ALT (4-35) U/L Alkaline Phosphatase (40-150) U/L Total Protein (6.0-8.3) g/dL Albumin (3.3-5.0) g/dL Ethyl Alcohol (0.01-0.03) % <Shahida Preston MD - Last Filed: 03/05/22 04:17> Lab Results 03/05/22 03/05/22 03/05/22 Range/Units 01:37 01:37 01:37 WBC 7.37 (4.50-11.00) K/uL RBC 4.04 (4.00-5.20) m/uL Hgb 12.5 (12.0-16.0) gm/dL Hct 37.8 (33.0-51.0) % MCV 94 (80-100) fL MCH 31 (26-34) pg MCHC 33 (32-36) gm/dL RDW Coeff of Black 13.4 (11.5-15.5) % Plt Count 283 (140-440) K/uL Neut % (Auto) 62.8 (42.0-72.0) % Lymph % (Auto) 27.8 (20-44) % Logan % (Auto) 5.6 (0.0-11.0) % Eos % (Auto) 2.6 (0.0-7.0) % Baso % (Auto) 0.4 (0.0-3.0) % Neut # (Auto) 4.63 (1.7-7.0) K/uL Lymph # (Auto) 2.05 (0.90-2.90) K/uL Logan # (Auto) 0.40 (0.00-0.90) K/UL Eos # (Auto) 0.19 (0.00-0.50) K/uL Baso # (Auto) 0.03 (0.00-0.30) K/uL Abs Immat Gran (auto) 0.06 (0.00-0.30) K/uL Sodium 142 (135-149) mmol/L Potassium 4.8 (3.6-5.1) mmol/L Chloride 109 (96-114) mmol/L Carbon Dioxide 23 (20-32) mmol/L BUN 13 (5-24) mg/dL Creatinine 0.8 (0.5-1.5) mg/dL Estimated Creat Clear 77.33 Estimated GFR 95 ml/min Glucose 108 (60-115) mg/dL Lactate 1.7 (0.5-1.9) mmol/L Calcium 8.1 L (8.4-10.6) mg/dL Ionized Calcium Vinnie (1.11-1.30) mmol/L Total Bilirubin < 0.1 L (0.1-1.5) mg/dL AST 22 (12-35) U/L ALT 12 (4-35) U/L Alkaline Phosphatase 62 (40-150) U/L Total Protein 7.5 (6.0-8.3) g/dL Albumin 4.2 (3.3-5.0) g/dL Ethyl Alcohol 0.22 H (0.01-0.03) % 03/05/22 Range/Units 01:37 WBC (4.50-11.00) K/uL RBC (4.00-5.20) m/uL Hgb (12.0-16.0) gm/dL Hct (33.0-51.0) % MCV (80-100) fL MCH (26-34) pg MCHC (32-36) gm/dL RDW Coeff of Black (11.5-15.5) % Plt Count (140-440) K/uL Neut % (Auto) (42.0-72.0) % Lymph % (Auto) (20-44) % Logan % (Auto) (0.0-11.0) % Eos % (Auto) (0.0-7.0) % Baso % (Auto) (0.0-3.0) % Neut # (Auto) (1.7-7.0) K/uL Lymph # (Auto) (0.90-2.90) K/uL Logan # (Auto) (0.00-0.90) K/UL Eos # (Auto) (0.00-0.50) K/uL Baso # (Auto) (0.00-0.30) K/uL Abs Immat Gran (auto) (0.00-0.30) K/uL Sodium (135-149) mmol/L Potassium (3.6-5.1) mmol/L Chloride (96-114) mmol/L Carbon Dioxide (20-32) mmol/L BUN (5-24) mg/dL Creatinine (0.5-1.5) mg/dL Estimated Creat Clear Estimated GFR ml/min Glucose (60-115) mg/dL Lactate (0.5-1.9) mmol/L Calcium (8.4-10.6) mg/dL Ionized Calcium Vinnie 1.04 L (1.11-1.30) mmol/L Total Bilirubin (0.1-1.5) mg/dL AST (12-35) U/L ALT (4-35) U/L Alkaline Phosphatase (40-150) U/L Total Protein (6.0-8.3) g/dL Albumin (3.3-5.0) g/dL Ethyl Alcohol (0.01-0.03) % <Rogelio Cuellar MD - Last Filed: 03/05/22 08:44> Imaging Data CT scan - head: Attestation: I have reviewed the pertinent imaging results. <Bina Douglas MD - Last Filed: 03/05/22 03:11> Radiologist's impression: Patient: BERNARDA AMAYA Facility:?[facility] Patient ID:?[id number] Site Patient ID:?[id number]. Site :?[id number] Study:?CT Head w/o Contrast-03/05/2022 1:19:54 AM Ordering Physician:?Yuly Curran Final Report: INDICATION: Head injury, unwitnessed fall, loss of consciousness. TECHNIQUE: CT head without contrast. COMPARISON: None. FINDINGS: Cerebral parenchyma: No evidence of acute territorial infarct. No acute intraparenchymal hemorrhage. No significant mass effect/midline shift. Normal ramos-white matter differentiation. Extra-axial spaces: No extra-axial collection or hemorrhage. Ventricles: Unremarkable. Calvarium: Intact. Visualized paranasal sinuses/mastoid air cells: Grossly clear. Posterior fossa: No cerebellar tonsillar herniation. Visualized orbits: Unremarkable IMPRESSION: No acute intracranial abnormality. Specifically, no evidence of acute intracranial hemorrhage. Please note that all CT scans at this facility use dose modulation, iterative reconstruction, and/or weight-based dosing when appropriate to reduce radiation dose to as low as reasonably achievable. Dictated by Radha Fitzgerald MD @ 03/05/2022 1:29:12 AM (Electronic Signature) <Bina Emery MD - Last Filed: 03/05/22 03:11> CT- Other: Attestation: I have reviewed the pertinent imaging results. <Bina Douglas MD - Last Filed: 03/05/22 03:11> Radiologist's impression: Patient: BERNARDA AMAYA Facility:?[facility] Patient ID:?[id number] Site Patient ID:?[id number]. Site :?1980 Study:?CT Spine Cervical w/o Contrast-03/05/2022 1:20:16 AM Ordering Physician:?Yuly Curran Final Report: INDICATION: Trauma, fall. TECHNIQUE: CT cervical spine without contrast. COMPARISON: None FINDINGS: Vertebrae: There is mild vertebral body height loss at the superior endplate of C5. No significant central canal stenosis. No evidence of traumatic malalignmen t. Discs and facet joints: Disc spaces and facets are within normal limits. Extraspinal findings: Prevertebral soft tissues are within normal limits. Visualized airway is patent. Lung apices are grossly clear. IMPRESSION: Mild vertebral body height loss at the superior endplate of C5. This may be secondary to degenerative change, however correlation with point tenderness and neurologic exam is recommended. No significant central canal stenosis. No evidence of traumatic malalignment. Please note that all CT scans at this facility use dose modulation, iterative reconstruction, and/or weight-based dosing when appropriate to reduce radiation dose to as low as reasonably achievable. Dictated by Radha Fitzgerald MD @ 03/05/2022 1:38:38 AM (Electronic Signature) <Bina Emery MD - Last Filed: 03/05/22 03:11> Critical Care Time Critical Care Time Critical Care Time: No <Bina Emery MD - Last Filed: 03/05/22 03:11> Discharge Plan Discharge Clinical Impression: Alcohol intoxication, Syncope, Laceration of scalp <Bina Emery MD - Last Filed: 03/05/22 03:11> Patient Disposition: Home w/ Parent or Adult <Bina Emery MD - Last Filed: 03/05/22 03:11> Condition: Stable <Bina Emery MD - Last Filed: 03/05/22 03:11> Instructions: Care For Your Stitches (ED), Laceration (ED) <Bina Emery MD - Last Filed: 03/05/22 03:11> Additional Instructions: Need to schedule a clinic followup in about 7 days to assess the scalp for suture removal. May shower as usual but be very careful when combing her hair to not disrupt the sutures. Recommend limiting alcohol intake. Fine to use Tylenol and/or ibuprofen for any discomfort, follow bottle directions for dosing. <Bina Emery MD - Last Filed: 03/05/22 03:11> Activity Level: Activity as Tolerated <Bina Emery MD - Last Filed: 03/05/22 03:11> Activity as Tolerated <Shahida Preston MD - Last Filed: 03/05/22 04:17> Activity as Tolerated <Rogelio Cuellar MD - Last Filed: 03/05/22 08:44> Prescriptions: No Action escitalopram oxalate [Lexapro] 10 mg tablet 10 mg PO DAILY alprazolam [Xanax] 1 mg tablet 1 mg PO DAILY oral control <Bina Emery MD - Last Filed: 03/05/22 03:11> Follow Up/Referrals: Catracho Elizalde MD [Staff Physician] - <Bina Emery MD - Last Filed: 03/05/22 03:11> Stand Alone Forms: MyHealth Info Instructions <Bina Emery MD - Last Filed: 03/05/22 03:11> Procedures Laceration Laceration 1: Pre procedure diagnosis: Scalp laceration <Bina Emery MD - Last Filed: 03/05/22 03:11> Post procedure diagnosis: Same <MD Rosalio Perez Last Filed: 03/05/22 03:11> Site marking: not applicable <MD Rosalio Perez Last Filed: 03/05/22 03:11> Verification/time out: correct patient, correct site and correct procedure <Bina Millan MD - Last Filed: 03/05/22 03:11> Name of person performing procedure: Bina Emery <MD Rosalio Perez Last Filed: 03/05/22 03:11> Site: scalp <MD Rosalio Perez Last Filed: 03/05/22 03:11> Size (cm): 2 <MD Rosalio Perez Last Filed: 03/05/22 03:11> Description: linear and clean <MD Rosalio Perez Last Filed: 03/05/22 03:11> Depth: simple, single layer <MD Rosalio Perez Last Filed: 03/05/22 03:11> Local Anesthetic: lidocaine 1% <MD Rosalio Perez Last Filed: 03/05/22 03:11> Amount of anesthesia used (mL): 5 <MD Rosalio Perez Last Filed: 03/05/22 03:11> Pre-repair: wound explored and irrigated extensively <MD Rosalio Perez Last Filed: 03/05/22 03:11> Skin layer closed with: other (Prolene) <MD Rosalio Perez Last Filed: 03/05/22 03:11> Size (cm): 4-0 <MD Rosalio Perez Last Filed: 03/05/22 03:11> Number of sutures: 6 <MD Rosalio Perez Last Filed: 03/05/22 03:11> Technique: simple, interrupted <Bina Emery MD - Last Filed: 03/05/22 03:11> Estimated blood loss (if any): less than 5mls <Bina Emery MD - Last Filed: 03/05/22 03:11> Conclusion: patient tolerated procedure <Bina Emery MD - Last Filed: 03/05/22 03:11>
[2022-03-05] MEDS: ONDANSETRON 2 MG/ML inj 4 MG IVP ×3 (01:36→08:38)
[2022-03-05 01:42] LABS: Lactate* 1.7 mmol/L (0.5-1.9)
[2022-03-05 01:44] LABS: Basophils Absolute Auto 0.03 K/uL (0.00-0.30); Basophils Percent Auto 0.4 % (0.0-3.0); Eosinophils Absolute Auto 0.19 K/uL (0.00-0.50); Eosinophils Percent Auto 2.6 % (0.0-7.0); Hematocrit 37.8 % (33.0-51.0); Hemoglobin* 12.5 gm/dL (12.0-16.0); Immature Granulocytes Abs Auto 0.06 K/uL (0.00-0.30); Lymphocytes Absolute Auto 2.05 K/uL (0.90-2.90); Lymphocytes Percent Auto 27.8 % (20-44); Mean Corpuscular HGB Conc 33 gm/dL (32-36); Mean Corpuscular Hemoglobin 31 pg (26-34); Mean Corpuscular Volume 94 fL (80-100); Monocytes Percent Auto 5.6 % (0.0-11.0); Neutrophils Absolute Auto 4.63 K/uL (1.7-7.0); Neutrophils Percent Auto 62.8 % (42.0-72.0); Platelet Count* 283 K/uL (140-440); RDW Coefficient of Variation % 13.4 % (11.5-15.5); Red Blood Count 4.04 m/uL (4.00-5.20); White Blood Count* 7.37 K/uL (4.50-11.00)
[2022-03-05] MEDS: 0.9 % SODIUM CHLORIDE 1000 ml 1,000 ML IV (01:47)
[2022-03-05 01:51] LABS: Slide Review Reflex No
[2022-03-05 01:58] LABS: Albumin* 4.2 g/dL (3.3-5.0); Chloride* 109 mmol/L (96-114)
--- OUTSIDE RECORDS SUMMARY | 2022-03-05 01:58 | XMS_ITS | Encounter Summary ---
:1980 Author Organization [place] Address [facility] access hospital0 [facility] [place] [address] Care Team Providers Name Role Phone Louise Brink MD Primary Care Provider Louise Brink MD Unavailable Encounter Details Date Type Department Care Team Description 09/11/2019 Telephone [facility] [address] [place], [place] [phone] Social History Tobacco Use [...] Depression Total Score: 1 07/08/2019 5:45 PM ENVIRONMENTAL SERVICES SPECIALIST documented as of this encounter Care Teams Roll Weigher Relationship Specialty Start Date End Date Louise Brink MD PCP - General Family Practice 07/29/13 09/07/21 [address] [place] [address] Louise Brink MD Assigned PCP 08/11/13 10/21/21 [address] [address] [place] [id number] documented as of this encounter
--- OUTSIDE RECORDS SUMMARY | 2022-03-05 01:58 | XMS_ITS | Encounter Summary ---
:1980 Author Organization [place] Address [address] [place] [address] Care Team Providers Name Role Phone Louise [...] Depression Total Score: 1 05/30/2018 5:44 PM LITURGICAL MUSIC DIRECTOR documented as of this encounter Care Teams Supervisor Metal Cans Relationship Specialty Start Date End Date Louise Brink MD PCP - General Family Practice 07/29/13 09/07/21 [id number] [address] [place] [address] Louise Brink MD Assigned PCP 08/11/13 10/21/21 [address] [address] [place] [address] documented as of this encounter
--- OUTSIDE RECORDS SUMMARY | 2022-03-05 01:58 | XMS_ITS | Encounter Summary ---
:1980 Author Organization [place] Address [address] [facility] [place] [address] Care Team Providers Name Role Phone Louise Brink MD Primary Care Provider Louise Brink MD Unavailable Reason for Visit Reason Comments Annual Visit Encounter Details Date Type Department Care Team Description 11/11/2020 Office Visit [facility] Louise Brink MD Encounter for routine adult health exami nation without abnormal findings (Primary Dx); Clinic [place] [address] [address] Anxiety; [address] Screening for HIV (human immunodeficienc y virus); [address] [place], [place] Need for hepatitis C screeni ng test; [place] [address] Encounter for surveillance of contracept eleni pills; [...] Prophylaxis Lung CA Screening Louise Brink MD, [facility] documented in this encounter Plan [...] Signature Glucose 80 70 - 99 11/12/2020 JBSA RANDOLPH mg/dL 8:11 AM CDT [facility] Comment: Fasting specimen Specimen Anatomical Collection Method Collection Time Receive d Time (Source) Location / / Volume Laterality Blood 11/11/2020 1:31 PM 1:32 CDT PM CDT Louise Brink MD LAB - BLOOD ORDERABLES Performing Organization Address City/State/ZIP Code Phon e Number [facility] [address] [address] [facility] [address] [address], U [phone] (ABNORMAL) Lipid panel reflex to direct LDL Fasting (11/11/2020 1:31 PM CDT) P athologist Signature Cholesterol 250 (H) <200 mg/dL 11/12/2020 [facility] 8:14 AM T [facility] Comment: Desirable: <200 mg/dl Triglycerides 92 <150 mg/dL 11/12/2020 8:15 AM T [facility] Comment: Fasting specimen HDL Cholesterol 80 >49 mg/dL 11/12/2020 8:29 AM [facility] LDL Cholesterol 152 (H) <100 mg/dL 11/12/2020 8:29 AM [facility] Comment: Above desirable: ??100-129 mg/dl Borderline High: ??130-159 mg/dL High: ? 160-189 mg/dL Very high: ? >189 mg/dl Non HDL Cholesterol 170 (H) <130 mg/dL 11/12/2020 8:29 AM [facility] Comment: Above Desirable: ??130-159 mg/dl Borderline high: ??160-189 mg/dl High: ? 190-219 mg/dl Very high: ? >219 mg/dl Specimen Anatomical Collection Method Collection Time Receive d Time (Source) Location / / Volume Laterality Blood 11/11/2020 1:31 PM 1:32 CDT PM CDT Louise Brink MD LAB - BLOOD ORDERABLES Performing Organization Address City/State/ZIP Code Phon e Number [facility] [address] [place] [address] Hepatitis C Screen Reflex to HCV RNA Quant and Genotype (11/11/2020 1:31 PM CDT) [facility] Method Time Signature Hepatitis C Nonreactive NR^Nonrea 11/12/2020 [facility] ctive 1:05 PM CDT [facility] Comment: Assay performance characteristics have n ot been established for newborns, infants, and children Specimen Anatomical Collection Method Collection Time Receive d Time (Source) Location / / Volume Laterality Blood 11/11/2020 1:31 PM 1 1:32 CDT PM CDT Louise Brink MD LAB - BLOOD ORDERABLES Performing Organization Address City/[facility]/ZIP Code Phon e Number [facility] [address] HIV Antigen Antibody Combo (11/11/2020 1:31 PM CDT) [facility] gist Method Time Signature HIV Antigen Nonreactive NR^Nonrea 11/12/2020 [facility] Antibody ctive 1:02 PM CDT [facility] Comment: HIV-1 p24 Ag & HIV-1/HIV-2 Ab N ot Detected Specimen Anatomical Collection Method Collection Time Receive d Time (Source) Location / / Volume Laterality Blood 11/11/2020 1:31 PM 1 1:32 CDT PM CDT Louise Brink MD LAB - BLOOD ORDERABLES Performing Organization Address City/[facility]/ZIP Code Phon e Number [facility] [address] documented in this encounter Visit Diagnoses [...] documented as of this encounter Care Teams Competitive Intelligence Analyst Relationship Specialty Start Date End Date Louise Brink MD PCP - General Family Practice 07/29/13 09/07/21 [address] [address] [address] Louise Brink MD Assigned PCP 08/11/13 10/21/21 [address] [address] [id number] documented as of this encounter
--- OUTSIDE RECORDS SUMMARY | 2022-03-05 01:58 | XMS_ITS | Encounter Summary ---
:1980 Author Organization [place] Address [facility] [address] Care Team Providers Name Role Phone Louise Brink MD Primary Care Provider Louise Brink MD Unavailable Reason for Visit Reason Comments Throat Pain complains of throat pain fo r 1 week today ,no chills or fever. tx pt denies any treatment @ home Encounter Details Date Type Department Care Team Description 05/25/2019 Office Visit [facility] Annachiquita Peri Viral URI (Primary Dx); Urgent Care Manny Thompson PA-C Throat pain [address] [address] [facility] [place] [address] [place], [place] [id number] Social History Tobacco Use Types Packs/Day Years Used Date Smoking Tobacco: Never Smokeless Tobacco: Never Alcohol Use Standard Drinks/Week Comments Yes 0 (1 standard drink = 0.6 oz pure alcoho l) Sex Assigned at Date Recorded Female 10/26/2020 1:28 AM CDT documented as of this encounter Last Filed Vital Signs Vital Sign Reading Time Taken Comments Blood Pressure 118/78 05/25/2019 5:06 PM LOST CHARGE CARD CLERK Pulse 91 05/25/2019 5:06 PM LOST CHARGE CARD CLERK Temperature 36.9 ??C (98.4 ??F) 05/25/2019 5:06 PM LOST CHARGE CARD CLERK Respiratory Rate - - Oxygen Saturation 98% 05/25/2019 5:06 PM LOST CHARGE CARD CLERK Inhaled Oxygen Concentration - - Weight 70.9 kg (156 lb 4.8 oz) 05/25/2019 5:06 PM LOST CHARGE CARD CLERK Height - - Body Mass Index 27.47 05/30/2018 4:50 PM LOST CHARGE CARD CLERK documented in this encounter Patient Instructions Patient InstructionsPeri Romero PA-C - 05/25/2019 5:00 PM LOST CHARGE CARD CLERK Images from the original note were not [...] secretions in the nose and lungs. ?? Ehjx-uek-lhvektl cold medicines will not shorten the length of time you???re sick, but they may be helpful for the following symptoms: cough, sore throat, and nasal and sinus congestion. If you takeprescription medicines, ask your healthcare provider or pharmacist which jewg-glu-zdldnpj medicines are safe to use. (Note: Don't [...] muffled voice Date Last Reviewed: 10/12/2017 ?? [id number] The [employer]. [address] [place] [address]. All rights reserved. This information is not intended as a substitute for professional medical care. Always follow your healthcare professional's instructions. CHARGE CARD CLERK documented in this encounter Progress Notes Peri [...] and Medical/Social/Surgical histories reviewed in [facility] andupdated as appropriate. Review of Systems Constitutional: [...] provider if not better. NELLIE Hogan PA-C [facility] CHARGE CARD CLERK documented in this encounter Plan of Treatment Not on filedocumented as of this encounter Procedures Procedure Name Priority Date/Time Associated Diagnosis Comme nts BETA HEMOLYTIC Routine 05/25/2019 5:29 PM Throat pain Results for this STREP GROUP A LOST CHARGE CARD CLERK procedure are in CULTURE the results section. RAPID STREP SCREEN Routine 05/25/2019 5:03 PM Throat pain Res ults for this THROAT SWAB LOST CHARGE CARD CLERK procedure are i n the results section. documented in this encounter Results Beta strep group A culture (05/25/2019 5:29 PM LOST CHARGE CARD CLERK) Component Value Ref Test Analysis [facility] Range Method Time Signature Specimen Throat [facility] Culture Micro No beta 05/26/2019 ALICE hemolytic 1:29 PM LOST CHARGE CARD CLERK CLINICS Streptococcus SOLWAY Group A isolated Specimen Anatomical Collection Method Collection Time Receive d Time (Source) Location / / Volume Laterality Specimen from 05/25/2019 5:29 PM 05/25/19 20 5:30 throat LOST CHARGE CARD CLERK PM LOST CHARGE CARD CLERK (specimen) Peri Romero PA-C LAB - MICRO GENERAL ORDERA BLES Performing Organization Address City/State/ZIP Code Phon e Number [facility] [address] [place] [address] Strep, Rapid Screen (05/25/2019 5:03 PM LOST CHARGE CARD CLERK) Component Value Ref Test Analysis Performed At [facility] Range Method Time Signature Specimen Throat [facility] Rapid Strep A NEGATIVE: No 05/25/2019 ALICE Screen Group A 5:29 PM LOST CHARGE CARD CLERK CLINICS streptococcal SOLWAY antigen detected by immunoassay, await culture report. Specimen Anatomical Collection Method Collection Time Receive d Time (Source) Location / / Volume Laterality Specimen from 05/25/2019 5:03 PM 05/25/19 20 5:04 throat LOST CHARGE CARD CLERK PM LOST CHARGE CARD CLERK (specimen) Earlene Eunice Lipscomb PA-C LAB - MICRO GENERAL ORDERABL ES Performing Organization Address City/State/[facility] Code Phon e Number [facility] [address] [place] [address] documented in this encounter Visit Diagnoses Diagnosis Viral URI - Primary Acute upper respiratory infections of un specified site Throat pain documented in this encounter Additional Health Concerns Assessment Noted Time PHQ-9 Depression Total Score: 1 05/30/2018 5:44 PM LOST CHARGE CARD CLERK documented as of this encounter Care Teams Director Of Healthcare Systems Relationship Specialty Start Date End Date Louise Brink MD PCP - General Family Practice 07/29/13 09/07/21 [id number] [address] [id number] Louise Brink MD Assigned PCP 08/11/13 10/21/21 [address] [address] [id number] documented as of this encounter
--- OUTSIDE RECORDS SUMMARY | 2022-03-05 01:58 | XMS_ITS | Encounter Summary ---
:1980 Author Organization [place] Address [address] [place] [address] Care Team Providers Name Role Phone Louise Brink MD Unavailable Elizabeth Can PA-C Primary Care Provider Reason for Visit Reason Comments Recheck Medication Pt is fasting Encounter Details Date Type Department Care Team Description 10/14/2021 Office Visit [facility] Elizabeth Can Routi ne general medical examination at a health care facility (Primary Dx); Clinic [facility] [place] Anxiety; [address] [address] [address] [address] Encounter f or surveillance of contraceptive pills; [facility] Lipid screening; [place] [place] Visit for scr eening mammogram; [phone] History of COVID-19; [phone] Overweight (BMI 25.0-29.9) (Work) Social History Tobacco [...] history of blood clotting disorder. No HTN. 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 Mammogram Screening - [...] (157 lb 11.2 oz) LMP 10/12/2021 (Approximate) HoA116% No BMI 27.94 kg/m?? Physical Exam GENERAL: [...] Prophylaxis Lung CA Screening Elizabeth Can PA-C [facility] documented in this encounter Plan [...] and gender (Dennis et al., NEM, DOI: 10.1056/[id number]) Specimen Anatomical Collection Method / Collection Time Recei dione Time (Source) Location / Volume Laterality Blood STRUCTURE OF RIGHT Venipuncture / 10/14/2021 2:57 06/0 07/2021 2:57 UPPER LIMB / Unknown PM CDT PM CDT Unknown Elizabeth Can PA-C LAB - BLOOD ORDERABLES Performing Organization Address City/State/ZIP Code Phon e Number [facility] [place], [place] [phone] [facility] [address] [place] [address] Lab (no room number, 1st floor of clinic) [facility] [place], [place] [phone] [facility] [phone] [address] Lab (no room number, 1st floor of clinic) (ABNORMAL) Lipid panel reflex to direct LDL Fasting (10/14/2021 2:57 PM CDT) [facility] Method Time Signature Cholesterol 225 (H) [...] City/State/ZIP Code Phon e Number [facility] [place], [place] [phone] [facility] [address] [place] [address] Lab (no room number, 1st floor of clinic) [facility] [place], [place] [phone] [facility] - [address] [facility] [address] Lab (no room number, 1st floor [...] documented as of this encounter Care Teams Conservation Planner Relationship Specialty Start Date End Date Elizabeth Can PA-C PCP - General Family Medicine 10/14/21 [address] [address] [address] Louise Brink MD Assigned PCP 08/11/13 10/21/21 [address] [address] [place] [address] documented as of this encounter
--- OUTSIDE RECORDS SUMMARY | 2022-03-05 01:58 | XMS_ITS | Encounter Summary ---
:1980 Author Organization [place] Address [address] [facility] [place] [address] Care Team Providers Name Role Phone Lousie Brink MD Primary Care Provider Louise Brink MD Unavailable Reason for Visit Reason Onset Date Comments Medication Refill 06/28/2020 TRI-LINYAH 0.18/0.21 5/0.25 TABS Encounter Details Date Type Department Care Team Description 06/28/2020 Refill [facility] Louise Brink MD Medication Refill Clinic [place] [address] [address] (TRI-LINYAH [address] [address] [place] [address] 0.18/0.215/0.25 TABS) [place] [phone] (Wo rk) [address] [phone] Social History Tobacco Use Types Packs/Day Years Used Date Smoking Tobacco: Never Smokeless Tobacco: Never Alcohol Use Standard Drinks/Week Comments Yes 0 (1 standard drink = 0.6 oz pure alcoho l) Sex Assigned at Date Recorded Female 10/26/2020 1:28 AM CDT documented as of this encounter Miscellaneous Notes Telephone Encounter - Malena Mcpherson - 06/30/2020 12:28 PM CST Mailed out letter [facility] REGULATORY AFFAIRS MANAGER Telephone Encounter - My Haddad RN - 06/30/2020 11:58 AM GLOBAL REGULATORY AFFAIRS MANAGER Medication is being filled for 1 time refill only due to: Patient needs to be seen because it has been more than one year since last visit. Routing to TC team to assist pt in scheduling. XOCHILT 06/17/2019 My Ventura RN [facility] REGULATORY AFFAIRS MANAGER Telephone Encounter - Gina Staton - 06/28/2020 [...] No positive test in past 12 months AL REGULATORY AFFAIRS MANAGER documented in this encounter Plan of Treatment Not on filedocumented as of this encounter Visit Diagnoses Diagnosis Encounter for surveillance of contracept eleni pills Surveillance of previously prescribed co ntraceptive pill documented in this encounter Additional Health Concerns Assessment Noted Time PHQ-9 Depression Total Score: 1 04/13/2020 7:03 AM GLOBAL REGULATORY AFFAIRS MANAGER documented as of this encounter Care Teams Press Tender Long Goods Relationship Specialty Start Date End Date Louise Brink MD PCP - General Family Practice 07/29/13 09/07/21 [address] [address] [address] Louise Brink MD Assigned PCP 08/11/13 10/21/21 [address] [address] [address] documented as of this encounter
--- OUTSIDE RECORDS SUMMARY | 2022-03-05 01:58 | XMS_ITS | Encounter Summary ---
:1980 Author Organization [place] Address [address] [place] [address] Care Team Providers Name Role Phone Louise [...] Depression Total Score: 1 05/30/2018 5:44 PM PECAN PICKER documented as of this encounter Care Teams Concrete Grinder Operator Relationship Specialty Start Date End Date Louise Brink MD PCP - General Family Practice 07/29/13 09/07/21 [address] [address] [address] Louise Brink MD Assigned PCP 08/11/13 10/21/21 [address] [address] [address] documented as of this encounter
--- OUTSIDE RECORDS SUMMARY | 2022-03-05 01:58 | XMS_ITS | Encounter Summary ---
:1980 Author Organization [place] Address [address] [facility] [place] [address] Care Team Providers Name Role Phone Louise Brink MD Primary Care Provider Louise Brink MD Unavailable Reason for Visit Reason Comments Recheck Medication Encounter Details Date Type Department Care Team Description 08/31/2020 Virtual Visit [facility] Louise Brink MD Anxiety; Clinic [place] [address] [facility] Encounter for surveillance of contracept eleni pills [address] [place], [place] [address] [address] [place], [place] [phone] [address] (Work) [phone] Social History Tobacco Use Types Packs/Day Years [...] be resent by: Text to cell phone: [phone] Will anyone else be joining your video [...] No follow-ups on file. Louise Brink MD, [facility] MIKKI Gonzales is a 40 year old [...] (pt. Location): Home Distant Location (provider location): [facility] [employer] Platform used for Video Visit: Segundo documented [...] documented as of this encounter Care Teams Golf Club Weigher Relationship Specialty Start Date End Date Louise Brink MD PCP - General Family Practice 07/29/13 09/07/21 [address] [address] [address] Louise Brink MD Assigned PCP 08/11/13 10/21/21 [address] [address] [place] [id number] documented as of this encounter
--- OUTSIDE RECORDS SUMMARY | 2022-03-05 01:58 | XMS_ITS | Clinical Summary ---
:1980 Author Organization [place] Address [address] [place] [address] Care Team Providers Name Role Phone Elizabeth aCn PA-C Primary Care Provider Elizabeth Can PA-C [...] T ype Group Dates PREFERREDONE PREFERREDONE HMO [id number] 2019-Prese [phone] [address] [address] [address]PO [address] [place] [address] Care Teams Commercial Manager Relationship Specialty Start Date End Date Elizabeth Can PA-C PCP - General Family Medicine 10/14/21 [address] [place], [place] [id number] Elizabeth Can PA-C Assigned [facility] 10/22/21 [address] [place] [address]
--- OUTSIDE RECORDS SUMMARY | 2022-03-05 01:58 | XMS_ITS | Encounter Summary ---
:1980 Author Organization [place] Address [address] [place] [address] Care Team Providers Name Role Phone Louise [...] documented as of this encounter Care Teams Sheet Metal Duct Installer Helper Relationship Specialty Start Date End Date Louise Brink MD PCP - General Family Practice 07/29/13 09/07/21 [address] [address] [address] Louise Brink MD Assigned PCP 08/11/13 10/21/21 [address] [address] [address] documented as of this encounter
--- OUTSIDE RECORDS SUMMARY | 2022-03-05 01:58 | XMS_ITS | Encounter Summary ---
:1980 Author Organization [place] Address [address] [place] [address] Care Team Providers Name Role Phone Elizabeth Can PA-C Primary Care Provider Elizabeth Can PA-C Unavailable Reason for Visit Diagnostic Imaging Mammo (Routine) - Pending Review Specialty Diagnoses / Procedures Referred By Contact Refer red To Contact Diagnoses Visit for screening mammogram Elizabeth Can PA-C Procedures MA Screen Bilateral w/Carlos *MA Screening Digital Bilateral [address] [place] [address] Referral ID Status Reason Start Date Expiration Date Visits V isits Requested Authorized [id number] Pending 10/14/2021 10/14/2022 1 1 Review Encounter Details Date Type Department Care Team Description 11/25/[address] [facility] [place] mammogram [address] [place] [address] Social History Tobacco Use Types [...] documented as of this encounter Care Teams Wire Web Worker Relationship Specialty Start Date End Date Elizabeth Can PA-C PCP - General Family Medicine 10/14/21 [address] [place] [address] Elizabeth Can PA-C Assigned PCP 10/22/21 [address] [place], [place] [id number] documented as of this encounter
--- OUTSIDE RECORDS SUMMARY | 2022-03-05 01:58 | XMS_ITS | Encounter Summary ---
:1980 Author Organization [place] Address [address] [place] [address] Care Team Providers Name Role Phone Louise [...] documented as of this encounter Care Teams Tattoo Artist Relationship Specialty Start Date End Date Louise Brink MD PCP - General Family Practice 07/29/13 09/07/21 [address] [address] [id number] Louise Brink MD Assigned PCP 08/11/13 10/21/21 [address] [address] [id number] documented as of this encounter
--- OUTSIDE RECORDS SUMMARY | 2022-03-05 01:58 | XMS_ITS | Encounter Summary ---
:1980 Author Organization [place] Address [address] [place] [address] Care Team Providers Name Role Phone Louise Brink MD Primary Care Provider Louise Brnik MD Unavailable Reason for Visit Reason Onset Date Comments Imm/Inj 03/05/2019 Flu Shot Encounter Details Date Type Department Care Team Description 03/05/2019 Allied Health/[facility] Imm/Inj (Flu Shot) Visit [place] [address] [address] [address] Social History Tobacco Use Types Packs/Day [...] Depression Total Score: 1 05/30/2018 5:44 PM MOLDING AND TRIM INSTALLER documented as of this encounter Care Teams Metal Model Builder Relationship Specialty Start Date End Date Louise Brink MD PCP - General Family Practice 07/29/13 09/07/21 [address] [address] [id number] Louise Brink MD Assigned PCP 08/11/13 10/21/21 [address] [address] [address] documented as of this encounter
--- OUTSIDE RECORDS SUMMARY | 2022-03-05 01:58 | XMS_ITS | Encounter Summary ---
:1980 Author Organization [place] Address [facility] [place] [address] Care Team Providers Name Role Phone Louise Brink MD Primary Care Provider Louise Brink MD Unavailable Elizabeth Can PA-C Primary Care Provider Elizabeth Can PA-C Unavailable Reason for Visit Reason Comments Medication Refill Encounter Details Date Type Department Care Team Description 10/04/2020 Refill [facility] Louise Brink MD Medication Refill [place] [address] [address] [facility] [place] [address] [place] [address] [phone] Social History Tobacco Use Types Packs/Day Years Used Date Smoking Tobacco: Never Smokeless Tobacco: Never Alcohol Use Standard Drinks/Week Comments Yes 0 (1 standard drink = 0.6 oz pure alcoho l) Sex Assigned at Date Recorded Female 10/26/2020 1:28 AM CDT documented as of this encounter Miscellaneous Notes Telephone Encounter - Maia Calixto RN - 10/05/2020 11:45 AM CDT Prescription approved per [facility] protocol. Maia Calixto RN on 10/05/2020 at 11:44 AM documented in this encounter Plan of Treatment Not on filedocumented as of this encounter Visit Diagnoses Diagnosis Anxiety Anxiety state, unspecified documented in this encounter Additional Health Concerns Assessment Noted Time PHQ-9 Depression Total Score: 1 08/31/2020 5:18 PM CDT documented as of this encounter Care Teams Server Engineer Relationship Specialty Start Date End Date Louise Brink MD PCP - General Family Practice 07/29/13 09/07/21 [address] [place] [id number] Elizabeth Can PA-C PCP - General Family Medicine 10/14/21 [address] [facility] [place] [id number] Louise Brink MD Assigned PCP 08/11/13 10/21/21 [address] [id number] Elizabeth Can PA-C Assigned PCP 10/22/21 [address] [facility] [place] [id number] documented as of this encounter
--- OUTSIDE RECORDS SUMMARY | 2022-03-05 01:58 | XMS_ITS | Encounter Summary ---
:1980 Author Organization [place] Address [address] [facility] [place] [address] Care Team Providers Name Role Phone Louise Brink MD Primary Care Provider Louise Brink MD Unavailable Reason for Visit Reason Onset Date Comments Refill Request 08/01/2020 ALPRAZolam (XANAX) 0 .25 MG tablet Encounter Details Date Type Department Care Team Description 08/01/2020 MyC Refill [facility] Louise Brink MD Refill Request Clinic [place] [address] (ALPRAZolam (XANAX) [address] [place] [address] 0.25 MG... [address] [place] [phone] (Wo rk) [address] [phone] Social History Tobacco Use Types Packs/Day Years Used Date Smoking Tobacco: Never Smokeless Tobacco: Never Alcohol Use Standard Drinks/Week Comments Yes 0 (1 standard drink = 0.6 oz pure alcoho l) Sex Assigned at Date Recorded Female 10/26/2020 1:28 AM CDT documented as of this encounter Miscellaneous Notes Telephone Encounter - Melinda No RN - 08/02/2020 12:08 PM CDT SocMetricst message sent to patient. Melinda No RN [...] or Health refill protocol or controlled substance. DRILLER BRAKE LINING checked 08/02/2020: Nothing on DRILLER BRAKE LINING in the last year. Melinda oN RN documented in this encounter Plan of Treatment Not on filedocumented as of this encounter Visit Diagnoses Diagnosis Anxiety Anxiety state, unspecified documented in this encounter Additional Health Concerns Assessment Noted Time PHQ-9 Depression Total Score: 1 04/13/2020 7:03 AM PLANETARIUM TECHNICIAN documented as of this encounter Care Teams Data Architect Manager Relationship Specialty Start Date End Date Louise Brink MD PCP - General Family Practice 07/29/13 09/07/21 [address] [address] [address] Louise Brink MD Assigned PCP 08/11/13 10/21/21 [address] [address] [id number] documented as of this encounter
--- OUTSIDE RECORDS SUMMARY | 2022-03-05 01:58 | XMS_ITS | Encounter Summary ---
:1980 Author Organization [place] Address [address] [place] [address] Care Team Providers Name Role Phone Louise [...] Depression Total Score: 1 07/08/2019 5:45 PM INFECTION PREVENTION SPECIALIST documented as of this encounter Care Teams It Support Consultant Relationship Specialty Start Date End Date Louise Brink MD PCP - General Family Practice 07/29/13 09/07/21 [address] [address] [address] Louise Brink MD Assigned PCP 08/11/13 10/21/21 [address] [address] [address] documented as of this encounter
--- OUTSIDE RECORDS SUMMARY | 2022-03-05 01:58 | XMS_ITS | Encounter Summary ---
:1980 Author Organization [place] Address [address] [place] [address] Care Team Providers Name Role Phone Louise [...] Depression Total Score: 0 06/17/2019 5:34 PM WELDING MACHINE OPERATOR ULTRASONIC documented as of this encounter Care Teams Composing Machine Operator Relationship Specialty Start Date End Date Louise Brink MD PCP - General Family Practice 07/29/13 09/07/21 [address] [address] [address] Louise Brink MD Assigned PCP 08/11/13 10/21/21 [address] [address] [address] documented as of this encounter
--- OUTSIDE RECORDS SUMMARY | 2022-03-05 01:58 | XMS_ITS | Encounter Summary ---
:1980 Author Organization [place] Address [address] [place] [address] Care Team Providers Name Role Phone Elizabeth [...] documented as of this encounter Care Teams Law Firm Receptionist Relationship Specialty Start Date End Date Elizabeth Can PA-C PCP - General Family Medicine 10/14/21 [address] [place] [address] Elizabeth Can PA-C Assigned PCP 10/22/21 [address] [place], [place] [phone] documented as of this encounter
--- OUTSIDE RECORDS SUMMARY | 2022-03-05 01:58 | XMS_ITS | Encounter Summary ---
:1980 Author Organization [place] Address [address] [place] [address] Care Team Providers Name Role Phone Louise [...] documented as of this encounter Care Teams Satellite Dish Installer Relationship Specialty Start Date End Date Elizabeth Can PA-C PCP - General Family Medicine 10/14/21 [address] [place] [address] Louise Brink MD Assigned PCP 08/11/13 10/21/21 [address] [place] [address] documented as of this encounter
--- OUTSIDE RECORDS SUMMARY | 2022-03-05 01:58 | XMS_ITS | Encounter Summary ---
:1980 Author Organization [place] Address [address] [place] [address]. [place] [address] Care Team Providers Name Role Phone Louise Brink MD Primary Care Provider Louise Brink MD Unavailable Reason for Visit Reason Comments Medication Refill Encounter Details Date Type Department Care Team Description 12/06/2020 Refill [facility] Louise Brink MD Medication Refill [place] [address] [place] [address] [facility] [place] [address] [place] [address] [phone] Social History Tobacco Use Types Packs/Day Years [...] / COVID-19? documented as of this encounter Miscellaneous Notes Telephone Encounter - Louise Brink MD - 12/07/2020 5:48 PM CDT Reviewed LABORATORY TECHNOLOGY TEACHER Telephone Encounter - Maia Calixto RN - 12/07/2020 5:34 PM CDT ALPRAZolam (XANAX) 0.25 MG tablet Last Written Prescription Date: 08/20/20 Last Fill Quantity: 10, # refills: 0 Last Office Visit: 11/11/20 Future Office visit: Routing refill request to provider for review/approval because: Drug not on the [facility], P or [facility] refill protocol or controlled substance Maia Calixto RN on 12/07/2020 at 5:34 PM documented in this encounter Plan of Treatment Not on filedocumented as of this encounter Visit Diagnoses Diagnosis Anxiety Anxiety state, unspecified documented in this encounter Additional Health Concerns Assessment Noted Time PHQ-9 Depression Total Score: 1 11/11/2020 1:39 PM CDT documented as of this encounter Care Teams Blood Bank Credit Clerk Relationship Specialty Start Date End Date Louise Brink MD PCP - General Family Practice 07/29/13 09/07/21 [address] [address] [id number] Louise Brink MD Assigned PCP 08/11/13 10/21/21 [address] [address] [address] documented as of this encounter
--- OUTSIDE RECORDS SUMMARY | 2022-03-05 01:58 | XMS_ITS | Encounter Summary ---
:1980 Author Organization [place] Address [facility] [place] [address] Care Team Providers Name Role Phone Louise Brink MD Primary Care Provider Louise Brink MD Unavailable Reason for Visit Reason Comments Medication Refill Encounter Details Date Type Department Care Team Description 07/16/2020 Refill [facility] Louise Brink MD Medication Refill [place] [address] [place] [address] [facility] [place] [address] [place] [address] [phone] Social History Tobacco Use Types Packs/Day Years [...] has an upcoming appointment. Prescription approved per [facility] Refill Protocol. Melinda No RN FACTURING QUALITY INSPECTOR documented in this encounter Plan of Treatment Not on filedocumented as of this encounter Visit Diagnoses Diagnosis Anxiety Anxiety state, unspecified documented in this encounter Additional Health Concerns Assessment Noted Time PHQ-9 Depression Total Score: 1 04/13/2020 7:03 AM MANUFACTURING QUALITY INSPECTOR documented as of this encounter Care Teams Chief Client Officer Relationship Specialty Start Date End Date Louise Brink MD PCP - General Family Practice 07/29/13 09/07/21 [address] [address] [address] Louise Brink MD Assigned PCP 08/11/13 10/21/21 [address] [address] [address] documented as of this encounter
--- OUTSIDE RECORDS SUMMARY | 2022-03-05 01:58 | XMS_ITS | Encounter Summary ---
:1980 Author Organization [place] Address [address] [place] [address]. [place] [address] Care Team Providers Name Role Phone Louise Brink MD Primary Care Provider Louise Brink MD Unavailable Reason for Visit Reason Onset Date Comments Appointment 06/19/2019 Encounter Details Date Type Department Care Team Description 06/19/2019 Telephone [facility] Louise Brink MD Appointment [place] [address] [facility] [address] [place] [address] [place], [place] [address] [phone] Social History Tobacco Use Types Packs/Day Years [...] left a message with our contact number [phone]. If we do nothear from them within the next 3 business days we will mail a letter offering our scheduling services. If they do call to schedule, in the future, we will inform you of the outcome. Thank you for your referral, [facility] Outpatient Intake STANT STORE MANAGER TRAINEE documented in this encounter Plan of Treatment Not on filedocumented as of this encounter Visit Diagnoses Not on filedocumented in this encounter Additional Health Concerns Assessment Noted Time PHQ-9 Depression Total Score: 0 06/17/2019 5:34 PM ASSISTANT STORE MANAGER TRAINEE documented as of this encounter Care Teams Oracle E Business Developer Relationship Specialty Start Date End Date Louise Brink MD PCP - General Family Practice 07/29/13 09/07/21 [address] [address] [address] Louise Brink MD Assigned PCP 08/11/13 10/21/21 [address] [address] [address] documented as of this encounter
--- OUTSIDE RECORDS SUMMARY | 2022-03-05 01:58 | XMS_ITS | Encounter Summary ---
:1980 Author Organization [place] Address [address] [facility] [place] [address] Care Team Providers Name Role Phone Louise Brink MD Primary Care Provider Louise Brink MD Unavailable Reason for Referral Mental Health Outpatient (Routine) - Closed Specialty Diagnoses / Procedures Referred By Contact Refer red To Contact [place] [address] [address] [address] Referral ID Status Reason Start Date Expiration Date Visits Requ ested Visits Authorized [id number] Closed 06/17/2019 06/16/2020 1 1 PMENT APPLICATION SPECIALIST Reason for Visit Reason Comments Physical Encounter Details Date Type Department Care Team Description 06/17/2019 Office Visit [facility] Louise Brink MD Routine general medical examination at a health care facility (Primary Dx); [facility] [place] [address] [address] Anxiety; [address] [address] Encounter fo r surveillance of contraceptive pills [address] [address] [address] [phone] [address] (Work) [phone] Social History Tobacco Use Types Packs/Day Years Used Date Smoking Tobacco: Never Smokeless Tobacco: Never Alcohol Use Standard Drinks/Week Comments Yes 0 (1 standard drink = 0.6 oz pure alcoho l) Sex Assigned at Date Recorded Female 10/26/2020 1:28 AM CDT documented as of this encounter Last Filed Vital Signs Vital Sign Reading Time Taken Comments Blood Pressure 118/72 06/17/2019 4:44 PM EQUIPMENT APPLICATION SPECIALIST Pulse 72 06/17/2019 4:44 PM EQUIPMENT APPLICATION SPECIALIST Temperature 36.7 ??C (98 ??F) 06/17/2019 4:44 PM EQUIPMENT APPLICATION SPECIALIST Respiratory Rate 16 06/17/2019 4:44 PM EQUIPMENT APPLICATION SPECIALIST Oxygen Saturation 100% 06/17/2019 4:44 PM EQUIPMENT APPLICATION SPECIALIST Inhaled Oxygen Concentration - - Weight 68.3 kg (150 lb 9.6 oz) 06/17/2019 4:44 PM EQUIPMENT APPLICATION SPECIALIST Height 160.7 cm (5' 3.25) 06/17/2019 4:44 PM EQUIPMENT APPLICATION SPECIALIST Body Mass Index 26.47 06/17/2019 4:44 PM EQUIPMENT APPLICATION SPECIALIST documented in this encounter Patient Instructions Patient [...] six months for an exam and cleaning. PMENT APPLICATION SPECIALIST documented in this encounter Progress Notes Louise [...] Adult; Outpatient Treatment; Individual/Couples/Family/Group Therapy/Health Psychology; [facility]: [facility] ; We will contact you to schedule [...] Lung CA Screening Louise Brink MD, MD [facility] PMENT APPLICATION SPECIALIST documented in this encounter Plan of Treatment Scheduled Referrals Name Type Priority Associated Diagnoses Order S chedule MENTAL HEALTH REFERRAL - Referral Routine Anxiety Ord ered: 06/17/2019 Adult; Outpatient Treatment; Individual/Couples/Family/ Group Therapy/Health Psychology; [facility]: [facility] ; We will contact you to schedule [...] Depression Total Score: 0 06/17/2019 5:34 PM EQUIPMENT APPLICATION SPECIALIST documented as of this encounter Care Teams Warehouse Order Selector Relationship Specialty Start Date End Date Louise Brink MD PCP - General Family Practice 07/29/13 09/07/21 [address] [address] [address] Louise Brink MD Assigned PCP 08/11/13 10/21/21 [address] [address] [address] documented as of this encounter
--- OUTSIDE RECORDS SUMMARY | 2022-03-05 01:58 | XMS_ITS | Encounter Summary ---
:1980 Author Organization [place] Address [address] [facility] [place] [address] Care Team Providers Name Role Phone Louise Brink MD Primary Care Provider Louise Brink MD Unavailable Reason for Visit Reason Onset Date Comments Refill Request 04/22/2019 xanax 0.25mg Encounter Details Date Type Department Care Team Description 04/22/2019 Refill [facility] Louise Brink MD Refill Request (xanax Clinic [place] [address] 0.25mg) [address] [place] [address] [place] [phone] (Wo rk) [address] [phone] Social History Tobacco Use Types Packs/Day Years Used Date Smoking Tobacco: Never Smokeless Tobacco: Never Alcohol Use Standard Drinks/Week Comments Yes 0 (1 standard drink = 0.6 oz pure alcoho l) Sex Assigned at Date Recorded Female 10/26/2020 1:28 AM CDT documented as of this encounter Miscellaneous Notes Telephone Encounter - Louise Brink MD - 04/23/2019 7:15 PM CST Reviewed our fills; she did have recently, but prior to that has been awhile. She does have appointment set up. KNOCKOUT WORKER with only the one prescription this year. H CUTTER PINION Telephone Encounter - Shanon Ibrara - 04/22/2019 1:18 PM CST Requested Prescriptions Pending Prescriptions Disp Refills ??? ALPRAZolam (XANAX) 0.25 MG tablet 10 tablet 0 Sig: Take 1 tablet (0.25 mg) by mouth 3 times daily as needed for anxiety Last Written Prescription Date: 02/26/19 Last Fill Quantity: 10, # refills: 0 Last office visit: 05/30/2018 with prescribing provider: Louise Brink MD Future Office Visit: Next 5 appointments (look out 90 days) Jun 17, 2019 4:30 PM TOOTH CUTTER PINION MyChart Physical Adult with Louise Brink MD [facility] [address] [facility] [id number] There is no refill protocol information for this order H CUTTER PINION documented in this encounter Plan of Treatment Not on filedocumented as of this encounter Visit Diagnoses Diagnosis Anxiety Anxiety state, unspecified documented in this encounter Additional Health Concerns Assessment Noted Time PHQ-9 Depression Total Score: 1 05/30/2018 5:44 PM TOOTH CUTTER PINION documented as of this encounter Care Teams Boot And Saddle Repair Person Relationship Specialty Start Date End Date Louise Brink MD PCP - General Family Practice 07/29/13 09/07/21 [address] [address] [place] [id number] Louise Brink MD Assigned PCP 08/11/13 10/21/21 [address] [address] [id number] documented as of this encounter
--- OUTSIDE RECORDS SUMMARY | 2022-03-05 01:58 | XMS_ITS | Encounter Summary ---
:1980 Author Organization [facility] Address [address] [place] [address] Care Team Providers Name Role Phone Louise Brink MD Primary Care Provider Louise Brink MD Unavailable Encounter Details Date Type Department Care Team Description 07/08/2019 Office Visit [facility] Kailee Pacheco LP Generalized anxiety Services [facility] IRRIGATION FOREMAN KNOB disorder (P rimary Dx) [facility] IRRIGATION FOREMAN [place] [address] [phone] Social History Tobacco Use Types Packs/Day Years [...] NAME: Janet Dean : 1980 ACCT. NUMBER: [id number] DATE OF SERVICE: 07/08/19 VIDEO VISIT: No Identifying Information: Client is a 38 year old, , female. Client was referred for counseling by self. 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 They were the first born of 2 [...] problems. There are no ethnic, cultural or islam factors that may be relevant for therapy. Client identified her preferred language to be Icelandic. Client reported she does not need the assistance of an pulverizer or other support involved in therapy. Modifications [...] were to develop. The client has a [facility] Primary Care Provider, who is named Lousie Brink. The client reportsnot having a psychiatrist. [...] the following activities. For each question, please [place] only one response. S1 Standing for long [...] Plan: The client reports no currently identified islam, ethnic or cultural issues relevant to therapy. Volunteer Assistant services are not indicated. Modifications to assist [...] record. Kailee Pacheco LP July 08, 2019 HANDLE ASSEMBLER documented in this encounter Plan of Treatment Not on filedocumented as of this encounter Visit Diagnoses Diagnosis Generalized anxiety disorder - Primary documented in this encounter Additional Health Concerns Assessment Noted Time PHQ-9 Depression Total Score: 1 07/08/2019 5:45 PM SAW HANDLE ASSEMBLER documented as of this encounter Care Teams Car Attendant Relationship Specialty Start Date End Date Louise Brink MD PCP - General Family Practice 07/29/13 09/07/21 [address] [address] [address] Louise Brink MD Assigned PCP 08/11/13 10/21/21 [address] [address] [address] documented as of this encounter
--- OUTSIDE RECORDS SUMMARY | 2022-03-05 01:58 | XMS_ITS | Encounter Summary ---
:1980 Author Organization [place] Address [address] [place] [address]. [place] [address] Care Team Providers Name Role Phone Louise Brink MD Primary Care Provider Louise Brink MD Unavailable Elizabeth Can PA-C Primary Care Provider Elizabeth Can PA-C Unavailable Reason for Visit Reason Comments Medication Refill Encounter Details Date Type Department Care Team Description 01/18/2020 Refill [facility] Louise Brink MD Medication Refill [place] [address] [address] [place] [address] [place], [place] [address] [phone] Social History Tobacco Use Types Packs/Day Years Used Date Smoking Tobacco: Never Smokeless Tobacco: Never Alcohol Use Standard Drinks/Week Comments Yes 0 (1 standard drink = 0.6 oz pure alcoho l) Sex Assigned at Date Recorded Female 10/26/2020 1:28 AM CDT documented as of this encounter Miscellaneous Notes Telephone Encounter - Maia Calixto RN - 01/20/2020 5:41 PM CDT Prescription approved per [facility] protocol. Maia Calixto RN on 01/20/2020 at 5:41 PM documented in this encounter Plan of Treatment Not on filedocumented as of this encounter Visit Diagnoses Diagnosis Anxiety Anxiety state, unspecified documented in this encounter Additional Health Concerns Assessment Noted Time PHQ-9 Depression Total Score: 1 07/08/2019 5:45 PM PEDIATRIC ONCOLOGY NURSE documented as of this encounter Care Teams Reclamation Supervisor Relationship Specialty Start Date End Date Louise Brink MD PCP - General Family Practice 07/29/13 09/07/21 [address] [address] [place] [id number] Elizabeth Can PA-C PCP - General Family Medicine 10/14/21 [address] [facility] [place] [id number] Louise Brink MD Assigned PCP 08/11/13 10/21/21 [address] [address] [place], [place] [id number] Elizabeth Can PA-C Assigned PCP 10/22/21 [address] [place], [place] [id number] documented as of this encounter
--- OUTSIDE RECORDS SUMMARY | 2022-03-05 01:58 | XMS_ITS | Encounter Summary ---
:1980 Author Organization [place] Address [address] [place] [address]. [place] [address] Care Team Providers Name Role Phone Louise Brink MD Primary Care Provider Louise Brink MD Unavailable Reason for Visit Reason Onset Date Comments Refill Request 04/22/2019 trinessa Encounter Details Date Type Department Care Team Description 04/22/2019 Refill [facility] Louise Brink MD Refill Request Clinic [place] [address] [address] (trinessa) [address] [address] [address] [address] [place] [phone] (Wo rk) [address] [phone] Social History Tobacco Use Types Packs/Day Years [...] Depression Total Score: 1 05/30/2018 5:44 PM MAGICIAN HELPER documented as of this encounter Care Teams Fourchette Sewer Relationship Specialty Start Date End Date Louise Brink MD PCP - General Family Practice 07/29/13 09/07/21 [address] [address] Louise Brink MD Assigned PCP 08/11/13 10/21/21 [address] [address] [id number] documented as of this encounter
--- OUTSIDE RECORDS SUMMARY | 2022-03-05 01:58 | XMS_ITS | Encounter Summary ---
:1980 Author Organization [place] Address [address] [place] [address]. [place] [address] Care Team Providers Name Role Phone Louise Brink MD Primary Care Provider Louise Brink MD Unavailable Reason for Visit Reason Comments Medication Refill Encounter Details Date Type Department Care Team Description 09/04/2021 Refill [facility] Josué Mcclure, Medication Refill [place] [address] [address] [place] [address] [place] [address] [phone] (Wo rk) Social History Tobacco Use Types [...] CDT Pt scheduled 10/14/21 with jena Madrigal- Fire Protection Designer Telephone Encounter - Loretta Vale - 09/15/2021 [...] documented as of this encounter Care Teams Credit Reporting Clerk Relationship Specialty Start Date End Date Louise Brnik MD PCP - General Family Practice 07/29/13 09/07/21 [address] [address] [address] Louise Brink MD Assigned PCP 08/11/13 10/21/21 [address] [address] [address] documented as of this encounter
--- OUTSIDE RECORDS SUMMARY | 2022-03-05 01:58 | XMS_ITS | Encounter Summary ---
:1980 Author Organization [place] Address [address] [place] [address]. [place] [address] Care Team Providers Name Role Phone Louise Brink MD Primary Care Provider Louise Brink MD Unavailable Reason for Visit Reason Comments Medication Refill Encounter Details Date Type Department Care Team Description 06/05/2021 Refill [facility] Louise Brink MD Medication Refill [place] [address] [place] [address] [address] [place] [address] [place] [address] [phone] Social History Tobacco Use Types Packs/Day Years [...] advise on refill request. Angel Flores RN LAR SENIOR CARE PROVIDER documented in this encounter Plan of Treatment Not on filedocumented as of this encounter Visit Diagnoses Diagnosis Anxiety Anxiety state, unspecified documented in this encounter Additional Health Concerns Assessment Noted Time PHQ-9 Depression Total Score: 1 11/11/2020 1:39 PM CDT documented as of this encounter Care Teams Charter Pilot Relationship Specialty Start Date End Date Louise Brink MD PCP - General Family Practice 07/29/13 09/07/21 [address] [address] [address] Louise Brink MD Assigned PCP 08/11/13 10/21/21 [address] [address] [address] documented as of this encounter
[2022-03-05 01:59] LABS: Potassium* 4.8 mmol/L (3.6-5.1); Sodium* 142 mmol/L (135-149)
--- OUTSIDE RECORDS SUMMARY | 2022-03-05 01:59 | XMS_ITS | Encounter Summary ---
:1980 Author Organization [place] Address [facility] [place] [address] Care Team Providers Name Role Phone Louise Brink MD Primary Care Provider Louise Brink MD Unavailable Louise Brink MD Unavailable Reason for Visit Reason Comments Pharyngitis Ear Problem Cough Encounter Details Date Type Department Care Team Description 10/05/2015 Office Visit [facility] Louise Brink MD Nasal congestion (Primary Dx); Clinic [place] [address] [address] Sore throat; [address] [address] [address] Cough; ROBERTH [place] [phone] (Wo rk) Seasonal allergies [address] [phone] Social History Tobacco Use Types Packs/Day Years [...] - fluticasone (FLONASE) 50 MCG/ACT nasal spray; [place] 2 sprays into both nostrils daily Dispense: [...] as previously directed. Louise Brink MD, MD [facility] [place] documented in this encounter [...] Component Value Ref Test Analysis Performed At [facility] Range Method Time Signature Specimen Throat [place] Description CLINICS [place] Culture Micro No Beta [place] Streptococcus CLINICS isolated [place] Micro Report FINAL 10/07/2015 [place] Status CLINICS [place] Specimen Anatomical Collection Method Collection Time Receive d Time (Source) Location / / Volume Laterality Specimen from 10/05/2015 2:48 PM 10/05/19 16 3:08 throat CDT PM CDT (specimen) Louise Brink MD LAB - MICRO GENERAL ORDERABL ES Performing Organization Address City/State/ZIP Code Phon e Number [facility] [place] [address] [address] [place], [place] [address] Strep, Rapid Screen (10/05/2015 2:48 PM CDT) Component Value Ref Test Analysis Performed At [facility] Range Method Time Signature Specimen Throat [place] Description [facility] [place] Rapid Strep A NEGATIVE: No Group A strepto coccal antigen detected by immunoassay, await [place] Screen culture report. [facility] Micro Report FINAL 10/05/2015 [place] Status [facility] Specimen Anatomical Collection Method Collection Time Receive d Time (Source) Location / / Volume Laterality Specimen from 10/05/2015 2:48 PM 10/05/19 16 2:49 throat CDT PM CDT (specimen) Louise Brink MD LAB - MICRO GENERAL ORDERABL ES Performing Organization Address City/[facility]/ZIP Code Phon e Number [facility] [place] [address] [place], [place] [address] documented in this encounter Visit Diagnoses Diagnosis Nasal congestion - Primary Other diseases of nasal cavity and sinus es Sore throat Acute pharyngitis Cough Seasonal allergies Allergic rhinitis, cause unspecified documented in this encounter Additional Health Concerns Assessment Noted Time PHQ-9 Depression Total Score: 1 11/20/2015 7:18 AM CDT documented as of this encounter Care Teams Director Of Institutional Research Relationship Specialty Start Date End Date Louise Brink MD PCP - General Family Practice 07/29/13 09/07/21 [address] [place] [address] Louise Brink MD PCP - Assigned PCP 08/11/13 07/16/18 [address] [place] [address] Louise Brink MD Assigned PCP 08/11/13 10/21/21 [address] [place] [address] documented as of this encounter
--- OUTSIDE RECORDS SUMMARY | 2022-03-05 01:59 | XMS_ITS | Encounter Summary ---
:1980 Author Organization [place] Address [address] [facility] [place] [address] Care Team Providers Name Role Phone Louise Brink MD Primary Care Provider Louise Brink MD Unavailable Louise Brink MD Unavailable Elizabeth Can PA-C Primary Care Provider Elizabeth Can PA-C Unavailable Reason for Visit Reason Comments Medication Refill norgestim-eth estrad triphas ic (ORTHO TRI-CYCLEN, 28,) 0.18/0.215/0.25 MG-35 MCG pe r tablet Encounter Details Date Type Department Care Team Description 09/01/2016 Refill [facility] Louise Brink MD Medication Refill [facility] [place] [address] (norgestim-eth estrad [address] [place] [address] triphasic (ORTHO [place], [place] [phone] (Wo rk) TRI-CYCLEN, 28,) [id number] 0.18/0.215/0.25 MG-35 MCG per tablet) Social History [...] # refills: 1 Last Office Visit with [facility] or [facility] prescribing provider: 03/24/16 documented in this encounter Plan of Treatment Not on filedocumented as of this encounter Visit Diagnoses Diagnosis Pap smear for cervical cancer screening Screening for malignant neoplasm of the cervix documented in this encounter Additional Health Concerns Assessment Noted Time PHQ-9 Depression Total Score: 1 11/20/2015 7:18 AM CDT documented as of this encounter Care Teams Cardroom Supervisor Relationship Specialty Start Date End Date Louise Brink MD PCP - General Family Practice 07/29/13 09/07/21 [address] [place] [address] Louise Brink MD PCP - Assigned PCP 08/11/13 07/16/18 [address] [address] [place], [place] [phone] Elizabeth Can PA-C PCP - General Family Medicine 10/14/21 [address] [facility], [place] [phone] Louise Brink MD Assigned PCP 08/11/13 10/21/21 [address] [facility] [place] [phone] Elizabeth Can PA-C Assigned PCP 10/22/21 [address] [facility], [place] [phone] documented as of this encounter
--- OUTSIDE RECORDS SUMMARY | 2022-03-05 01:59 | XMS_ITS | Encounter Summary ---
:1980 Author Organization [place] Address [address] [place] [address]. [place] [address] Care Team Providers Name Role Phone Louise Brink MD Primary Care Provider Louise Brink MD Unavailable Reason for Visit Reason Onset Date Comments Refill Request 02/25/2019 Xanax 0.25 Encounter Details Date Type Department Care Team Description 02/25/2019 MyC Refill [facility] Louise Brink MD Refill Request (Xanax Clinic [place] [address] 0.25) [address] [place] [address] [place] [phone] (Wo rk) [address] [phone] Social History Tobacco Use Types Packs/Day Years [...] CDT Nurse Only with [facility]IC [facility] [address] [place] [facility] [phone] Fill per [place] CENTRIFUGE SEPARATOR OPERATOR 03/08/2018 qty 10 per MH. Emy Piedra RN documented in this encounter Plan of Treatment Not on filedocumented as of this encounter Visit Diagnoses Diagnosis Anxiety Anxiety state, unspecified documented in this encounter Additional Health Concerns Assessment Noted Time PHQ-9 Depression Total Score: 1 05/30/2018 5:44 PM BILLIARD TABLE MECHANIC documented as of this encounter Care Teams Ice Puller Relationship Specialty Start Date End Date Louise Brink MD PCP - General Family Practice 07/29/13 09/07/21 [address] [place] [address] Louise Brink MD Assigned PCP 08/11/13 10/21/21 [address] [place] [address] documented as of this encounter
--- OUTSIDE RECORDS SUMMARY | 2022-03-05 01:59 | XMS_ITS | Encounter Summary ---
:1980 Author Organization [place] Address [address] [place] [address] Care Team Providers Name Role Phone Louise Brink MD Primary Care Provider Louise Brink MD Unavailable Louise Brink MD Unavailable Reason for Visit Reason Comments Medication Refill escitalopram (LEXAPRO) Encounter Details Date Type Department Care Team Description 03/25/2017 Refill [facility] Louise Brink MD Medication Refill Clinic [place] [address] (escitalopram [address] [place] [address] (LEXAPRO)) [place] [phone] (Wo rk) [address] [phone] Social History Tobacco Use Types Packs/Day Years [...] complete surveys before next refill. Raya Rodrigues, field crop farm worker Nurse UCT CONTROLLER Telephone Encounter - Shanon Ibarra - 03/26/2017 10:19 AM CST kennedy 12/22/16 UCT CONTROLLER documented in this encounter Plan of Treatment Not on filedocumented as of this encounter Visit Diagnoses Diagnosis Anxiety Anxiety state, unspecified documented in this encounter Additional Health Concerns Assessment Noted Time PHQ-9 Depression Total Score: 1 12/22/2016 9:20 AM CDT documented as of this encounter Care Teams Leasing Director Relationship Specialty Start Date End Date Louise Brink MD PCP - General Family Practice 07/29/13 09/07/21 [address] [address] [id number] Louise Brink MD PCP - Assigned PCP 08/11/13 07/16/18 [address] [address] [id number] Louise Brink MD Assigned PCP 08/11/13 10/21/21 [address] [address] [id number] documented as of this encounter
--- OUTSIDE RECORDS SUMMARY | 2022-03-05 01:59 | XMS_ITS | Encounter Summary ---
:1980 Author Organization [place] Address [facility] [place] [address] Care Team Providers Name Role Phone Louise Brink MD Primary Care Provider Louise Brink MD Unavailable Louise Brink MD Unavailable Reason for Visit Reason Comments Physical Encounter Details Date Type Department Care Team Description 12/22/2016 Office Visit [facility] Louise Brink MD Encounter for routine adult health exami nation without abnormal findings (Primary Dx); Clinic [place] [address] [address] Anxiety; [address] [address] Encounter fo r surveillance of contraceptive pills; [address] [address] CARDIOVASCULAR SCREENING; LDL GOAL LESS THAN 160 [address] [place] [phone] [address] (Work) [phone] Social History Tobacco Use Types Packs/Day Years [...] today:: No Today's PHQ-2 Score: PHQ-2 (??[address] [facility]) 12/22/2016 Q1: Little interest or pleasure [...] Preventive Guidelines Dietary Guidelines for Americans, 2009 [employer] MyPlate ASA Prophylaxis Lung CA Screening Louise Brink MD, MD [facility] [place]swers for HPI/ROS submitted by [...] athologist Signature Cholesterol 215 (H) <200 mg/dL [facility] Comment: Desirable: <200 mg/dl Triglycerides 108 <150 mg/dL [facility] S [facility] HDL Cholesterol 72 >49 mg/dL [facility] LDL Cholesterol Calculated 121 (H) <100 mg/dL [facility] Comment: Above desirable: ??100-129 mg/dl Borderline High: ??130-159 mg/dL High: ? 160-189 mg/dL Very high: ? >189 mg/dl Non HDL Cholesterol 143 (H) <130 mg/dL [facility] Comment: Above Desirable: ??130-159 mg/dl Borderline high: ??160-189 mg/dl High: ? 190-219 mg/dl Very high: ? >219 mg/dl Specimen Anatomical Collection Method Collection Time Receive d Time (Source) Location / / Volume Laterality Blood specimen 12/22/2016 9:05 AM 017 9:06 (specimen) CDT AM CDT Louise Brink MD LAB - BLOOD ORDERABLES Performing Organization Address City/State/ZIP Code Phon e Number [facility] [address] [place] [address] documented in this encounter Visit Diagnoses Diagnosis [...] documented as of this encounter Care Teams Fitness And Wellness Manager Relationship Specialty Start Date End Date Louise Brink MD PCP - General Family Practice 07/29/13 09/07/21 [address] [address] [address] Louise Brink MD PCP - Assigned PCP 08/11/13 07/16/18 [address] [address] [address] Louise Brink MD Assigned PCP 08/11/13 10/21/21 [address] [address] [address] documented as of this encounter
--- OUTSIDE RECORDS SUMMARY | 2022-03-05 01:59 | XMS_ITS | Encounter Summary ---
:1980 Author Organization [place] Address [address] [facility] [place] [address] Care Team Providers Name Role Phone Louise Brink MD Primary Care Provider Louise Brink MD Unavailable Louise Brink MD Unavailable Reason for Visit Reason Onset Date Comments Refill Request 04/11/2016 escitalopram (LEXAPR O) 10 MG Encounter Details Date Type Department Care Team Description 04/11/[address] [facility] Louise Brink MD Refill Request Clinic [place] [address] (escitalopram (LEXAPRO) [address] [place] [address] 10 MG) [place] [phone] (Wo rk) [address] [phone] Social History Tobacco Use Types Packs/Day Years Used Date Smoking Tobacco: Never Smokeless Tobacco: Never Alcohol Use Standard Drinks/Week Comments Yes 0 (1 standard drink = 0.6 oz pure alcoho l) Sex Assigned at Date Recorded Female 10/26/2020 1:28 AM CDT documented as of this encounter Miscellaneous Notes Telephone Encounter - Raya Rodrigues RN - 04/12/2016 11:02 AM CST Prescription approved per [facility] Refill Protocol. Raya Rodrigues, roll trucker Nurse STRIAL SAFETY AND HEALTH MANAGER Telephone Encounter - Shanon Ibarra - 04/11/2016 9:47 AM CST escitalopram (LEXAPRO) 10 MG Last Written Prescription Date: 08/13/15 Last Fill Quantity: 90, # refills: 2 Last Office Visit with [facility] primary care provider: 03/24/16 Last PHQ-9 score on record= PHQ-9 SCORE 11/19/2015 Total Score - Total Score MyChart 1 (Minimal depression) Total Score - STRIAL SAFETY AND HEALTH MANAGER documented in this encounter Plan of Treatment Not on filedocumented as of this encounter Visit Diagnoses Diagnosis Anxiety - Primary Anxiety state, unspecified documented in this encounter Additional Health Concerns Assessment Noted Time PHQ-9 Depression Total Score: 1 11/20/2015 7:18 AM CDT documented as of this encounter Care Teams Reconstructive Dentist Relationship Specialty Start Date End Date Louise Brink MD PCP - General Family Practice 07/29/13 09/07/21 [address] [address] [id number] Louise Brink MD PCP - Assigned PCP 08/11/13 07/16/18 [address] [address] [id number] Louise Brink MD Assigned PCP 08/11/13 10/21/21 [address] [address] [id number] documented as of this encounter
--- OUTSIDE RECORDS SUMMARY | 2022-03-05 01:59 | XMS_ITS | Encounter Summary ---
:1980 Author Organization [place] Address [address] [facility] [place] [address] Care Team Providers Name Role Phone Louise Brink MD Primary Care Provider Louise Brink MD Unavailable Louise Brink MD Unavailable Reason for Visit Reason Comments Medication Refill escitalopram (LEXAPRO) 10 MG tablet Encounter Details Date Type Department Care Team Description 12/04/2017 Refill [facility] Louise Brink MD Medication Refill Clinic [place] [address] (escitalopram (LEXAPRO) [address] [place] [address] 10 MG tablet) [place] [phone] (Wo rk) [address] [phone] Social History Tobacco Use Types Packs/Day Years [...] Station A to schedule patient. Dona Gonzales ventilation equipment tender Telephone Encounter - Shanon Ibarra - 12/04/2017 [...] Depression Total Score: 1 05/23/2017 7:42 AM EDGER MACHINE OPERATOR documented as of this encounter Care Teams Embroidery Supervisor Relationship Specialty Start Date End Date Louise Brink MD PCP - General Family Practice 07/29/13 09/07/21 [address] [address] [address] Louise Brink MD PCP - Assigned PCP 08/11/13 07/16/18 [address] [address] [address] Louise Brink MD Assigned PCP 08/11/13 10/21/21 [address] [address] [address] documented as of this encounter
--- OUTSIDE RECORDS SUMMARY | 2022-03-05 01:59 | XMS_ITS | Encounter Summary ---
:1980 Author Organization [place] Address [address] [place] [address]. [place] [address] Care Team Providers Name Role Phone Louise Brink MD Primary Care Provider Louise Brink MD Unavailable Louise Brink MD Unavailable Reason for Visit Reason Comments Pharyngitis Ear Problem Encounter Details Date Type Department Care Team Description 05/13/2014 Office Visit [facility] Tatiana Knutson N, Yudi p throat (Primary Clinic [place] PA-C Dx) [address] [place] [phone] (Wo rk) Social History Tobacco Use Types [...] Comments Blood Pressure 104/72 05/13/2014 11:16 AM PRICING SPECIALIST Pulse 80 05/13/2014 11:16 AM PRICING SPECIALIST Temperature 36.7 ??C (98.1 ??F) 05/13/2014 11:16 AM PRICING SPECIALIST Respiratory Rate 18 05/13/2014 11:16 AM PRICING SPECIALIST Oxygen Saturation 100% 05/13/2014 11:16 AM PRICING SPECIALIST Inhaled Oxygen Concentration - - Weight 61.2 kg (135 lb) 05/13/2014 11:16 AM PRICING SPECIALIST Height 162.6 cm (5' 4) 05/13/2014 11:16 AM PRICING SPECIALIST Body Mass Index 23.17 05/13/2014 11:16 AM PRICING SPECIALIST documented in this encounter Progress Notes Tatiana [...] family members develop similar symptoms. See prn. ING SPECIALIST documented in this encounter Nursing Notes Pam [...] completed using cuff size: madhavi Duke CMA ING SPECIALIST documented in this encounter Plan of Treatment Not on filedocumented as of this encounter Procedures Procedure Name Priority Date/Time Associated Diagnosis Comme nts RAPID STREP SCREEN STAT 05/13/2014 11:21 AM Strep throat Re sults for this THROAT SWAB PRICING SPECIALIST procedure are i n the results section. documented in this encounter Results (ABNORMAL) Rapid strep screen (05/13/2014 11:21 AM PRICING SPECIALIST) Component Value Ref Test Analysis Performed At [facility] Range Method Time Signature Specimen Throat [place] Description [facility] Rapid Strep A POSITIVE: Group [place] Screen A Streptococcal CLINICS antigen detected [place] by immunoassay. (A) Micro Report FINAL 05/13/2014 [place] Status [facility] Specimen Anatomical Collection Method Collection Time Receive d Time (Source) Location / / Volume Laterality Specimen from 05/13/2014 11:21 05/13/2014 throat AM PRICING SPECIALIST 11:24 AM PRICING SPECIALIST (specimen) Tatiana Knutson PA-C LAB - MICRO GENERAL ORDERABL ES Performing Organization Address City/State/ZIP Code Phon e Number [facility] [address] [place] [address] documented in this encounter Visit Diagnoses Diagnosis Strep throat - Primary Streptococcal sore throat documented in this encounter Care Teams Travel Counselor Automobile Club Relationship Specialty Start Date End Date Louise Brink MD PCP - General Family Practice 07/29/13 09/07/21 [address] [address] [id number] Louise Brink MD PCP - Assigned PCP 08/11/13 07/16/18 [address] [address] [id number] Louise Brink MD Assigned PCP 08/11/13 10/21/21 [address] [address] [address] documented as of this encounter
--- OUTSIDE RECORDS SUMMARY | 2022-03-05 01:59 | XMS_ITS | Encounter Summary ---
:1980 Author Organization [place] Address [facility] [place] [address] Care Team Providers Name Role Phone Vernon Reilly MD Primary Care Provider Vernon Reilly MD Unavailable Vernon Reilly MD Unavailable Encounter Details Date Type Department Care Team Description 05/21/2015 Office Visit [facility] Vernon Reilly MD Anxiety (Primary Dx); Clinic [place] [address] Pap smear for cervical cancer screening [address] [place] [address] [place] [phone] (Wo rk) [address] [phone] Social History Tobacco Use Types Packs/Day Years Used Date Smoking Tobacco: Never Smokeless Tobacco: Never Alcohol Use Standard Drinks/Week Comments Yes 0 (1 standard drink = 0.6 oz pure alcoho l) Sex Assigned at Date Recorded Female 10/26/2020 1:28 AM CDT documented as of this encounter Last Filed Vital Signs Vital Sign Reading Time Taken Comments Blood Pressure 110/60 05/21/2015 2:45 PM TAKE DOWN SORTER Pulse 72 05/21/2015 2:45 PM TAKE DOWN SORTER Temperature 36.8 ??C (98.3 ??F) 05/21/2015 2:45 PM TAKE DOWN SORTER Respiratory Rate - - Oxygen Saturation 97% 05/21/2015 2:45 PM TAKE DOWN SORTER Inhaled Oxygen Concentration - - Weight 65.9 kg (145 lb 3.2 oz) 05/21/2015 2:45 PM TAKE DOWN SORTER Height 160 cm (5' 3) 05/21/2015 2:45 PM TAKE DOWN SORTER Body Mass Index 25.72 05/21/2015 2:45 PM TAKE DOWN SORTER documented in this encounter Patient Instructions Patient InstructionsBernarda June RN - 05/21/2015 3:00 PM CST -Return to clinic as needed and in one year for complete physical -Sent you a post dated [employer] message with the questionnaire's attached. -I would [...] D3 is recommended at 1000 IU daily. DOWN SORTER documented in this encounter Progress Notes Vernon [...] list, Allergies, and Medical/Social/Surgical histories reviewed in [facility] andupdated as appropriate. ROS: C: NEGATIVE [...] my direction and approval. Vernon Reilly MD, [facility] DOWN SORTER documented in this encounter Plan of Treatment Not on filedocumented as of this encounter Procedures Procedure Name Priority Date/Time Associated Diagnosis Comme nts PAP IMAGED THIN Routine 05/21/2015 12:00 AM Pap smear for Resu lts for this LAYER SCREEN TAKE DOWN SORTER cervical cancer procedure ar e in screening the results section. documented in this encounter Results PAP imaged thin layer, screen (05/21/2015 12:00 AM TAKE DOWN SORTER) Component Value Ref Test Analysis Performed At [facility] [employer] Range Method Time Signature PAP NIL COPATH Copath Report COPATH Patient Name: BERNARDA DEAN MR#: [id number] Specimen #: [id number] Collected: 05/21/2015 Received: 05/24/2015 [...] DENIA Pepper (ASCP) Processed and screened at [facility] CLINICAL HISTORY: Papanicolaou Test Limitations: ??Cervical cytology is a scre ening test with limited sensitivity; regular screening is critical for cancer prevention; Pap tests are primarily effective for the diagnosis/prevention of squamous cell carcinoma, not adenoca rcinomas or other cancers. TESTING LAB LOCATION: [facility] [address] [place], [place] ??[address] COLLECTION SITE: Client: ??[facility] Location: RMFP (R) Specimen (Source) Anatomical Collection Method Collection Time Re ceived Time Location / / Volume Laterality Cytologic 05/21/2015 05/24/2015 10:3 3 material AM TAKE DOWN SORTER (specimen) Vernon Reilly MD LAB - OPTIME [...] documented as of this encounter Care Teams Station Chief Relationship Specialty Start Date End Date Vernon Reilly MD PCP - General Family Practice 07/29/13 09/07/21 [address] [address] Vernon Reilly MD PCP - Assigned PCP 08/11/13 07/16/18 [address] [address] [address] Vernon Reilly MD Assigned PCP 08/11/13 10/21/21 [address] [address] [address] documented as of this encounter
--- OUTSIDE RECORDS SUMMARY | 2022-03-05 01:59 | XMS_ITS | Encounter Summary ---
:1980 Author Organization [place] Address [address] [facility] [place] [address] Care Team Providers Name Role Phone Louise Brink MD Primary Care Provider Louise Brink MD Unavailable Louise Brink MD Unavailable Reason for Visit Reason Comments Medication Refill escitalopram (LEXAPRO) 10 MG tablet Encounter Details Date Type Department Care Team Description 08/30/2017 Refill [facility] Louise Brink MD Medication Refill Clinic [place] [address] (escitalopram (LEXAPRO) [address] [place] [address] 10 MG tablet) [place] [phone] (Wo rk) [address] [phone] Social History Tobacco Use Types Packs/Day Years Used Date Smoking Tobacco: Never Smokeless Tobacco: Never Alcohol Use Standard Drinks/Week Comments Yes 0 (1 standard drink = 0.6 oz pure alcoho l) Sex Assigned at Date Recorded Female 10/26/2020 1:28 AM CDT documented as of this encounter Miscellaneous Notes Telephone Encounter - Libertad Monahan RN - 08/30/2017 1:05 PM CDT Prescription approved per [facility] Refill Protocol. Libertad Bunch RN, BSN, PHN [facility] RENA Telephone Encounter - Shanon Ibarra [...] Depression Total Score: 1 05/23/2017 7:42 AM BLAST FURNACE SUPERVISOR documented as of this encounter Care Teams Log Skidder Relationship Specialty Start Date End Date Louise Brink MD PCP - General Family Practice 07/29/13 09/07/21 [id number] [address] [id number] Louise Brink MD PCP - Assigned PCP 08/11/13 07/16/18 [address] [address] [address] Louise Brink MD Assigned PCP 08/11/13 10/21/21 [address] [address] [address] documented as of this encounter
--- OUTSIDE RECORDS SUMMARY | 2022-03-05 01:59 | XMS_ITS | Encounter Summary ---
:1980 Author Organization [place] Address [facility] [place] [address] Care Team Providers Name Role Phone Louise Brink MD Primary Care Provider Louise Brink MD Unavailable Louise Brink MD Unavailable Reason for Visit Reason Comments Pharyngitis Encounter Details Date Type Department Care Team Description 03/24/2016 Office Visit [facility] Louise Brink MD Throat pain (Primary Clinic [place] [address] [address] Dx) [address] [place] [address] [place] [phone] (Wo rk) [address] [phone] Social History Tobacco Use Types Packs/Day Years Used Date Smoking Tobacco: Never Smokeless Tobacco: Never Alcohol Use Standard Drinks/Week Comments Yes 0 (1 standard drink = 0.6 oz pure alcoho l) Sex Assigned at Date Recorded Female 10/26/2020 1:28 AM CDT documented as of this encounter Last Filed Vital Signs Vital Sign Reading Time Taken Comments Blood Pressure 112/66 03/24/2016 9:32 AM CUMULATIVE EFFECTS ANALYST Pulse 93 03/24/2016 9:32 AM CUMULATIVE EFFECTS ANALYST Temperature 36.7 ??C (98.1 ??F) 03/24/2016 9:32 AM CUMULATIVE EFFECTS ANALYST Respiratory Rate 16 03/24/2016 9:32 AM CUMULATIVE EFFECTS ANALYST Oxygen Saturation 100% 03/24/2016 9:32 AM CUMULATIVE EFFECTS ANALYST Inhaled Oxygen Concentration - - Weight 65.2 kg (143 lb 12.8 oz) 03/24/2016 9:32 AM CUMULATIVE EFFECTS ANALYST Height 160 cm (5' 3) 03/24/2016 9:32 AM CUMULATIVE EFFECTS ANALYST Body Mass Index 25.47 03/24/2016 9:32 AM CUMULATIVE EFFECTS ANALYST documented in this encounter Patient Instructions Patient [...] in??1/2 cup of warm water ?? An hhum-xzp-azadmlw anesthetic gargle Use Medication for More Relief Xjmv-ctj-iyilqcq medication can reduce sore throat symptoms. Ask [...] glands in the neck or jaw ?? [phone] [employer] [place] [address], [place] [address]. All rights reserved. This information is not intended as a substitute for professional medical care. Always follow your healthcare professional's instructions. LATIVE EFFECTS ANALYST documented in this encounter Progress Notes [...] ??? fluticasone (FLONASE) 50 MCG/ACT nasal spray [place] 2 sprays into both nostrils daily 16 [...] See Patient Instructions Louise Brink MD, MD [facility] LATIVE EFFECTS ANALYST documented in this encounter Nursing Notes Araceli [...] completed using cuff size: madhavi Hemphill CMA LATIVE EFFECTS ANALYST documented in this encounter Plan of Treatment Not on filedocumented as of this encounter Procedures Procedure Name Priority Date/Time Associated Diagnosis Comme nts RAPID STREP SCREEN Routine 03/24/2016 9:36 AM Throat pain Res ults for this THROAT SWAB CUMULATIVE EFFECTS ANALYST procedure are i n the results section. BETA HEMOLYTIC Routine 03/24/2016 9:36 AM Throat pain Results for this STREP GROUP A CUMULATIVE EFFECTS ANALYST procedure are in CULTURE the results section. documented in this encounter Results Beta strep group A culture (03/24/2016 9:36 AM CUMULATIVE EFFECTS ANALYST) Component Value Ref Test Analysis Performed At [facility] Range Method Time Signature Specimen Throat [place] Description [facility] [place] Culture Micro No Beta [place] Streptococcus CLINICS isolated [place] Micro Report FINAL 03/26/2016 [place] Status CLINICS [place] Specimen Anatomical Collection Method Collection Time Receive d Time (Source) Location / / Volume Laterality Specimen from 03/24/2016 9:36 AM 03/24/20 16 9:53 throat CUMULATIVE EFFECTS ANALYST AM CUMULATIVE EFFECTS ANALYST (specimen) Louise Brink MD LAB - MICRO GENERAL ORDERABL ES Performing Organization Address City/State/ZIP Code Phon e Number [facility] [address] [facility] [place] [address] [facility] [address] [facility] [place] [address] Strep, Rapid Screen (03/24/2016 9:36 AM CUMULATIVE EFFECTS ANALYST) Component Value Ref Test Analysis Performed At [facility] Range Method Time Signature Specimen Throat [place] Description [facility] [place] Rapid Strep A NEGATIVE: No Group A strepto coccal antigen detected by immunoassay, await [place] Screen culture report. [facility] [place] Micro Report FINAL 03/24/2016 [place] Status [facility] [place] Specimen Anatomical Collection Method Collection Time Receive d Time (Source) Location / / Volume Laterality Specimen from 03/24/2016 9:36 AM 03/24/20 16 9:37 throat CUMULATIVE EFFECTS ANALYST AM CUMULATIVE EFFECTS ANALYST (specimen) Louise Brink MD LAB - MICRO GENERAL ORDERABL ES Performing Organization Address City/State/ZIP Code Phon e Number [facility] [address] [place], [place] [address] documented in this encounter Visit Diagnoses Diagnosis Throat pain - Primary documented in this encounter Additional Health Concerns Assessment Noted Time PHQ-9 Depression Total Score: 1 11/20/2015 7:18 AM CDT documented as of this encounter Care Teams Internet Security Specialist Relationship Specialty Start Date End Date Louise Brink MD PCP - General Family Practice 07/29/13 09/07/21 [address] [address] [address] Louise Brink MD PCP - Assigned PCP 08/11/13 07/16/18 [address] [address] [address] Louise Brink MD Assigned PCP 08/11/13 10/21/21 [address] [address] [address] documented as of this encounter
--- OUTSIDE RECORDS SUMMARY | 2022-03-05 01:59 | XMS_ITS | Encounter Summary ---
:1980 Author Organization [place] Address [address] [place] [address] Care Team Providers Name Role Phone Louise Brink MD Primary Care Provider Louise Brink MD Unavailable Louise Brink MD Unavailable Encounter Details Date Type Department Care Team Description 07/21/2015 Radiant Appointment [facility] Faith Monreal, Left foot pain Clinic [facility], Podiatry/Foot [address] [facility] [place] [address] [place] [address] [place] [address] [place], [place] [phone] Social History Tobacco Use Types Packs/Day Years [...] Left foot pain Results for this VIEWS HEEL LINING PASTER procedure are i n the results section. documented in this encounter Results XR Foot Left G/E 3 Views (07/21/2015 10:09 AM HEEL LINING PASTER) Anatomical Region Laterality Modality Foot, Ankle Left Computed Radiography Specimen (Source) Anatomical Location Collection Method / Collectio n Time Received Time / Laterality Volume Impressions 07/21/2015 1:09 PM HEEL LINING PASTER IMPRESSION: ??Unremarkable examination. ? NAIF DOSHI MD Narrative 07/21/2015 1:09 PM HEEL LINING PASTER LEFT FOOT 4 VIEWS ??07/21/2015 10:09 AM [...] documented as of this encounter Care Teams Tile Professional Relationship Specialty Start Date End Date Louise Brink MD PCP - General Family Practice 07/29/13 09/07/21 [address] [address] [address] Louise Brink MD PCP - Assigned PCP 08/11/13 07/16/18 [address] [address] [address] Louise Brink MD Assigned PCP 08/11/13 10/21/21 [address] [address] [address] documented as of this encounter
--- OUTSIDE RECORDS SUMMARY | 2022-03-05 01:59 | XMS_ITS | Encounter Summary ---
:1980 Author Organization [place] Address [address] [place] [address] Care Team Providers Name Role Phone Louise Brink MD Primary Care Provider Louise Brink MD Unavailable Louise Brink MD Unavailable Reason for Visit Reason Comments Allied Health Visit Imm/Inj Encounter Details Date Type Department Care Team Description 02/23/2016 Allied Health/Nurse [facility] All ied Health Visit; Visit Clinic [place] Imm/Inj [address] [place] [address] Social History Tobacco Use Types Packs/Day [...] the person to be vaccinated ever had Guillain-[place] syndrome? No Form completed by Sherry Gardner [...] as of this encounter Care Teams Manager Adult Relationship Specialty Start Date End Date Louise Brink MD PCP - General Family Practice 07/29/13 09/07/21 [address] [address] [id number] Louise Brink MD PCP - Assigned PCP 08/11/13 07/16/18 [address]684 [address] [address] Louise Brink MD Assigned PCP 08/11/13 10/21/21 [address] [address] [id number] documented as of this encounter
--- OUTSIDE RECORDS SUMMARY | 2022-03-05 01:59 | XMS_ITS | Encounter Summary ---
:1980 Author Organization [place] Address [address] [facility] [place] [address] Care Team Providers Name Role Phone Louise Brink MD Primary Care Provider Louise Brink MD Unavailable Louise Brink MD Unavailable Reason for Referral Consultation - Closed Specialty Diagnoses / Procedures Referred By Contact Refer red To Contact Diagnoses Left foot pain Louise Brink MD [facility] [address] [place] [address] [place] [address] [address] [address] [place] [address] Phone: Fax: Referral ID Status Reason Start Date Expiration Date Visits Requ ested Visits Authorized [id number] Closed 06/11/2015 06/10/2016 1 1 ER ENGRAVER Reason for Visit Reason Comments Edema left foot Encounter Details Date Type Department Care Team Description 06/11/2015 Office Visit [facility] Louise Brink MD Left foot pain Clinic [place] [address] [address] (Primary Dx) [address] [place] [address] [place], [place] [phone] (Wo rk) [address] [phone] Social History Tobacco Use Types Packs/Day Years Used Date Smoking Tobacco: Never Smokeless Tobacco: Never Alcohol Use Standard Drinks/Week Comments Yes 0 (1 standard drink = 0.6 oz pure alcoho l) Sex Assigned at Date Recorded Female 10/26/2020 1:28 AM CDT documented as of this encounter Last Filed Vital Signs Vital Sign Reading Time Taken Comments Blood Pressure 110/64 06/11/2015 2:00 PM ROLLER ENGRAVER Pulse 85 06/11/2015 2:00 PM ROLLER ENGRAVER Temperature 36.9 ??C (98.4 ??F) 06/11/2015 2:00 PM ROLLER ENGRAVER Respiratory Rate 16 06/11/2015 2:00 PM ROLLER ENGRAVER Oxygen Saturation 100% 06/11/2015 2:00 PM ROLLER ENGRAVER Inhaled Oxygen Concentration - - Weight 66.5 kg (146 lb 11.2 oz) 06/11/2015 2:00 PM ROLLER ENGRAVER Height 160 cm (5' 3) 06/11/2015 2:00 PM ROLLER ENGRAVER Body Mass Index 25.99 06/11/2015 2:00 PM ROLLER ENGRAVER documented in this encounter Progress Notes Louise [...] as previously directed. Louise Brink MD, MD [facility] ER ENGRAVER documented in this encounter Nursing Notes Joby [...] using cuff size: regular Araceli Hemphill CMA ER ENGRAVER documented in this encounter Plan of Treatment [...] documented as of this encounter Care Teams Inspector Penetrant Relationship Specialty Start Date End Date Louise Brink MD PCP - General Family Practice 07/29/13 09/07/21 [address] [address] [id number] Louise Brink MD PCP - Assigned PCP 08/11/13 07/16/18 [address] [address] [address] Louise Brink MD Assigned PCP 08/11/13 10/21/21 [address] [address] [address] documented as of this encounter
--- OUTSIDE RECORDS SUMMARY | 2022-03-05 01:59 | XMS_ITS | Encounter Summary ---
:1980 Author Organization [place] Address [address] [place] [address] Care Team Providers Name Role Phone Louise Brink MD Primary Care Provider Louise Brink MD Unavailable Louise Brink MD Unavailable Reason for Visit Reason Onset Date Comments Refill Request 02/09/2015 escitalopram (LEXAPR O) 10 MG Encounter Details Date Type Department Care Team Description 02/08/2015 Refill [facility] Louise Brink MD Refill Request Clinic [place] [address] (escitalopram (LEXAPRO) [address] [place] [address] 10 MG) [place] [phone] (Wo rk) [address] [phone] Social History Tobacco Use Types Packs/Day Years Used Date Smoking Tobacco: Never Smokeless Tobacco: Never Alcohol Use Standard Drinks/Week Comments Yes 0 (1 standard drink = 0.6 oz pure alcoho l) Sex Assigned at Date Recorded Female 10/26/2020 1:28 AM CDT documented as of this encounter Miscellaneous Notes Telephone Encounter - Charo Hurtado RN - 02/09/2015 1:59 PM CDT Prescription approved per [facility] Refill Protocol.Charo Hurtado RN. Telephone Encounter - Shanon Ibarra - 02/09/2015 9:28 AM CDT escitalopram (LEXAPRO) 10 MG Last Written Prescription Date: 10/20/14 Last Fill Quantity: 90, # refills: 0 Last Office Visit with [facility] primary care provider: 05/13/14 Last PHQ-9 score on record= PHQ-9 SCORE 11/05/2014 Total Score - Total Score MyChart 2 documented in this encounter Plan of Treatment Not on filedocumented as of this encounter Visit Diagnoses Diagnosis Anxiety - Primary Anxiety state, unspecified documented in this encounter Care Teams Resistor Winder Relationship Specialty Start Date End Date Louise Brink MD PCP - General Family Practice 07/29/13 09/07/21 [address] [address] [id number] Louise Brink MD PCP - Assigned PCP 08/11/13 07/16/18 340[address] [address] [id number] Louise Brink MD Assigned PCP 08/11/13 10/21/21 [address] [address] [id number] documented as of this encounter
--- OUTSIDE RECORDS SUMMARY | 2022-03-05 01:59 | XMS_ITS | Encounter Summary ---
:1980 Author Organization [place] Address [address] [place] [address] Care Team Providers Name Role Phone Louise [...] Depression Total Score: 1 05/30/2018 5:44 PM FINAL INSTALLER INSPECTOR documented as of this encounter Care Teams Office Machine Service Supervisor Relationship Specialty Start Date End Date Louise Brink MD PCP - General Family Practice 07/29/13 09/07/21 [address] [address] [address] Louise Brink MD PCP - Assigned PCP 08/11/13 07/16/18 [address] [address] [address] Louise Brink MD Assigned PCP 08/11/13 10/21/21 [address] [address] [address] documented as of this encounter
--- OUTSIDE RECORDS SUMMARY | 2022-03-05 01:59 | XMS_ITS | Encounter Summary ---
:1980 Author Organization [place] Address [facility] [place] [address] Care Team Providers Name Role Phone Louise Brink MD Primary Care Provider Louise Brink MD Unavailable Louise Brink MD Unavailable Reason for Visit Reason Onset Date Comments MyChart Communication 10/30/2014 Encounter Details Date Type Department Care Team Description 10/30/2014 E-Visit [facility] Louise Brink MD MyChart Communication Clinic [place] [address] [facility] [address] [facility] [place] [address] [place] [phone] (Wo rk) [address] [phone] Social History Tobacco Use Types Packs/Day Years [...] AM CDT PHQ9 and ANTONY completed via [employer] ANTONY-7 SCORE 01/26/2014 11/05/2014 11/06/2014 Total Score [...] I sent these to the pt via [employer]Charo Hurtado RN. Telephone Encounter - Louise Brink [...] unspecified documented in this encounter Care Teams Producer Assistant Relationship Specialty Start Date End Date Louise Brink MD PCP - General Family Practice 07/29/13 09/07/21 [address] [place] [address] Louise Brink MD PCP - Assigned PCP 08/11/13 07/16/18 [address], [place] [address] Louise Brink MD Assigned PCP 08/11/13 10/21/21 [address] [address] [address] documented as of this encounter
--- OUTSIDE RECORDS SUMMARY | 2022-03-05 01:59 | XMS_ITS | Encounter Summary ---
:1980 Author Organization [place] Address [facility] [place] [address] Care Team Providers Name Role Phone Louise Brink MD Primary Care Provider Louise Brink MD Unavailable Louise Brink MD Unavailable Elizabeth Can PA-C Primary Care Provider Elizabeth Can PA-C Unavailable Reason for Visit Reason Onset Date Comments Refill Request 10/25/2017 Encounter Details Date Type Department Care Team Description 10/25/2017 MyC Refill [facility] Louise Brink MD Refill Request [facility] [address] [address] [facility] [place] [address] [place] [address] [phone] Social History Tobacco Use Types Packs/Day Years [...] - 10/26/2017 9:23 AM CDT Message from Carena: Original authorizing provider: Louise Brink MD, MD Janet Dean would like a refill of the following medications: norgestim-eth estrad triphasic (ORTHO TRI-CYCLEN, TRI-SPRINTEC) 0.18/0.215/0.25 MG-35 MCG per tablet [Louise Brink MD, MD] escitalopram (LEXAPRO) 10 MG tablet [Louise Brink MD, MD] Preferred pharmacy: [id number] [place] [place] - [address] [facility] Comment: documented in this encounter Plan of Treatment Not on filedocumented as of this encounter Visit Diagnoses Diagnosis Encounter for surveillance of contracept eleni pills Surveillance of previously prescribed co ntraceptive pill Anxiety Anxiety state, unspecified documented in this encounter Additional Health Concerns Assessment Noted Time PHQ-9 Depression Total Score: 1 05/23/2017 7:42 AM CHISEL WORKER documented as of this encounter Care Teams Meat Packer Relationship Specialty Start Date End Date Louise Brink MD PCP - General Family Practice 07/29/13 09/07/21 [address] [place] [address] Louise Brink MD PCP - Assigned PCP 08/11/13 07/16/18 [address] [place] [address] Elizabeth Can PA-C PCP - General Family Medicine 10/14/21 [address] [place], [place] [id number] Louise Brink MD Assigned PCP 08/11/13 10/21/21 [address] [place] [address] Elizabeth Can PA-C Assigned PCP 10/22/21 [address] [facility] [place] [address] documented as of this encounter
--- OUTSIDE RECORDS SUMMARY | 2022-03-05 01:59 | XMS_ITS | Encounter Summary ---
:1980 Author Organization [employer] Address [address] [facility] [place] [address] Care Team Providers Name Role Phone Louise Brink MD Primary Care Provider Louise Brink MD Unavailable Louise Brink MD Unavailable Reason for Visit Reason Comments Medication Refill norgestim-eth estrad triphas ic (ORTHO TRI-CYCLEN, TRI-SPRINTEC) 0.18/0.215/0.25 MG-35 MCG pe r tablet Encounter Details Date Type Department Care Team Description 01/12/2018 Refill [facility] Louise Brink MD Medication Refill Clinic [place] [address] (norgestim-eth estrad [address] [place] [address] triphasic (ORTHO [place], [place] [phone] (Wo rk) TRI-CYCLEN, [address] TRI-SPRINTEC) [phone] 0.18/0.215/0.25 MG-35 MCG per tablet) Social History [...] Depression Total Score: 1 05/23/2017 7:42 AM HOME ADVISOR documented as of this encounter Care Teams Spring Upholsterer Relationship Specialty Start Date End Date Louise Brink MD PCP - General Family Practice 07/29/13 09/07/21 [address] [address] Louise Brink MD PCP - Assigned PCP 08/11/13 07/16/18 03144 ROB[address] MIT[address]LL [id number] Louise Brink MD Assigned PCP 08/11/13 10/21/21 06644 [address] [id number] documented as of this encounter
--- OUTSIDE RECORDS SUMMARY | 2022-03-05 01:59 | XMS_ITS | Encounter Summary ---
:1980 Author Organization [place] Address [facility] [place] [address] Care Team Providers Name Role Phone Vernon Reilly MD Primary Care Provider Vernon Reilly MD Unavailable Vernon Reilly MD Unavailable Reason for Visit Reason Comments Physical Encounter Details Date Type Department Care Team Description 05/30/2018 Office Visit [facility] Vernon Reilly MD Encounter for routine adult health exami nation without abnormal findings (Primary Dx); Clinic [place] [address] Anxiety; [address] [address] Encounter fo r surveillance of contraceptive pills; [address] [address] Screening for malignant neoplasm of cerv ix ROBER[place] [phone] [address] (Work) [phone] Social History Tobacco Use Types Packs/Day Years Used Date Smoking Tobacco: Never Smokeless Tobacco: Never Alcohol Use Standard Drinks/Week Comments Yes 0 (1 standard drink = 0.6 oz pure alcoho l) Sex Assigned at Date Recorded Female 10/26/2020 1:28 AM CDT documented as of this encounter Last Filed Vital Signs Vital Sign Reading Time Taken Comments Blood Pressure 116/72 05/30/2018 4:50 PM MUSEUM LIBRARIAN Pulse 66 05/30/2018 4:50 PM MUSEUM LIBRARIAN Temperature 36.7 ??C (98.1 ??F) 05/30/2018 4:50 PM MUSEUM LIBRARIAN Respiratory Rate 16 05/30/2018 4:50 PM MUSEUM LIBRARIAN Oxygen Saturation 95% 05/30/2018 4:50 PM MUSEUM LIBRARIAN Inhaled Oxygen Concentration - - Weight 65.1 kg (143 lb 8 oz) 05/30/2018 4:50 PM MUSEUM LIBRARIAN Height 160.7 cm (5' 3.25) 05/30/2018 4:50 PM MUSEUM LIBRARIAN Body Mass Index 25.22 05/30/2018 4:50 PM MUSEUM LIBRARIAN documented in this encounter Patient Instructions Patient [...] six months for an exam and cleaning. UM LIBRARIAN documented in this encounter Progress Notes Vernon [...] Preventive Guidelines Dietary Guidelines for Americans, 2009 [employer] My[employer]ate ASA Prophylaxis Lung CA Screening Vernon Reilly MD, MD [facility] UM LIBRARIAN documented in this encounter Plan of Treatment Not on filedocumented as of this encounter Procedures Procedure Name Priority Date/Time Associated Diagnosis Comme nts PAP IMAGED THIN Routine 05/30/2018 5:27 PM Screening for Resul ts for this LAYER SCREEN MUSEUM LIBRARIAN malignant neoplasm procedure are in of cervix the results section. HPV HIGH RISK TYPES Routine 05/30/2018 4:30 PM Screening for R esults for this DNA CERVICAL MUSEUM LIBRARIAN malignant neoplasm procedure are in of cervix the results section. documented in this encounter Results Pap imaged thin layer screen with HPV - recommended age 30 - 65 (05/30/2018 5:27 PM MUSEUM LIBRARIAN) Component Value Ref Test Analysis Performed At [facility] gist Range Method Time Signature PAP NIL COPATH Copath Report COPATH Patient Name: BERNARDA DEAN MR#: [id number] Specimen #: [id number] Collected: 05/30/2018 Received: 05/31/2018 Reported: 06/04/2018 09:04 [...] DENIA Madrigal ??(ASCP) Processed and screened at [facility] CLINICAL HISTORY: Oral Control Pill, A previous normal pap Date of Last Pap: 05/21/2015, Papanicolaou Test Limitations: ??Cervical cytology is a sc reening test with limited sensitivity; regular screening is critical for cancer prevention; Pap tests are p rimarily effective for the diagnosis/prevention of squamous cell carcinoma, not adenocarcinomas or other cancer s. TESTING LAB LOCATION: [address] ??[id number] COLLECTION SITE: Client: ??[facility] Location: [facility] (R) Specimen (Source) Anatomical Collection Method Collection Time Re ceived Time Location / / Volume Laterality Cytologic 05/30/2018 5:27 05/31/2018 2 :24 material PM MUSEUM LIBRARIAN PM MUSEUM LIBRARIAN (specimen) Vernon Reilly MD LAB - [facility] CLINICAL SPECIM EN Performing Organization Address City/State/ZIP Code Phon e Number COPATH HPV High Risk Types DNA Cervical (05/30/2018 4:30 PM MUSEUM LIBRARIAN) [facility] Method Time Signature HPV Source [facility] 05/30/2018 [place] 5:27 PM MUSEUM LIBRARIAN [facility]IN[facility] [place] HPV 16 DNA Negative NEG^Negat 06/05/2018 [facility] 1:16 PM MUSEUM LIBRARIAN [facility] HPV 18 DNA Negative NEG^Negat 06/05/2018 [facility] 1:16 PM MUSEUM LIBRARIAN [facility] Other HR HPV Negative NEG^Negat 06/05/2018 [facility] 1:16 PM [facility] Final This 06/05/2018 [facility] patient's 1:16 PM [facility] sample is [facility] negative for L[place] HPV DNA. Comment: This test was developed and its performa nce characteristics determined by the [facility]. It has not been [...] Description Cervical Cells 05/30/2018 5:2 7 PM MUSEUM LIBRARIAN [facility] Comment: [id number] Specimen Anatomical Collection Method Collection Time Receive d Time (Source) Location / / Volume Laterality Cervical Cells CERVIX UTERI 05/30/2018 4:30 PM 019 5:49 STRUCTURE / MUSEUM LIBRARIAN PM MUSEUM LIBRARIAN Unknown Vernon Reilly MD LAB - BLOOD ORDERABLES Performing Organization Address City/State/ZIP Code Phon e Number [address] [address] [facility] [address] [place], [place] [address] documented in this encounter [...] Depression Total Score: 1 05/30/2018 5:44 PM MUSEUM LIBRARIAN documented as of this encounter Care Teams Videotape Recording Engineer Relationship Specialty Start Date End Date Vernon Reilly MD PCP - General Family Practice 07/29/13 09/07/21 [address] [address] Vernon Reilly MD PCP - Assigned PCP 08/11/13 07/16/18 38456 [address]LL 78[address] Vernon Reilly MD Assigned PCP 08/11/13 10/21/21 [address]8764 [address] [address] documented as of this encounter
--- OUTSIDE RECORDS SUMMARY | 2022-03-05 01:59 | XMS_ITS | Encounter Summary ---
:1980 Author Organization [place] Address [facility] [place] [address] Care Team Providers Name Role Phone Louise Brink MD Primary Care Provider Louise Brink MD Unavailable Louise Brink MD Unavailable Reason for Visit Reason Comments Anxiety Encounter Details Date Type Department Care Team Description 03/08/2018 Office Visit [facility] Louise Brink MD Anxiety; Clinic [place] [address] [facility] Encounter for surveillance of contracept eleni pills [address] [place], [place] [address] [address] [place], [place] [phone] [address] (Work) [phone] Social History Tobacco Use Types Packs/Day Years [...] 1 tabletby mouth daily Louise Brink MD, [facility] documented in this encounter Plan of Treatment Not on filedocumented as of this encounter Visit Diagnoses Diagnosis Anxiety Anxiety state, unspecified Encounter for surveillance of contracept eleni pills Surveillance of previously prescribed co ntraceptive pill documented in this encounter Additional Health Concerns Assessment Noted Time PHQ-9 Depression Total Score: 1 03/08/2018 5:01 PM CDT documented as of this encounter Care Teams Cable Television Access Coordinator Relationship Specialty Start Date End Date Louise Brink MD PCP - General Family Practice 07/29/13 09/07/21 [address] [address] [place] [id number] Louise Brink MD PCP - Assigned PCP 08/11/13 07/16/18 [address] [address] [address] Louise Brink MD Assigned PCP 08/11/13 10/21/21 [address] [address] [address] documented as of this encounter
--- OUTSIDE RECORDS SUMMARY | 2022-03-05 01:59 | XMS_ITS | Encounter Summary ---
:1980 Author Organization [place] Address [facility] [place] [address] Care Team Providers Name Role Phone Louise Brink MD Primary Care Provider Louise Brink MD Unavailable Louise Brink MD Unavailable Encounter Details Date Type Department Care Team Description 03/21/2018 E-Visit [facility] Louise Brink MD Sore throat (Primary Clinic [place] [address] Dx) [address] [place] [address] [place], [place] [phone] (Wo rk) [address] [phone] Social History Tobacco Use Types Packs/Day Years [...] in at 1:30. Float nurse/lab is aware. EGE ADMISSIONS COUNSELOR Telephone Encounter - Louise Brink MD - 03/21/2018 11:35 AM CST See if you can get her in real soon... I will be off the computer by ~ 2:30. EGE ADMISSIONS COUNSELOR Telephone Encounter - Louise Brink MD - 03/21/2018 11:23 AM CST See if you can help her schedule a nurse only appointment at any of the clinics (the one of her choice) for obtaining a swab of her throat. I do have an order placed. EGE ADMISSIONS COUNSELOR documented in this encounter Plan of Treatment Not on filedocumented as of this encounter Results Strep, Rapid Screen (03/21/2018 1:30 PM COLLEGE ADMISSIONS COUNSELOR) Component Value Ref Test Analysis Performed At [facility] Range Method Time Signature Specimen Throat [place] Description CLINICS [place] Rapid Strep A NEGATIVE: No 03/21/2018 [place] Screen Group A 1:40 PM COLLEGE ADMISSIONS COUNSELOR CLINICS streptococcal [place]T antigen detected by immunoassay, await culture report. Specimen Anatomical Collection Method Collection Time Receive d Time (Source) Location / / Volume Laterality Specimen from 03/21/2018 1:30 PM 03/21/20 1:35 throat COLLEGE ADMISSIONS COUNSELOR PM COLLEGE ADMISSIONS COUNSELOR (specimen) Louise Brink MD LAB - MICRO GENERAL ORDERABL ES Performing Organization Address City/State/ZIP Code Phon e Number [facility] [address] [address] [place] [address] documented in this encounter Visit Diagnoses Diagnosis Sore throat - Primary Acute pharyngitis documented in this encounter Additional Health Concerns Assessment Noted Time PHQ-9 Depression Total Score: 1 03/08/2018 5:01 PM CDT documented as of this encounter Care Teams Ob/Gyn Nurse Relationship Specialty Start Date End Date Louise Brink MD PCP - General Family Practice 07/29/13 09/07/21 [address] [address] [address] Louise Brink MD PCP - Assigned PCP 08/11/13 07/16/18 94253 [address] MIT[address]LL [address] Louise Brink MD Assigned PCP 08/11/13 10/21/21 [address] [address] [address] documented as of this encounter
--- OUTSIDE RECORDS SUMMARY | 2022-03-05 01:59 | XMS_ITS | Encounter Summary ---
:1980 Author Organization [place] Address [address] [facility] [place] [address] Care Team Providers Name Role Phone Louise Brink MD Primary Care Provider Louise Brink MD Unavailable Louise Brink MD Unavailable Reason for Visit Reason Comments Medication Refill norgestim-eth estrad triphas ic (ORTHO TRI-CYCLEN, TRI-SPRINTEC) 0.18/0.215/0.25 MG-35 MCG Encounter Details Date Type Department Care Team Description 02/20/2017 Refill [facility] Louise Brink MD Medication Refill Clinic [place] [address] (norgestim-eth estrad [address] [place] [address] triphasic (ORTHO [place], [place] [phone] (Wo rk) TRI-CYCLEN, [address] TRI-SPRINTEC) [phone] 0.18/0.215/0.25 MG-35 MCG) Social History Tobacco Use [...] 02/21/2017 10:14 AM CDT Prescription approved per [facility] Refill Protocol. - prescription requested to be transferred to Mail order. Libertad Bunch RN, BSN, PHN Levon Vergara RN Telephone Encounter - Shanon Ibarra - 02/20/2017 2:41 PM CDT norgestim-eth estrad triphasic (ORTHO TRI-CYCLEN, TRI-SPRINTEC) 0.18/0.215/0.25 MG-35 MCG Last Written Prescription Date: 12/22/16 Last Fill Quantity: 84, # refills: 3 Last Office Visit with [facility], [facility] or [facility] prescribing provider: 12/22/16 documented in this encounter Plan of Treatment Not on filedocumented as of this encounter Visit Diagnoses Diagnosis Pap smear for cervical cancer screening Screening for malignant neoplasm of the cervix documented in this encounter Additional Health Concerns Assessment Noted Time PHQ-9 Depression Total Score: 1 12/22/2016 9:20 AM CDT documented as of this encounter Care Teams Hydrometeorological Technician Relationship Specialty Start Date End Date Louise Brink MD PCP - General Family Practice 07/29/13 09/07/21 [address] [address] [address] Louise Brink MD PCP - Assigned PCP 08/11/13 07/16/18 23919 ROB[address] MIT[address]LL [address] Louise Brink MD Assigned PCP 08/11/13 10/21/21 [address]9217 ROB[address]LL [id number] documented as of this encounter
--- OUTSIDE RECORDS SUMMARY | 2022-03-05 01:59 | XMS_ITS | Encounter Summary ---
:1980 Author Organization [place] Address [address] [place] [address] Care Team Providers Name Role Phone Louise Brink MD Primary Care Provider Louise Brink MD Unavailable Louise Brink MD Unavailable Reason for Visit Reason Comments Flu Shot Encounter Details Date Type Department Care Team Description 02/12/2018 Allied Health/Nurse [facility] Clinic Flu Shot Visit [place] [address] [place] [phone] Social History Tobacco Use Types [...] Depression Total Score: 1 05/23/2017 7:42 AM PARTNER MARKETING MANAGER documented as of this encounter Care Teams Traffic Maintenance Supervisor Relationship Specialty Start Date End Date Louise Brink MD PCP - General Family Practice 07/29/13 09/07/21 [address] [address] [address] Louise Brink MD PCP - Assigned PCP 08/11/13 07/16/18 94977 [address] [address] Louise Brink MD Assigned PCP 08/11/13 10/21/21 [address] [address] [id number] documented as of this encounter
--- OUTSIDE RECORDS SUMMARY | 2022-03-05 01:59 | XMS_ITS | Encounter Summary ---
:1980 Author Organization [place] Address [address] [facility] [place] [address] Care Team Providers Name Role Phone Louise Brink MD Primary Care Provider Louise Brink MD Unavailable Louise Brink MD Unavailable Reason for Visit Reason Comments Medication Refill escitalopram (LEXAPRO) 10 MG Encounter Details Date Type Department Care Team Description 09/25/2016 Refill [facility] Louise Brink MD Medication Refill Clinic [place] [address] (escitalopram (LEXAPRO) [address] [place] [address] 10 MG) [place] [phone] (Wo rk) [address] [phone] Social History Tobacco Use Types Packs/Day Years [...] takes this for anxiety. Prescription approved per [facility] Refill Protocol. Raya Rodrigues RN Triage Nurse Telephone Encounter - Shanon Ibarra - 09/25/2016 11:37 AM CDT escitalopram (LEXAPRO) 10 MG Last Written Prescription Date: 04/12/16 Last Fill Quantity: 90, # refills: 1 Last Office Visit with [facility] primary care provider: 03/24/16 Last PHQ-9 score [...] documented as of this encounter Care Teams Production Manufacturing Worker Relationship Specialty Start Date End Date Louise Brink MD PCP - General Family Practice 07/29/13 09/07/21 [address] [address] [id number] Louise Brink MD PCP - Assigned PCP 08/11/13 07/16/18 67042 [address] [id number] Louise Brink MD Assigned PCP 08/11/13 10/21/21 [address] [address] [id number] documented as of this encounter
--- OUTSIDE RECORDS SUMMARY | 2022-03-05 01:59 | XMS_ITS | Encounter Summary ---
:1980 Author Organization [place] Address [address] [place] [address] Care Team Providers Name Role Phone Louise Brink MD Primary Care Provider Louise Brink MD Unavailable Louise Brink MD Unavailable Reason for Visit Reason Comments Allied Health Visit Encounter Details Date Type Department Care Team Description 03/21/2018 Allied Health/Nurse Health [facility] Allied Health Visit Visit [place] [address] [place] [address] Social History Tobacco Use Types [...] throat Res ults for this THROAT SWAB DIRECTOR MEETINGS procedure are i n the results section. BETA HEMOLYTIC Routine 03/21/2018 1:30 PM Sore throat Results for this STREP GROUP A DIRECTOR MEETINGS procedure are in CULTURE the results section. documented in this encounter Results Beta strep group A culture (03/21/2018 1:30 PM DIRECTOR MEETINGS) Component Value Ref Test Analysis Performed At [facility] Range Method Time Signature Specimen Throat [place] Description CLINICS [place] Culture Micro No beta 03/22/2018 [place] hemolytic 7:48 AM DIRECTOR MEETINGS CLINICS Streptococcus [place] Group A isolated Specimen Anatomical Collection Method Collection Time Receive d Time (Source) Location / / Volume Laterality Specimen from 03/21/2018 1:30 PM 03/21/20 18 1:41 throat DIRECTOR MEETINGS PM DIRECTOR MEETINGS (specimen) Louise Brink MD LAB - MICRO GENERAL ORDERABL ES Performing Organization Address City/State/ZIP Code Phon e Number [facility] [place] [address] [address] [place], [place] [address] Strep, Rapid Screen (03/21/2018 1:30 PM DIRECTOR MEETINGS) Component Value Ref Test Analysis Performed At [facility] Range Method Time Signature Specimen Throat [facility] Description CLINICS [place] Rapid Strep A NEGATIVE: No 03/21/2018 [place] Screen Group A 1:40 PM DIRECTOR MEETINGS CLINICS streptococcal [place] antigen detected by immunoassay, await culture report. Specimen Anatomical Collection Method Collection Time Receive d Time (Source) Location / / Volume Laterality Specimen from 03/21/2018 1:30 PM 03/21/20 18 1:35 throat DIRECTOR MEETINGS PM DIRECTOR MEETINGS (specimen) Louise Brink MD LAB - MICRO GENERAL ORDERABL ES Performing Organization Address City/State/ZIP Code Phon e Number [facility] [place] [address] [address], [place] [address] documented in this encounter Visit Diagnoses Diagnosis Sore throat Acute pharyngitis documented in this encounter Additional Health Concerns Assessment Noted Time PHQ-9 Depression Total Score: 1 03/08/2018 5:01 PM CDT documented as of this encounter Care Teams Home Staging Specialist Relationship Specialty Start Date End Date Louise Brink MD PCP - General Family Practice 07/29/13 09/07/21 [address] [address] [address] Louise Brink MD PCP - Assigned PCP 08/11/13 07/16/18 [address] [address] [address] Louise rBink MD Assigned PCP 08/11/13 10/21/21 [address] [address] [address] documented as of this encounter
--- OUTSIDE RECORDS SUMMARY | 2022-03-05 01:59 | XMS_ITS | Encounter Summary ---
:1980 Author Organization [place] Address [facility] [place] [address] Care Team Providers Name Role Phone Louise Brink MD Primary Care Provider Louise Brink MD Unavailable Louise Brink MD Unavailable Reason for Visit Reason Onset Date Comments Medication Question 01/21/2018 Encounter Details Date Type Department Care Team Description 01/21/2018 Telephone [facility] Louise Brink MD Medication Question Clinic [place] [address] [facility] [address] [facility] [address] [place] [phone] (Wo rk) [phone] Social History Tobacco Use Types Packs/Day Years Used Date Smoking Tobacco: Never Smokeless Tobacco: Never Alcohol Use Standard Drinks/Week Comments Yes 0 (1 standard drink = 0.6 oz pure alcoho l) Sex Assigned at Date Recorded Female 10/26/2020 1:28 AM CDT documented as of this encounter Miscellaneous Notes Telephone Encounter - My Haddad RN - 01/21/2018 2:19 PM CDT Mail pharmacy calling to adv that they cannot order 1 month rx for this medication. Due to protocol we cannot authorize refill more than one month. They are cancelling the RX. Tried calling pt to adv her of this information and reorder Trinessa at a local pharmacy for 1 monthuntil she is seen by PCP. LMTCB, Again once we hear from patient need to reorder Trinessa x 1 month at local pharm and she needs appt w/ PCP. My [place] RN documented in this encounter Plan of Treatment Not on filedocumented as of this encounter Visit Diagnoses Not on filedocumented in this encounter Additional Health Concerns Assessment Noted Time PHQ-9 Depression Total Score: 1 05/23/2017 7:42 AM WELDING MACHINE OPERATOR HELPER ARC documented as of this encounter Care Teams Cable Weaver Relationship Specialty Start Date End Date Louise Brink MD PCP - General Family Practice 07/29/13 09/07/21 [address] [address] [id number] Louise Brink MD PCP - Assigned PCP 08/11/13 07/16/18 97763 [address] MIT[address]LL [id number] Louise Brink MD Assigned PCP 08/11/13 10/21/21 [address]5638 ROB[address] MIT[address]LL [id number] documented as of this encounter
--- OUTSIDE RECORDS SUMMARY | 2022-03-05 01:59 | XMS_ITS | Encounter Summary ---
:1980 Author Organization [place] Address [facility] [place] [address] Care Team Providers Name Role Phone Louise Brink MD Primary Care Provider Louise Brink MD Unavailable Louise Brink MD Unavailable Reason for Visit Reason Onset Date Comments Refill Request 03/30/2016 norgestim-eth estrad triphasic (ORTHO TRI-CYCLEN, 28,) 0.18/0.215/0.25 MG-3 5 MCG Encounter Details Date Type Department Care Team Description 03/30/2016 Refill [facility] Louise Brink MD Refill Request Clinic [place] [address] (norgestim-eth estrad [address] [place] [address] triphasic (ORTHO [place], [place] [phone] (Wo rk) TRI-CYCLEN, 28,) [phone] 0.18/0.215/0.25 MG-35 [...] 03/30/2016 4:00 PM CST Prescription approved per [facility] Refill Protocol. Raya Rodrigues, drawer waxer Nurse AL CONTROL SUPERVISOR Telephone Encounter - Shanon Ibarra - 03/30/2016 2:27 PM CST norgestim-eth estrad triphasic (ORTHO TRI-CYCLEN, 28,) 0.18/0.215/0.25 MG-35 MCG Last Written Prescription Date: 08/13/15 Last Fill Quantity: 84, # refills: 2 Last Office Visit with [facility], [facility] or [facility] prescribing provider: 03/24/16 AL CONTROL SUPERVISOR documented in this encounter Plan of Treatment Not on filedocumented as of this encounter Visit Diagnoses Diagnosis Pap smear for cervical cancer screening - Primary Screening for malignant neoplasm of the cervix documented in this encounter Additional Health Concerns Assessment Noted Time PHQ-9 Depression Total Score: 1 11/20/2015 7:18 AM CDT documented as of this encounter Care Teams User Experience Manager Relationship Specialty Start Date End Date Louise Brink MD PCP - General Family Practice 07/29/13 09/07/21 [address] [address] [address] Louise Brink MD PCP - Assigned PCP 08/11/13 07/16/18 23947 [address] MIT[address]LL [address] Louise Brink MD Assigned PCP 08/11/13 10/21/21 83070 [address] MIT[address]LL [id number] documented as of this encounter
--- OUTSIDE RECORDS SUMMARY | 2022-03-05 01:59 | XMS_ITS | Encounter Summary ---
:1980 Author Organization [place] Address [address] [facility] [place] [address] Care Team Providers Name Role Phone Louise Brink MD Primary Care Provider Louise Brink MD Unavailable Louise Brink MD Unavailable Reason for Visit Reason Onset Date Comments Refill Request 02/09/2015 Celexa 10MG Tabs Encounter Details Date Type Department Care Team Description 02/09/2015 Telephone [facility] Louise Brink MD Refill Request (Celexa [facility] [place] [address] 10MG Tabs) [address] [place] [address] [place], [place] [phone] (Wo rk) [phone] Social History Tobacco Use Types Packs/Day Years Used Date Smoking Tobacco: Never Smokeless Tobacco: Never Alcohol Use Standard Drinks/Week Comments Yes 0 (1 standard drink = 0.6 oz pure alcoho l) Sex Assigned at Date Recorded Female 10/26/2020 1:28 AM CDT documented as of this encounter Miscellaneous Notes Telephone Encounter - Emy Piedra RN - 02/09/2015 4:51 PM CDT Pharmacy informed patient not taking celexa. Pharmacy advised to disregard refill request. Emy Piedra RN Telephone Encounter - Shanon Ibarra - 02/09/2015 4:42 PM CDT Celexa 10MG Tabs 1 tablet daily Last Written Prescription Date: na Last Fill Quantity: 30, # refills: na Last Office Visit with [facility] primary care provider: 04/25/14 Future Office visit: Routing refill request to provider for review/approval because: Drug not active on patient's medication list documented in this encounter Plan of Treatment Not on filedocumented as of this encounter Visit Diagnoses Not on filedocumented in this encounter Care Teams Central Office Equipment Engineer Relationship Specialty Start Date End Date Louise Brink MD PCP - General Family Practice 07/29/13 09/07/21 11151 [address] [id number] Louise Brink MD PCP - Assigned PCP 08/11/13 07/16/18 65817 [address] [address] Louise Brink MD Assigned PCP 08/11/13 10/21/21 37480 [address] MIT[address]LL [id number] documented as of this encounter
--- OUTSIDE RECORDS SUMMARY | 2022-03-05 01:59 | XMS_ITS | Encounter Summary ---
:1980 Author Organization [place] Address [address] [facility] [place] [address] Care Team Providers Name Role Phone Louise Brink MD Primary Care Provider Louise Brink MD Unavailable Louise Brink MD Unavailable Reason for Visit Reason Comments Medication Refill norgestim-eth estrad triphas ic (ORTHO TRI-CYCLEN, TRI-SPRINTEC) 0.18/0.215/0.25 MG-35 MCG Encounter Details Date Type Department Care Team Description 11/28/2016 Refill [facility] Louise Brink MD Medication Refill Clinic [place] [address] (norgestim-eth estrad [address] [place] [address] triphasic (ORTHO [place], [place] [phone] (Wo rk) TRI-CYCLEN, [id number] TRI-SPRINTEC) [phone] 0.18/0.215/0.25 MG-35 MCG) Social History Tobacco Use [...] scheduled with PCP on 12/22/16. -Loretta Vale Security System Technician Telephone Encounter - Raya Rodrigues RN - 11/28/2016 12:15 PM CDT Medication is being filled for 1 time refill only due to: due for an annual physical exam. No pap needed this year, please call her to schedule this. Raya Rodrigues, entry level paralegal Nurse Telephone Encounter - Shanon Ibarra - 11/28/2016 11:03 AM CDT norgestim-eth estrad triphasic (ORTHO TRI-CYCLEN, TRI-SPRINTEC) 0.18/0.215/0.25 MG-35 MCG Last Written Prescription Date: 09/05/16 Last Fill Quantity: 84, # refills: 0 Last Office Visit with [facility] P or [facility] prescribing provider: 03/24/16 documented in this encounter Plan of Treatment Not on filedocumented as of this encounter Visit Diagnoses Diagnosis Pap smear for cervical cancer screening Screening for malignant neoplasm of the cervix documented in this encounter Additional Health Concerns Assessment Noted Time PHQ-9 Depression Total Score: 1 11/20/2015 7:18 AM CDT documented as of this encounter Care Teams Bus Trolley And Taxi Instructor Relationship Specialty Start Date End Date Louise Brink MD PCP - General Family Practice 07/29/13 09/07/21 [address]26 [address] [address] Louise Brink MD PCP - Assigned PCP 08/11/13 07/16/18 53466 [address] [address] Louise Brink MD Assigned PCP 08/11/13 10/21/21 69449 [address] [id number] documented as of this encounter
--- OUTSIDE RECORDS SUMMARY | 2022-03-05 01:59 | XMS_ITS | Encounter Summary ---
:1980 Author Organization [place] Address [address] [facility] [place] [address] Care Team Providers Name Role Phone Louise Brink MD Primary Care Provider Louise Brink MD Unavailable Louise rBink MD Unavailable Reason for Visit Reason Onset Date Comments Refill Request 05/12/2015 escitalopram (LEXAPR O) 10 MG tablet Encounter Details Date Type Department Care Team Description 05/12/2015 Refill [facility] Louise Brink MD Refill Request Clinic [place] [address] (escitalopram (LEXAPRO) [address] [place] [address] 10 MG tablet) [place] [phone] (Wo rk) [id number] [phone] Social History Tobacco Use Types Packs/Day Years [...] overdue for follow up on anxiety. Sent Photos I Like message. IED MARINE PHYSICS PROFESSOR Telephone Encounter - Murphy Moreno - 05/12/2015 8:54 AM CST escitalopram (LEXAPRO) 10 MG tablet Last Written Prescription Date: 02/09/15 Last Fill Quantity: 90, # refills: 0 [place] [facility] [place] care provider: 01/29/2014 Last PHQ-9 score on record= PHQ-9 SCORE 11/05/2014 Total Score - Total Score MyChart 2 IED MARINE PHYSICS PROFESSOR documented in this encounter Plan of Treatment Not on filedocumented as of this encounter Visit Diagnoses Diagnosis Anxiety - Primary Anxiety state, unspecified documented in this encounter Care Teams Taxonomy Teacher Relationship Specialty Start Date End Date Louise Brink MD PCP - General Family Practice 07/29/13 09/07/21 [id number] [address]LL [id number] Louise Brink MD PCP - Assigned PCP 08/11/13 07/16/18 37601 [address] MIT[address]LL [id number] Louise Brink MD Assigned PCP 08/11/13 10/21/21 36601 ROB[address] MITCHELL [id number] documented as of this encounter
--- OUTSIDE RECORDS SUMMARY | 2022-03-05 01:59 | XMS_ITS | Encounter Summary ---
:1980 Author Organization [place] Address [facility] [place] [address] Care Team Providers Name Role Phone Louise Brink MD Primary Care Provider Louise Brink MD Unavailable Louise Brink MD Unavailable Reason for Visit Reason Onset Date Comments Refill Request 08/12/2015 escitalopram (LEXAPR O) 10 MG Refill Request 08/11/2015 norgestim-eth estrad triphasic (ORTHO TRI-CYCLEN, 28,) 0.18/0.215/0.25 MG-3 5 MCG Encounter Details Date Type Department Care Team Description 08/11/2015 Refill [facility] Louise Brink MD Refill Request Clinic [place] [address] (escitalopram (LEXAPRO) [address] [place] [address] 10 MG); Refill Request ROB[place] [phone] (Wo rk) (norgestim-eth estrad [phone] triphasic (ORTHO [phone] TRI-CYCLEN, 28, ) 0.18/0.215/0.25 MG-35 MCG) Social [...] 08/13/2015 7:15 AM CDT Prescription approved per [facility] Refill Protocol. Telephone Encounter - Shanon Ibrara - 08/12/2015 11:43 AM CDT New mail order pharmacy, 90 day supply. escitalopram (LEXAPRO) 10 MG Last Written Prescription Date: 05/21/15 Last Fill Quantity: 90, # refills: 1 Last Office Visit with [facility] primary care provider: 06/11/15 Last PHQ-9 score on record= PHQ-9 SCORE 05/21/2015 Total Score - Total Score MyChart - Total Score 2 norgestim-eth estrad triphasic (ORTHO TRI-CYCLEN, 28,) 0.18/0.215/0.25 MG-35 MCG Last Written Prescription Date: 05/21/15 Last Fill Quantity: 84, # refills: 3 Last Office Visit with [facility], [facility] or [facility] prescribing provider: 06/11/15 documented in this encounter [...] documented as of this encounter Care Teams Bridge Club Manager Relationship Specialty Start Date End Date Louise Brink MD PCP - General Family Practice 07/29/13 09/07/21 18713 [address] [address] Louise Brink MD PCP - Assigned PCP 08/11/13 07/16/18 83797 [address] [address] Louise Brink MD Assigned PCP 08/11/13 10/21/21 70714 ROB[address] MIT[address]LL [address] documented as of this encounter
--- OUTSIDE RECORDS SUMMARY | 2022-03-05 01:59 | XMS_ITS | Encounter Summary ---
:1980 Author Organization [place] Address [address] [place] [address] Care Team Providers Name Role Phone Louise Brink MD Primary Care Provider Louise Brink MD Unavailable Louise Brink MD Unavailable Reason for Visit Reason Comments Medication Refill escitalopram (LEXAPRO) 10 MG tablet Encounter Details Date Type Department Care Team Description 09/07/2017 Refill [facility] Louise Brink MD Medication Refill Clinic [place] [address] (escitalopram (LEXAPRO) [address] [place] [address] 10 MG tablet) ROBERTH Kaye [phone] (Wo rk) [phone] Social History Tobacco Use Types Packs/Day Years Used Date Smoking Tobacco: Never Smokeless Tobacco: Never Alcohol Use Standard Drinks/Week Comments Yes 0 (1 standard drink = 0.6 oz pure alcoho l) Sex Assigned at Date Recorded Female 10/26/2020 1:28 AM CDT documented as of this encounter Miscellaneous Notes Telephone Encounter - Libertad Monahan RN - 09/13/2017 10:51 AM CDT Prescription approved per [facility] Refill Protocol. Due for annual physical in December, Libertad Bunch RN, BSN, PHN [facility] RN Telephone Encounter - Shanon Ibarra [...] Depression Total Score: 1 05/23/2017 7:42 AM SPEECH INSTRUCTOR documented as of this encounter Care Teams Fixed Wing Aircraft Flight Mechanic Relationship Specialty Start Date End Date Louise Brink MD PCP - General Family Practice 07/29/13 09/07/21 [address] [place] [address] Louise Brink MD PCP - Assigned PCP 08/11/13 07/16/18 51308 [address] [address] Louise Brink MD Assigned PCP 08/11/13 10/21/21 [address] [address] [id number] documented as of this encounter
--- OUTSIDE RECORDS SUMMARY | 2022-03-05 01:59 | XMS_ITS | Encounter Summary ---
:1980 Author Organization [place] Address [address] [place] [address] Care Team Providers Name Role Phone Louise Brink MD Primary Care Provider Louise Brink MD Unavailable Louise Brink MD Unavailable Reason for Visit Reason Comments Foot Pain L foot swelling and pain for last 5.5 weeks. Encounter Details Date Type Department Care Team Description 07/21/2015 Office Visit [facility] Faith Monreal, Left fo ot pain (Primary Dx); [facility] [place] DPM, Podiatry/Foot Tendonitis of foot; [address] and Ankle Surgery [place]ema [place] [address] [address] [phone] [address] [place], [place] [phone] (Wo rk) Social History Tobacco Use Types [...] Comments Blood Pressure 112/60 07/21/2015 9:40 AM PUBLIC RELATIONS COORDINATOR Pulse - - Temperature - - Respiratory Rate - - Oxygen Saturation - - Inhaled Oxygen Concentration - - Weight 66.2 kg (146 lb) 07/21/2015 9:40 AM PUBLIC RELATIONS COORDINATOR Height 160 cm (5' 3) 07/21/2015 9:40 AM PUBLIC RELATIONS COORDINATOR Body Mass Index 25.86 07/21/2015 9:40 AM PUBLIC RELATIONS COORDINATOR documented in this encounter Patient Instructions Patient InstructionsMy [place] - 07/21/2015 10:[address] Monreal can be found at these clinics: Follow up in clinic as needed. Sunday AM [facility] [address] [place] [address] Sunday PM Surgery Sunday All Day [facility] [address] [place] [address] Sunday [facility] [address] [place], [place] [phone] All Day surgery Sunday AM [facility] [place] [address] [place], [place] [id number] Sunday PM [facility] [address] [facility] [place], [address] [place] [address] TO SCHEDULE SURGERY, call Elizabeth at [phone]. To Schedule appointments call: [phone] General (after hours): Patient [phone] TENDONITIS Tendons are the strong fibrous portions [...] of you. Do 2 sets of 10. woodwind instruments inspector the same position as above. While keeping [...] you in case you lose your balance. IC RELATIONS COORDINATOR documented in this encounter Progress Notes Faith Monreal DPM, Podiatry/Foot and Ankle Surgery - 07/21/2015 10:12 AM PUBLIC RELATIONS COORDINATOR PATIENT HISTORY: Janet Dean is a 34 [...] left foot PLAN: Reviewed patient[facility] in [facility]. Reviewed xrays. Reviewed and discussed causes [...] [place] CMA July 21, 2015 9:41 AM IC RELATIONS COORDINATOR documented in this encounter Plan of Treatment Not on filedocumented as of this encounter Results XR Foot Left G/E 3 Views (07/21/2015 10:09 AM PUBLIC RELATIONS COORDINATOR) Anatomical Region Laterality Modality Foot, Ankle Left Computed Radiography Specimen (Source) Anatomical Location Collection Method / Collectio n Time Received Time / Laterality Volume Impressions 07/21/2015 1:09 PM PUBLIC RELATIONS COORDINATOR IMPRESSION: ??Unremarkable examination. ? NAIF DOSHI MD Narrative 07/21/2015 1:09 PM PUBLIC RELATIONS COORDINATOR LEFT FOOT 4 VIEWS ??07/21/2015 10:09 AM [...] as of this encounter Care Teams Supervisor Pipe Joints Relationship Specialty Start Date End Date Louise Brink MD PCP - General Family Practice 07/29/13 09/07/21 [address] [address] [address] Louise Brink MD PCP - Assigned PCP 08/11/13 07/16/18 62629 [address]LL [id number] Louise Brink MD Assigned PCP 08/11/13 10/21/21 20087 [address] [address] documented as of this encounter
--- OUTSIDE RECORDS SUMMARY | 2022-03-05 01:59 | XMS_ITS | Encounter Summary ---
:1980 Author Organization [place] Address [address] [place] [address] Care Team Providers Name Role Phone Louise Brink MD Primary Care Provider Louise Brink MD Unavailable Louise Brink MD Unavailable Reason for Visit Reason Onset Date Comments Refill Request 05/18/2017 lexapro and ortho tr i-clyclen Encounter Details Date Type Department Care Team Description 05/18/2017 Refill [facility] oLuise Brink MD Refill Request (lexapro Clinic [place] [address] and ortho tri-clyclen) [address] [facility] [place] [address] [place], [place] [phone] (Wo rk) [address] [phone] Social History Tobacco Use Types Packs/Day Years Used Date Smoking Tobacco: Never Smokeless Tobacco: Never Alcohol Use Standard Drinks/Week Comments Yes 0 (1 standard drink = 0.6 oz pure alcoho l) Sex Assigned at Date Recorded Female 10/26/2020 1:28 AM CDT documented as of this encounter Miscellaneous Notes Telephone Encounter - Raya Rodrigues RN - 05/22/2017 9:29 AM CST lexapro filled for 90 days, due for PHQ9/GAD7 next month. Ortho tri-cyclen filled. Sent my chart message to complete surveys. Raya Pacholl, filament wound parts fabricator Nurse T SCIENCES PROFESSOR Telephone Encounter - Yanci Higginbotham - 05/18/2017 11:07 AM CST [facility]; need to [facility] scripts out [facility] pharmacy: [facility]; fax #[phone] Lexapro and Ortho Tri-cyclen Routing refill request to provider for review/approval because: Drug not on the [facility], [facility] or Health refill protocol or controlled substance T SCIENCES PROFESSOR documented in this encounter Plan of Treatment Not on filedocumented as of this encounter Visit Diagnoses Diagnosis Encounter for surveillance of contracept eleni pills Surveillance of previously prescribed co ntraceptive pill Anxiety Anxiety state, unspecified documented in this encounter Additional Health Concerns Assessment Noted Time PHQ-9 Depression Total Score: 1 12/22/2016 9:20 AM CDT documented as of this encounter Care Teams Immunology Teacher Relationship Specialty Start Date End Date Louise Brink MD PCP - General Family Practice 07/29/13 09/07/21 83836 [address] [id number] Louise Brink MD PCP - Assigned PCP 08/11/13 07/16/18 08842 [address] MITCHELL [id number] Louise Brink MD Assigned PCP 08/11/13 10/21/21 75723 [address]LL [id number] documented as of this encounter
--- OUTSIDE RECORDS SUMMARY | 2022-03-05 01:59 | XMS_ITS | Encounter Summary ---
:1980 Author Organization [place] Address [address] [facility] [place] [address] Care Team Providers Name Role Phone Louise Brink MD Primary Care Provider Louise Brink MD Unavailable Louise Brink MD Unavailable Reason for Visit Reason Comments Medication Refill escitalopram (LEXAPRO) 10 MG tablet Encounter Details Date Type Department Care Team Description 02/24/2018 Refill [facility] Louise Brink MD Medication Refill Clinic [place] [address] (escitalopram (LEXAPRO) [address] [place] [address] 10 MG tablet) ROBERTH [place] [phone] (Wo rk) [address] [phone] Social History Tobacco Use Types Packs/Day Years [...] CDT Abida Quispe with Louise Brink MD [facility] [address] [facility] [phone] 90 tablet 0 Sig: TAKE 1 [...] Depression Total Score: 1 05/23/2017 7:42 AM EEO OFFICER documented as of this encounter Care Teams Lens Block Gauger Relationship Specialty Start Date End Date Louise Brink MD PCP - General Family Practice 07/29/13 09/07/21 [address] [address] [address] Louise Brink MD PCP - Assigned PCP 08/11/13 07/16/18 47088 [address] [address] Louise Brink MD Assigned PCP 08/11/13 10/21/21 [address] [address] [address] documented as of this encounter
--- OUTSIDE RECORDS SUMMARY | 2022-03-05 01:59 | XMS_ITS | Encounter Summary ---
:1980 Author Organization [place] Address [address] [place] [address] Care Team Providers Name Role Phone Louise Brink MD Primary Care Provider Louise Brink MD Unavailable Louise Brink MD Unavailable Reason for Visit Reason Comments Allied Health Visit flu shot Encounter Details Date Type Department Care Team Description 03/22/2015 Allied Health/Nurse [facility] All ied Health Visit Visit Clinic [place] (flu shot ) [address] [place] [address] Social History Tobacco Use Types Packs/Day Years Used Date Smoking Tobacco: Never Smokeless Tobacco: Never Alcohol Use Standard Drinks/Week Comments Yes 0 (1 standard drink = 0.6 oz pure alcoho l) Sex Assigned at Date Recorded Female 10/26/2020 1:28 AM CDT documented as of this encounter Progress Notes Shanon Del Cid CMA - 03/22/2015 3:28 PM CST [...] the person to be vaccinated ever had Guillain-[place] syndrome? No Form completed by self QUALITY ANALYST documented in this encounter Plan of Treatment Not on filedocumented as of this encounter Visit Diagnoses Diagnosis Need for prophylactic vaccination and in oculation against influenza - Primary documented in this encounter Care Teams Artillery Officer Relationship Specialty Start Date End Date Louise Brink MD PCP - General Family Practice 07/29/13 09/07/21 [address] [address] [address] Louise Brink MD PCP - Assigned PCP 08/11/13 07/16/18 02758 [address] [address] Louise Brink MD Assigned PCP 08/11/13 10/21/21 [address] [address] [address] documented as of this encounter
--- OUTSIDE RECORDS SUMMARY | 2022-03-05 02:00 | XMS_ITS | Encounter Summary ---
:1980 Author Organization [place] Address [address] [place] [address] Care Team Providers Name Role Phone Unavailable Primary Care Provider Unavailable Encounter Details Date Type Department Care Team Description 09/28/2008 Historic Notes INTERFACED REPORT Interface, Transcript MD sandy Social History Tobacco Use Types Packs/Day Years Used Date Smoking Tobacco: Never Assessed Sex Assigned at Date Recorded Female 10/26/2020 1:28 AM CDT documented as of this encounter Progress Notes Interface, Parent Trainer - 07/31/2010 3:13 AM CDT visit. Mom [...]
--- OUTSIDE RECORDS SUMMARY | 2022-03-05 02:00 | XMS_ITS | Encounter Summary ---
:1980 Author Organization [place] Address [facility]0 [facility] [address] Care Team Providers Name Role Phone Louise Brink MD Primary Care Provider Reason for Visit Reason Comments Anxiety Encounter Details Date Type Department Care Team Description 07/29/2013 Office Visit [facility] Louise Brink MD Anxiety (Primary Dx) Clinic [place] [address] [facility] [address] [place] [address] [place], [place] [phone] (Wo rk) [address] [phone] Social History Tobacco Use Types Packs/Day Years Used Date Smoking Tobacco: Never Smokeless Tobacco: Never Alcohol Use Standard Drinks/Week Comments Yes 0 (1 standard drink = 0.6 oz pure alcoho l) Sex Assigned at Date Recorded Female 10/26/2020 1:28 AM CDT documented as of this encounter Last Filed Vital Signs Vital Sign Reading Time Taken Comments Blood Pressure 98/58 07/29/2013 11:33 AM CDT Pulse 72 07/29/2013 11:33 AM CDT Temperature 37.1 ??C (98.7 ??F) 07/29/2013 11:33 AM CDT Respiratory Rate - - Oxygen Saturation 100% 07/29/2013 11:33 AM CDT Inhaled Oxygen Concentration - - Weight 61.2 kg (135 lb) 07/29/2013 11:33 AM CDT Height 160.7 cm (5' 3.25) 07/29/2013 11:33 AM CDT Body Mass Index 23.73 07/29/2013 11:33 AM CDT documented in this encounter Progress Notes Louise Brink MD - 07/29/2013 11:32 AM CDT SUBJECTIVE: Janet Dean is a 32 year old female who presents to clinic today for the following health issues: Anxiety Follow-Up ?? Status since last visit: Improved ?? See PHQ-9 for current symptoms. ?? Complicating factors: Significant life event: No Current substance abuse: None Depression symptoms: No PHQ-9 Azerbaijani PHQ-9 Any Language ?? Amount of exercise or physical activity: 4-5 days/week for an average of 45- 60 minutes ?? Problems taking medications regularly: No ?? Medication side effects: none ?? Diet: regular (no restrictions) History Substance Use Topics ??? Smoking status: Never Smoker ??? Smokeless tobacco: Never Used ??? Alcohol Use: 0.0 - 0.5 oz/week 0-1 drink(s) per week Problem list and histories reviewed & adjusted, as indicated. Additional history: Doing well. Tolerating med. Patient Active Problem List Diagnosis ??? CARDIOVASCULAR SCREENING; LDL GOAL LESS THAN 160 ??? Seasonal allergies ??? Anxiety Current Outpatient Prescriptions Medication Sig ??? escitalopram (LEXAPRO) 10 MG tablet Take 1 tablet (10 mg) by mouth daily ??? multivitamin, therapeutic with minerals (MULTI-VITAMIN) TABS Take 1 tablet by mouth daily ??? cetirizine (ZYRTEC) 10 MG tablet Take 1 tablet (10 mg) by mouth every evening ??? fluticasone (FLONASE) 50 MCG/ACT nasal spray [place] 1-2 sprays into both nostrils daily ??? ALPRAZolam (XANAX) 0.25 MG tablet Take 1 tablet (0.25 mg) by mouth 3 times daily as needed for anxiety ??? norgestim-eth estrad triphasic (ORTHO TRI-CYCLEN, 28,) 0.18/0.215/0.25 MG-35 MCG TABS tablet Take 1 tablet by mouth daily. ROS: Started lexapro in the Fall. Has never been on medication in the past. Does not want to consider going off the medication. Uses xanax very rarely. OBJECTIVE: BP 98/58 Pulse 72 Temp 98.7 ??F (37.1 ??C) (Oral) Ht 5' 3.25 (1.607 m) Wt 135 lb (61.236 kg) BMI 23.71 kg/m2 SpO2 100% LMP 07/25/2013 ? No Body mass index is 23.71 kg/(m^2). GENERAL APPEARANCE: healthy, alert and no distress CV: regular rates and rhythm MS: extremities normal- no gross deformities noted PSYCH: mentation appears normal and affect normal/bright ANTONY-7 SCORE 12/24/2012 01/07/2013 07/29/2013 Total Score 12 3 1 ASSESSMENT/PLAN: 300.00 Anxiety (primary encounter diagnosis) Comment: doing well. Plan: escitalopram (LEXAPRO) 10 MG tablet, ALPRAZolam (XANAX) 0.25 MG tablet Refilled. Discussed we will usually do the surveys q 6 months. . Louise Brink MD, MD [facility] documented in this encounter Nursing Notes 07/29/2013 11:30 AM CDT >> Neeta Edmondson CMA TuJul 29, 2013 11:35 AM Patient presents with: Anxiety Initial BP 98/58 Pulse 72 Temp 98.7 ??F (37.1 ??C) (Oral) Ht 5' 3.25 (1.607 m) Wt 135 lb (61.236 kg) BMI 23.71 kg/m2 SpO2 100% LMP 07/25/2013 ? No Estimated Body mass index is 23.71 kg/(m^2) as calculated from the following: Height as of this encounter: 5' 3.25(1.607 m). Weight as of this encounter: 135 lb(61.236 kg). BP completed using cuff size: regular Neeta Edmondson CMA (AANM) documented in this encounter Miscellaneous Notes Addendum Note - Neeta Edmondson CMA - 07/30/2013 7:33 AM CDT Addended by: NEETA EDMONDSON on: 07/30/2013 07:33 AM Modules accepted: Orders, SmartSet documented in this encounter Plan of Treatment Not on filedocumented as of this encounter Visit Diagnoses Diagnosis Anxiety - Primary Anxiety state, unspecified documented in this encounter Care Teams Supervisor Fine Grading Relationship Specialty Start Date End Date Louise Brink MD PCP - General Family Practice 07/29/13 09/07/21 [address] [address] [id number] documented as of this encounter
--- OUTSIDE RECORDS SUMMARY | 2022-03-05 02:00 | XMS_ITS | Encounter Summary ---
:1980 Author Organization [place] Address [facility] [place] [address] Care Team Providers Name Role Phone Louise Brink MD Primary Care Provider Louise Brink MD Unavailable Louise Brink MD Unavailable Reason for Visit Reason Onset Date Comments Patient Request 02/25/2014 lab only Encounter Details Date Type Department Care Team Description 02/25/2014 Telephone [facility] Louise Brink MD Patient Request (lab Clinic [place] [address] [address] AVLali only) [place] [address] [address] [address] Social History [...] on filedocumented in this encounter Care Teams Window Shade Ring Sewer Relationship Specialty Start Date End Date Louise Brink MD PCP - General Family Practice 07/29/13 09/07/21 [address] [address] [address] Louise Brink MD PCP - Assigned PCP 08/11/13 07/16/18 [address] [address] [id number] Louise Brink MD Assigned PCP 08/11/13 10/21/21 [address] [address] [id number] documented as of this encounter
--- OUTSIDE RECORDS SUMMARY | 2022-03-05 02:00 | XMS_ITS | Encounter Summary ---
:1980 Author Organization [place] Address [address] [place] [address] Care Team Providers Name Role Phone Neal Vasquez PA-C Primary Care Provider Encounter Details Date Type Department Care Team Description 12/25/2012 Orders Only [facility] [place] [facility] Neal Vasquez, [address] [facility] [place] [id number] [facility] [phone] [place] [address] (Wo rk) Social History Tobacco Use [...] on filedocumented in this encounter Care Teams Scale Manager Relationship Specialty Start Date End Date Neal Vasquez PA-C PCP - General Family Practice 11/27/11 07/28/[address] [address] documented as of this encounter
--- OUTSIDE RECORDS SUMMARY | 2022-03-05 02:00 | XMS_ITS | Encounter Summary ---
:1980 Author Organization [place] Address [address] [facility] [place] [address] Care Team Providers Name Role Phone Neal Vasquez PA-C Primary Care Provider [phone] Reason for Visit Reason Onset Date Comments Refill Request 07/22/2013 escitalopram Encounter Details Date Type Department Care Team Description 07/22/2013 Refill [facility] Louise Brink MD Refill Request Clinic [place] [address] (escitalopram) [address] [place] [address] [place], [place] [phone] (Wo rk) [address] [phone] Social History Tobacco Use Types Packs/Day Years [...] per standing orders: For 1 refill, at [facility] on 01/07/13, pt advised to f/u in 6 months, mychart sent to advisdrew Marin RN documented in this encounter Plan of Treatment Not on filedocumented as of this encounter Visit Diagnoses Diagnosis Anxiety - Primary Anxiety state, unspecified documented in this encounter Care Teams Financial Services Specialist Relationship Specialty Start Date End Date Neal Vasquez PA-C PCP - General Family Practice 11/27/11 07/28/[address] [address] documented as of this encounter
--- OUTSIDE RECORDS SUMMARY | 2022-03-05 02:00 | XMS_ITS | Encounter Summary ---
:1980 Author Organization [place] Address [address] [place] [address] Care Team Providers Name Role Phone Unavailable Primary Care Provider Unavailable Encounter Details Date Type Department Care Team Description 09/29/2008 Historic Notes INTERFACED REPORT Interface, Transcript MD sandy Social History Tobacco Use Types Packs/Day Years Used Date Smoking Tobacco: Never Assessed Sex Assigned at Date Recorded Female 10/26/2020 1:28 AM CDT documented as of this encounter Progress Notes Interface, Keno Clerk - 07/31/2010 3:09 AM CDT Progress Note [...]
--- OUTSIDE RECORDS SUMMARY | 2022-03-05 02:00 | XMS_ITS | Encounter Summary ---
:1980 Author Organization [place] Address [address] [place] [address] Care Team Providers Name Role Phone Neal Vasquez PA-C Primary Care Provider Reason for Visit Reason Comments Flu Shot Encounter Details Date Type Department Care Team Description 02/24/2013 [facility] Flu Shot Visit [place] [address] [place] [address] Social History Tobacco Use Types [...] the person to be vaccinated ever had Guillain-[place] syndrome? No Form completed by self Form reviewed by Ewa Trejo CMA(AACO) documented in this encounter Plan of Treatment Not on filedocumented as of this encounter Visit Diagnoses Diagnosis Need for prophylactic vaccination and in oculation against influenza - Primary documented in this encounter Care Teams Front End Developer Designer Relationship Specialty Start Date End Date Neal Vasquez PA-C PCP - General Family Practice 11/27/11 07/28/[address] [address] documented as of this encounter
--- OUTSIDE RECORDS SUMMARY | 2022-03-05 02:00 | XMS_ITS | Encounter Summary ---
:1980 Author Organization [place] Address [facility] [place] [address] Care Team Providers Name Role Phone Louise Brink MD Primary Care Provider Louise Brink MD Unavailable Louise Brink MD Unavailable Reason for Visit Reason Comments Pharyngitis Encounter Details Date Type Department Care Team Description 01/29/2014 Office Visit [facility] Louise Brink MD Acute pharyngitis Clinic [place] [address] [address] (Primary Dx) [address] [place] [address] [address] [phone] (Wo rk) [address] [phone] Social History Tobacco Use Types Packs/Day Years [...] ??? fluticasone (FLONASE) 50 MCG/ACT nasal spray [place] 1-2 sprays into both nostrils daily 3 [...] Provider - prn Louise Brink MD, MD [facility] documented in this encounter Nursing Notes Neeta [...] Component Value Ref Test Analysis Performed At [facility] gist Range Method Time Signature Specimen Throat [place] Description [facility] Culture Micro No Beta [place] Streptococcus CLINICS isolated [place] Micro Report FINAL 01/31/2014 [place] Status [facility] [place] Specimen Anatomical Collection Method Collection Time Receive d Time (Source) Location / / Volume Laterality Specimen from 01/29/2014 10:34 01/29/2014 throat AM CDT 12:17 PM CDT (specimen) Louise Brink MD LAB - MICRO GENERAL ORDERABL ES Performing Organization Address City/[facility]/ZIP Code Phon e Number [facility] [place] [address] [place] [address] [facility] [address] [place], [place] [address] Strep, Rapid Screen (01/29/2014 10:34 AM CDT) Component Value Ref Test Analysis Performed At [facility] Lightning Gaming Range Method Time Signature Specimen Throat [facility] [place] Rapid Strep A NEGATIVE: No Group A strepto coccal antigen detected by immunoassay, await [place] Screen culture report. CLINICS [place] Micro Report FINAL 01/29/2014 [facility] [place] Specimen Anatomical Collection Method Collection Time Receive d Time (Source) Location / / Volume Laterality Specimen from 01/29/2014 10:34 01/29/2014 throat AM CDT 10:35 AM CDT (specimen) Louise Brink MD LAB - MICRO GENERAL ORDERABL ES Performing Organization Address City/[facility]/ZIP Code Phon e Number [facility] [address] [place], [place] [address] documented in this encounter Visit Diagnoses Diagnosis Acute pharyngitis - Primary documented in this encounter Care Teams Machine Pecan Gatherer Relationship Specialty Start Date End Date Louise Brink MD PCP - General Family Practice 07/29/13 09/07/21 [address] [address] [id number] Louise Brink MD PCP - Assigned PCP 08/11/13 07/16/18 [address] [address] [id number] Louise Brink MD Assigned PCP 08/11/13 10/21/21 [address] [address] [address] documented as of this encounter
--- OUTSIDE RECORDS SUMMARY | 2022-03-05 02:00 | XMS_ITS | Encounter Summary ---
:1980 Author Organization [place] Address [address] [place] [address] Care Team Providers Name Role Phone Neal Vasquez PA-C Primary Care Provider Reason for Visit Reason Onset Date Comments Refill Request 11/27/2012 Fluticasone Encounter Details Date Type Department Care Team Description 11/27/2012 Refill [facility] Neal Vasquez Re fill Request Manish Cavazos PA-C (Fluticasone ) [address] [place] [address] SERVICE [phone] [place] [address] (Wo rk) Social History Tobacco Use [...] I sent her a reminder letter via Checkout10 and also I mailed a reminder letter to her. Last Seen: 11/28/11 with Rtc instructions: see above Last Filled: 09/11/12 Charo Hurtado RN. documented in this encounter Plan of Treatment Not on filedocumented as of this encounter Visit Diagnoses Diagnosis Allergic rhinitis, cause unspecified - P rimary documented in this encounter Care Teams Weigher Packing Relationship Specialty Start Date End Date Neal Vasquez PA-C PCP - General Family Practice 11/27/11 07/28/[address] [address] documented as of this encounter
--- OUTSIDE RECORDS SUMMARY | 2022-03-05 02:00 | XMS_ITS | Encounter Summary ---
:1980 Author Organization [place] Address [address] [place] [address] Care Team Providers Name Role Phone Louise Brink MD Primary Care Provider Louise Brink MD Unavailable Louise Brink MD Unavailable Reason for Visit Reason Comments Flu Shot Encounter Details Date Type Department Care Team Description 03/03/2014 Allied Health/Nurse [facility] Flu Shot Visit [place] [address] [place] [address] Social History Tobacco Use Types [...] the person to be vaccinated ever had Guillain-[place] syndrome? No Form completed by pt Form reviewed by Zeina De La Torre CMA (AAMA) documented in this encounter Plan of Treatment Not on filedocumented as of this encounter Visit Diagnoses Diagnosis Need for prophylactic vaccination and in oculation against influenza - Primary documented in this encounter Care Teams Cut Off Saw Operator Pipe Blanks Relationship Specialty Start Date End Date Louise Brink MD PCP - General Family Practice 07/29/13 09/07/21 [address] [address] [address] Louise Brink MD PCP - Assigned PCP 08/11/13 07/16/18 [address] [address] [address] Louise Brink MD Assigned PCP 08/11/13 10/21/21 [address] [address] [address] documented as of this encounter
--- OUTSIDE RECORDS SUMMARY | 2022-03-05 02:00 | XMS_ITS | Encounter Summary ---
:1980 Author Organization [place] Address [address] [place] [address] Care Team Providers Name Role Phone Unavailable Primary Care Provider Unavailable Encounter Details Date Type Department Care Team Description 09/28/2008 Historic Results INTERFACED REPORT Russell Soto MD [address] [place], [place] [address] (Wo rk) Social History [...]
--- OUTSIDE RECORDS SUMMARY | 2022-03-05 02:00 | XMS_ITS | Encounter Summary ---
:1980 Author Organization [place] Address [address] [place] [address] Care Team Providers Name Role Phone Neal Vasquez PA-C Primary Care Provider [phone] Reason for Visit Reason Comments Physical Encounter Details Date Type Department Care Team Description 12/24/2012 Office Visit [facility] Neal Vasquez eneral medical examination at a health care facility (Primary Dx); Clinic [place]ish Cavazos PA-C Allergic rhinitis, cause unspecified; [address] [place], [place] SERVICE [phone] [place] [address] [place] [address] Social History Tobacco Use Types [...] for this basename: CHOL:2,HDL:2,LDL:2,TRI,CHOLHDLRATIO:2 in the last 66150 hours Reviewed orders with patient. Reviewed health maintenance and updated orders accordingly - Yes History of abnormal Pap smear: NO - age 31- 66 PAP every 3 years recommended All Histories reviewed and updated in [facility]. ROS: C: NEGATIVE for fever, chills, change [...] list, Allergies, and Medical/Social/Surgical histories reviewed in [facility] andupdated as appropriate. Patient Active Problem List [...] ??? fluticasone (FLONASE) 50 MCG/ACT nasal spray [place] 1-2 sprays into both nostrils daily ??? [...] rales, rhonchi or wheezes BREAST: deferred to sheep rancher. CV: regular rates and rhythm, normal S1 S2, no S3 or S4, no murmur, click or rub, no peripheral edema and peripheral pulses strong ABDOMEN: soft, nontender, no hepatosplenomegaly, no masses and bowel sounds normal (female):deferred to sheep rancher. MS: no musculoskeletal defects are noted and [...] and breast exam- MARIUM signed today for sheep rancher. We also will get fasting labs in [...] 11/28/11: 130 lb(58.968 kg). Neal Vasquez PA-C [facility] documented in this encounter Plan of Treatment Not on filedocumented as of this encounter Visit Diagnoses Diagnosis Routine general medical examination at a [facility] care facility - Primary Allergic rhinitis, cause unspecified Anxiety Anxiety state, unspecified documented in this encounter Care Teams Magnetic Locater Relationship Specialty Start Date End Date Neal Vasquez PA-C PCP - General Family Practice 11/27/11 07/28/[address] [address] documented as of this encounter
--- OUTSIDE RECORDS SUMMARY | 2022-03-05 02:00 | XMS_ITS | Encounter Summary ---
:1980 Author Organization [place] Address [address] [place] [address] Care Team Providers Name Role Phone None Primary Care Provider Unavailable Reason for Visit Reason Comments Flu Encounter Details Date Type Department Care Team Description 03/21/2011 Allied Health/Nurse [facility] Flu Visit [place] [address] [place] [address] Social History Tobacco Use [...] given by: Zeina De La Torre CMA ([facility]) R COMMISSIONER documented in this encounter Plan of Treatment Not on filedocumented as of this encounter Visit Diagnoses Diagnosis Need for prophylactic vaccination and in oculation against influenza - Primary documented in this encounter Care Teams Champagne Maker Relationship Specialty Start Date End Date None PCP - General 03/21/11 11/26/11 documented as of this encounter
--- OUTSIDE RECORDS SUMMARY | 2022-03-05 02:00 | XMS_ITS | Encounter Summary ---
:1980 Author Organization [place] Address [address] [facility] [place] [address] Care Team Providers Name Role Phone Louise Brink MD Primary Care Provider Louise Brink MD Unavailable Louise Brink MD Unavailable Reason for Visit Reason Onset Date Comments Refill Request 03/06/2014 fluticasone Encounter Details Date Type Department Care Team Description 03/06/2014 Refill [facility] Louise Brink MD Refill Request Clinic [place] [address] [address] (fluticasone) [address] [facility] [place] [address] [place] [phone] (Wo rk) [address] [phone] Social History Tobacco Use Types Packs/Day Years [...] unspecified documented in this encounter Care Teams Boiler Or Engine Operator Relationship Specialty Start Date End Date Louise Brink MD PCP - General Family Practice 07/29/13 09/07/21 [address] [address] [id number] Louise Brink MD PCP - Assigned PCP 08/11/13 07/16/18 [address] [address] [id number] Louise Brink MD Assigned PCP 08/11/13 10/21/21 [address] [address] [id number] documented as of this encounter
--- OUTSIDE RECORDS SUMMARY | 2022-03-05 02:00 | XMS_ITS | Encounter Summary ---
:1980 Author Organization [place] Address [address] [place] [address]. [place] [address] Care Team Providers Name Role Phone Neal Vasquez PA-C Primary Care Provider Reason for Visit Reason Onset Date Comments Health Maintenance 01/11/2012 pap Encounter Details Date Type Department Care Team Description 01/11/2012 Telephone [facility] Neal Vasquez Me intenance Clinic [place] Cavazos PA-C (pap) [address] [place], [place] SERVICE [address] [place] [address] [place] [address] Social History Tobacco Use Types [...] on filedocumented in this encounter Care Teams Ssis Architect Relationship Specialty Start Date End Date Neal Vasquez PA-C PCP - General Family Practice 11/27/11 07/28/[address] [address] documented as of this encounter
--- OUTSIDE RECORDS SUMMARY | 2022-03-05 02:00 | XMS_ITS | Encounter Summary ---
:1980 Author Organization [place] Address [address] [place] [address] Care Team Providers Name Role Phone Neal Vasquez PA-C Primary Care Provider [phone] Reason for Visit Reason Comments Anxiety Encounter Details Date Type Department Care Team Description 01/07/2013 Office Visit [facility] Neal Vasquez Anxiety ( Primary Dx); Clinic Manish Cavazos PA-C Routine general medical examination at a health care facility; [address] [facility] Need for Tdap vaccination [place], [place] SERVICE [address] [place] [address] [place], [place] [id number] Social History Tobacco Use Types Packs/Day Years [...] attack while riding the train to a [employer] game. She also questions whether could be [...] ??? fluticasone (FLONASE) 50 MCG/ACT nasal spray [place] 1-2 sprays into both nostrils daily ??? [...] Provider - 6 months. Neal Vasquez PA-C [facility] documented in this encounter Nursing Notes 01/07/2013 [...] completed using cuff size: madhavi Edmondson CMA (AAGA) documented in this encounter Miscellaneous Notes Addendum [...] examination rené [facility] results facility section. documented in this encounter Results Comprehensive metabolic panel (01/07/2013 8:28 AM CDT) P athologist Signature Sodium 141 133 - 144 [facility] mmol/L [facility] Potassium 4.4 3.4 - 5.3 [facility] mmol/L [facility] Chloride 104 94 - 109 [facility] mmol/L [facility] Carbon Dioxide 23 20 - 32 [facility] mmol/L [facility] Anion Gap 14 6 - 17 [facility] mmol/L [facility] Glucose 89 60 - 99 [facility] mg/dL [facility] Urea Nitrogen 9 5 - 24 [facility] mg/dL [facility] Creatinine 0.85 0.52 - [facility] 1.04 mg/dL [facility] GFR Estimate 78 >60 [facility] mL/min/1.7 [facility] m2 GFR Estimate If >90 >60 [facility] [place] mL/min/1.7 [facility] m2 Calcium 8.9 8.5 - 10.4 [facility] mg/dL [facility] Bilirubin Total 0.3 0.2 - 1.3 [facility] mg/dL [facility] Albumin 4.2 3.9 - 5.1 [facility] g/dL [facility] Comment: Reference range changed on 01/13. Protein Total 8.4 6.8 - 8.8 g/dL [facility] Comment: As of 07, reference range reflects plasma specimen type. Alkaline Phosphatase 50 40 - 150 U/L [facility] ALT 27 0 - 50 U/L [facility] AST 22 0 - 45 U/L [facility] IC LAB Specimen Anatomical Collection Method Collection Time Receive d Time (Source) Location / / Volume Laterality Blood specimen 01/07/2013 8:28 AM 013 8:29 (specimen) CDT AM CDT Neal Vasquez PA-C LAB - BLOOD ORDERABLES Performing Organization Address City/State/ZIP Code Phon e Number [facility] [address] [place] [address] [facility] [address] [place] [address] [phone] Lipid panel reflex to direct LDL (01/07/2013 8:28 AM CDT) athologist Signature Cholesterol 181 0 - 200 [facility] mg/dL CLINIC LAB Comment: LDL Cholesterol is the primary guide to therapy. The NCEP recommends further evaluation of: patients with cholesterol greater than 200 mg/dL if additional risk facto rs are present, cholesterol greater than 240 mg/dL, triglycerides greater than 1 50 mg/dL, or HDL less than 40 mg/dL. Triglycerides 74 0 - 150 mg/dL [facility] HDL Cholesterol 69 50 - 110 mg/dL [facility] LDL Cholesterol Calculated 98 0 - 129 mg/dL [facility] Comment: LDL Cholesterol is the primary guide to therapy: LDL-cholesterol goal in high risk patients is <100 mg/dL and in very high risk patients is <70 mg/dL. VLDL-Cholesterol 15 0 - 30 mg/dL [facility] Cholesterol/HDL Ratio 2.6 0.0 - 5.0 [facility] Specimen Anatomical Collection Method Collection Time Receive d Time (Source) Location / / Volume Laterality Blood specimen 01/07/2013 8:28 AM 013 8:29 (specimen) CDT AM CDT Neal Vasquez PA-C LAB - BLOOD ORDERABLES Performing Organization Address City/State/ZIP Code Phon e Number [facility] [address] [place] [address] [facility] [address] [place] [address] documented in this encounter Visit Diagnoses Diagnosis Anxiety - Primary Anxiety state, unspecified Routine general medical examination at a health care facility Need for Tdap vaccination Need for prophylactic vaccination with c ombined whgbwxewsc-lgqwktc-ljhilgrqy (DTP) vaccine documented in this encounter Care Teams Semiconductor Equipment Technician Relationship Specialty Start Date End Date Neal Vasquez PA-C PCP - General Family Practice 11/27/11 07/28/[address] [address] documented as of this encounter
--- OUTSIDE RECORDS SUMMARY | 2022-03-05 02:00 | XMS_ITS | Encounter Summary ---
:1980 Author Organization [place] Address [address] [place] [address]. [place] [address] Care Team Providers Name Role Phone Neal Vasquez PA-C Primary Care Provider Reason for Visit Reason Onset Date Comments Refill Request 06/24/2012 Encounter Details Date Type Department Care Team Description 06/24/2012 Refill [facility] Neal Vasquez, Refill Request [place] PA-C [address] [place] [address] [address] [place] [address] [place] [address] (Wo rk) Social History Tobacco [...] given Last Filled: 04/03/12 Charo Hurtado RN. GRAPH OFFICE TELEPHONE CLERK documented in this encounter Plan of Treatment Not on filedocumented as of this encounter Visit Diagnoses Diagnosis Allergic rhinitis, cause unspecified - P rimary documented in this encounter Care Teams Radio Television Technical Director Relationship Specialty Start Date End Date Neal Vasquez PA-C PCP - General Family Practice 11/27/11 07/28/[address] [address] documented as of this encounter
--- OUTSIDE RECORDS SUMMARY | 2022-03-05 02:00 | XMS_ITS | Encounter Summary ---
:1980 Author Organization [place] Address [address] [place] [address]. [place] [address] Care Team Providers Name Role Phone Neal Vasquez PA-C Primary Care Provider [phone] Reason for Visit Reason Comments Nausea Dizziness Encounter Details Date Type Department Care Team Description 11/28/2011 Office Visit [facility] Neal Vasquez Dizziness ; Clinic [place] Nauseous; [address] [facility] Fatigue; [place], [place] SERVICE Seasonal allergies [phone] [place] [address] [place] [address] (Wo rk) Social History Tobacco [...] of the head. She was recently in [place], and tends to have more allergy symptoms in that area. She uses OTC benadryl for her allergy. She denies any asthma. She does admit to more fatigue and some muscle aches from time to time. She gets routine CONTENT CURATOR care through [facility]. ROS: CONSTITUTIONAL:NEGATIVE for fever, chills, change [...] Vit D 78 (H) 30 - 75 [facility] total ug/L [place] Comment: Season, race, dietary intake, and treatm ent affect the concentration of 53-avlvpbs-Pfqjayi D. Values may decrea se during winter [...] questions, please contact [facility] at [phone]. Specimen Anatomical Collection Method Collection Time Receive d Time (Source) Location / / Volume Laterality Blood specimen 11/28/2011 4:13 PM 012 4:15 (specimen) CDT PM CDT Neal Vasquez PA-C LAB - BLOOD ORDERABLES Performing Organization Address City/State/ZIP Code Phon e Number [facility] [address] [place] [address] [facility] TSH with free T4 reflex (11/28/2011 4:13 PM CDT) athologist Signature TSH 2.28 0.4 - 5.0 [facility] mU/L CLINIC LAB Specimen Anatomical Collection Method Collection Time Receive d Time (Source) Location / / Volume Laterality Blood specimen 11/28/2011 4:13 PM 012 4:15 (specimen) CDT PM CDT Neal Vasquez PA-C LAB - BLOOD ORDERABLES Performing Organization Address City/[facility] [address]/ZIP Code Phon e Number [facility] [address] [place] [address] [facility] CBC with platelets (11/28/2011 4:13 PM CDT) athologist Signature WBC 7.3 4.0 - 11.0 [place] 10e9/L [facility] RBC Count 4.51 3.8 - 5.2 [place] 10e12/L [facility] Hemoglobin 14.0 11.7 - [facility] 15.7 g/dL [facility] Hematocrit 40.7 35.0 - [facility] 47.0 % [facility] MCV 90 78 - 100 [place] [facility] MCH 31.0 26.5 - [facility] 33.0 pg [facility] MCHC 34.4 31.5 - [facility] 36.5 g/dL [facility] RDW 11.9 10.0 - [facility] 15.0 % [facility] Platelet Count 242 150 - 450 [place] 10e9/L [facility] Specimen Anatomical Collection Method Collection Time Receive d Time (Source) Location / / Volume Laterality Blood specimen 11/28/2011 4:13 PM 012 4:15 (specimen) CDT PM CDT Neal Vasquez PA-C LAB - BLOOD ORDERABLES Performing Organization Address City/[facility] [address]/ZIP Code Phon e Number [facility] [address] [place], [place] [address] [facility] documented in this encounter Visit Diagnoses Diagnosis Dizziness Dizziness and giddiness Nauseous Nausea alone Fatigue Other malaise and fatigue Seasonal allergies Allergic rhinitis, cause unspecified documented in this encounter Care Teams Chaperone Relationship Specialty Start Date End Date Neal Vasquez PA-C PCP - General Family Practice 11/27/11 07/28/[address] [id number] documented as of this encounter
--- OUTSIDE RECORDS SUMMARY | 2022-03-05 02:00 | XMS_ITS | Encounter Summary ---
:1980 Author Organization [place] Address [address] [facility] [place] [address] Care Team Providers Name Role Phone Neal Vasquez PA-C Primary Care Provider [phone] Reason for Referral Referral not Required - Closed Specialty Diagnoses / Procedures Referred By Contact Refer red To Contact Diagnoses Finger joint swelling, right Neal Vasquez, ARTHRITIS & RHEUMATOLOGY [facility] [address] [facility] [address] [place] [address] [place], [place] [address] Phone: [phone] Referral ID Status Reason Start Date Expiration Date Visits Requ ested Visits Authorized [id number] Closed 04/15/2013 10/12/2013 1 1 P SETTER Reason for Visit Reason Comments Swelling Encounter Details Date Type Department Care Team Description 04/15/2013 Office Visit [facility] Neal Vasquez Finger sheron int swelling, Clinic [place] DEMETRIO Cavazos right (Primary Dx) [address] [place], [place] SERVICE [address] [address] [facility] [phone] [place] [address] Social History Tobacco Use Types [...] Comments Blood Pressure 98/62 04/15/2013 9:59 AM CRIMP SETTER Pulse 68 04/15/2013 9:59 AM CRIMP SETTER Temperature 36.7 ??C (98.1 ??F) 04/15/2013 9:59 AM CRIMP SETTER Respiratory Rate - - Oxygen Saturation - - Inhaled Oxygen Concentration - - Weight 60.3 kg (133 lb) 04/15/2013 9:59 AM CRIMP SETTER Height - - Body Mass Index 23.37 12/24/2012 4:25 PM CDT documented in this encounter Patient Instructions Patient InstructionsWaNeal adames PA-C - 04/15/2013 10:19 AM CRIMP SETTER I'll let you know when I see the labs, but I do think it's worthwhile to see the frame stylist. Neal Stone P SETTER documented in this encounter Progress Notes Neal [...] fluticasone (FLONASE) 50 MCG/ACT nasal spray Active [place] 1-2 sprays into both nostrils daily ??? ALPRAZolam (XANAX) 0.25 MG tablet Active Take 1 tablet (0.25 mg) by mouth 3 times daily as needed for anxiety ??? norgestim-eth estrad triphasic (ORTHO TRI-CYCLEN, 28,) 0.18/0.215/0.25 MG-35 MCG TABS tablet Active Take 1 tablet by mouth daily. Problem list, Medication list, Allergies, and Medical/Social/Surgical histories reviewed in [facility] andupdated as appropriate. ROS: CONSTITUTIONAL:NEGATIVE [...] with Provider - prn. Neal Vasquez PA-C [facility] P SETTER documented in this encounter Nursing Notes 04/15/2013 [...] Finger joint Resu lts for this AM CRIMP SETTER swelling, right procedure ar e in the results section. SJOGRENS RO ANTIBODY Routine 04/15/2013 10:23 Finger joint Res ults for this IGG AM CRIMP SETTER swelling, right procedure ar e in the results section. SJOGRENS LA ANTIBODY Routine 04/15/2013 10:23 Finger joint Res ults for this IGG AM CRIMP SETTER swelling, right procedure ar e in the results section. RHEUMATOID FACTOR Routine 04/15/2013 10:23 Finger joint Result s for this AM CRIMP SETTER swelling, right procedure ar e in the results section. LYME IGG AND IGM Routine 04/15/2013 10:23 Finger joint Results for this SCREEN AM CRIMP SETTER swelling, right procedure ar e in the results section. ERYTHROCYTE Routine 04/15/2013 10:23 Finger joint Results for this SEDIMENTATION RATE AM CRIMP SETTER swelling, right proced ure are in AUTO the results section. CRP INFLAMMATION Routine 04/15/2013 10:23 Finger joint Results for this AM CRIMP SETTER swelling, right procedure ar e in the results section. ANTINUCLEAR ANTIBODY Routine 04/15/2013 10:23 Finger joint Res ults for this SCREEN BY EIA AM CRIMP SETTER swelling, right procedure a re in the results section. documented in this encounter Results Sjogrens ro antibody IgG (04/15/2013 10:23 AM CRIMP SETTER) athologist Signature SSA (RO) 2 EAGAR Antibody IgG [facility] Comment: Reference range: [...] of progressive systemic sclerosis (PSS). Performed by [facility], [address] [place] [address] www.[email or web address], Eladio Luevano MD, L ab. Director Specimen Anatomical Collection Method Collection Time Receive d Time (Source) Location / / Volume Laterality Blood specimen 04/15/2013 10:23 3 (specimen) AM CRIMP SETTER 10:24 AM CRIMP SETTER Neal Vasquez PA-C LAB - BLOOD ORDERABLES Performing Organization Address [facility] Phon e Number [facility] [address] [place], [place] [address] Sjogrens la antibody IgG (04/15/2013 10:23 AM CRIMP SETTER) athologist Signature SSB (LA) 0 [facility] Antibody IgG [facility] Comment: Reference range: 0 to 40 [...] (PSS) also have this antibody. Performed by [facility], [address] [place] [address] www[employer], Eladio Luevano MD, L ab. Director Specimen Anatomical Collection Method Collection Time Receive d Time (Source) Location / / Volume Laterality Blood specimen 04/15/2013 10:23 3 (specimen) AM CRIMP SETTER 10:24 AM CRIMP SETTER Neal Vasuqez PA-C LAB - BLOOD ORDERABLES Performing Organization Address [facility]/ZIP Code Phon e Number [facility] [address] [place], [place] [address] Antinuclear antibody screen by EIA (04/15/2013 10:23 AM CRIMP SETTER) [facility] gist Method Time Signature PAMELA Screen by <1.0 <1.0 [facility] EIA Interpretation: ??Negative [facility] Specimen Anatomical Collection Method Collection Time Receive d Time (Source) Location / / Volume Laterality Blood specimen 04/15/2013 10:23 3 (specimen) AM CRIMP SETTER 10:24 AM CRIMP SETTER Neal Vasquez PA-C LAB - BLOOD ORDERABLES Performing Organization Address City/[facility]/ZIP Code Phon e Number [address] LABS Rheumatoid factor (04/15/2013 10:23 AM CRIMP SETTER) P athologist Signature Rheumatoid <20 <20 IU/mL [facility] Specimen Anatomical Collection Method Collection Time Receive d Time (Source) Location / / Volume Laterality Blood specimen 04/15/2013 10:23 3 (specimen) AM CRIMP SETTER 10:24 AM CRIMP SETTER Neal Vasquez PA-C LAB - BLOOD ORDERABLES Performing Organization Address City/[facility]/ZIP Code Phon e Number [address] LABS Cyclic Citrullinated Peptide IgG IgA (04/15/2013 10:23 AM CRIMP SETTER) Patholo gist Method Time Signature Cyclic Cit <20 <20 UNITS [facility] Pept IgG/IgA Interpretation: ??Negative [facility] Specimen Anatomical Collection Method Collection Time Receive d Time (Source) Location / / Volume Laterality Blood specimen 04/15/2013 10:23 3 (specimen) AM CRIMP SETTER 10:24 AM CRIMP SETTER Neal Vasquez PA-C LAB - BLOOD ORDERABLES Performing Organization Address City/[facility]/ZIP Code Phon e Number [address] LABS CRP inflammation (04/15/2013 10:23 AM CRIMP SETTER) Analysis Performed At Patho logist Time Signature CRP Inflammation <5.0 0.0 - 8.0 [facility] mg/L [facility] Specimen Anatomical Collection Method Collection Time Receive d Time (Source) Location / / Volume Laterality Blood specimen 04/15/2013 10:23 3 (specimen) AM CRIMP SETTER 10:24 AM CRIMP SETTER Neal Vasquez PA-C LAB - BLOOD ORDERABLES Performing Organization Address City/State/ZIP Code Phon e Number [facility] [address] [place] [address] [facility] ESR: Erythrocyte sedimentation rate (04/15/2013 10:23 AM CRIMP SETTER) P athologist Signature Sed Rate 10 0 - 20 mm/h [facility] Specimen Anatomical Collection Method Collection Time Receive d Time (Source) Location / / Volume Laterality Blood specimen 04/15/2013 10:23 3 (specimen) AM CRIMP SETTER 10:24 AM CRIMP SETTER Neal Vasquez PA-C LAB - BLOOD ORDERABLES Performing Organization Address City/[facility]/ZIP Code Phon e Number [facility] [address] [place], [place] [address] Lyme IgG and IgM screen (04/15/2013 10:23 AM CRIMP SETTER) Component Value Ref Test Analysis Performed At Patholo gist Range Method Time Signature Specimen Serum [facility] Lyme Screen IgG Negative NEG [facility] and IgM Test value: <0.75....Interp retation: Negative....If you highly suspect Lyme MICROBIOLOGY disease, consider submitting a repeat specimen in 4 to 6 we eks. Specimen Anatomical Collection Method Collection Time Receive d Time (Source) Location / / Volume Laterality Blood specimen 04/15/2013 10:23 3 (specimen) AM CRIMP SETTER 10:24 AM CRIMP SETTER Neal Vasquez PA-C LAB - BLOOD ORDERABLES Performing Organization Address City/[facility]/ZIP Code Phon e Number [address] [address] [facility] [address] [place], [place] [address] [facility] MICROBIOLOGY documented in this encounter Visit Diagnoses Diagnosis Finger joint swelling, right - Primary documented in this encounter Care Teams Saw Tailer Relationship Specialty Start Date End Date Neal Vasquez PA-C PCP - General Family Practice 11/27/11 07/28/[address] [address] documented as of this encounter
[2022-03-05 02:01] LABS: Aspartate Amino Transferase* 22 U/L (12-35); Carbon Dioxide* 23 mmol/L (20-32); Creatinine* 0.8 mg/dL (0.5-1.5); Est. Creatinine Clearance* 77.33; Estimated Glomerular Filt Rate 95 ml/min; Total Protein* 7.5 g/dL (6.0-8.3)
--- OUTSIDE RECORDS SUMMARY | 2022-03-05 02:01 | XMS_ITS | Encounter Summary ---
:1980 Author Organization [place] Address [address] [place] [address] Care Team Providers Name Role Phone None Primary Care Provider Unavailable Encounter Details Date Type Department Care Team Description 07/10/2005 Historic Ink Printer INTERFACED REPORT Gail Hicks MD [facility] [address] [place], [place] [address] (Wo rk) Social History Tobacco Use Types Packs/Day Years Used Date Smoking Tobacco: Never Assessed Sex Assigned at Date Recorded Female 10/26/2020 1:28 AM CDT documented as of this encounter Progress Notes Gail Hicks MD - 04/18/2011 11:36 PM MITIGATION SUPERVISOR PRELIMINARY DIAGNOSIS: 1. A 39-week . 2. [...] follow up with Dr. Soto at the [facility] in [place] in 6 weeks for a visit. GAIL HICKS MD MT: [id number] Name: BERNARDA DEAN MRN: [id number] Account: [id number] : 1980 Admit Date: Discharge Date: 07/10/2005 Document: [id number] GATION SUPERVISOR documented in this encounter Plan of Treatment Not on filedocumented as of this encounter Visit Diagnoses Not on filedocumented in this encounter Care Teams Business Development Assistant Relationship Specialty Start Date End Date None PCP - General 03/21/11 11/26/11 documented as of this encounter
--- OUTSIDE RECORDS SUMMARY | 2022-03-05 02:01 | XMS_ITS | Encounter Summary ---
:1980 Author Organization [place] Address [address] [place] [address] Care Team Providers Name Role Phone Unavailable Primary Care Provider Unavailable Encounter Details Date Type Department Care Team Description 07/07/2005 Historic Results INTERFACED REPORT Diana Hicks MD [facility] [address] [place], [place] [address] (Wo rk) Social History Tobacco Use Types Packs/Day Years Used Date Smoking Tobacco: Never Assessed Sex Assigned at Date Recorded Female 10/26/2020 1:28 AM CDT documented as of this encounter Plan of Treatment Not on filedocumented as of this encounter Procedures Procedure Name Priority Date/Time Associated Comments Diagnosis HEMOGLOBIN STAT 07/07/2005 9:07 PM Results f or this WOODWORKER procedure are i n the results section. ABO/RH TYPE AND SCREEN STAT 07/07/2005 9:07 PM Results for this WOODWORKER procedure are i n the results section. HEMOGRAM DIFFERENTIAL STAT 07/07/2005 7:57 PM Results for this AND PLATELET WOODWORKER procedure are i n the results section. UA MACROSCOPIC WITH Routine 07/07/2005 7:00 PM Re sults for this REFLEX TO MICRO WOODWORKER procedure ar e in the results section. URINE MICROSCOPIC EXAM Routine 07/07/2005 7:00 PM Results for this WOODWORKER procedure are i n the results section. URINE CULTURE Routine 07/07/2005 7:00 PM Results for this WOODWORKER procedure are i n the results section. HISTOPATHOLOGY Routine 07/07/2005 12:00 Results f or this AM WOODWORKER procedure are i n the results section. documented in this encounter Results Hemoglobin (07/07/2005 9:07 PM WOODWORKER) P athologist Signature Hemoglobin 13.3 11.7 - 15.7 MISYS g/dL Specimen Anatomical Collection Method Collection Time Receive d Time (Source) Location / / Volume Laterality 07/07/2005 9:07 PM 6 9:07 WOODWORKER PM WOODWORKER Gail Hicks MD LAB - BLOOD ORDERABLES Performing Organization Address City/State/ZIP Code Phon e Number MISYS ABO/Rh type and screen (07/07/2005 9:07 PM WOODWORKER) Analysis Performed At Patho logist Time Signature ABO A MISYS RH(D) Pos MISYS Antibody Neg MISYS Screen Specimen 07/10/2005 MISYS Expires Specimen Anatomical Collection Method Collection Time Receive d Time (Source) Location / / Volume Laterality 07/07/2005 9:07 PM 6 9:07 WOODWORKER PM WOODWORKER Gail Hicks MD LAB - BLOOD BANK TEST ORDER Performing Organization Address City/[facility] Phon e Number MISYS (ABNORMAL) Hemogram differential and platelet (07/07/2005 7:57 PM WOODWORKER) Patholo gist Method Time Signature MCV 94 [...] Volume Laterality 07/07/2005 7:57 PM 6 7:47 WOODWORKER PM WOODWORKER Gail Hicks MD LAB - BLOOD ORDERABLES Performing Organization Address [facility] Phon e Number MISYS (ABNORMAL) UA macroscopic with reflex to micro (07/07/2005 7:00 PM WOODWORKER) [facility] [email or web address].me Method Time Signature Source Midstream MISYS Urine Color Urine Yellow MISYS Appearance Urine Cloudy MISYS Glucose Urine Negative NEG mg/dL MISYS Bilirubin Urine Negative NEG MISYS Ketones Urine Negative NEG mg/dL MISYS Specific [place] 1.015 1.003 - MISYS Urine 1.035 Blood [...] Volume Laterality 07/07/2005 7:00 PM 6 7:28 WOODWORKER PM WOODWORKER Gail Hicks MD LAB - URINE ORDERABLES Performing Organization Address [facility] Phon e Number MISYS (ABNORMAL) Microscopic exam urine (07/07/2005 7:00 PM WOODWORKER) [facility] TLBX.me Method Time Signature WBC Urine 10-25 (A) 0 - 2 MISYS /HPF RBC Urine O - 2 0 - 2 MISYS /HPF Squamous Moderate (A) FEW /LPF MISYS Epithelial /LPF Urine Specimen Anatomical Collection Method Collection Time Receive d Time (Source) Location / / Volume Laterality 07/07/2005 7:00 PM 6 8:06 WOODWORKER PM WOODWORKER Gail Hicks MD LAB - URINE ORDERABLES Performing Organization Address [facility] Phon e Number MISYS Urine culture (07/07/2005 7:00 PM WOODWORKER) [facility] Method Time Signature Specimen Midstream MISYS Description Urine Culture Micro 10 to 50,000 MISYS colonies/mL Multiple species present, probable perineal Comment: contamination. Micro Report Status FINAL [id number] MISYS Specimen Anatomical Collection Method Collection Time Receive d Time (Source) Location / / Volume Laterality 07/07/2005 7:00 PM 6 8:07 WOODWORKER PM WOODWORKER Gail Hicks MD LAB - MICRO GENERAL ORDERABL ES Performing Organization Address City/State/ZIP Code Phon e Number MISYS Histopathology (07/07/2005 12:00 AM WOODWORKER) Component Value Ref Test Analysis Performed At [facility] Range Method Time Signature Copath Report CASE: [id number] ^ COPATH Patient Name: BERNARDA DEAN MR#: [id number] Specimen #: [id number] Collected: 07/07/2005 Received: 07/08/2005 Reported: 07/10/2005 16:57 [...] section, it contai ns three blood vessels. ??Faculty Research Physician sections are submitted. SUMMARY OF SECTIONS: 1. [...] inflammatory change. ELDA/manpreet DT/07-10-05 TESTING LAB LOCATION: [facility] [address], [place] ??[id number] COLLECTION SITE: Client: [facility] Location: OB (R) Specimen (Source) Anatomical Collection Method Collection Time Re ceived Time Location / / Volume Laterality 07/07/2005 07/10/2005 4:57 PM WOODWORKER Gail Hicks MD LAB - COPATH SPECIAL DIAG OR DERABLES Performing Organization Address City/State/ZIP Code Phon e Number COPATH documented in this encounter Visit Diagnoses Not on filedocumented in this encounter
--- OUTSIDE RECORDS SUMMARY | 2022-03-05 02:01 | XMS_ITS | Encounter Summary ---
:1980 Author Organization [place] Address [address] [place] [address] Care Team Providers Name Role Phone Unavailable Primary Care Provider Unavailable Encounter Details Date Type Department Care Team Description 07/10/2005 Historic Results INTERFACED REPORT Diana Patel MD [facility] [address] [place], [place] [address] (Wo rk) Social History Tobacco Use Types Packs/Day Years Used Date Smoking Tobacco: Never Assessed Sex Assigned at Date Recorded Female 10/26/2020 1:28 AM CDT documented as of this encounter Plan of Treatment Not on filedocumented as of this encounter Procedures Procedure Name Priority Date/Time Associated Diagnosis Comme nts HEMOGLOBIN Routine 07/10/2005 6:47 AM Results f or this TOP EXECUTIVE procedure are i n the results section . documented in this encounter Results (ABNORMAL) Hemoglobin (07/10/2005 6:47 AM TOP EXECUTIVE) P athologist Signature Hemoglobin 10.8 (L) 11.7 - 15.7 MISYS g/dL Specimen (Source) Anatomical Collection Method Collection Time Re ceived Time Location / / Volume Laterality 07/10/2005 6:47 AM 6 TOP EXECUTIVE Gail Patel MD LAB - BLOOD ORDERABLES Performing Organization Address City/State/ZIP Code Phon e Number MISYS documented in this encounter Visit Diagnoses Not on filedocumented in this encounter
--- OUTSIDE RECORDS SUMMARY | 2022-03-05 02:01 | XMS_ITS | Encounter Summary ---
:1980 Author Organization [place] Address [address] [place] [address] Care Team Providers Name Role Phone Unavailable Primary Care Provider Unavailable Encounter Details Date Type Department Care Team Description 09/25/2008 Discharge Summary [facility] Juan Benton (Gallery Or Museum Technician) [facility] MD Andres Results [address] [place], [place] [address] (Wo rk) Social History [...] [id number] Name: BERNARDA DEAN MRN: [id number] Account: [id number] : 1980 Admit Date: [id number] Discharge Date: 09/28/2008 Document: [id number] documented in this encounter Plan of Treatment Not on filedocumented as of this encounter Visit Diagnoses Not on filedocumented in this encounter
--- OUTSIDE RECORDS SUMMARY | 2022-03-05 02:01 | XMS_ITS | Encounter Summary ---
:1980 Author Organization [place] Address [address] [place] [address] Care Team Providers Name Role Phone None Primary Care Provider Unavailable Encounter Details Date Type Department Care Team Description 07/07/2005 Historic Home Care Aide INTERFACED REPORT Gail Hicks MD [facility] [address] [place], [place] [address] (Wo rk) Social History Tobacco Use Types Packs/Day Years Used Date Smoking Tobacco: Never Assessed Sex Assigned at Date Recorded Female 10/26/2020 1:28 AM CDT documented as of this encounter Progress Notes Gail Hicks MD - 04/18/2011 11:43 PM CARPENTER'S ASSISTANT PRELIMINARY PREOPERATIVE DIAGNOSIS: 1. A 39-week . [...] This incision was extended bilaterally by the magnetic tape composer operator's hands. The 's head was then [...] GAIL HICKS MD MT: [id number] Name: BERNARDA DENA MRN: [id number] Account: [id number] : 1980 Procedure Date: 07/07/2005 Document: [id number] ENTER'S ASSISTANT documented in this encounter Plan of Treatment Not on filedocumented as of this encounter Visit Diagnoses Not on filedocumented in this encounter Care Teams Boat Designer Relationship Specialty Start Date End Date None PCP - General 03/21/11 11/26/11 documented as of this encounter
--- OUTSIDE RECORDS SUMMARY | 2022-03-05 02:01 | XMS_ITS | Encounter Summary ---
:1980 Author Organization [place] Address [address] [place] [address] Care Team Providers Name Role Phone Unavailable Primary Care Provider Unavailable Encounter Details Date Type Department Care Team Description 09/26/2008 Historic Notes INTERFACED REPORT Interface, Transcript MD sandy Social History Tobacco Use Types Packs/Day Years Used Date Smoking Tobacco: Never Assessed Sex Assigned at Date Recorded Female 10/26/2020 1:28 AM CDT documented as of this encounter Progress Notes Interface, Billet Heater - 07/31/2010 3:20 AM CDT Progress Note [...]
--- OUTSIDE RECORDS SUMMARY | 2022-03-05 02:01 | XMS_ITS | Encounter Summary ---
:1980 Author Organization [place] Address [address] [place] [address] Care Team Providers Name Role Phone Unavailable Primary Care Provider Unavailable Encounter Details Date Type Department Care Team Description 09/25/2008 Operative Report [facility] Juan Benton (Shrimp Packer) [facility] MD Andres Results [address] [place], [place] [address] (Wo rk) Social History [...] MD MT: [id number] Name: BERNARDA DEAN Account: [id number] : 1980 Procedure Date: 09/25/2008 Document: [id number] documented in this encounter Plan of Treatment Not on filedocumented as of this encounter Visit Diagnoses Not on filedocumented in this encounter
--- OUTSIDE RECORDS SUMMARY | 2022-03-05 02:01 | XMS_ITS | Encounter Summary ---
:1980 Author Organization [place] Address [address] [place] [address] Care Team Providers Name Role Phone Unavailable Primary Care Provider Unavailable Encounter Details Date Type Department Care Team Description 07/08/2005 Historic Results INTERFACED REPORT Diana Patel MD [facility] [address] [place], [place] [address] (Wo rk) Social History Tobacco Use Types Packs/Day Years Used Date Smoking Tobacco: Never Assessed Sex Assigned at Date Recorded Female 10/26/2020 1:28 AM CDT documented as of this encounter Plan of Treatment Not on filedocumented as of this encounter Procedures Procedure Name Priority Date/Time Associated Diagnosis Comme nts HEMOGLOBIN Routine 07/08/2005 7:11 AM Results f or this PORCELAIN TURNER procedure are i n the results section . documented in this encounter Results (ABNORMAL) Hemoglobin (07/08/2005 7:11 AM PORCELAIN TURNER) P athologist Signature Hemoglobin 11.2 (L) 11.7 - 15.7 MISYS g/dL Specimen (Source) Anatomical Collection Method Collection Time Re ceived Time Location / / Volume Laterality 07/08/2005 7:11 AM 6 PORCELAIN TURNER Gail Patel MD LAB - BLOOD ORDERABLES Performing Organization Address City/State/ZIP Code Phon e Number MISYS documented in this encounter Visit Diagnoses Not on filedocumented in this encounter
--- OUTSIDE RECORDS SUMMARY | 2022-03-05 02:01 | XMS_ITS | Encounter Summary ---
:1980 Author Organization [place] Address [address] [place] [address] Care Team Providers Name Role Phone Unavailable Primary Care Provider Unavailable Encounter Details Date Type Department Care Team Description 09/27/2008 Historic Notes INTERFACED REPORT Interface, Transcript onMD Social History Tobacco Use Types Packs/Day Years Used Date Smoking Tobacco: Never Assessed Sex Assigned at Date Recorded Female 10/26/2020 1:28 AM CDT documented as of this encounter Progress Notes Interface, Substation Supervisor - 07/31/2010 3:17 AM CDT Continues to nurse well per mom. Encouraged mother to call us Encouraged mother to call us PRN.. [Signature] Author: SARAN WELLS (RN) [Signed 15:25] documented in this encounter Plan of Treatment Not on filedocumented as of this encounter Visit Diagnoses Not on filedocumented in this encounter
--- OUTSIDE RECORDS SUMMARY | 2022-03-05 02:01 | XMS_ITS | Encounter Summary ---
:1980 Author Organization [place] Address [address] [place] [address] Care Team Providers Name Role Phone Unavailable Primary Care Provider Unavailable Encounter Details Date Type Department Care Team Description 09/26/2008 Historic Results INTERFACED REPORT Russell Soto MD [address] [place], [place] [address] (Wo rk) Social History [...]
--- OUTSIDE RECORDS SUMMARY | 2022-03-05 02:01 | XMS_ITS | Encounter Summary ---
:1980 Author Organization [place] Address [address] [place] [address] Care Team Providers Name Role Phone Unavailable Primary Care Provider Unavailable Encounter Details Date Type Department Care Team Description 09/24/2008 Historic Results INTERFACED REPORT Russell Soto MD [address] [place], [place] [address] (Wo rk) Social History [...]
[2022-03-05 02:02] LABS: Alanine Aminotransferase* 12 U/L (4-35); Alkaline Phosphatase* 62 U/L (40-150); Blood Urea Nitrogen* 13 mg/dL (5-24); Calcium* 8.1 mg/dL (8.4-10.6); Ethanol* 0.22 % (0.01-0.03); Glucose* 108 mg/dL (60-115)
[2022-03-05 02:03] LABS: Bilirubin Total* < 0.1 mg/dL (0.1-1.5)
--- NOTE | 2022-03-05 02:14 | CRLHL7_ITS ---
For Patients: As a result of the Century Cures Act, medical imaging exams and procedure reports are released immediately into your electronic medical record. You may view this report before your referring provider. If you have questions, please contact your health care provider. INDICATION: Trauma. TECHNIQUE: Multiplanar multisequence noncontrast MR images acquired through the cervical spine. COMPARISON: CT cervical spine 03/05/2022. FINDINGS: Slight reversal of the cervical lordosis. Vertebral heights maintained. No acute fracture, spondylolisthesis, or acute ligamentous injury. No concerning T1 hypointense marrow replacing lesions. The cervical cord is normal in signal intensity. C2-3: No spinal canal or neural foramina narrowing. C3-4: No spinal canal or neural foraminal narrowing. C4-5: Disc degeneration. Shallow posterior disc bulge. Small C5 superior endplate Schmorl`s node associated with mild marrow edema. Minimal spinal canal narrowing. No neural foraminal narrowing. C5-6: Disc degeneration. Annular bulge. No spinal canal or neural foraminal narrowing. C6-7: No spinal canal or neural foraminal narrowing. C7-T1: No spinal canal or neural foraminal narrowing. No spinal canal or neural foraminal narrowing in the visualized upper thoracic spine. IMPRESSION: 1. No acute fracture, traumatic subluxation, or acute ligamentous injury. 2. Small C5 superior endplate Schmorl`s node associated with mild reactive marrow edema. 3. Mild spondylosis at C4-5 and C5-6 without spinal canal or neural foraminal stenosis. Dictated by Prasanth Davalos MD @ 03/05/2022 8:35:52 AM (Electronically Signed)
[2022-03-05 02:39] LABS: Ionized Calcium* 1.04 mmol/L (1.11-1.30)
--- NOTE | 2022-03-05 05:33 | ED.NURSE ---
Patient arrived via EMS [id number] with C-collar in place. Patient alert, airway patent. Chest rise symmetrical, no increased work out breathing, lung sounds clear bilateral. Skin warm, dry, and pink. Initial GCS 14, patient did not remember events prior to fall. Pupils PERRLA. Initially does have some blurry vision. Laceration to middle of forehead. No other obvious skin issues. Warm blankets applied. Taken to CT. [address], at bedside. Laceration to forehead sutured by . C-Collar in place. A/O x4. PERRLA. Pt denies blurry vision. Equal strengths in all extremities, CMS intact. Lung sounds clear bilaterally. C/o nausea, IV Zofran given. Labs drawn, placed on monitoring engineer. Allowed to rest.
--- NOTE | 2022-03-05 07:21 | ED.NURSE ---
report received, pt at mri
--- NOTE | 2022-03-05 07:45 | ED.NURSE ---
pt back from mri. no complaints, denies pain. at bedside.
== END 2022-03-05 08:59 | disposition home or self-care (01) ==
PROVIDERS: Emergency Provider Family Medicine
DX: R55 Syncope and collapse (principal); S01.01XA Laceration without foreign body of scalp, initial encounter; W18.39XA Other fall on same level, initial encounter; Y93.9 Activity, unspecified; Y92.012 Bathroom of single-family (private) house as the place of occurrence of the external cause; Y99.9 Unspecified external cause status; F10.129 Alcohol abuse with intoxication, unspecified
CPT/HCPCS: 12001; 36415; 70450; 72125; 72141; 80053; 82077; 82330; 83605; 85025; 94761; 96361; 96374; 96376; 99284; 99285; 99291; J2405; J7030